=== PATIENT | female | born 1925 | race Caucasian/White ===

== ENCOUNTER 2016-06-10 16:24 | Inpatient (IN) | payer OTHER ==
[2016-06-10 16:46] VITALS: BMI 25.7
--- NOTE | 2016-06-10 17:11 | PDOC ---
History of Present Illness - General History Source: Group Home Records, Old Records Exam Limitations: Dementia - History of Present Illness Initial Comments: 06/10/16 17:57 The patient is an 89 year old female, with a significant past medical history of hypertension, hyperlipidemia, hypothyroidism, hyperparathyroidism, coronary artery disease s/p CABG s/p stent, COPD and dementia, who presents to the emergency department via EMS from [facility] for evaluation. group home records report that the patient had a fever this morning with a maximum temperature recorded to be 101.1 degrees. group home staff report that the patient had 4-5 episodes of vomiting since this morning. The patient was also noted to be complaining of diffuse abdominal discomfort and urine discomfort today. The patient was sent to the ED for further evaluation. The patients history is provided by skilled nursing records and old records due to the patient s baseline dementia. Allergies: Penicillins. Past Surgical History: CABG, Stent. Social History: Non smoker. Denies alcohol or drug use. PCP: Dr. Alejo <Karla Nunez - Last Filed: 06/10/16 23:45> - General History Source: Patient Exam Limitations: No Limitations <Neville Guthrie - Last Filed: 06/10/16 23:49> - General Chief Complaint: Nausea/Vomiting Stated Complaint: VOMITING Time Seen by Provider: 06/10/16 16:30 Past History <Karla Nunez - Last Filed: 06/10/16 23:45> - Past Medical History Anemia: Yes Cardiac Disorders: Yes COPD: Yes GI Disorders: Yes (Constipation, GERD) Disorders: Yes (Dysuria, UTIs) HTN: Yes Hypercholesterolemia: Yes Psychiatric Problems: Yes (Mood Disorder) Suicide Attempt (Hx): No Thyroid Disease: Yes (HYPO) - Surgical History Cardiac Surgery: Yes (BYPASS 1960) - Immunization History Immunization Up to Date: Yes - Psycho/Social/Smoking Cessation Hx Anxiety: No Suicidal Ideation: No Smoking Status: No Smoking History: Unknown if ever smoked Have you smoked in the past 12 months: No Number of Cigarettes Smoked Daily: 0 Cigars Per Day: 0 Information on smoking cessation initiated: No Hx Alcohol Use: No Drug/Substance Use Hx: No Substance Use Type: None Hx Substance Use Treatment: No <Neville Guthrie - Last Filed: 06/10/16 23:49> - Past Medical History Allergies/Adverse Reactions: Allergies Allergy/AdvReac Type Severity Reaction Status Date / Time Penicillins Allergy Verified 06/10/16 16:40 Home Medications: Ambulatory Orders Aa/Hydrolyzed Collagen, Whey [Lps Neutral Flavor Liquid] 30 ml PO DAILY Acetaminophen [Tylenol] 650 mg PO Q6H 06/10/16 Alendronate Na [Fosamax] 70 mg PO Q7D 06/10/16 Aspirin [ASA -] 81 mg PO ONCE 06/10/16 Atorvastatin Ca [Lipitor] 10 mg PO HS 06/10/16 Cholecalciferol (Vitamin D3) [Vitamin D3] 2,000 unit PO DAILY 06/10/16 Cyanocobalamin [Vitamin B12 -] 1,000 mcg PO DAILY 06/10/16 Furosemide [Lasix -] 40 mg PO DAILY 06/10/16 L.acidoph,Paracasei, B.lactis [Probiotic] 1 each PO BID 06/10/16 Levothyroxine [Synthroid -] 50 mcg PO AM 06/10/16 [place]-3/Dha/Epa/Fish Oil [Fish Oil 500 mg Softgel] 4 each PO BID 06/10/16 Potassium Citrate [Potassium Citrate ER] 20 meq PO DAILY 06/10/16 Sennosides [Senna] 2 tab PO HS 06/10/16 Review of Systems - Review of Systems Able to Perform ROS?: No Comments:: 06/10/16 17:14 Unable to perform ROS secondary to the patients baseline clinical condition. <Karla Nunez - Last Filed: 06/10/16 23:45> *Physical Exam - Vital Signs Last Vital Signs Temp Pulse Resp BP Pulse Ox 99.5 F 102 H 18 157/62 100 06/10/16 16:25 06/10/16 16:25 06/10/16 16:25 06/10/16 16:25 06/10/16 16:25 - Physical Exam Comments: 06/10/16 17:25 GENERAL: Awake, in no acute distress. HEAD: No signs of trauma. EYES: PERRLA, EOMI, sclera anicteric, conjunctiva clear. ENT: Auricles normal inspection, hearing grossly normal, nares patent, oropharynx clear without exudates. Moist mucosa. NECK: Normal ROM, supple, no lymphadenopathy, JVD, or masses. LUNGS: Tachypneic to the 20s. Breath sounds equal, clear to auscultation bilaterally. No wheezes, and no crackles. HEART: Regular rate and rhythm, normal S1 and S2, no murmurs, rubs or gallops. ABDOMEN: Soft, nontender, normoactive bowel sounds. No guarding, no rebound. No masses. EXTREMITIES: Normal range of motion, no edema. No clubbing or cyanosis. No cords , erythema, or tenderness. NEUROLOGICAL: Cranial nerves II through XII intact. Normal speech, gait deferred. SKIN: Warm, dry, normal turgor, no rashes or lesions noted. <Karla Nunez - Last Filed: 06/10/16 23:45> - Vital Signs Last Vital Signs Temp Pulse Resp BP Pulse Ox 99.5 F 102 H 18 157/62 100 06/10/16 16:25 06/10/16 16:25 06/10/16 16:25 06/10/16 16:25 06/10/16 16:25 <Neville Guthrie - Last Filed: 06/10/16 23:49> Heart Score/ECG Review #1 ECG reviewed & interpreted by me at: 16:40 06/10/16 17:08 NSR 101, LVH, TWI V2, no std/joselito, T wave flat V4-V6, QTC 459 msec <Neville Guthrie - Last Filed: 06/10/16 23:49> ED Treatment Course - LABORATORY CBC & Chemistry Diagram: 06/10/16 18:11 06/10/16 18:11 <Karla Nunez - Last Filed: 06/10/16 23:45> - LABORATORY CBC & Chemistry Diagram: 06/10/16 18:11 06/10/16 18:11 - RADIOLOGY Radiology Studies Ordered: Category Date Time Status ABDOMEN & PELVIS CT WITH CONTR [CT] Stat CT Scan 06/10/16 17:05 Ordered CHEST X-RAY PORTABLE* [RAD] Stat Radiology 06/10/16 17:04 Ordered <Neville Guthrie - Last Filed: 06/10/16 23:49> Medical Decision Making - Medical Decision Making 06/10/16 22:24 EXAM: CT ABDOMEN AND PELVIS WITHOUT CONTRAST Reviewed By: Dr. Kelly Mcintosh IMPRESSION: Partly seen density left lower lobe, correlate clinically for infectious consolidation versus partial atelectasis. Small left pleural effusion /pleural thickening. Median sternotomy. 3.2 cm infrarenal abdominal aortic aneurysm. 2 mm stone proximal left ureter causing minimal to moderate hydrophrosis. Punctate stones left kidney. Unremarkable pancreas. Cholelithiasis. No bowel obstruction, colitis, or free air. Normal appendix. Diverticulosis colon without acute diverticulitis. Trace fluid/edema left paracolic space. Small right inguinal region hernia containing fat. Exam limited by motion artifact. Call placed to Dr. Dixon at 23:20. Referred to answering service, awaiting callback. Dr. Ledesma returned call at 23:45, case discussed. <Karla Nunez - Last Filed: 06/10/16 23:45> - Medical Decision Making 06/10/16 17:08 A portion of this note was documented by scribe services under my direction. I have reviewed the details of the note, within reason, and agree with the documentation with the following case summary and management plan written by me. Patient treated in the ED. Nursing notes are reviewed and incorporated into the medical decision-making. Vital signs reviewed. Peripheral IV access obtained by the nurse, laboratory studies are drawn and sent, reviewed and interpreted by myself. Vital Signs Temp Pulse Resp BP Pulse Ox 99.5 F 102 H 18 157/62 100 06/10/16 16:25 06/10/16 16:25 06/10/16 16:25 06/10/16 16:25 06/10/16 16:25 89-year-old female with past medical history of hyperparathyroidism, hypercalcemia, hyperlipidemia, hypothyroidism, hypertension, coronary artery disease, COPD, dementia presents with nausea vomiting 1 since this morning. Patient's history taken from skilled nursing notes as the patient's dementia is limiting patient's history. The patient's temperature had risen with a MAXIMUM TEMPERATURE of 101.1 at 3 PM. She also complained a urine discomfort and abdominal pain. She is also complaining about respiratory symptoms as well. Adult sepsis protocol initiated. We'll obtain labs and urinalysis and chest x- ray. Patient's abdomen pelvis is tender we'll also perform a CT scan to further evaluate. I discussed the case with Dr. Alejo, and she requested hospitalist admission to the hospital. 06/10/16 23:18 CBC, BMP 06/10/16 18:11 06/10/16 18:11 CMP Sodium 139 mmol/L (136-145) 06/10/16 18:11 Potassium 4.0 mmol/L (3.5-5.1) 06/10/16 18:11 Chloride 101 mmol/L (98-107) 06/10/16 18:11 Carbon Dioxide 25 mmol/L (21-32) 06/10/16 18:11 Anion Gap 13 (8-16) 06/10/16 18:11 BUN 21 mg/dL (7-18) H D 06/10/16 18:11 Creatinine 1.7 mg/dL (0.55-1.02) H D 06/10/16 18:11 Creat Clearance w eGFR 28.36 (>60) 06/10/16 18:11 Random Glucose 124 mg/dL (74-106) H 06/10/16 18:11 Lactic Acid 4.373 mmol/L (0.4-2.0) H* 06/10/16 21:45 Calcium 10.6 mg/dL (8.5-10.1) H 06/10/16 18:11 Total Bilirubin 1.6 mg/dL (0.2-1.0) H D 06/10/16 18:11 AST 26 U/L (15-37) D 06/10/16 18:11 ALT 32 U/L (12-78) 06/10/16 18:11 Alkaline Phosphatase 114 U/L (45-117) 06/10/16 18:11 Creatine Kinase 61 IU/L (26-192) 06/10/16 18:11 Troponin I 0.13 ng/ml (0.00-0.05) H 06/10/16 18:11 Total Protein 6.8 g/dl (6.4-8.2) 06/10/16 18:11 Albumin 3.3 g/dl (3.4-5.0) L 06/10/16 18:11 Urine Test Results Urine Color Yellow 06/10/16 19:04 Urine Appearance Turbid 06/10/16 19:04 Urine pH 5.0 (5.0-8.0) 06/10/16 19:04 Ur Specific [place] 1.015 (1.001-1.035) 06/10/16 19:04 Urine Protein 2+ (NEGATIVE) H 06/10/16 19:04 Urine Glucose (UA) Negative (NEGATIVE) 06/10/16 19:04 Urine Ketones Negative (NEGATIVE) 06/10/16 19:04 Urine Blood 3+ (NEGATIVE) H 06/10/16 19:04 Urine Nitrite Negative (NEGATIVE) 06/10/16 19:04 Urine Bilirubin Negative (NEGATIVE) 06/10/16 19:04 Ur Leukocyte Esterase 3+ (NEGATIVE) H 06/10/16 19:04 Urine RBC 103 /hpf (0-3) 06/10/16 19:04 Urine WBC 1185 /hpf (3-5) 06/10/16 19:04 Urine Bacteria Many /hpf (NONE SEEN) 06/10/16 19:04 Urine Mucus Few 06/10/16 19:04 CT scan demonstrates: 2 mm stone proximal left ureter causing minimal to moderate hydronephrosis. Given elevated lactate and white count with a positive urine and hydronephrosis , we'll need to treat this as an infected obstructed kidney stone. Dr. Hopkins paged for potential ureteral stenting. Primary cardiology reviewed demonstrates drug resistance. Frankl mycin and aztreonam initiated. Case discussed with Dr. Lam who accepts the patient to telemetry admission. Case discussed in detail with admitting physician including history, physical exam and ancillary studies. Admitting physician has assumed care for the patient, will follow all pending diagnostics and will complete the evaluation and treatment. 06/10/16 23:[address] Ledesma. Likely will need percutaneous drainage. Will see patient in hospital. <Neville Guthrie - Last Filed: 06/10/16 23:49> *DC/Admit/Observation/Transfer - Attestations Scribe Attestion: 06/10/16 17:13 Documentation prepared by aKrla Nunez, acting as medical concierge for Neville Guthrie MD. <Karla Nunez - Last Filed: 06/10/16 23:45> - Discharge Dispostion Admit: Yes <Neville Guthrie - Last Filed: 06/10/16 23:49> Diagnosis at time of Disposition: Calculus of left kidney, ESBL (extended spectrum beta-lactamase) producing bacteria infection - Referrals Referrals: Raina Alejo MD [Primary Care Provider] -
[2016-06-10 18:27] LABS: MCH 31.7 pg (25.7-33.7); MCHC 34.1 g/dl (32.0-36.0); MEAN PLT VOLUME 9.1 fl (7.5-11.1); PLATELET COUNT 182 K/MM3 (134-434); RDW 14.3 % (11.6-15.6); WHITE BLOOD COUNT 22.4 K/mm3 (4.0-10.0)
[2016-06-10 18:42] LABS: INR 1.2 (0.82-1.09); PROTHROMBIN TIME (PATIENT) 13.2 SEC (9.98-11.88)
[2016-06-10 18:45] LABS: ACTIVATED PTT 34.2 SECONDS (26.9-34.4)
[2016-06-10] MEDS ORDERED: LEVOFLOXACIN 500 MG IVPB 100 ML IVPB ONE ×2 (18:50→19:12)
[2016-06-10 18:56] LABS: ALBUMIN 3.3 g/dl (3.4-5.0); BILIRUBIN,TOTAL 1.6 mg/dL (0.2-1.0); CALCIUM 10.6 mg/dL (8.5-10.1); COCKROFT - GAULT 21.6155; CREATININE 1.7 mg/dL (0.55-1.02); TOT PROT 6.8 g/dl (6.4-8.2)
[2016-06-10 18:58] LABS: TROPONIN I 0.13 ng/ml (0.00-0.05)
[2016-06-10] MEDS ORDERED: SODIUM CHLORIDE 500 ML IV STA (19:03)
[2016-06-10 19:15] LABS: URINE APPEARANCE TURBID; URINE BILIRUBIN NEGATIVE (NEGATIVE); URINE BLOOD 3+ (NEGATIVE); URINE COLOR YELLOW; URINE GLUCOSE (UA) NEGATIVE (NEGATIVE); URINE KETONE NEGATIVE (NEGATIVE); URINE LEUK ESTERASE 3+ (NEGATIVE); URINE NITRITE NEGATIVE (NEGATIVE); URINE PROTEIN 2+ (NEGATIVE); URINE UROBILINOGEN NEGATIVE E.U./dl (0.2-1.0)
[2016-06-10 19:16] LABS: PLATELET ESTIMATE ADEQUATE (NORMAL); POLYCHROMASIA FEW
[2016-06-10] MEDS ORDERED: AZTREONAM 1 GM in DEXTROSE 5%-WATER - 50 ML IVPB ONE (19:16)
[2016-06-10] MEDS ORDERED: VANCOMYCIN 1,000 MG in DEXTROSE 5%-WATER - 250 ML IVPB ONE (19:16)
[2016-06-10 19:17] LABS: URINE BACTERIA MANY /hpf (NONE SEEN); URINE MUCUS FEW; URINE RBC 103 /hpf (0-3); URINE WBC 1185 /hpf (3-5)
--- NOTE | 2016-06-10 22:44 | PN ---
<Lolis Lam - Last Filed: 06/10/16 22:43> Teaching Attending Note Name of Resident: Reji Valdez <Nicole Ruiz - Last Filed: 06/11/16 01:05> Teaching Attending Note ATTENDING PHYSICIAN STATEMENT I saw and evaluated the patient. I reviewed the resident's note and discussed the case with the resident. I agree with the resident's findings and plan as documented. SUBJECTIVE: 89 yo F presents from [facility] for further evaluation. [facility] endorses patient had a fever of 101.1 and 4-5 episodes of vomiting today. Patients Hx is limited secondary to severe dementia. PMHx: hypertension, hyperlipidemia, hypothyroidism, hyperparathyroidism, coronary artery disease s/p CABG s/p stent, COPD and dementia Allergies: Levofloxacin OBJECTIVE: Last Vital Signs Temp Pulse Resp BP Pulse Ox 99.5 F 102 H 17 147/64 96 06/10/16 16:25 06/10/16 16:25 06/10/16 20:18 06/10/16 20:18 06/10/16 20:18 GENERAL: Awake, alert, and fully oriented, in no acute distress HEENT: Atraumatic. PERRLA, EOMI. Moist mucosa. No JVD LUNGS: No distress, speaks full sentences, clear to auscultation bilaterally HEART: Regular rate and rhythm, normal S1 and S2, no murmurs, rubs or gallops, peripheral pulses normal and equal bilaterally. ABDOMEN: Soft, nontender, normoactive bowel sounds. No guarding, no rebound. No masses EXTREMITIES: Normal inspection, Normal range of motion, no edema. No clubbing or Cyanosis. NEUROLOGICAL: Cranial nerves II through XII grossly intact. Normal speech, normal gait, no focal sensorimotor deficits SKIN: Warm, Dry, normal turgor, no rashes or lesions noted. CBCD WBC 22.4 K/mm3 (4.0-10.0) H D 06/10/16 18:11 RBC 4.69 M/mm3 (3.60-5.2) 06/10/16 18:11 Hgb 14.9 GM/dL (10.7-15.3) 06/10/16 18:11 Hct 43.6 % (32.4-45.2) 06/10/16 18:11 MCV 93.0 fl (80-96) 06/10/16 18:11 MCHC 34.1 g/dl (32.0-36.0) 06/10/16 18:11 RDW 14.3 % (11.6-15.6) 06/10/16 18:11 Plt Count 182 K/MM3 (134-434) 06/10/16 18:11 MPV 9.1 fl (7.5-11.1) 06/10/16 18:11 CMP Sodium 139 mmol/L (136-145) 06/10/16 18:11 Potassium 4.0 mmol/L (3.5-5.1) 06/10/16 18:11 Chloride 101 mmol/L (98-107) 06/10/16 18:11 Carbon Dioxide 25 mmol/L (21-32) 06/10/16 18:11 Anion Gap 13 (8-16) 06/10/16 18:11 BUN 21 mg/dL (7-18) H D 06/10/16 18:11 Creatinine 1.7 mg/dL (0.55-1.02) H D 06/10/16 18:11 Creat Clearance w eGFR 28.36 (>60) 06/10/16 18:11 Calcium 10.6 mg/dL (8.5-10.1) H 06/10/16 18:11 Total Bilirubin 1.6 mg/dL (0.2-1.0) H D 06/10/16 18:11 AST 26 U/L (15-37) D 06/10/16 18:11 ALT 32 U/L (12-78) 06/10/16 18:11 Alkaline Phosphatase 114 U/L (45-117) 06/10/16 18:11 Total Protein 6.8 g/dl (6.4-8.2) 06/10/16 18:11 Albumin 3.3 g/dl (3.4-5.0) L 06/10/16 18:11 ASSESSMENT AND PLAN: 1.) Pyelonephritis with sepsis secondary to UTI -NPO as per urology consult -Gentle hydration -Ertapenem bid or as per renal dosing -Flomax for stone -Coagulation profile -Type and screen -Urology consult -ID consult Documentation is prepared by Nicole Ruiz acting as medical technologist chemistry for Lolis Lam M.D.
--- NOTE | 2016-06-10 22:50 | HP ---
CHIEF COMPLAINT: Fever PCP:Melo HISTORY OF PRESENT ILLNESS: Patient is a 89 year old female with PMH of HTN, HLD, Hypothyroid, Hyperparathyroid, COPD, CAD s/p CABG/stent, Dementia & ESBL-producing UTI who presents to ED from [facility] for fever x1day. As per shelter staff (patient is unable to provide any history at present due to dementia), patient had a fever of 101.1 this afternoon. She also has had multiple episodes of vomiting as well (4 reported episodes). Staff says patient is not a reliable historian and is not very communicative, but they did not some pain during urination and some pain with abdominal palpation earlier today. No record available of how long these symptoms have been present. ER course was notable for: (1)Leukocytosis WBC 22 with elevated creatinine 1.7 (Creatinine was 1.0 last February) (2)UA: 2+ Leukocyte esterase with >1100 WBC (3)Troponin 0.13 Recent Travel: none noted by PA staff PAST MEDICAL HISTORY: as above PAST SURGICAL HISTORY: CBAG, Stent Social History: Smoking:NONE REPORTED Alcohol:NONE REPORTED Drugs:NONE REPORTED Family History: PATIENT UNABLE TO ANSWER Allergies Penicillins Allergy (Verified 06/10/16 16:40) HOME MEDICATIONS: Home Medications Medication Instructions Recorded Aa/Hydrolyzed Collagen, Whey [Lps 30 ml PO DAILY 06/10/16 Neutral Flavor Liquid] Acetaminophen [Tylenol] 650 mg PO Q6H 06/10/16 Alendronate Na [Fosamax] 70 mg PO Q7D 06/10/16 Aspirin [ASA -] 81 mg PO ONCE 06/10/16 Atorvastatin Ca [Lipitor] 10 mg PO HS 06/10/16 Cholecalciferol (Vitamin D3) 2,000 unit PO DAILY 06/10/16 [Vitamin D3] Cyanocobalamin [Vitamin B12 -] 1,000 mcg PO DAILY 06/10/16 Furosemide [Lasix -] 40 mg PO DAILY 06/10/16 L.acidoph,Paracasei, B.lactis 1 each PO BID 06/10/16 [Probiotic] Levothyroxine [Synthroid -] 50 mcg PO AM 06/10/16 [place]-3/Dha/Epa/Fish Oil [Fish Oil 4 each PO BID 06/10/16 500 mg Softgel] Potassium Citrate [Potassium 20 meq PO DAILY 06/10/16 Citrate ER] Sennosides [Senna] 2 tab PO HS 06/10/16 REVIEW OF SYSTEMS UNABLE TO BE PERFORMED DUE TO PATIENT'S MENTAL STATUS PHYSICAL EXAMINATION Vital Signs - 24 hr 06/10/16 06/10/16 16:25 20:18 Temperature 99.5 F Pulse Rate 102 H Respiratory 18 17 Rate Blood Pressure 157/62 Blood Pressure 147/64 [Arm] O2 Sat by Pulse 100 96 Oximetry (%) GENERAL: Awake, alert, but non responsive to verbal stimuli. Unable to gauge orientation, but patient is able to nod head up & down when asked if she is feeling OK HEENT: Atraumatic, EOMI, PERRLA, Vomitus noted around mouth. No lymphadenopathy noted, moist membranes. No conjunctival pallor. LUNGS: [place] sounds mildly diminished bilateral lung bases. No wheezes, and no crackles. No accessory muscle use. HEART: Regular rate and rhythm, normal S1 and S2 without murmur, rub or gallop. ABDOMEN: Soft, nontender, not distended, normoactive bowel sounds, no guarding, no rebound, no masses. UPPER EXTREMITIES: 2+ pulses, warm, well-perfused. No cyanosis. No clubbing. No peripheral edema. LOWER EXTREMITIES: 2+ pulses, warm, well-perfused. No calf tenderness. No peripheral edema. NEUROLOGICAL: Cranial nerves II-XII intact. Unable to assess speech or gait. PSYCHIATRIC: Unresponsive. Able to follow me around room with her eyes. SKIN: Warm, dry, normal turgor, no rashes or lesions noted, normal capillary refill. Laboratory Results - last 24 hr 06/10/16 06/10/16 06/10/16 17:22 17:46 18:11 WBC 22.4 H D RBC 4.69 Hgb 14.9 Hct 43.6 MCV 93.0 MCHC 34.1 RDW 14.3 Plt Count 182 MPV 9.1 Neutrophils % 79.0 D Lymphocytes % 5.0 L D Monocytes % 4.0 Band Neutrophils 12.0 H D Platelet Estimate Adequate Platelet Comment No clumping noted Polychromasia Few INR PTT (Actin FS) Sodium Potassium Chloride Carbon Dioxide Anion Gap BUN Creatinine Creat Clearance w eGFR Random Glucose Lactic Acid 3.055 H* Calcium Total Bilirubin AST ALT Alkaline Phosphatase Creatine Kinase Troponin I Total Protein Albumin Urine Color Urine Appearance Urine pH Ur Specific [place] Urine Protein Urine Glucose (UA) Urine Ketones Urine Blood Urine Nitrite Urine Bilirubin Urine Urobilinogen Ur Leukocyte Esterase Urine RBC Urine WBC Urine Bacteria Urine Mucus Blood Type O POSITIVE Antibody Screen Negative 06/10/16 06/10/16 06/10/16 18:11 18:11 19:04 WBC RBC Hgb Hct MCV MCHC RDW Plt Count MPV Neutrophils % Lymphocytes % Monocytes % Band Neutrophils Platelet Estimate Platelet Comment Polychromasia INR 1.20 H PTT (Actin FS) 34.2 D Sodium 139 Potassium 4.0 Chloride 101 Carbon Dioxide 25 Anion Gap 13 BUN 21 H D Creatinine 1.7 H D Creat Clearance w eGFR 28.36 Random Glucose 124 H Lactic Acid Calcium 10.6 H Total Bilirubin 1.6 H D AST 26 D ALT 32 Alkaline Phosphatase 114 Creatine Kinase 61 Troponin I 0.13 H Total Protein 6.8 Albumin 3.3 L Urine Color Yellow Urine Appearance Turbid Urine pH 5.0 Ur Specific [place] 1.015 Urine Protein 2+ H Urine Glucose (UA) Negative Urine Ketones Negative Urine Blood 3+ H Urine Nitrite Negative Urine Bilirubin Negative Urine Urobilinogen Negative Ur Leukocyte Esterase 3+ H Urine RBC 103 Urine WBC 1185 Urine Bacteria Many Urine Mucus Few Blood Type Antibody Screen CT ABDOMEN AND PELVIS WITHOUT CONTRAST Reviewed By: Dr. Kelly Mcintosh IMPRESSION: Partly seen density left lower lobe, correlate clinically for infectious consolidation versus partial atelectasis. Small left pleural effusion /pleural thickening. Median sternotomy. 3.2 cm infrarenal abdominal aortic aneurysm. 2 mm stone proximal left ureter causing minimal to moderate hydrophrosis. Punctate stones left kidney. Unremarkable pancreas. Cholelithiasis. No bowel obstruction, colitis, or free air. Normal appendix. Diverticulosis colon without acute diverticulitis. Trace fluid/edema left paracolic space. Small right inguinal region hernia containing fat. Exam limited by motion artifact. ASSESSMENT/PLAN: 89 year old female with PMH of HTN, HLD, Hypothyroid, Hyperparathyroid, COPD, CAD s/p CABG/stent, Dementia & ESBL-producing UTI who presents to ED from [facility] for fever x1day. #Severe Sepsis, due to UTI -Aztreonam, Vancomycin given in ED due to PCN allergy -will start Ertapenem 1g daily IV given patient's previous urine cx (ESBL resistant to Fluoroquinolones) & PCN allergy (she received Ertapenem at last admission without issue) -gentle hydration IVF NS @75cc/hr -Urine culture sent -blood culture sent -lactic acid elevated 3.05 --> 4.30, will trend in 2 hours -ID Consulted #Acute Renal Failure, 2mm Left Ureteral stone -Minimal to Moderate Left-sided hydronephrosis w/ trace fluid/edema in left paracolic space noted on CT abdomen (no contrast) -Urology consulted, believes likely OR tomorrow for percutaneous drainage -patient made NPO -Flomax 0.4mg PO daily started -IVF hydration, as above -will trend in AM to assess if improved with hydration -avoid nephrotoxic meds #Elevated Troponin, 0.13 -unlikely due to ACS -will trend troponins -telemetry admission -serial ECG #HTN/HLD/CAD Hx -holding Lasix at present -continue other home meds: ASA 81mg PO daily, Lipitor 10mg PO HS #Hypothyroid -continue home meds: Synthroid 50mcg PO AM Prophylaxis/FEN -Heparin 5000 BID -No PPI indicated -IVF NS @75cc/hr -will monitor electrolytes -NPO due to likely OR tomorrow Visit type - Emergency Visit Emergency Visit: Yes ED Registration Date: 06/10/16 Care time: The patient presented to the Emergency Department on the above date and was hospitalized for further evaluation of their emergent condition. - New Patient This patient is new to me today: Yes Date on this admission: 06/11/16 - Critical Care Critical Care patient: No
[2016-06-10] MEDS ORDERED: ACETAMINOPHEN 325 MG TABLET (FP) PO PRN (23:03)
[2016-06-10] MEDS ORDERED: SODIUM CHLORIDE 1,000 ML IV SCH ×2 (23:15)
[2016-06-11] MEDS ORDERED: SODIUM CHLORIDE 500 ML IV STA (00:16)
[2016-06-11 01:47] LABS: INR 1.43 (0.82-1.09); PROTHROMBIN TIME (PATIENT) 15.8 SEC (9.98-11.88)
[2016-06-11 01:49] LABS: ACTIVATED PTT 36.9 SECONDS (26.9-34.4)
[2016-06-11] MEDS ORDERED: ACETAMINOPHEN 1000 MG/100 ML VIAL (NON FORMULARY) IVPB ONE (02:55)
[2016-06-11] MEDS ORDERED: ERTAPENEM SODIUM 1 GM/50 ML PRE-DOCKED IVPB SCH ×2 (03:30→10:00)
[2016-06-11] MEDS ORDERED: ERTAPENEM SODIUM 1 GM/50 ML PRE-DOCKED IVPB ONE (03:45)
[2016-06-11] MEDS: LEVOTHYROXINE NA 50 MCG TABLET (FP) PO SCH (06:39)
[2016-06-11 07:36] LABS: MCH 32.1 pg (25.7-33.7); MCHC 34.4 g/dl (32.0-36.0); MEAN CELL VOLUME 93.3 fl (80-96); MEAN PLT VOLUME 9.2 fl (7.5-11.1); PLATELET COUNT 130 K/MM3 (134-434); RDW 14.3 % (11.6-15.6); WHITE BLOOD COUNT 26.9 K/mm3 (4.0-10.0)
[2016-06-11 08:00] LABS: ALBUMIN 2.4 g/dl (3.4-5.0); BILIRUBIN,TOTAL 0.8 mg/dL (0.2-1.0); CALCIUM 9.1 mg/dL (8.5-10.1); COCKROFT - GAULT 22.967; CREATININE 1.6 mg/dL (0.55-1.02)
[2016-06-11 08:01] LABS: TOT PROT 5.3 g/dl (6.4-8.2)
[2016-06-11] MEDS: TAMSULOSIN HCL 0.4 MG CAP.ER.24H (FP) PO SCH (08:30)
[2016-06-11] MEDS ORDERED: TAMSULOSIN HCL 0.4 MG CAP.ER.24H (FP) PO SCH (08:30)
[2016-06-11] MEDS ORDERED: SODIUM CHLORIDE 1,000 ML IV SCH ×2 (09:00→21:00)
--- NOTE | 2016-06-11 09:26 | PN ---
Progress Note (short form) - Note Progress Note: ID Full noted dictated Admitted with urosepsis Now with GNB in the blood and history of ESBL E Coli Advise Pending final cultures Imipenem pending final c/s along with continues contact isolation Gamaliel BOWEN Problem List - Problems (1) Gram negative sepsis Code(s): A41.50 - GRAM-NEGATIVE SEPSIS, UNSPECIFIED (2) UTI (urinary tract infection) Code(s): N39.0 - URINARY TRACT INFECTION, SITE NOT SPECIFIED (3) Multiple drug resistant organism (MDRO) culture positive Code(s): Z16.24 - RESISTANCE TO MULTIPLE ANTIBIOTICS
[2016-06-11] MEDS ORDERED: ASPIRIN COATED 81 MG TABLET.EC PO SCH (10:00)
[2016-06-11] MEDS ORDERED: HEPARIN NA (PORCINE) 5,000 UNITS/ML 1ML VIAL SQ SCH (10:00)
[2016-06-11] MEDS: CYANOCOBALAMIN 1,000 MCG TABLET (FP) PO SCH (10:05)
[2016-06-11] MEDS ORDERED: ONDANSETRON 4 MG/2 ML VIAL IVPB PRN (10:10)
--- NOTE | 2016-06-11 10:41 | CON.GU ---
Consult - History of Present Illness History of Present Illness: 89 yo female, [place] resident with multiple medical problems admitted with fever, vomiting. CT shows 3 mm obstructing left proximal ureteral stone. WBC and Lactic acid elevated. h/o utis in the past - Past Medical History [employer]: Yes: Dementia Cardio/Vascular: Yes: Aortic Insufficiency, CAD, HTN, Hyperlipdemia Gastrointestinal: Yes: Diverticulitis Renal/: Yes: UTI ...: No Musculoskeletal: Yes: Other (frequent falls) Endocrine: Yes: Hypothyroidism Additional Medical History: frequent falls - Past Surgical History Past Surgical History: Yes: CABG, Stent (unknown details of coronary stent) - Alcohol/Substance Use Hx Alcohol Use: No - Smoking History Smoking history: Unknown if ever smoked Have you smoked in the past 12 months: No Aproximately how many cigarettes per day: 0 - Social History Usual Living Arrangement: [facility] ADL: Support Services History of Recent Travel: No Home Medications - Allergies Allergies/Adverse Reactions: Allergies Allergy/AdvReac Type Severity Reaction Status Date / Time Penicillins Allergy Verified 06/10/16 16:40 - Home Medications Home Medications: Ambulatory Orders Aa/Hydrolyzed Collagen, Whey [Lps Neutral Flavor Liquid] 30 ml PO DAILY Acetaminophen [Tylenol] 650 mg PO Q6H 06/10/16 Alendronate Na [Fosamax] 70 mg PO Q7D 06/10/16 Aspirin [ASA -] 81 mg PO ONCE 06/10/16 Atorvastatin Ca [Lipitor] 10 mg PO HS 06/10/16 Cholecalciferol (Vitamin D3) [Vitamin D3] 2,000 unit PO DAILY 06/10/16 Cyanocobalamin [Vitamin B12 -] 1,000 mcg PO DAILY 06/10/16 Furosemide [Lasix -] 40 mg PO DAILY 06/10/16 L.acidoph,Paracasei, B.lactis [Probiotic] 1 each PO BID 06/10/16 Levothyroxine [Synthroid -] 50 mcg PO AM 06/10/16 [place]-3/Dha/Epa/Fish Oil [Fish Oil 500 mg Softgel] 4 each PO BID 06/10/16 Potassium Citrate [Potassium Citrate ER] 20 meq PO DAILY 06/10/16 Sennosides [Senna] 2 tab PO HS 06/10/16 Physical Exam- Vital Signs: Vital Signs Temperature 99.0 F 06/11/16 06:00 Pulse Rate 89 06/11/16 06:00 Respiratory Rate 20 06/11/16 06:00 Blood Pressure 116/55 06/11/16 06:00 O2 Sat by Pulse Oximetry (%) 95 06/11/16 02:45 Labs: CBC, BMP 06/11/16 05:35 06/11/16 05:35 Imaging - Results Cat Scan: Report Reviewed Problem List - Problems (1) Ureteral stone with hydronephrosis Assessment/Plan: in light of fever, uti, elevated WBC and lactic acid, pt requires decompression of collecting system. will have IR perform left nephrostomy tube placement. will need stobne treated once infection has resolved Code(s): N13.2 - HYDRONEPHROSIS WITH RENAL AND URETERAL CALCULOUS OBSTRUCTION
[2016-06-11] MEDS ORDERED: INFLUENZA VACCINE 60 MCG/0.5 ML (P/F DISP.SYRIN 16-17) IM ONE (11:00)
[2016-06-11 11:48] LABS: METAMYELOCYTE 2 % (0-2)
[2016-06-11 11:49] LABS: PLATELET ESTIMATE DECREASED (NORMAL)
[2016-06-11] MEDS: IMIPENEM/CILASTATIN SODIUM 250 MG in SODIUM CHLORIDE 100 ML IVPB SCH ×2 (12:05→21:07)
[2016-06-11] MEDS ORDERED: MIDAZOLAM HCL 2 MG/2 ML SINGLE DOSE VIAL IVPUSH ONE (12:58)
--- NOTE | 2016-06-11 13:34 | PN ---
Teaching Attending Note Name of Resident: Lisa Hammond ATTENDING PHYSICIAN STATEMENT I saw and evaluated the patient. I reviewed the resident's note and discussed the case with the resident. I agree with the resident's findings and plan as documented. SUBJECTIVE:currently asymptomatic. denies CP, SOB,fever, chills, N/V/C/D OBJECTIVE: Last Vital Signs Temp Pulse Resp BP Pulse Ox 101.2 F H 100 H 20 143/75 100 06/11/16 15:33 06/11/16 15:50 06/11/16 15:50 06/11/16 15:50 06/11/16 13:34 General NAD, lethargic CV S1 S2 + Lungs decreased breath sounds B/L Abdomen soft NT/ND + LJP draining with minimal ugo blood, ASSESSMENT AND PLAN: 89yo F with PMH HTN. dyslipidemia, hypothyroid, CAD s/p CABG, dementia and COPD presented to the ER and was admitted for further evaluation of their emergent condition 1. Severe sepsis due to GNR bacteremia and UTI-Tm 103.7. lactic acid increasing , s/p L nephrostomy tube. repeat lactic acid sent. on high dose IVF, hx of ESBL E coli. received Ertapenem in the ER and now switched to Imipenem. await final cx report 2. Troponin leak- likely due to sepsis. troponin peak at 0.13 and trending down. no reports of CP. echo done this morning. will follow 3. DMITRY- likely due to sepsis vs obstruction due to nephrolithasis. large volume output when straight cath in the ER. urology consulted and recommend decompression with nephrostomy tubes. will monitor UOP closely. hold nephrotoxic medications including lasix. on flomax 4. Hypothyroid- on LT4 5. HTN- hold agents at this time in setting of sepsis 6. DVT ppx- will re-start heparin
--- NOTE | 2016-06-11 13:41 | PN ---
Physical Exam: SUBJECTIVE: Patient seen and examined, lethargic , although I had to awake her from sleep. Severe dementia at baseline. unable to perform ROS. OBJECTIVE: Vital Signs Period Temp Pulse Resp BP Sys/Donovan Pulse Ox Last 24 Hr 98.2 F-103.7 F 89-120 16-26 116-195/55-104 95-100 GENERAL: The patient is lethargic with cognitive impairment HEAD: Normal with no signs of trauma. EYES: PERRL, extraocular movements intact, sclera anicteric, conjunctiva clear. No ptosis. ENT: Ears normal, nares patent, oropharynx clear without exudates, moist mucous membranes. NECK: Trachea midline, full range of motion, supple. LUNGS: Breath sounds equal, clear to auscultation bilaterally, no wheezes, no crackles, no accessory muscle use. HEART: Regular rate and rhythm, S1, S2 with systolic murmur, rub or gallop. ABDOMEN: Soft nondistended, normoactive bowel sounds, no guarding, no rebound, no hepatosplenomegaly, no masses. mild flinch to palpation of abdomen EXTREMITIES: 2+ pulses, warm, well-perfused, no edema. NEUROLOGICAL: dementia SKIN: Warm, dry, normal turgor, no rashes or lesions noted Laboratory Results - last 24 hr 06/11/16 06/11/16 06/11/16 01:24 01:24 01:24 WBC RBC Hgb Hct MCV MCHC RDW Plt Count MPV Neutrophils % Lymphocytes % Monocytes % Band Neutrophils Metamyelocytes Differential Comment Platelet Estimate INR 1.43 H PTT (Actin FS) 36.9 H Sodium Potassium Chloride Carbon Dioxide Anion Gap BUN Creatinine Creat Clearance w eGFR Random Glucose Lactic Acid 3.381 H* Calcium Total Bilirubin AST ALT Alkaline Phosphatase Troponin I 0.09 H Total Protein Albumin 06/11/16 06/11/16 06/11/16 05:35 05:35 05:35 WBC 26.9 H RBC 3.90 Hgb 12.5 D Hct 36.4 D MCV 93.3 MCHC 34.4 RDW 14.3 Plt Count 130 L D MPV 9.2 Neutrophils % 73.0 Lymphocytes % 7.0 L D Monocytes % 7.0 Band Neutrophils 11.0 H Metamyelocytes 2 Differential Comment Manual diff done Platelet Estimate Decreased INR PTT (Actin FS) Sodium 141 Potassium 3.6 Chloride 108 H Carbon Dioxide 23 Anion Gap 10 BUN 24 H Creatinine 1.6 H Creat Clearance w eGFR 30.42 Random Glucose 103 Lactic Acid 3.194 H* Calcium 9.1 Total Bilirubin 0.8 D AST 24 ALT 27 Alkaline Phosphatase 83 D Troponin I Total Protein 5.3 L D Albumin 2.4 L D 06/11/16 11:15 WBC RBC Hgb Hct MCV MCHC RDW Plt Count MPV Neutrophils % Lymphocytes % Monocytes % Band Neutrophils Metamyelocytes Differential Comment Platelet Estimate INR PTT (Actin FS) Sodium Potassium Chloride Carbon Dioxide Anion Gap BUN Creatinine Creat Clearance w eGFR Random Glucose Lactic Acid 5.167 H* Calcium Total Bilirubin AST ALT Alkaline Phosphatase Troponin I Total Protein Albumin Active Medications Generic Name Dose Route Start Last Admin Trade Name Freq PRN Reason Stop Dose Admin Acetaminophen 650 mg 06/10/16 23:03 Tylenol - PO Q6H PRN FEVER OR PAIN Atorvastatin Calcium 10 mg 06/11/16 22:00 Lipitor - PO HS [facility] Cyanocobalamin 1,000 mcg 06/11/16 10:00 06/11/16 10:05 Vitamin B12 - PO Not Given DAILY [facility] Sodium Chloride 1,000 mls @ 100 mls/hr 06/11/16 09:00 06/11/16 09:18 Normal Saline - IV 06/11/16 18:59 100 mls/hr ASDIR [facility] Administration Imipenem/Cilastatin Sodium 250 100 mls @ 200 mls/hr 06/11/16 10:00 06/11/16 12: 05 mg/ Sodium Chloride IVPB 200 mls/hr BID [facility] Administration Protocol Levothyroxine Sodium 50 mcg 06/11/16 07:00 06/11/16 06:39 Synthroid - PO Not Given AM [facility] Ondansetron HCl 4 mg 06/11/16 10:10 Zofran Injection IVPB Q4H PRN NAUSEA AND/OR VOMITING Senna 2 tab 06/11/16 22:00 Senna - PO HS [facility] Tamsulosin HCl 0.4 mg 06/10/16 23:57 06/11/16 08:30 Flomax - PO Not Given DAILY@[address] [facility] [address] ABDOMEN AND PELVIS WITHOUT CONTRAST Reviewed By: Dr. Kelly Mcintosh IMPRESSION: Partly seen density left lower lobe, correlate clinically for infectious consolidation versus partial atelectasis. Small left pleural effusion /pleural thickening. Median sternotomy. 3.2 cm infrarenal abdominal aortic aneurysm. 2 mm stone proximal left ureter causing minimal to moderate hydrophrosis. Punctate stones left kidney. Unremarkable pancreas. Cholelithiasis. No bowel obstruction, colitis, or free air. Normal appendix. Diverticulosis colon without acute diverticulitis. Trace fluid/edema left paracolic space. Small right inguinal region hernia containing fat. Exam limited by motion artifact. ASSESSMENT/PLAN: 89 year old female with PMH of HTN, HLD, Hypothyroid, Hyperparathyroid, COPD, CAD s/p CABG/stent, Dementia & ESBL-producing UTI who presents to ED from [facility] for fever x1day. #Severe Sepsis, secondary to acute pyelonephritis -continued up trend on white cnt, 26 after Ertapenam; Lactic acid trending up -ID consutled; antbiotic switched to meropenam -IV hydration NS increased to 125cc/hr due to continued rise in lactic acid; monitor foe signs of overload; no hx of hrt failure -Urine/blood cultures pending -previous urine cx (ESBL resistant to Fluoroquinolones) & PCN allergy -appreciate ID #Acute Renal Failure, 2-3mm Left Ureteral stone with mild to mod hydronephrosis -left sided nephrostomy today -Flomax 0.4mg PO daily -IVF hydration, as above -avoid nephrotoxic meds -appreciate urology #Elevated Troponin, 0.13- 0.09 -most likely de to sepsis; unlikely due to ACS -telemetry admission #HTN/HLD/CAD Hx -holding Lasix at present -continue other home meds: ASA 81mg PO daily, Lipitor 10mg PO HS #Hypothyroid -continue home meds: Synthroid 50mcg PO AM FEN: FLuids: NS 125mls/hr; decrease as per lactic acid Electrolytes: wnl Diet: npo for sx VTE prophylaxis: scda; heparin after procedure Disposition: sepsis protocol; IV antibiotics; Visit type - Emergency Visit Emergency Visit: Yes ED Registration Date: 06/10/16 Care time: The patient presented to the Emergency Department on the above date and was hospitalized for further evaluation of their emergent condition. - New Patient This patient is new to me today: Yes Date on this admission: 06/11/16 - Critical Care Critical Care patient: No
--- NOTE | 2016-06-11 17:30 | EKG ---
Test Reason : Blood Pressure : / mmHG Vent. Rate : 101 BPM Atrial Rate : 101 BPM P-R Int : 194 ms QRS Dur : 090 ms QT Int : 354 ms P-R-T Axes : 040 -15 122 degrees QTc Int : 459 ms SINUS TACHYCARDIA LEFT VENTRICULAR HYPERTROPHY WITH REPOLARIZATION ABNORMALITY CANNOT RULE OUT SEPTAL INFARCT , AGE UNDETERMINED ABNORMAL ECG WHEN COMPARED WITH ECG OF 21-JAN-2016 01:58, VENT. RATE HAS INCREASED BY 37 BPM MINIMAL CRITERIA FOR SEPTAL INFARCT ARE NOW PRESENT ST NOW DEPRESSED IN ANTEROLATERAL LEADS Confirmed by DACIA MAYS MD ([id number]) on 06/11/2016 5:29:47 PM Referred By: Confirmed By:DACIA MAYS MD
[2016-06-11] MEDS ORDERED: ERTAPENEM SODIUM 1 GM in SODIUM CHLORIDE 50 ML IVPB SCH (20:00)
--- NOTE | 2016-06-11 20:14 | CONS ---
DATE OF CONSULTATION: DATE OF DICTATION: 06/11/2016 The patient is an 89-year-old female who I am asked to see after she was admitted from the care home with a 1-day history of temperature to 101.1. This was associated with at least 4 episodes of vomiting and possibly some pain during urination, although the patient is a poor historian and has dementia. Here, she was noted to have both fever and a leukocytosis with significant pyuria on the admitting UA. She has a history of an ESBL E coli in 2014, which was sensitive to Carbapenems. She was given multiple antibiotics in the emergency room including vancomycin, levofloxacin, and aztreonam. She is also on ertapenem. She apparently has allergy to PENICILLIN, although the nature of the allergy is unknown. Past medical history includes hypertension, hyperlipidemia, hypothyroidism, hyperparathyroidism, COPD, coronary artery disease, coronary artery bypass graft surgery, and dementia. Home medications include Fosamax, aspirin, atorvastatin, Lasix, Synthroid. Allergies to PENICILLIN. SOCIAL HISTORY: retirement resident. Unknown if smoked previously or used drugs or alcohol. Family history also unobtainable. REVIEW OF SYSTEMS: Respiratory: No cough, shortness of breath, hemoptysis. Cardiac: No chest pain, palpitations, syncope. Gastrointestinal: No abdominal pain. Positive vomiting. No diarrhea. No blood per rectum or melena. Genitourinary: Positive dysuria. No gross hematuria noted. PHYSICAL EXAMINATION: General: She was an alert, pleasant, elderly lady, who appeared in no acute distress. Vital Signs: Her temperature was 103.7, pulse 112, blood pressure 168/78, respirations 26, O2 saturation 95% on 3 L nasal cannula. Neck: Supple without adenopathy. Lungs: With bilateral breath sounds diminished. Heart: S1, S2. Regular rhythm without audible, murmur, rub or gallop. Abdomen: Positive bowel sounds. Soft, nontender. No distention, guarding, rebound, masses. Extremities: No clubbing, cyanosis or edema. The white count is 26.9 with a hemoglobin of 12.5, platelets of 130,000, INR 1.43. BUN 21, creatinine 1.7, lactic acid 4.3, bilirubin 1.6. Liver enzymes within normal limits. Urinalysis with 103 red cells, 3+ leukocyte esterase, 1200 white cells, with many bacteria. Chest x-ray reviewed shows elevated left hemidiaphragm. Abdominal CT scan shows 2-mm non-obstructing left renal calculi. ASSESSMENT: An 89-year-old female with a history of urinary tract infection with extended-spectrum beta lactamase Escherichia coli in 2014, presents now with sepsis syndrome, acute kidney injury, and already positive blood cultures for gram-negative rods. The possibility of recurrent ESBL infection considered. Empiric treatment with imipenem 500 mg every 8 hours pending final cultures. DOMINICK FRANCOIS M.D. [id number]
[2016-06-11] MEDS ORDERED: PT OWN MED DRAWER 7, Y5N ONE (21:05)
[2016-06-11] MEDS: SENNOSIDES 8.6MG TABLET (FP) PO SCH (21:07)
[2016-06-11] MEDS: ATORVASTATIN CA 10 MG TABLET (FP) PO SCH (21:07)
[2016-06-11] MEDS: ACETAMINOPHEN 650 MG SUPP.RECT PR PRN (22:33)
[2016-06-12] MEDS: LEVOTHYROXINE NA 50 MCG TABLET (FP) PO SCH (06:10)
[2016-06-12] MEDS: ACETAMINOPHEN 650 MG SUPP.RECT PR PRN ×2 (06:10→12:57)
[2016-06-12] MEDS ORDERED: ALBUTEROL SO4 2.5/IPRATROPIUM 0.5 INH SOL 3 ML VIAL.NEB. NEB ONE (06:28)
[2016-06-12] MEDS ORDERED: SODIUM CHLORIDE 1,000 ML IV SCH (06:30)
--- NOTE | 2016-06-12 06:50 | PN ---
Addendum entered and electronically signed by Desirae Parra RES 06/12/16 14:35 : Repeat lactic acid trended up to 2.364. Continue IV fluids, IV antibiotics, and suppository Tylenol. Original Note: Physical Exam: SUBJECTIVE: Patient seen and examined by me at bedside. Patient is short of breath with wheezing and DuoNeb was ordered. Patient is awake but non verbal at the moment. Patient has dementia at baseline. No overnight events noted. OBJECTIVE: Vital Signs Period Temp Pulse Resp BP Sys/Donovan Pulse Ox Last 24 Hr 98.9 F-101.4 F 97-120 16-20 132-191/62-104 93-100 GENERAL: The patient is awake and lethargic. LUNGS:Decreased breath sounds throughout bases bilaterally with expiratory wheezing anteriorly HEART: Tachycardic, S1, S2 without murmur, rub or gallop. ABDOMEN: Soft, nontender, nondistended, no guarding, no rebound. Left Nephrostomy tube with serosanguinous drainage 50ml EXTREMITIES: No peripheral edema NEUROLOGICAL: Cognitive impairment at baseline SKIN: Warm, dry, normal turgor, no rashes or lesions noted Laboratory Results - last 24 hr 06/11/16 06/11/16 06/11/16 05:35 05:35 05:35 WBC 26.9 H RBC 3.90 Hgb 12.5 D Hct 36.4 D MCV 93.3 MCHC 34.4 RDW 14.3 Plt Count 130 L D MPV 9.2 Neutrophils % 73.0 Lymphocytes % 7.0 L D Monocytes % 7.0 Band Neutrophils 11.0 H Metamyelocytes 2 Differential Comment Manual diff done Platelet Estimate Decreased Sodium 141 Potassium 3.6 Chloride 108 H Carbon Dioxide 23 Anion Gap 10 BUN 24 H Creatinine 1.6 H Creat Clearance w eGFR 30.42 Random Glucose 103 Lactic Acid 3.194 H* Calcium 9.1 Total Bilirubin 0.8 D AST 24 ALT 27 Alkaline Phosphatase 83 D Total Protein 5.3 L D Albumin 2.4 L D 06/11/16 06/11/16 11:15 17:00 WBC RBC Hgb Hct MCV MCHC RDW Plt Count MPV Neutrophils % Lymphocytes % Monocytes % Band Neutrophils Metamyelocytes Differential Comment Platelet Estimate Sodium Potassium Chloride Carbon Dioxide Anion Gap BUN Creatinine Creat Clearance w eGFR Random Glucose Lactic Acid 5.167 H* 2.587 H* Calcium Total Bilirubin AST ALT Alkaline Phosphatase Total Protein Albumin Active Medications Generic Name Dose Route Start Last Admin Trade Name Freq PRN Reason Stop Dose Admin Acetaminophen 650 mg 06/10/16 23:03 Tylenol - PO Q6H PRN FEVER OR PAIN Acetaminophen 650 mg 06/11/16 16:26 06/12/16 06:10 Tylenol Suppository - OK 650 mg Q4H PRN Administration FEVER OR PAIN Albuterol/Ipratropium 1 amp 06/12/16 06:28 Duoneb - NEB 06/12/16 06:29 ONCE ONE Atorvastatin Calcium 10 mg 06/11/16 22:00 06/11/16 21:07 Lipitor - PO 10 mg HS [facility] Administration Cyanocobalamin 1,000 mcg 06/11/16 10:00 06/11/16 10:05 Vitamin B12 - PO Not Given DAILY [facility] Imipenem/Cilastatin Sodium 250 100 mls @ 200 mls/hr 06/11/16 10:00 06/11/16 21: 07 mg/ Sodium Chloride IVPB 200 mls/hr BID [facility] Administration Protocol Sodium Chloride 1,000 mls @ 100 mls/hr 06/12/16 06:30 Normal Saline - IV 06/12/16 16:29 ASDIR [facility] Levothyroxine Sodium 50 mcg 06/11/16 07:00 06/12/16 06:10 Synthroid - PO 50 mcg AM [facility] Administration Ondansetron HCl 4 mg 06/11/16 10:10 Zofran Injection IVPB Q4H PRN NAUSEA AND/OR VOMITING Senna 2 tab 06/11/16 22:00 06/11/16 21:07 Senna - PO 2 tab HS [facility] Administration Tamsulosin HCl 0.4 mg 06/10/16 23:57 06/11/16 08:30 Flomax - PO Not Given DAILY@0830 [facility] ASSESSMENT/PLAN: Patient is an 89 year old female with a PMHx of PMH of HTN, HLD, Hypothyroid, Hyperparathyroid, COPD, CAD s/p CABG/stent, Dementia who presented with sepsis. Patient found to have hydronephrosis, UTI, and DMITRY. Patient admitted for further monitoring and management. Sepsis secondary to UTI -WBC trending down to 18.8 today -Patient remains febrile and tachycardic. Continue with Suppository Tylenol 650mg Q4H -Continue Primaxin 500mg BID -Continue IN NS @100 mls/hr -Continue trending lactic acid. Last one 2.172 -Urine culture positive for gram negative bacilli. Repeat urine cultures pending. Acute Renal Failure secondary to Nephrolithiasis with Hydronephrosis -S/P left sided nephrostomy day #2 with minimal drainage. Will call IR to irrigate -Continue Flomax 0.4mg daily -Continue IV NS @100mls/hr -Avoid nephrotoxic medications -Appreciate urology consult Elevated Troponin -Likely from demand ischemia and sepsis -Trending doqn -Continue monitoring on telemetry HTN/HLD/CAD -Hold Lasix -Continue Lipitor 10mg daily -Continue ASA 81mg daily -Low sodium diet Hypothyroidism -Continue home medication Synthroid 50mcg F/E/N -Continue NS @100mls/hr -Electrolytes wnl -Chopped foods and liquids Prophylaxis -Heparin and SCD's Disposition -Patient remains septic. Continue IV antibiotics Visit type - Emergency Visit Emergency Visit: Yes ED Registration Date: 06/10/16 Care time: The patient presented to the Emergency Department on the above date and was hospitalized for further evaluation of their emergent condition. - New Patient This patient is new to me today: Yes Date on this admission: 06/12/16 - Critical Care Critical Care patient: No
[2016-06-12 07:25] LABS: BASOPHIL 0.5 % (0-2.0); EOSINOPHIL 0.2 % (0-4.5); MCH 31.9 pg (25.7-33.7); MCHC 33.6 g/dl (32.0-36.0); MEAN CELL VOLUME 94.8 fl (80-96); MEAN PLT VOLUME 9.9 fl (7.5-11.1); NEUTROPHILS 88.5 % (42.8-82.8); RDW 14.8 % (11.6-15.6); WHITE BLOOD COUNT 18.8 K/mm3 (4.0-10.0)
[2016-06-12 07:45] LABS: CALCIUM 9.5 mg/dL (8.5-10.1); COCKROFT - GAULT 26.248; CREATININE 1.4 mg/dL (0.55-1.02)
[2016-06-12 09:26] LABS: PLATELET ESTIMATE DECREASED (NORMAL)
[2016-06-12] MEDS: TAMSULOSIN HCL 0.4 MG CAP.ER.24H (FP) PO SCH (10:03)
[2016-06-12] MEDS: CYANOCOBALAMIN 1,000 MCG TABLET (FP) PO SCH (10:04)
[2016-06-12] MEDS ORDERED: IMIPENEM/CILASTATIN SODIUM 250 MG in SODIUM CHLORIDE 100 ML IVPB SCH (11:22)
[2016-06-12] MEDS: IMIPENEM/CILASTATIN SODIUM 250 MG in SODIUM CHLORIDE 100 ML IVPB SCH (11:38)
--- NOTE | 2016-06-12 12:42 | PN ---
Teaching Attending Note Name of Resident: Lisa Hammond ATTENDING PHYSICIAN STATEMENT I saw and evaluated the patient. I reviewed the resident's note and discussed the case with the resident. I agree with the resident's findings and plan as documented. SUBJECTIVE: OBJECTIVE: ASSESSMENT AND PLAN: gram negative bacteremia secondary to UTI obstructing stone s/p PCN yesterday fevers trending down, more awake renal function improving continue imipenem, adjust dose for improving renal function f/u blood cultures in am
--- NOTE | 2016-06-12 13:00 | PN ---
Teaching Attending Note Name of Resident: Desirae Parra ATTENDING PHYSICIAN STATEMENT I saw and evaluated the patient. I reviewed the resident's note and discussed the case with the resident. I agree with the resident's findings and plan as documented. SUBJECTIVE:currently asymptomatic. denies CP, SOB, fever, chills, N/V/C/D OBJECTIVE: Last Vital Signs Temp Pulse Resp BP Pulse Ox 100.5 F H 107 H 30 H 173/80 97 06/12/16 10:31 06/12/16 09:00 06/12/16 06:45 06/12/16 09:00 06/12/16 09:00 General NAD, CV S1 S2 + Lungs CTA B/L no wheezing/rales/rhonchi anteriorly. poor inspiratory effort Abdomen soft NT/ND + LJP draining with minimal ugo blood, ASSESSMENT AND PLAN: 89yo F with PMH HTN. dyslipidemia, hypothyroid, CAD s/p CABG, dementia and COPD presented to the ER and was admitted for further evaluation of their emergent condition 1. Severe sepsis due to GNR bacteremia and UTI-Tm 101.9. lactic acid elevated but improved. repeat lactic acid. maintain IVF until lactic acidosis and tachycardia resolved. clinically improved. on Imipenem day 2. await final cx report 2. Troponin leak- likely due to sepsis. troponin peak at 0.13 and trending down. no reports of CP. echo negative for WMA. d/c cardiac monitoring (once tachycardia resolves) 3. DMITRY- likely due to sepsis vs obstruction due to nephrolithasis. s/p L nephrostomy tube. continues to have scant discharge. RN to call IR to ensure accurate placement of tube. has been receiving large amounts of IVF with low output. hold nephrotoxic medications including lasix. on flomax 4. Hypothyroid- on LT4 5. HTN- elevated this AM. only on lasix at home. will hold for now and monitor. if remains elevated will start alternative agent 6. DVT ppx- will re-start heparin
--- NOTE | 2016-06-12 13:22 | PN ---
Physical Exam: SUBJECTIVE: Patient seen and examined more awake and alert today, nonverbal at baseline, but does follow simple commands. Febrile, hypertensive, tachycardic overnight. S/P left nephrostomy tube yesterday. OBJECTIVE: Vital Signs Period Temp Pulse Resp BP Sys/Donovan Pulse Ox Last 24 Hr 97.8 F-101.9 F 97-125 16-30 132-216/75-94 93-100 GENERAL: The patient is lethargic, non verbal, but more arousable today when compared to yesterday HEAD: Normal with no signs of trauma. EYES: sclera anicteric, conjunctiva clear with some crusting yellow . No ptosis. LUNGS: anterior chest ausculatation breath sounds decreased accessory muscle use. HEART: Regular rate and rhythm, S1, S2, systolic murmur, rub or gallop. ABDOMEN: Soft, nontender, nondistended, normoactive bowel sounds, no guarding, no rebound, no hepatosplenomegaly, no masses. EXTREMITIES: 2+ pulses, warm, well-perfused, no edema. 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 MPV 9.9 Neutrophils % 88.5 H D Lymphocytes % 7.1 L Monocytes % 3.7 L Eosinophils % 0.2 D Basophils % 0.5 Platelet Estimate Decreased Platelet Comment Mod plt clumping Sodium 143 Potassium 3.8 Chloride 111 H Carbon Dioxide 24 Anion Gap 8 BUN 24 H Creatinine 1.4 H Random Glucose 111 H Lactic Acid 2.587 H* Calcium 9.5 06/12/16 05:40 WBC RBC Hgb Hct MCV MCHC RDW Plt Count MPV Neutrophils % Lymphocytes % Monocytes % Eosinophils % Basophils % Platelet Estimate Platelet Comment Sodium Potassium Chloride Carbon Dioxide Anion Gap BUN Creatinine Random Glucose Lactic Acid 2.172 H* Calcium Active Medications Generic Name Dose Route Start Last Admin Trade Name Freq PRN Reason Stop Dose Admin Acetaminophen 650 mg 06/10/16 23:03 Tylenol - PO Q6H PRN FEVER OR PAIN Acetaminophen 650 mg 06/11/16 16:26 06/12/16 12:57 Tylenol Suppository - [place] 650 mg Q4H PRN Administration FEVER OR PAIN Atorvastatin Calcium 10 mg 06/11/16 22:00 06/11/16 21:07 Lipitor - PO 10 mg HS ROHIT Administration Cyanocobalamin 1,000 mcg 06/11/16 10:00 06/12/16 10:04 Vitamin B12 - PO 1,000 mcg DAILY ROHIT Administration Heparin Sodium (Porcine) 5,000 unit 06/12/16 22:00 Heparin - SQ BID ROHIT Sodium Chloride 1,000 mls @ 100 mls/hr 06/12/16 06:30 06/12/16 07:00 Normal Saline - IV 06/12/16 16:29 100 mls/hr ASDIR ROHIT Administration Imipenem/Cilastatin Sodium 500 100 mls @ 100 mls/hr 06/12/16 22:00 mg/ Sodium Chloride IVPB BID [facility] Protocol Levothyroxine Sodium 50 mcg 06/11/16 07:00 06/12/16 06:10 Synthroid - PO 50 mcg AM ROHIT Administration Ondansetron HCl 4 mg 06/11/16 10:10 Zofran Injection IVPB Q4H PRN NAUSEA AND/OR VOMITING Senna 2 tab 06/11/16 22:00 06/11/16 21:07 Senna - PO 2 tab HS ROHIT Administration Tamsulosin HCl 0.4 mg 06/10/16 23:57 06/12/16 10:03 Flomax - PO 0.4 mg DAILY@0830 ROHIT Administration ASSESSMENT/PLAN: 89 year old female with PMH of HTN, HLD, Hypothyroid, Hyperparathyroid, COPD, CAD s/p CABG/stent, Dementia & ESBL-producing UTI who presents to ED from [facility] for fever x1day. #Severe Sepsis, secondary urinary tract infection: gram negative bacteremia -white cnt, trending down; lactic acid trending down, still febrile -cont IVF -renal dose meropenam; increase to 500mg IV bid -previous urine cx (ESBL resistant to Fluoroquinolones) & PCN allergy #Acute Renal Failure, 2-3mm Left Ureteral stone with mild to mod hydronephrosis -left sided nephrostomy minimal drainage -Flomax 0.4mg PO daily -avoid nephrotoxic meds -appreciate urology #need better control of blood pressure; as per IM team Problem List - Problems (1) Gram negative sepsis Code(s): A41.50 - GRAM-NEGATIVE SEPSIS, UNSPECIFIED (2) UTI (urinary tract infection) Code(s): N39.0 - URINARY TRACT INFECTION, SITE NOT SPECIFIED (3) Ureteral stone with hydronephrosis Code(s): N13.2 - HYDRONEPHROSIS WITH RENAL AND URETERAL CALCULOUS OBSTRUCTION Visit type - Emergency Visit Emergency Visit: Yes ED Registration Date: 06/10/16 Care time: The patient presented to the Emergency Department on the above date and was hospitalized for further evaluation of their emergent condition. - New Patient This patient is new to me today: No - Critical Care Critical Care patient: No
[2016-06-12] MEDS ORDERED: PT OWN MED DRAWER 7, Y5N ONE (22:44)
[2016-06-12] MEDS: ATORVASTATIN CA 10 MG TABLET (FP) PO SCH (22:53)
[2016-06-12] MEDS: IMIPENEM/CILASTATIN SODIUM 500 MG in SODIUM CHLORIDE 100 ML IVPB SCH (22:53)
[2016-06-12] MEDS: SENNOSIDES 8.6MG TABLET (FP) PO SCH (22:53)
[2016-06-12] MEDS: HEPARIN NA (PORCINE) 5,000 UNITS/ML 1ML VIAL SQ SCH (22:53)
[2016-06-13] MEDS ORDERED: FUROSEMIDE 40 MG/4 ML INJECTABLE VIAL IVPUSH ONE ×2 (02:01→08:45)
--- NOTE | 2016-06-13 02:04 | HOSP ---
Physical Examination Vital Signs: Vital Signs Temperature 99.6 F 06/12/16 22:00 Pulse Rate 115 H 06/12/16 22:00 Respiratory Rate 28 H 06/12/16 22:00 Blood Pressure 174/87 06/12/16 22:00 O2 Sat by Pulse Oximetry (%) 92 L 06/12/16 21:00 Constitutional: Yes: Anxious, Mild Distress HENT: Yes: Atraumatic Cardiovascular: Yes: Regular Rate and Rhythm, Tachycardia, S1, S2 Respiratory: Yes: On Nasal O2, Rales, SOB, Tachypnea, Wheezes Gastrointestinal: Yes: Normal Bowel Sounds, Soft Edema: LLE: 1+, RLE: 1+ Peripheral Pulses WNL: Yes Neurological: Yes: Alert Psychiatric: Yes: Alert Labs: CBC, BMP 06/12/16 05:40 06/12/16 05:40 Hospitalist Encounter Assessment: Was called about an 89 year old female with PMH of HTN, HLD, Hypothyroid, Hyperparathyroid, COPD, CAD s/p CABG/stent, Dementia & ESBL-producing UTI from [facility] ED being treated for sepsis from UTI s/p nephrostomy tube for obstruction. Pt was found to be in moderate discomfort, tachypneic, with b/ l crackles and wheezes. IV fluid was DC at 1600 but was still running when MD arrived. Impression Acute respiratory distress rt fluid overload Hypertensive urgency Plan Lasix IV 40mg once Keep O2 sat 90% or above Duoneb CXR Visit type - Emergency Visit Emergency Visit: Yes ED Registration Date: 06/10/16 Care time: The patient presented to the Emergency Department on the above date and was hospitalized for further evaluation of their emergent condition. - New Patient This patient is new to me today: Yes Date on this admission: 06/13/16 - Critical Care Critical Care patient: No
[2016-06-13] MEDS ORDERED: ALBUTEROL SO4 2.5/IPRATROPIUM 0.5 INH SOL 3 ML VIAL.NEB. NEB ONE (02:16)
[2016-06-13] MEDS: LEVOTHYROXINE NA 50 MCG TABLET (FP) PO SCH (06:34)
--- NOTE | 2016-06-13 08:24 | PN ---
Progress Note (short form) - Note Progress Note: c/o dsypnea at rest. has not gotten out of bed. denies CP, cough, fever, chills , N/V/C/D Current Medications Generic Name Dose Route Start Last Admin Trade Name Freq PRN Reason Stop Dose Admin Acetaminophen 650 mg 06/10/16 23:03 06/13/16 01:30 Tylenol - PO 650 mg Q6H PRN Administration FEVER OR PAIN Acetaminophen 650 mg 06/11/16 16:26 06/12/16 12:57 Tylenol Suppository - [place] 650 mg Q4H PRN Administration FEVER OR PAIN Atorvastatin Calcium 10 mg 06/11/16 22:00 06/12/16 22:53 Lipitor - PO 10 mg HS ROHIT Administration Cyanocobalamin 1,000 mcg 06/11/16 10:00 06/12/16 10:04 Vitamin B12 - PO 1,000 mcg DAILY ROHIT Administration Heparin Sodium (Porcine) 5,000 unit 06/12/16 22:00 06/12/16 22:53 Heparin - SQ 5,000 unit BID ROHIT Administration Imipenem/Cilastatin Sodium 500 100 mls @ 100 mls/hr 06/12/16 22:00 06/12/16 22: 53 mg/ Sodium Chloride IVPB 100 mls/hr BID ROHIT Administration Protocol Levothyroxine Sodium 50 mcg 06/11/16 07:00 06/13/16 06:34 Synthroid - PO 50 mcg AM ROHIT Administration Ondansetron HCl 4 mg 06/11/16 10:10 Zofran Injection IVPB Q4H PRN NAUSEA AND/OR VOMITING Senna 2 tab 06/11/16 22:00 06/12/16 22:53 Senna - PO 2 tab HS ROHIT Administration Tamsulosin HCl 0.4 mg 06/10/16 23:57 06/12/16 10:03 Flomax - PO 0.4 mg DAILY@0830 ROHIT Administration Last Vital Signs Temp Pulse Resp BP Pulse Ox 97.4 F L 95 H 24 176/72 92 L 06/13/16 06:00 06/13/16 06:00 06/13/16 06:00 06/13/16 06:00 06/12/16 21:00 General +tachypnic with accessory muscle use CV S1 S2 + Lungs decreased breath sounds B/L bases, crackles R base no wheezing Abdomen soft NT/ND + LJP with no output in bag Microbiology 06/11/16 13:25 Urine Culture - Preliminary Urine - Urine Nephrostomy Tube Lactose Fermenting Neg Bacilli 06/10/16 17:20 Blood Culture - Preliminary Blood - Peripheral Venous Lactose Fermenting Neg Bacilli Staphylococcus Coagulase Neg 06/10/16 19:04 Urine Culture - Preliminary Urine - Urine Clean Catch Lactose Fermenting Neg Bacilli 06/10/16 17:46 Blood Culture - Preliminary Blood - Peripheral Venous Lactose Fermenting Neg Bacilli ASSESSMENT AND PLAN: 89yo F with PMH HTN. dyslipidemia, hypothyroid, CAD s/p CABG, dementia and COPD presented to the ER and was admitted for further evaluation of their emergent condition 1. Severe sepsis due to GNR bacteremia and UTI-Tm 101.4, lactic acid now resolved. will repeat BCx. on Imipenem day 3. ID on board await final cx report 2. Troponin leak- likely due to sepsis. troponin peak at 0.13 and trending down. no reports of CP. echo negative for WMA. d/c cardiac monitoring (once tachycardia resolves) 3. Dyspnic- CXR taken last night showing volume overload. received lasix 40mg IVP. will give additional dose. supplemental oxygen to maintain Spo2 >90%. hold IVF. 4. DMITRY- likely due to sepsis vs obstruction due to nephrolithasis. s/p L nephrostomy tube. continues to have minimal output. nephrogram done yesterday, unaware if placement is correct. awaiting official report. repeat labs. on flomax 5. Hypothyroid- on LT4 6. HTN-uncontrolled. improved with lasix. not on other medications at home. will start norvasc. monitor closely. 7. DVT ppx- heparin sq Visit type - Emergency Visit Emergency Visit: Yes ED Registration Date: 06/10/16 Care time: The patient presented to the Emergency Department on the above date and was hospitalized for further evaluation of their emergent condition. - New Patient This patient is new to me today: No - Critical Care Critical Care patient: No - Discharge Referral Referred to [facility] Med P.C.: No
[2016-06-13 09:17] LABS: BASOPHIL 0.5 % (0-2.0); EOSINOPHIL 1.2 % (0-4.5); MCH 31.8 pg (25.7-33.7); MCHC 33.6 g/dl (32.0-36.0); MEAN CELL VOLUME 94.6 fl (80-96); NEUTROPHILS 81.8 % (42.8-82.8); PLATELET COUNT 94 K/MM3 (134-434); RDW 14.9 % (11.6-15.6); WHITE BLOOD COUNT 10.1 K/mm3 (4.0-10.0)
[2016-06-13 09:31] LABS: CALCIUM 10.2 mg/dL (8.5-10.1); COCKROFT - GAULT 28.271; CREATININE 1.3 mg/dL (0.55-1.02)
[2016-06-13] MEDS: CYANOCOBALAMIN 1,000 MCG TABLET (FP) PO SCH (09:38)
[2016-06-13] MEDS: HEPARIN NA (PORCINE) 5,000 UNITS/ML 1ML VIAL SQ SCH ×2 (09:38→22:47)
[2016-06-13] MEDS: TAMSULOSIN HCL 0.4 MG CAP.ER.24H (FP) PO SCH (09:39)
[2016-06-13] MEDS: amLODIPine BESYLATE 5 MG TABLET (FP) PO SCH (09:39)
[2016-06-13] MEDS: IMIPENEM/CILASTATIN SODIUM 250 MG in SODIUM CHLORIDE 100 ML IVPB SCH (09:44)
[2016-06-13] MEDS ORDERED: PT OWN MED DRAWER 7, Y5N ONE (10:15)
[2016-06-13] MEDS: IMIPENEM/CILASTATIN SODIUM 500 MG in SODIUM CHLORIDE 100 ML IVPB SCH (10:39)
--- NOTE | 2016-06-13 10:41 | PN ---
Progress Note, Physician Chief Complaint: ID Day 2 left PCN Imipenem - Current Medication List Current Medications: Active Medications Acetaminophen (Tylenol -) 650 mg PO Q6H PRN PRN Reason: FEVER OR PAIN Last Admin: 06/13/16 01:30 Dose: 650 mg Acetaminophen (Tylenol Suppository -) 650 mg [place] Q4H PRN PRN Reason: FEVER OR PAIN Last Admin: 06/12/16 12:57 Dose: 650 mg Amlodipine Besylate (Norvasc -) 5 mg PO DAILY [facility] Last Admin: 06/13/16 09:39 Dose: 5 mg Atorvastatin Calcium (Lipitor -) 10 mg PO HS [facility] Last Admin: 06/12/16 22:53 Dose: 10 mg Cyanocobalamin (Vitamin B12 -) 1,000 mcg PO DAILY [facility] Last Admin: 06/13/16 09:38 Dose: 1,000 mcg Heparin Sodium (Porcine) (Heparin -) 5,000 unit SQ BID [facility] Last Admin: 06/13/16 09:38 Dose: 5,000 unit Imipenem/Cilastatin Sodium 500 (mg/ Sodium Chloride) 100 mls @ 100 mls/hr IVPB BID [facility] PRN Reason: Protocol Last Admin: 06/12/16 22:53 Dose: 100 mls/hr Levothyroxine Sodium (Synthroid -) 50 mcg PO AM [facility] Last Admin: 06/13/16 06:34 Dose: 50 mcg Ondansetron HCl (Zofran Injection) 4 mg IVPB Q4H PRN PRN Reason: NAUSEA AND/OR VOMITING Senna (Senna -) 2 tab PO HS [facility] Last Admin: 06/12/16 22:53 Dose: 2 tab Tamsulosin HCl (Flomax -) 0.4 mg PO DAILY@0830 [facility] Last Admin: 06/13/16 09:39 Dose: 0.4 mg - Objective Vital Signs: Vital Signs Temperature 97.4 F L 06/13/16 06:00 Pulse Rate 95 H 06/13/16 06:00 Respiratory Rate 24 06/13/16 06:00 Blood Pressure 176/72 06/13/16 06:00 O2 Sat by Pulse Oximetry (%) 92 L 06/12/16 21:00 Constitutional: Yes: Well Nourished, No Distress HENT: Yes: WNL, Atraumatic Neck: Yes: WNL, Supple Cardiovascular: Yes: S1, S2 Respiratory: Yes: WNL, Regular, CTA Bilaterally, Diminished, Rales Gastrointestinal: Yes: Soft Edema: No Labs: CBC, BMP 06/13/16 08:40 06/13/16 08:40 INR, PTT INR 1.43 (0.82-1.09) H 06/11/16 01:24 Problem List - Problems (1) Gram negative sepsis Code(s): A41.50 - GRAM-NEGATIVE SEPSIS, UNSPECIFIED (2) UTI (urinary tract infection) Code(s): N39.0 - URINARY TRACT INFECTION, SITE NOT SPECIFIED (3) Multiple drug resistant organism (MDRO) culture positive Code(s): Z16.24 - RESISTANCE TO MULTIPLE ANTIBIOTICS Assessment/Plan Microbiology 06/10/16 17:46 Blood - Peripheral Venous Blood Culture - Final Escherichia Coli 06/11/16 13:25 Urine - Urine Nephrostomy Tube Urine Culture - Preliminary Lactose Fermenting Neg Bacilli 06/10/16 19:04 Urine - Urine Clean Catch Urine Culture - Preliminary Lactose Fermenting Neg Bacilli 06/10/16 17:20 Blood - Peripheral Venous Blood Culture - Preliminary Lactose Fermenting Neg Bacilli Staphylococcus Coagulase Neg Laboratory Tests 06/10/16 06/11/16 06/12/16 19:04 01:24 05:40 WBC 18.8 H D Hgb Hct Plt Count INR 1.43 H BUN Creatinine Lactic Acid Urine WBC 1185 06/12/16 06/12/16 06/13/16 12:05 17:40 08:40 WBC 10.1 H D Hgb 11.5 D Hct 34.1 D Plt Count 94 L D INR BUN Creatinine Lactic Acid 2.364 H* 1.009 Urine WBC 06/13/16 08:40 WBC Hgb Hct Plt Count INR BUN 22 H Creatinine 1.3 H Lactic Acid Urine WBC Assessment E Coli bacteremia UTI Post PCN improved Plan Stop Imipenem Substitute Ampicillin 2 gr q 8h Gamaliel BOWEN
[2016-06-13] MEDS ORDERED: MAGNESIUM OXIDE 400 MG TABLET (FP) PO ONE (12:15)
[2016-06-13] MEDS ORDERED: POTASSIUM CHLORIDE ORAL LIQUID 20 MEQ/15 ML PO ONE (12:15)
[2016-06-13] MEDS: cefTRIAXone 1 GM/50 ML BAG (PRE-DOCKED) IVPB SCH (12:28)
[2016-06-13] MEDS: SENNOSIDES 8.6MG TABLET (FP) PO SCH (22:47)
[2016-06-13] MEDS: ATORVASTATIN CA 10 MG TABLET (FP) PO SCH (22:47)
[2016-06-14] MEDS ORDERED: ALBUTEROL SO4 2.5/IPRATROPIUM 0.5 INH SOL 3 ML VIAL.NEB. NEB ONE (01:23)
[2016-06-14] MEDS: LEVOTHYROXINE NA 50 MCG TABLET (FP) PO SCH (05:59)
[2016-06-14 08:59] LABS: CALCIUM 11.1 mg/dL (8.5-10.1); COCKROFT - GAULT 30.6255; CREATININE 1.2 mg/dL (0.55-1.02)
[2016-06-14 09:02] LABS: MAGNESIUM 1.9 mg/dL (1.8-2.4)
[2016-06-14] MEDS: amLODIPine BESYLATE 5 MG TABLET (FP) PO SCH (10:32)
[2016-06-14] MEDS: CYANOCOBALAMIN 1,000 MCG TABLET (FP) PO SCH (10:32)
[2016-06-14] MEDS: HEPARIN NA (PORCINE) 5,000 UNITS/ML 1ML VIAL SQ SCH ×2 (10:33→21:52)
[2016-06-14] MEDS: cefTRIAXone 1 GM/50 ML BAG (PRE-DOCKED) IVPB SCH (10:33)
[2016-06-14] MEDS: TAMSULOSIN HCL 0.4 MG CAP.ER.24H (FP) PO SCH (10:33)
--- NOTE | 2016-06-14 10:58 | PN ---
Progress Note (short form) - Note Progress Note: ID Remains stable Currently on Ceftriaxone Selected Entries 06/14/16 06:00 Temperature 99.4 F Pulse Rate 112 H Respiratory 22 Rate Blood Pressure 177/91 Microbiology 06/11/16 13:25 Urine - Urine Nephrostomy Tube Urine Culture - Final Escherichia Coli 06/10/16 19:04 Urine - Urine Clean Catch Urine Culture - Final Escherichia Coli Esbl [employer] Operator 06/10/16 17:46 Blood - Peripheral Venous Blood Culture - Final Escherichia Coli 06/10/16 17:20 Blood - Peripheral Venous Blood Culture - Preliminary Lactose Fermenting Neg Bacilli Staphylococcus Coagulase Neg Laboratory Tests 06/13/16 06/14/16 08:40 06:00 WBC 10.1 H D Hgb 11.5 D Plt Count 94 L D BUN 23 H Creatinine 1.2 H Assessment Clinical improvement where the blood and urine nephrostomy have E Coli pansensitive Urine cultures clean catch has a ESBL E COLI. WIll assume this colonized not treat Plan Continue IV antibiotic Ceftriaxone daily Problem List - Problems (1) Gram negative sepsis Code(s): A41.50 - GRAM-NEGATIVE SEPSIS, UNSPECIFIED (2) UTI (urinary tract infection) Code(s): N39.0 - URINARY TRACT INFECTION, SITE NOT SPECIFIED (3) Multiple drug resistant organism (MDRO) culture positive Code(s): Z16.24 - RESISTANCE TO MULTIPLE ANTIBIOTICS
[2016-06-14 13:22] LABS: BASOPHIL 0.5 % (0-2.0); EOSINOPHIL 3.9 % (0-4.5); MCH 31.5 pg (25.7-33.7); MCHC 33.8 g/dl (32.0-36.0); MEAN CELL VOLUME 93.3 fl (80-96); NEUTROPHILS 72.9 % (42.8-82.8); PLATELET COUNT 115 K/MM3 (134-434); RDW 14.4 % (11.6-15.6); WHITE BLOOD COUNT 8.7 K/mm3 (4.0-10.0)
[2016-06-14] MEDS ORDERED: FUROSEMIDE 40 MG/4 ML INJECTABLE VIAL IVPUSH ONE (14:23)
--- NOTE | 2016-06-14 14:28 | PN ---
Progress Note (short form) - Note Progress Note: c/o dsypnea at rest. states she feels like she needs oxygen. has not gotten out of bed. denies CP, cough, fever, chills, N/V/C/D Current Medications Generic Name Dose Route Start Last Admin Trade Name Freq PRN Reason Stop Dose Admin Acetaminophen 650 mg 06/10/16 23:03 06/13/16 01:30 Tylenol - PO 650 mg Q6H PRN Administration FEVER OR PAIN Acetaminophen 650 mg 06/11/16 16:26 06/12/16 12:57 Tylenol Suppository - [place] 650 mg Q4H PRN Administration FEVER OR PAIN Atorvastatin Calcium 10 mg 06/11/16 22:00 06/12/16 22:53 Lipitor - PO 10 mg HS ROHIT Administration Cyanocobalamin 1,000 mcg 06/11/16 10:00 06/12/16 10:04 Vitamin B12 - PO 1,000 mcg DAILY ROHIT Administration Heparin Sodium (Porcine) 5,000 unit 06/12/16 22:00 06/12/16 22:53 Heparin - SQ 5,000 unit BID ROHIT Administration Imipenem/Cilastatin Sodium 500 100 mls @ 100 mls/hr 06/12/16 22:00 06/12/16 22: 53 mg/ Sodium Chloride IVPB 100 mls/hr BID ROHIT Administration Protocol Levothyroxine Sodium 50 mcg 06/11/16 07:00 06/13/16 06:34 Synthroid - PO 50 mcg AM ROHIT Administration Ondansetron HCl 4 mg 06/11/16 10:10 Zofran Injection IVPB Q4H PRN NAUSEA AND/OR VOMITING Senna 2 tab 06/11/16 22:00 06/12/16 22:53 Senna - PO 2 tab HS ROHIT Administration Tamsulosin HCl 0.4 mg 06/10/16 23:57 06/12/16 10:03 Flomax - PO 0.4 mg DAILY@0830 ROHIT Administration Last Vital Signs Temp Pulse Resp BP Pulse Ox 97.4 F L 95 H 24 176/72 92 L 06/13/16 06:00 06/13/16 06:00 06/13/16 06:00 06/13/16 06:00 06/12/16 21:00 General +tachypnic CV S1 S2 +murmur Lungs decreased breath sounds B/L bases, crackles R base no wheezing Abdomen soft NT/ND + LJP with no output in bag Microbiology 06/13/16 11:30 Blood Culture - Preliminary Blood - Peripheral Venous NO GROWTH OBTAINED AFTER 24 HOURS, INCUBATION TO CONTINUE FOR 4 DAYS. 06/13/16 11:30 Blood Culture - Preliminary Blood - Peripheral Venous NO GROWTH OBTAINED AFTER 24 HOURS, INCUBATION TO CONTINUE FOR 4 DAYS. 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 dyslipidemia, hypothyroid, CAD s/p CABG, dementia and COPD presented to the ER and was admitted for further evaluation of their emergent condition 1. Severe sepsis due to GNR bacteremia and UTI-afebrile. repeat BCx negative. 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 minimal to no output in nephrostomy tube. Imipenem switched to Ceftriaxone as Ecoli is huber- sensitive. 2. Troponin leak- likely due to sepsis. troponin peak at 0.13 and trending down. no reports of CP. echo negative for WMA. d/c cardiac monitoring 3. Dyspnic-remains volume overloaded. will give lasix 40mg IVP. and monitor. saturating 94% on RA but requesting oxygen. supplemental oxygen to maintain Spo2 >90%. hold IVF. 4. DMITRY- likely due to sepsis vs obstruction due to nephrolithasis. s/p L nephrostomy tube. continues to have minimal output. since making good UOP. repeat Renal u/s to assess degree of hydronephrosis if resolved and tube can be removed. on flomax 5. Hypothyroid- on LT4 6. HTN-uncontrolled. will start cardizem po. monitor 7. DVT ppx- heparin sq Visit type - Emergency Visit Emergency Visit: Yes ED Registration Date: 06/10/16 Care time: The patient presented to the Emergency Department on the above date and was hospitalized for further evaluation of their emergent condition. - New Patient This patient is new to me today: No - Critical Care Critical Care patient: No - Discharge Referral Referred to [facility] Med P.C.: No
[2016-06-14] MEDS ORDERED: dilTIAZem HCL 30 MG TABLET (FP) ONE (18:03)
[2016-06-14] MEDS: dilTIAZem HCL 30 MG TABLET (FP) PO SCH ×2 (18:08→21:53)
[2016-06-14] MEDS: ATORVASTATIN CA 10 MG TABLET (FP) PO SCH (21:52)
[2016-06-14] MEDS: SENNOSIDES 8.6MG TABLET (FP) PO SCH (21:53)
[2016-06-15] MEDS: dilTIAZem HCL 30 MG TABLET (FP) PO SCH ×3 (06:16→21:36)
[2016-06-15] MEDS: LEVOTHYROXINE NA 50 MCG TABLET (FP) PO SCH (06:16)
[2016-06-15] MEDS: amLODIPine BESYLATE 5 MG TABLET (FP) PO SCH (09:33)
[2016-06-15] MEDS: HEPARIN NA (PORCINE) 5,000 UNITS/ML 1ML VIAL SQ SCH ×2 (09:33→21:36)
[2016-06-15] MEDS: cefTRIAXone 1 GM/50 ML BAG (PRE-DOCKED) IVPB SCH (09:33)
[2016-06-15] MEDS: CYANOCOBALAMIN 1,000 MCG TABLET (FP) PO SCH (09:33)
[2016-06-15] MEDS: TAMSULOSIN HCL 0.4 MG CAP.ER.24H (FP) PO SCH (09:33)
--- NOTE | 2016-06-15 11:21 | PN ---
Physical Exam: SUBJECTIVE: Patient seen and examined, awake and alert this am. Patient is talking asking when she can go home. Patient denies pain, afebrile. OBJECTIVE: Vital Signs Period Temp Pulse Resp BP Sys/Donovan Pulse Ox Last 24 Hr 97.7 F-98.8 F 100-117 18-22 137-185/70-90 92 GENERAL: The patient is awake, alert,oriente dto place and self, in no acute distress. HEAD: Normal with no signs of trauma. EYES: PERRL, extraocular movements intact, sclera anicteric, conjunctiva clear. No ptosis. LUNGS: Breath sounds equal, clear to auscultation bilaterally, no wheezes, no crackles, no accessory muscle use. HEART: Regular rate and rhythm, S1, S2 ,murmur, rub or gallop. ABDOMEN: Soft, nontender, nondistended, normoactive bowel sounds, no guarding, no rebound, no hepatosplenomegaly, no masses. EXTREMITIES: 2+ pulses, warm, well-perfused, no edema. NEUROLOGICAL: Cranial nerves II through XII grossly intact. Normal speech, gait not observed. PSYCH: Normal mood, normal affect. SKIN: Warm, dry, normal turgor, no rashes or lesions noted Back: left nephrostomy tube; no fluid currently bag, dark urine in tube with some sediment Laboratory Results - last 24 hr 06/14/16 13:05 WBC 8.7 RBC 3.92 Hgb 12.3 Hct 36.5 MCV 93.3 MCHC 33.8 RDW 14.4 Plt Count 115 L D MPV 9.0 Neutrophils % 72.9 Lymphocytes % 13.4 D Monocytes % 9.3 Eosinophils % 3.9 D Basophils % 0.5 Active Medications Generic Name Dose Route Start Last Admin Trade Name Freq PRN Reason Stop Dose Admin Acetaminophen 650 mg 06/10/16 23:03 06/13/16 01:30 Tylenol - PO 650 mg Q6H PRN Administration FEVER OR PAIN Acetaminophen 650 mg 06/11/16 16:26 06/12/16 12:57 Tylenol Suppository - [place] 650 mg Q4H PRN Administration FEVER OR PAIN Amlodipine Besylate 5 mg 06/13/16 10:00 06/15/16 09:33 Norvasc - PO 5 mg DAILY ROHIT Administration Atorvastatin Calcium 10 mg 06/11/16 22:00 06/14/16 21:52 Lipitor - PO 10 mg HS ROHIT Administration Ceftriaxone Sodium 1 gm 06/13/16 11:00 06/15/16 09:33 Rocephin 1gm Ivpb (Pre-Docked) IVPB 1 gm DAILY ROHIT Administration Cyanocobalamin 1,000 mcg 06/11/16 10:00 06/15/16 09:33 Vitamin B12 - PO 1,000 mcg DAILY ROHIT Administration Diltiazem HCl 30 mg 06/14/16 22:00 06/15/16 06:16 Cardizem - PO 30 mg TID ROHIT Administration Heparin Sodium (Porcine) 5,000 unit 06/12/16 22:00 06/15/16 09:33 Heparin - SQ 5,000 unit BID ROHIT Administration Levothyroxine Sodium 50 mcg 06/11/16 07:00 06/15/16 06:16 Synthroid - PO 50 mcg AM ROHIT Administration Ondansetron HCl 4 mg 06/11/16 10:10 Zofran Injection IVPB Q4H PRN NAUSEA AND/OR VOMITING Senna 2 tab 06/11/16 22:00 06/14/16 21:53 Senna - PO 2 tab HS ROHIT Administration Tamsulosin HCl 0.4 mg 06/10/16 23:57 06/15/16 09:33 Flomax - PO 0.4 mg DAILY@0830 ROHIT Administration ASSESSMENT/PLAN: 89 year old female with PMH of HTN, HLD, Hypothyroid, Hyperparathyroid, COPD, CAD s/p CABG/stent, Dementia & ESBL-producing UTI who presents to ED from [facility] for fever. #Severe Sepsis, secondary urinary tract infection: gram negative bacteremia -white wnl; afebrile -previous urine cx (ESBL resistant to Fluoroquinolones) & PCN allergy -continue ceftriaxone #Acute Renal Failure, 2-3mm Left Ureteral stone with mild to mod hydronephrosis -left sided nephrostomy minimal drainage -Flomax 0.4mg PO daily -avoid nephrotoxic meds -appreciate urology Problem List - Problems (1) Gram negative sepsis Code(s): A41.50 - GRAM-NEGATIVE SEPSIS, UNSPECIFIED (2) UTI (urinary tract infection) Code(s): N39.0 - URINARY TRACT INFECTION, SITE NOT SPECIFIED (3) Ureteral stone with hydronephrosis Code(s): N13.2 - HYDRONEPHROSIS WITH RENAL AND URETERAL CALCULOUS OBSTRUCTION Visit type - Emergency Visit Emergency Visit: Yes ED Registration Date: 06/10/16 Care time: The patient presented to the Emergency Department on the above date and was hospitalized for further evaluation of their emergent condition. - New Patient This patient is new to me today: No - Critical Care Critical Care patient: No
--- NOTE | 2016-06-15 12:07 | PN ---
Teaching Attending Note Name of Resident: Desirae Parra ATTENDING PHYSICIAN STATEMENT I saw and evaluated the patient. I reviewed the resident's note and discussed the case with the resident. I agree with the resident's findings and plan as documented. SUBJECTIVE: currently asymptomatic. denies CP, SOB,fever, chills, N/V/C/D OBJECTIVE: Last Vital Signs Temp Pulse Resp BP Pulse Ox 97.7 F 100 H 18 137/70 92 L 06/15/16 05:45 06/15/16 05:45 06/15/16 05:45 06/15/16 05:45 06/14/16 22:00 Intake & Output 06/12/16 06/13/16 06/14/16 06/15/16 23:59 23:59 23:59 23:59 Intake Total 1580 2300 670 250 Output Total 40 4 20 20 Balance 1540 2296 650 230 General NAD CV S1 S2 RRR Lungs crackles B/L bases no wheezing abdomen soft NT/ND neglible serosangeous output into nephrostomy bag ASSESSMENT AND PLAN: 89yo F with PMH HTN. dyslipidemia, hypothyroid, CAD s/p CABG, dementia and COPD presented to the ER and was admitted for further evaluation of their emergent condition 1. Severe sepsis due to GNR bacteremia and UTI-afebrile. repeat BCx negative. unable to repeat UA from nephrostomy due to minimal output. 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 on Ceftriaxone day 3. received 2 days of imipenem on admission. abx duration per ID. 2. Troponin leak- likely due to sepsis. troponin peak at 0.13 and trending down. no reports of CP. echo negative for WMA. 3. Dyspnic-remains volume overloaded. will give lasix 40mg IVP. and monitor. supplemental oxygen to maintain Spo2 >90%. hold IVF. 4. DMITRY- likely due to sepsis vs obstruction due to nephrolithasis. s/p L nephrostomy tube. repeat u/s shows resolution of hydronephrosis. no comment if stone persists. will d/w urology if intervention warranted at this point and if nephrostomy tube can be removed. on flomax 5. Hypothyroid- on LT4 6. HTN-improved. started on cardizem po. monitor 7. DVT ppx- heparin sq
[2016-06-15] MEDS ORDERED: FUROSEMIDE 40 MG/4 ML INJECTABLE VIAL IVPUSH ONE (12:30)
--- NOTE | 2016-06-15 13:55 | PN ---
Physical Exam: SUBJECTIVE: Patient seen and examined by me at bedside. No overnight events noted. Patient is currently asymptomatic and has been afebrile. She offers no complaints and denies fever, chills, nausea, vomiting, chest pain, palpitations , shortness of breath, diarrhea. OBJECTIVE: Vital Signs Period Temp Pulse Resp BP Sys/Donovan Pulse Ox Last 24 Hr 97.6 F-98.8 F 91-117 18-22 137-185/70-90 91-92 GENERAL: The patient is awake, alert, and in no acute distress LUNGS: Crackles throughout lung bases bilaterally. HEART: Tachycardic, S1, S2 without murmur, rub or gallop. ABDOMEN: Soft, nontender, nondistended, no guarding, no rebound. Left Nephrostomy tube with no drainage. EXTREMITIES: No peripheral edema NEUROLOGICAL: Cognitive impairment at baseline SKIN: Warm, dry, normal turgor, no rashes or lesions noted Active Medications Generic Name Dose Route Start Last Admin Trade Name Freq PRN Reason Stop Dose Admin Acetaminophen 650 mg 06/10/16 23:03 06/13/16 01:30 Tylenol - PO 650 mg Q6H PRN Administration FEVER OR PAIN Acetaminophen 650 mg 06/11/16 16:26 06/12/16 12:57 Tylenol Suppository - [place] 650 mg Q4H PRN Administration FEVER OR PAIN Amlodipine Besylate 5 mg 06/13/16 10:00 06/15/16 09:33 Norvasc - PO 5 mg DAILY [facility] Administration Atorvastatin Calcium 10 mg 06/11/16 22:00 06/14/16 21:52 Lipitor - PO 10 mg HS [facility] Administration Ceftriaxone Sodium 1 gm 06/13/16 11:00 06/15/16 09:33 Rocephin 1gm Ivpb (Pre-Docked) IVPB 1 gm DAILY [facility] Administration Cyanocobalamin 1,000 mcg 06/11/16 10:00 06/15/16 09:33 Vitamin B12 - PO 1,000 mcg DAILY [facility] Administration Diltiazem HCl 30 mg 06/14/16 22:00 06/15/16 06:16 Cardizem - PO 30 mg TID [facility] Administration Heparin Sodium (Porcine) 5,000 unit 06/12/16 22:00 06/15/16 09:33 Heparin - SQ 5,000 unit BID [facility] Administration Levothyroxine Sodium 50 mcg 06/11/16 07:00 06/15/16 06:16 Synthroid - PO 50 mcg AM R[facility]IT Administration Ondansetron HCl 4 mg 06/11/16 10:10 Zofran Injection IVPB Q4H PRN NAUSEA AND/OR VOMITING Senna 2 tab 06/11/16 22:00 06/14/16 21:53 Senna - PO 2 tab HS R[facility]IT Administration Tamsulosin HCl 0.4 mg 06/10/16 23:57 06/15/16 09:33 Flomax - PO 0.4 mg DAILY@0830 [facility] Administration Kidney U/S: Resolution of hydronephrosis ASSESSMENT/PLAN: Patient is an 89 year old female with a PMHx of PMH of HTN, HLD, Hypothyroid, Hyperparathyroid, COPD, CAD s/p CABG/stent, Dementia who presented with sepsis. Patient found to have hydronephrosis, UTI, and DMITRY. Patient admitted for further monitoring and management. Sepsis secondary to UTI- Improved -Patient remains afebrile. Continue with Suppository Tylenol 650mg Q4H PRN -Urine culture positive for E.coli -Ceftriaxone 1gm day #3 Acute Renal Failure secondary to Nephrolithiasis with Hydronephrosis- Improved -S/P left sided nephrostomy tube day #5 with no drainage. -Kidney U/S revealed resolution of hydronephrosis -Called IR to reevaluate patient for possible removal of nephrostomy tube and left a message with the manager local and to call me back -Called Urology to speak to Dr. Patel and left message to reevaluate for possible Lithotripsy -Continue Flomax 0.4mg daily -Avoid nephrotoxic medications -Appreciate urology consult Elevated Troponin -Likely from demand ischemia and sepsis -Trending down -Continue monitoring on telemetry HTN -Was uncontrolled over weekend and Cardizem 30mg TID started -Will continue to monitor BP to see if adjustments of Cardizem is required -Low sodium diet -Lasix on hold due to ARF HLD/CAD -Continue Lipitor 10mg daily -Continue ASA 81mg daily Hypothyroidism -Continue home medication Synthroid 50mcg F/E/N -No fluids -Electrolytes wnl -Regular Diet Prophylaxis -Heparin and SCD's Disposition -Awaiting for urology and IR for revaluation of nephrostomy tube removal and lithotripsy. Visit type - Emergency Visit Emergency Visit: Yes ED Registration Date: 06/10/16 Care time: The patient presented to the Emergency Department on the above date and was hospitalized for further evaluation of their emergent condition. - New Patient This patient is new to me today: No - Critical Care Critical Care patient: No
--- NOTE | 2016-06-15 15:20 | PN ---
Progress Note, Physician History of Present Illness: Awake, not conversant No acute distress Afebrile - Current Medication List Current Medications: Active Medications Acetaminophen (Tylenol -) 650 mg PO Q6H PRN PRN Reason: FEVER OR PAIN Last Admin: 06/13/16 01:30 Dose: 650 mg Acetaminophen (Tylenol Suppository -) 650 mg CO Q4H PRN PRN Reason: FEVER OR PAIN Last Admin: 06/12/16 12:57 Dose: 650 mg Amlodipine Besylate (Norvasc -) 5 mg PO DAILY [facility] Last Admin: 06/15/16 09:33 Dose: 5 mg Atorvastatin Calcium (Lipitor -) 10 mg PO HS [facility] Last Admin: 06/14/16 21:52 Dose: 10 mg Ceftriaxone Sodium (Rocephin 1gm Ivpb (Pre-Docked)) 1 gm IVPB DAILY [facility] Last Admin: 06/15/16 09:33 Dose: 1 gm Cyanocobalamin (Vitamin B12 -) 1,000 mcg PO DAILY [facility] Last Admin: 06/15/16 09:33 Dose: 1,000 mcg Diltiazem HCl (Cardizem -) 30 mg PO TID [facility] Last Admin: 06/15/16 14:25 Dose: 30 mg Heparin Sodium (Porcine) (Heparin -) 5,000 unit SQ BID [facility] Last Admin: 06/15/16 09:33 Dose: 5,000 unit Levothyroxine Sodium (Synthroid -) 50 mcg PO AM [facility] Last Admin: 06/15/16 06:16 Dose: 50 mcg Ondansetron HCl (Zofran Injection) 4 mg IVPB Q4H PRN PRN Reason: NAUSEA AND/OR VOMITING Senna (Senna -) 2 tab PO HS [facility] Last Admin: 06/14/16 21:53 Dose: 2 tab Tamsulosin HCl (Flomax -) 0.4 mg PO DAILY@0830 [facility] Last Admin: 06/15/16 09:33 Dose: 0.4 mg - Objective Vital Signs: Vital Signs Temperature 98.0 F 06/15/16 14:00 Pulse Rate 94 H 06/15/16 14:00 Respiratory Rate 18 06/15/16 14:00 Blood Pressure 160/86 06/15/16 14:00 O2 Sat by Pulse Oximetry (%) 91 L 06/15/16 09:00 Constitutional: Yes: No Distress Eyes: Yes: Conjunctiva Clear Cardiovascular: Yes: Regular Rate and Rhythm, S1, S2 Respiratory: Yes: CTA Bilaterally Gastrointestinal: Yes: Normal Bowel Sounds, Soft, Other (+ nephrostomy) Edema: No Labs: CBC, BMP 06/14/16 13:05 06/14/16 06:00 INR, PTT INR 1.43 (0.82-1.09) H 06/11/16 01:24 Assessment/Plan UTI? sepsis secondary to UTI S/P nephrostomy Fever/ leukocytosis - improved Azotemia Hx ESBL Continue ceftriaxone
[2016-06-15] MEDS: SENNOSIDES 8.6MG TABLET (FP) PO SCH (21:36)
[2016-06-15] MEDS: ATORVASTATIN CA 10 MG TABLET (FP) PO SCH (21:36)
[2016-06-16] MEDS: LEVOTHYROXINE NA 50 MCG TABLET (FP) PO SCH (06:08)
[2016-06-16] MEDS: dilTIAZem HCL 30 MG TABLET (FP) PO SCH ×3 (06:08→21:27)
[2016-06-16 07:40] LABS: CALCIUM 12.3 mg/dL (8.5-10.1); COCKROFT - GAULT 28.271; CREATININE 1.3 mg/dL (0.55-1.02)
--- NOTE | 2016-06-16 08:08 | PN ---
Physical Exam: SUBJECTIVE: Patient seen and examined by me at bedside. No overnight events noted and patient offers no complaints. IR contacted yesterday to evaluate for removal of nephrostomy tube. Patient has minimal drainage. Patient continues to have crackles but denies shortness of breath. Will administer Lasix. Otherwise, patient denies fever, chills, nausea, vomiting, chest pain, palpitations. OBJECTIVE: Vital Signs Period Temp Pulse Resp BP Sys/Donovan Pulse Ox Last 24 Hr 97.6 F-98.7 F 91-99 18-24 150-170/74-90 91-94 GENERAL: The patient is awake, alert, and in no acute distress LUNGS: Crackles throughout lung bases bilaterally. HEART: RRR, S1, S2 without murmur, rub or gallop. ABDOMEN: Soft, nontender, nondistended, no guarding, no rebound. Left Nephrostomy tube with no drainage. EXTREMITIES: No peripheral edema NEUROLOGICAL: Cognitive impairment at baseline SKIN: Warm, dry, normal turgor, no rashes or lesions noted Laboratory Results - last 24 hr 06/16/16 06:10 Sodium 141 Potassium 3.5 Chloride 94 L D Carbon Dioxide 34 H D Anion Gap 13 BUN 30 H D Creatinine 1.3 H Random Glucose 118 H Calcium 12.3 H Active Medications Generic Name Dose Route Start Last Admin Trade Name Freq PRN Reason Stop Dose Admin Acetaminophen 650 mg 06/10/16 23:03 06/13/16 01:30 Tylenol - PO 650 mg Q6H PRN Administration FEVER OR PAIN Acetaminophen 650 mg 06/11/16 16:26 06/12/16 12:57 Tylenol Suppository - [place] 650 mg Q4H PRN Administration FEVER OR PAIN Amlodipine Besylate 5 mg 06/13/16 10:00 06/15/16 09:33 Norvasc - PO 5 mg DAILY [facility] Administration Atorvastatin Calcium 10 mg 06/11/16 22:00 06/15/16 21:36 Lipitor - PO 10 mg HS [facility] Administration Ceftriaxone Sodium 1 gm 06/13/16 11:00 06/15/16 09:33 Rocephin 1gm Ivpb (Pre-Docked) IVPB 1 gm DAILY [facility] Administration Cyanocobalamin 1,000 mcg 06/11/16 10:00 06/15/16 09:33 Vitamin B12 - PO 1,000 mcg DAILY [facility] Administration Diltiazem HCl 30 mg 06/14/16 22:00 06/16/16 06:08 Cardizem - PO 30 mg TID [facility] Administration Heparin Sodium (Porcine) 5,000 unit 06/12/16 22:00 06/15/16 21:36 Heparin - SQ 5,000 unit BID [facility] Administration Levothyroxine Sodium 50 mcg 06/11/16 07:00 06/16/16 06:08 Synthroid - PO 50 mcg AM [facility] Administration Ondansetron HCl 4 mg 06/11/16 10:10 Zofran Injection IVPB Q4H PRN NAUSEA AND/OR VOMITING Senna 2 tab 06/11/16 22:00 06/15/16 21:36 Senna - PO 2 tab HS [facility] Administration Tamsulosin HCl 0.4 mg 06/10/16 23:57 06/15/16 09:33 Flomax - PO 0.4 mg DAILY@0830 [facility] Administration ASSESSMENT/PLAN: Patient is an 89 year old female with a PMHx of PMH of HTN, HLD, Hypothyroid, Hyperparathyroid, COPD, CAD s/p CABG/stent, Dementia who presented with sepsis. Patient found to have hydronephrosis, UTI, and DMITRY. Patient admitted for further monitoring and management. Sepsis secondary to UTI- Improved -Patient remains afebrile. Continue with Suppository Tylenol 650mg Q4H PRN -Urine culture positive for E.coli -Ceftriaxone 1gm day #4 Acute Renal Failure secondary to Nephrolithiasis with Hydronephrosis- Improved -S/P left sided nephrostomy tube day #6 with no drainage. -Kidney U/S revealed resolution of hydronephrosis -Called IR to reevaluate patient for possible removal of nephrostomy tube. Consult placed to Dr. Garces -Called Urology to speak to Dr. Patel and left message to reevaluate for possible Lithotripsy -Continue Flomax 0.4mg daily -Avoid nephrotoxic medications -Appreciate urology consult Volume Overload -Likely secondary to fluids given -Continues to have crackles at lung bases -Will continue Lasix 40mg Elevated Troponin -Likely from demand ischemia and sepsis -Trending down -Continue monitoring on telemetry Hypercalcemia -Increasing with a level of >12 today -Will order PTH levels and albumin HTN -Continue Cardizem 30mg TID started -Will continue to monitor BP to see if adjustments of Cardizem is required -Low sodium diet -Lasix on hold due to ARF HLD/CAD -Continue Lipitor 10mg daily -Continue ASA 81mg daily Hypothyroidism -Continue home medication Synthroid 50mcg F/E/N -No fluids -Electrolytes wnl -Regular Diet Prophylaxis -Heparin and SCD's Disposition -Awaiting for urology and IR for revaluation of nephrostomy tube removal and lithotripsy. Visit type - Emergency Visit Emergency Visit: Yes ED Registration Date: 06/10/16 Care time: The patient presented to the Emergency Department on the above date and was hospitalized for further evaluation of their emergent condition. - New Patient This patient is new to me today: No - Critical Care Critical Care patient: No
[2016-06-16] MEDS ORDERED: FUROSEMIDE 40 MG TABLET (FP) PO ONE (08:11)
[2016-06-16] MEDS: HEPARIN NA (PORCINE) 5,000 UNITS/ML 1ML VIAL SQ SCH ×2 (09:29→21:27)
[2016-06-16] MEDS: TAMSULOSIN HCL 0.4 MG CAP.ER.24H (FP) PO SCH (09:29)
[2016-06-16] MEDS: CYANOCOBALAMIN 1,000 MCG TABLET (FP) PO SCH (09:29)
[2016-06-16] MEDS: amLODIPine BESYLATE 5 MG TABLET (FP) PO SCH (09:29)
[2016-06-16] MEDS: cefTRIAXone 1 GM/50 ML BAG (PRE-DOCKED) IVPB SCH (09:33)
--- NOTE | 2016-06-16 09:47 | PN ---
Physical Exam: SUBJECTIVE: Patient seen and examined, comfortable, denies pain, L nephrostomy tube very little to no fluids; incontinent, cannot measure voids. Afebrile. white count trending down. OBJECTIVE: Vital Signs Period Temp Pulse Resp BP Sys/Donovan Pulse Ox Last 24 Hr 97.8 F-98.7 F 92-99 18-24 151-170/74-86 94 GENERAL: The patient is awake, alert, no acute distress LUNGS: decreased Breath sounds equal, poor inspiratory effort;clear to auscultation bilaterally, no wheezes, no crackles, no accessory muscle use. HEART: Regular rate and rhythm, S1, S2 without murmur, rub or gallop. ABDOMEN: Soft, nontender, nondistended, normoactive bowel sounds, no guarding, no rebound, no hepatosplenomegaly, no masses. EXTREMITIES: 2+ pulses, warm, well-perfused, no edema. NEUROLOGICAL: oriented to person, place, +dementia BACK: left nephrostomy tube with little blood tinged urine Laboratory Results - last 24 hr 06/16/16 06:10 Sodium 141 Potassium 3.5 Chloride 94 L D Carbon Dioxide 34 H D Anion Gap 13 BUN 30 H D Creatinine 1.3 H Random Glucose 118 H Calcium 12.3 H Active Medications Generic Name Dose Route Start Last Admin Trade Name Freq PRN Reason Stop Dose Admin Acetaminophen 650 mg 06/10/16 23:03 06/13/16 01:30 Tylenol - PO 650 mg Q6H PRN Administration FEVER OR PAIN Acetaminophen 650 mg 06/11/16 16:26 06/12/16 12:57 Tylenol Suppository - [place] 650 mg Q4H PRN Administration FEVER OR PAIN Amlodipine Besylate 5 mg 06/13/16 10:00 06/16/16 09:29 Norvasc - PO 5 mg DAILY [facility] Administration Atorvastatin Calcium 10 mg 06/11/16 22:00 06/15/16 21:36 Lipitor - PO 10 mg HS [facility]IT Administration Ceftriaxone Sodium 1 gm 06/13/16 11:00 06/16/16 09:33 Rocephin 1gm Ivpb (Pre-Docked) IVPB 1 gm DAILY [facility] Administration Cyanocobalamin 1,000 mcg 06/11/16 10:00 06/16/16 09:29 Vitamin B12 - PO 1,000 mcg DAILY [facility] Administration Diltiazem HCl 30 mg 06/14/16 22:00 06/16/16 06:08 Cardizem - PO 30 mg TID [facility] Administration Heparin Sodium (Porcine) 5,000 unit 06/12/16 22:00 06/16/16 09:29 Heparin - SQ 5,000 unit BID [facility] Administration Levothyroxine Sodium 50 mcg 06/11/16 07:00 06/16/16 06:08 Synthroid - PO 50 mcg AM [facility] Administration Ondansetron HCl 4 mg 06/11/16 10:10 Zofran Injection IVPB Q4H PRN NAUSEA AND/OR VOMITING Senna 2 tab 06/11/16 22:00 06/15/16 21:36 Senna - PO 2 tab HS [facility] Administration Tamsulosin HCl 0.4 mg 06/10/16 23:57 06/16/16 09:29 Flomax - PO 0.4 mg DAILY@0830 [facility] Administration Microbiology 06/13/16 11:30 Blood - Peripheral Venous Blood Culture - Preliminary NO GROWTH OBTAINED AFTER 72 HOURS, INCUBATION TO CONTINUE FOR 2 DAYS. 06/13/16 11:30 Blood - Peripheral Venous Blood Culture - Preliminary NO GROWTH OBTAINED AFTER 72 HOURS, INCUBATION TO CONTINUE FOR 2 DAYS. 06/10/16 17:20 Blood - Peripheral Venous Blood Culture - Final Escherichia Coli Staph Hominis Sub Sp Hominis 06/11/16 13:25 Urine - Urine Nephrostomy Tube Urine Culture - Final Escherichia Coli 06/10/16 19:04 Urine - Urine Clean Catch Urine Culture - Final Escherichia Coli Esbl Rouge Mixer 06/10/16 17:46 Blood - Peripheral Venous Blood Culture - Final Escherichia Coli ASSESSMENT/PLAN: 89 year old female with PMH of HTN, HLD, Hypothyroid, Hyperparathyroid, COPD, CAD s/p CABG/stent, Dementia & ESBL-producing UTI who presents to ED from [facility] for fever. #Severe Sepsis, secondary urinary tract infection: gram negative bacteremia: improving -white wnl; afebrile -previous urine cx (ESBL resistant to Fluoroquinolones) & PCN allergy -continue ceftriaxone day 4 -will not treat the ESBL for now, may just be colonization #Acute Renal Failure, 2-3mm Left Ureteral stone with mild to mod hydronephrosis -left sided nephrostomy minimal drainage; eval for removal and possible lithotripsy -Flomax 0.4mg PO daily -avoid nephrotoxic meds -appreciate urology Problem List - Problems (1) Gram negative sepsis Code(s): A41.50 - GRAM-NEGATIVE SEPSIS, UNSPECIFIED (2) UTI (urinary tract infection) Code(s): N39.0 - URINARY TRACT INFECTION, SITE NOT SPECIFIED (3) Ureteral stone with hydronephrosis Code(s): N13.2 - HYDRONEPHROSIS WITH RENAL AND URETERAL CALCULOUS OBSTRUCTION Visit type - Emergency Visit Emergency Visit: Yes ED Registration Date: 06/10/16 Care time: The patient presented to the Emergency Department on the above date and was hospitalized for further evaluation of their emergent condition. - New Patient This patient is new to me today: No - Critical Care Critical Care patient: No
[2016-06-16] MEDS ORDERED: FUROSEMIDE 40 MG/4 ML INJECTABLE VIAL ONE (13:57)
[2016-06-16] MEDS ORDERED: FUROSEMIDE 40 MG/4 ML INJECTABLE VIAL IVPUSH ONE (14:30)
--- NOTE | 2016-06-16 14:50 | PN ---
Teaching Attending Note Name of Resident: Lisa Hammond ATTENDING PHYSICIAN STATEMENT I saw and evaluated the patient. I reviewed the resident's note and discussed the case with the resident. I agree with the resident's findings and plan as documented. SUBJECTIVE: OBJECTIVE: ASSESSMENT AND PLAN: UTI/Sepsis S/P percutaneous nephrostomy Fever/ leukocytosis- improved Continue ceftriaxone
--- NOTE | 2016-06-16 16:03 | PN ---
Teaching Attending Note Name of Resident: Desirae Parra ATTENDING PHYSICIAN STATEMENT I saw and evaluated the patient. I reviewed the resident's note and discussed the case with the resident. I agree with the resident's findings and plan as documented. SUBJECTIVE: Patient has no complaints. OBJECTIVE: Vital Signs Period Temp Pulse Resp BP Sys/Donovan Pulse Ox Last 24 Hr 97.8 F-98.7 F 82-99 18-26 136-170/63-79 94-98 HEART: S1S2, RRR LUNGS: Clear ABDOMEN: Soft, non-tender, non-distended, normal BS EXTREMITIES: No edema ASSESSMENT AND PLAN: This is an 89-year-old woman with a history of HTN, hyperlipidemia, hypothyroidism, CAD, CABG, dementia, COPD who presented to the ER from [facility] because of fever. 1. Severe sepsis secondary to E. coli bacteremia and UTI - Continue Rocephin (day 4) 2. Acute kidney injury secondary to sepsis and left obstructing stone - s/p left nephrostomy with improvement of hydronephrosis - Continue Flomax - Urology follow up 3. Hypothyroidism - Continue Synthroid 4. HTN - Continue Cardizem, Norvasc 5. Hyperlipidemia - Continue Lipitor 6. CAD, history of CABG 7. COPD - Stable 8. Demand ischemia secondary to sepsis
[2016-06-16] MEDS: SENNOSIDES 8.6MG TABLET (FP) PO SCH (21:27)
[2016-06-16] MEDS: ATORVASTATIN CA 10 MG TABLET (FP) PO SCH (21:27)
[2016-06-17] MEDS: LEVOTHYROXINE NA 50 MCG TABLET (FP) PO SCH (06:00)
[2016-06-17] MEDS: dilTIAZem HCL 30 MG TABLET (FP) PO SCH ×3 (06:00→22:18)
--- NOTE | 2016-06-17 06:55 | PN ---
Physical Exam: SUBJECTIVE: Patient seen and examined by me at bedside. No overnight events noted. Patient complains of sores in her mouth. When examining the mouth patient has oral thrush that is easily scraped off. Will order nystatin. Otherwise, patient denies shortness of breath, chest pain, fever, chills, nausea , vomiting. OBJECTIVE: Vital Signs Period Temp Pulse Resp BP Sys/Donovan Pulse Ox Last 24 Hr 97.2 F-98.4 F 82-89 18-26 128-147/58-78 98-98 GENERAL: The patient is awake, alert, and in no acute distress ENT: Oral thrush easily scraped off. LUNGS: CTA bilaterally HEART: RRR, S1, S2 without murmur, rub or gallop. ABDOMEN: Soft, nontender, nondistended, no guarding, no rebound. Left Nephrostomy tube with 65 mls drainage EXTREMITIES: No peripheral edema NEUROLOGICAL: Cognitive impairment at baseline SKIN: Warm, dry, normal turgor, no rashes or lesions noted Laboratory Results - last 24 hr 06/16/16 06:10 Sodium 141 Potassium 3.5 Chloride 94 L D Carbon Dioxide 34 H D Anion Gap 13 BUN 30 H D Creatinine 1.3 H Random Glucose 118 H Calcium 12.3 H Active Medications Generic Name Dose Route Start Last Admin Trade Name Freq PRN Reason Stop Dose Admin Acetaminophen 650 mg 06/10/16 23:03 06/13/16 01:30 Tylenol - PO 650 mg Q6H PRN Administration FEVER OR PAIN Acetaminophen 650 mg 06/11/16 16:26 06/12/16 12:57 Tylenol Suppository - [place] 650 mg Q4H PRN Administration FEVER OR PAIN Amlodipine Besylate 5 mg 06/13/16 10:00 06/16/16 09:29 Norvasc - PO 5 mg DAILY [facility] Administration Atorvastatin Calcium 10 mg 06/11/16 22:00 06/16/16 21:27 Lipitor - PO 10 mg HS R[facility]IT Administration Ceftriaxone Sodium 1 gm 06/13/16 11:00 06/16/16 09:33 Rocephin 1gm Ivpb (Pre-Docked) IVPB 1 gm DAILY [facility] Administration Cyanocobalamin 1,000 mcg 06/11/16 10:00 06/16/16 09:29 Vitamin B12 - PO 1,000 mcg DAILY R[facility] Administration Diltiazem HCl 30 mg 06/14/16 22:00 06/17/16 06:00 Cardizem - PO 30 mg TID ROHIT Administration Heparin Sodium (Porcine) 5,000 unit 06/12/16 22:00 06/16/16 21:27 Heparin - SQ 5,000 unit BID R[facility]IT Administration Levothyroxine Sodium 50 mcg 06/11/16 07:00 06/17/16 06:00 Synthroid - PO 50 mcg AM R[facility]IT Administration Ondansetron HCl 4 mg 06/11/16 10:10 Zofran Injection IVPB Q4H PRN NAUSEA AND/OR VOMITING Senna 2 tab 06/11/16 22:00 06/16/16 21:27 Senna - PO 2 tab HS [facility] Administration Tamsulosin HCl 0.4 mg 06/10/16 23:57 06/16/16 09:29 Flomax - PO 0.4 mg DAILY@0830 R[facility] Administration ASSESSMENT/PLAN: Patient is an 89 year old female with a PMHx of PMH of HTN, HLD, Hypothyroid, Hyperparathyroid, COPD, CAD s/p CABG/stent, Dementia who presented with sepsis. Patient found to have hydronephrosis, UTI, and DMITRY. Patient admitted for further monitoring and management. Sepsis secondary to UTI- Improved -Patient remains afebrile. Continue with Suppository Tylenol 650mg Q4H PRN -Urine culture positive for E.coli -Ceftriaxone 1gm day #5 Acute Renal Failure secondary to Nephrolithiasis with Hydronephrosis- Improved -S/P left sided nephrostomy tube day #7 with 65mls drainage -Kidney U/S revealed resolution of hydronephrosis -IR to reevaluate patient for possible removal of nephrostomy tube who recommended to clamp nephrostomy tube and observe -Called Urology to speak to Dr. Patel and left message to reevaluate for possible Lithotripsy -Continue Flomax 0.4mg daily -Avoid nephrotoxic medications -Appreciate urology consult Oral Thrush -Complains of sores in mouth -Oral thrush that scrapes off -Nystatin ordered -Oral care Volume Overload- improved -Likely secondary to fluids given -No crackles appreciated today but patient has poor inspiration -Continue oxygen -Will continue Lasix 40mg PO Elevated Troponin- resolved -Likely from demand ischemia and sepsis Hypercalcemia -Increasing with a level of >12 today -PTH pending HTN -Continue Cardizem 30mg TID started -Will continue to monitor BP to see if adjustments of Cardizem is required -Low sodium diet -Lasix on hold due to ARF HLD/CAD -Continue Lipitor 10mg daily -Continue ASA 81mg daily Hypothyroidism -Continue home medication Synthroid 50mcg F/E/N -No fluids -Electrolytes wnl -Regular Diet Prophylaxis -Heparin and SCD's Disposition -Awaiting for urology and IR for revaluation of nephrostomy tube removal and lithotripsy. Visit type - Emergency Visit Emergency Visit: Yes ED Registration Date: 06/10/16 Care time: The patient presented to the Emergency Department on the above date and was hospitalized for further evaluation of their emergent condition. - New Patient This patient is new to me today: No - Critical Care Critical Care patient: No
[2016-06-17 08:03] LABS: ALBUMIN 2.5 g/dl (3.4-5.0); BILIRUBIN,TOTAL 0.6 mg/dL (0.2-1.0); CALCIUM 11.3 mg/dL (8.5-10.1); COCKROFT - GAULT 28.271; CREATININE 1.3 mg/dL (0.55-1.02); TOT PROT 6.1 g/dl (6.4-8.2)
[2016-06-17] MEDS: cefTRIAXone 1 GM/50 ML BAG (PRE-DOCKED) IVPB SCH (10:23)
[2016-06-17] MEDS: CYANOCOBALAMIN 1,000 MCG TABLET (FP) PO SCH (10:23)
[2016-06-17] MEDS: amLODIPine BESYLATE 5 MG TABLET (FP) PO SCH (10:23)
[2016-06-17] MEDS: HEPARIN NA (PORCINE) 5,000 UNITS/ML 1ML VIAL SQ SCH ×2 (10:23→22:18)
[2016-06-17] MEDS: TAMSULOSIN HCL 0.4 MG CAP.ER.24H (FP) PO SCH (10:24)
[2016-06-17] MEDS: NYSTATIN 500,000 UNITS/5 ML SUSPENSION PO SCH ×3 (13:03→23:44)
--- NOTE | 2016-06-17 13:22 | PN ---
Teaching Attending Note Name of Resident: Desirae Parra ATTENDING PHYSICIAN STATEMENT I saw and evaluated the patient. I reviewed the resident's note and discussed the case with the resident. I agree with the resident's findings and plan as documented. SUBJECTIVE: Patient complained of sores in her mouth this morning. OBJECTIVE: Vital Signs Period Temp Pulse Resp BP Sys/Donovan Pulse Ox Last 24 Hr 97.2 F-98.4 F 82-89 18-26 128-147/58-78 98 HEART: S1S2, RRR LUNGS: Clear ABDOMEN: Soft, non-tender, non-distended, normal BS EXTREMITIES: No edema ASSESSMENT AND PLAN: This is an 89-year-old woman with a history of HTN, hyperlipidemia, hypothyroidism, CAD, CABG, dementia, COPD who presented to the ER from [facility] because of fever. 1. Severe sepsis secondary to E. coli bacteremia and UTI - Continue Rocephin (day 5) 2. Acute kidney injury secondary to sepsis and left obstructing stone - s/p left nephrostomy with improvement of hydronephrosis - clamp tube today and monitor - Continue Flomax - Urology follow up 3. Oral candidiasis - Nystatin started 4. Hypothyroidism - Continue Synthroid 5. HTN - Continue Cardizem, Norvasc 6. Hyperlipidemia - Continue Lipitor 7. CAD, history of CABG 8. COPD - Stable 9. Demand ischemia secondary to sepsis
--- NOTE | 2016-06-17 13:40 | PN ---
Physical Exam: SUBJECTIVE: Patient seen and examined wanting to go home, Afebrile, wbc trend down. OBJECTIVE: Vital Signs Period Temp Pulse Resp BP Sys/Donovan Pulse Ox Last 24 Hr 97.2 F-98.4 F 82-89 18-26 128-147/58-78 98-98 GENERAL: The patient is awake, alert, and fully oriented, in no acute distress. HEAD: Normal with no signs of trauma. EYES: PERRL, extraocular movements intact, sclera anicteric, conjunctiva clear. No ptosis. ENT: Ears normal, nares patent, oropharynx clear without exudates, moist mucous membranes. NECK: Trachea midline, full range of motion, supple. LUNGS: decreased breath sounds equal, poor inspiratory effort clear to auscultation bilaterally, no wheezes, no crackles, no accessory muscle use. HEART: Regular rate and rhythm, S1, S2 without murmur, rub or gallop. ABDOMEN: Soft, nontender, nondistended, normoactive bowel sounds, no guarding, no rebound, no hepatosplenomegaly, no masses. EXTREMITIES: 2+ pulses, warm, well-perfused, no edema. NEUROLOGICAL: Cranial nerves II through XII grossly intact. Normal speech, gait not observed. PSYCH: Normal mood, normal affect. SKIN: Warm, dry, normal turgor, no rashes or lesions noted Laboratory Results - last 24 hr 06/17/16 05:47 Sodium 137 Potassium 3.5 Chloride 91 L Carbon Dioxide 36 H Anion Gap 10 BUN 32 H Creatinine 1.3 H Creat Clearance w eGFR 38.66 Random Glucose 105 Calcium 11.3 H Total Bilirubin 0.6 D AST 31 D ALT 39 D Alkaline Phosphatase 132 H D Total Protein 6.1 L Albumin 2.5 L Active Medications Generic Name Dose Route Start Last Admin Trade Name Freq PRN Reason Stop Dose Admin Acetaminophen 650 mg 06/10/16 23:03 06/13/16 01:30 Tylenol - PO 650 mg Q6H PRN Administration FEVER OR PAIN Acetaminophen 650 mg 06/11/16 16:26 06/12/16 12:57 Tylenol Suppository - [place] 650 mg Q4H PRN Administration FEVER OR PAIN Amlodipine Besylate 5 mg 06/13/16 10:00 06/17/16 10:23 Norvasc - PO 5 mg DAILY ROHIT Administration Atorvastatin Calcium 10 mg 06/11/16 22:00 06/16/16 21:27 Lipitor - PO 10 mg HS ROHIT Administration Ceftriaxone Sodium 1 gm 06/13/16 11:00 06/17/16 10:23 Rocephin 1gm Ivpb (Pre-Docked) IVPB 1 gm DAILY ROHIT Administration Cyanocobalamin 1,000 mcg 06/11/16 10:00 06/17/16 10:23 Vitamin B12 - PO 1,000 mcg DAILY ROHIT Administration Diltiazem HCl 30 mg 06/14/16 22:00 06/17/16 13:16 Cardizem - PO 30 mg TID ROHIT Administration Heparin Sodium (Porcine) 5,000 unit 06/12/16 22:00 06/17/16 10:23 Heparin - SQ 5,000 unit BID ROHIT Administration Levothyroxine Sodium 50 mcg 06/11/16 07:00 06/17/16 06:00 Synthroid - PO 50 mcg AM ROHIT Administration Nystatin 500,000 units 06/17/16 12:00 06/17/16 13:03 Nystatin Oral Suspension - PO 500,000 units Q6HPO ROHIT Administration Ondansetron HCl 4 mg 06/11/16 10:10 Zofran Injection IVPB Q4H PRN NAUSEA AND/OR VOMITING Senna 2 tab 06/11/16 22:00 06/16/16 21:27 Senna - PO 2 tab HS ROHIT Administration Tamsulosin HCl 0.4 mg 06/10/16 23:57 06/17/16 10:24 Flomax - PO 0.4 mg DAILY@0830 ROHIT Administration ASSESSMENT/PLAN: 89 year old female with PMH of HTN, HLD, Hypothyroid, Hyperparathyroid, COPD, CAD s/p CABG/stent, Dementia & ESBL-producing UTI who presents to ED from [facility] for fever. #Severe Sepsis, secondary urinary tract infection: gram negative bacteremia: improving -white wnl; afebrile -previous urine cx (ESBL resistant to Fluoroquinolones) & PCN allergy -continue ceftriaxone day 5 -will not treat the ESBL for now,most likely colonization #Acute Renal Failure, 2-3mm Left Ureteral stone with mild to mod hydronephrosis -Cr trend up this am 1.3 -left sided nephrostomy minimal drainage; eval for removal and possible lithotripsy: clamping trial -Flomax 0.4mg PO daily -avoid nephrotoxic meds -appreciate urology Problem List - Problems (1) Gram negative sepsis Code(s): A41.50 - GRAM-NEGATIVE SEPSIS, UNSPECIFIED (2) UTI (urinary tract infection) Code(s): N39.0 - URINARY TRACT INFECTION, SITE NOT SPECIFIED (3) Ureteral stone with hydronephrosis Code(s): N13.2 - HYDRONEPHROSIS WITH RENAL AND URETERAL CALCULOUS OBSTRUCTION Visit type - Emergency Visit Emergency Visit: Yes ED Registration Date: 06/10/16 Care time: The patient presented to the Emergency Department on the above date and was hospitalized for further evaluation of their emergent condition. - New Patient This patient is new to me today: No - Critical Care Critical Care patient: No
[2016-06-17] MEDS: SENNOSIDES 8.6MG TABLET (FP) PO SCH (22:18)
[2016-06-17] MEDS: ATORVASTATIN CA 10 MG TABLET (FP) PO SCH (22:18)
--- NOTE | 2016-06-17 22:20 | PN ---
Teaching Attending Note ATTENDING PHYSICIAN STATEMENT I saw and evaluated the patient. I reviewed the resident's note and discussed the case with the resident. I agree with the resident's findings and plan as documented. SUBJECTIVE: OBJECTIVE: ASSESSMENT AND PLAN:
[2016-06-18] MEDS: NYSTATIN 500,000 UNITS/5 ML SUSPENSION PO SCH ×4 (06:20→23:17)
[2016-06-18] MEDS: LEVOTHYROXINE NA 50 MCG TABLET (FP) PO SCH (06:21)
[2016-06-18] MEDS: dilTIAZem HCL 30 MG TABLET (FP) PO SCH ×3 (06:21→23:00)
[2016-06-18 08:38] LABS: CALCIUM 11.8 mg/dL (8.5-10.1); COCKROFT - GAULT 28.271; CREATININE 1.3 mg/dL (0.55-1.02)
--- NOTE | 2016-06-18 08:45 | PN ---
Progress Note (short form) - Note Progress Note: afebrile no flank pain last WBC was normal will need repeat cultures plan for lithotripsy once repeat cultures are negative Problem List - Problems (1) Ureteral stone with hydronephrosis Code(s): N13.2 - HYDRONEPHROSIS WITH RENAL AND URETERAL CALCULOUS OBSTRUCTION
--- NOTE | 2016-06-18 09:11 | PN ---
Physical Exam: SUBJECTIVE: Patient seen and examined by me at bedside. No overnight events noted. Patient had nephrostomy tube clamped since yesterday with no signs of symptoms or obstruction. Patient offers no complaints. Urology evaluated patient this morning and will proceed with Lithotripsy pending blood culture results. If negative will proceed. Otherwise, patient denies fever, chills, nausea, vomiting, abdominal pain, chest pain, palpitations. OBJECTIVE: Vital Signs Period Temp Pulse Resp BP Sys/Donovan Pulse Ox Last 24 Hr 97.6 F-98.4 F 81-88 20-81 125-143/65-80 95 GENERAL: The patient is awake, alert, and in no acute distress ENT: Oral thrush LUNGS: CTA bilaterally HEART: RRR, S1, S2 without murmur, rub or gallop. ABDOMEN: Soft, nontender, nondistended, no guarding, no rebound. Left Nephrostomy tube clamped EXTREMITIES: No peripheral edema NEUROLOGICAL: Cognitive impairment at baseline Laboratory Results - last 24 hr 06/18/16 07:50 Sodium 137 Potassium 3.7 Chloride 91 L Carbon Dioxide 38 H Anion Gap 8 BUN 33 H Creatinine 1.3 H Random Glucose 111 H Calcium 11.8 H Active Medications Generic Name Dose Route Start Last Admin Trade Name Freq PRN Reason Stop Dose Admin Acetaminophen 650 mg 06/10/16 23:03 06/13/16 01:30 Tylenol - PO 650 mg Q6H PRN Administration FEVER OR PAIN Acetaminophen 650 mg 06/11/16 16:26 06/12/16 12:57 Tylenol Suppository - [place] 650 mg Q4H PRN Administration FEVER OR PAIN Amlodipine Besylate 5 mg 06/13/16 10:00 06/17/16 10:23 Norvasc - PO 5 mg DAILY ROHIT Administration Atorvastatin Calcium 10 mg 06/11/16 22:00 06/17/16 22:18 Lipitor - PO 10 mg HS ROHIT Administration Ceftriaxone Sodium 1 gm 06/13/16 11:00 06/17/16 10:23 Rocephin 1gm Ivpb (Pre-Docked) IVPB 1 gm DAILY ROHIT Administration Cyanocobalamin 1,000 mcg 06/11/16 10:00 06/17/16 10:23 Vitamin B12 - PO 1,000 mcg DAILY ROHIT Administration Diltiazem HCl 30 mg 06/14/16 22:00 06/18/16 06:21 Cardizem - PO 30 mg TID ROHIT Administration Heparin Sodium (Porcine) 5,000 unit 06/12/16 22:00 06/17/16 22:18 Heparin - SQ 5,000 unit BID ROHIT Administration Levothyroxine Sodium 50 mcg 06/11/16 07:00 06/18/16 06:21 Synthroid - PO 50 mcg AM ROHIT Administration Nystatin 500,000 units 06/17/16 12:00 06/18/16 06:20 Nystatin Oral Suspension - PO 500,000 units Q6HPO ROHIT Administration Ondansetron HCl 4 mg 06/11/16 10:10 Zofran Injection IVPB Q4H PRN NAUSEA AND/OR VOMITING Senna 2 tab 06/11/16 22:00 06/17/16 22:18 Senna - PO 2 tab HS ROHIT Administration Tamsulosin HCl 0.4 mg 06/10/16 23:57 06/17/16 10:24 Flomax - PO 0.4 mg DAILY@0830 ROHIT Administration ASSESSMENT/PLAN: Patient is an 89 year old female with a PMHx of PMH of HTN, HLD, Hypothyroid, Hyperparathyroid, COPD, CAD s/p CABG/stent, Dementia who presented with sepsis. Patient found to have hydronephrosis, UTI, and DMITRY. Patient admitted for further monitoring and management. Sepsis secondary to UTI- Improved -Patient remains afebrile. Continue with Suppository Tylenol 650mg Q4H PRN -Urine culture positive for E.coli -Ceftriaxone 1gm day #6 Acute Renal Failure secondary to Nephrolithiasis with Hydronephrosis- Improved -S/P left sided nephrostomy tube day #8- clamped since yesterday with no signs of obstruction -Kidney U/S revealed resolution of hydronephrosis -Lithotripsy to be done after repeat cultures are negative -Urine and Blood cultures ordered -Continue Flomax 0.4mg daily -Avoid nephrotoxic medications -Appreciate urology consult Oral Thrush -No complaints of mouth pain today -Continue Nystatin -Continue Oral care Volume Overload- improved -Likely secondary to fluids given -No crackles appreciated today but patient has poor inspiration -Continue oxygen -Will continue Lasix 40mg PO Elevated Troponin- resolved -Likely from demand ischemia and sepsis Hypercalcemia -Level of >12 -PTH pending HTN -Continue Cardizem 30mg TID started -Will continue to monitor BP to see if adjustments of Cardizem is required -Low sodium diet -Lasix on hold due to ARF HLD/CAD -Continue Lipitor 10mg daily -Continue ASA 81mg daily Hypothyroidism -Continue home medication Synthroid 50mcg F/E/N -No fluids -Electrolytes wnl -Regular Diet Prophylaxis -Heparin and SCD's Disposition -Repeat cultures sent. Urology to have lithotripsy done if negative cultures . Visit type - Emergency Visit Emergency Visit: Yes ED Registration Date: 06/10/16 Care time: The patient presented to the Emergency Department on the above date and was hospitalized for further evaluation of their emergent condition. - New Patient This patient is new to me today: No - Critical Care Critical Care patient: No
[2016-06-18] MEDS: amLODIPine BESYLATE 5 MG TABLET (FP) PO SCH (09:45)
[2016-06-18] MEDS: TAMSULOSIN HCL 0.4 MG CAP.ER.24H (FP) PO SCH (09:45)
[2016-06-18] MEDS: HEPARIN NA (PORCINE) 5,000 UNITS/ML 1ML VIAL SQ SCH ×2 (09:45→23:00)
[2016-06-18] MEDS: cefTRIAXone 1 GM/50 ML BAG (PRE-DOCKED) IVPB SCH (09:45)
[2016-06-18] MEDS: CYANOCOBALAMIN 1,000 MCG TABLET (FP) PO SCH (09:45)
[2016-06-18 15:22] LABS: URINE APPEARANCE SLCLOUDY; URINE BILIRUBIN NEGATIVE (NEGATIVE); URINE BLOOD NEGATIVE (NEGATIVE); URINE COLOR LTYELLOW; URINE GLUCOSE (UA) NEGATIVE (NEGATIVE); URINE KETONE NEGATIVE (NEGATIVE); URINE NITRITE NEGATIVE (NEGATIVE); URINE PROTEIN NEGATIVE (NEGATIVE); URINE UROBILINOGEN NEGATIVE E.U./dl (0.2-1.0)
[2016-06-18 15:32] LABS: URINE LEUK ESTERASE 1+ (NEGATIVE)
--- NOTE | 2016-06-18 15:39 | PN ---
Physical Exam: SUBJECTIVE: Patient seen and examined no events overnight; afebrile; wbc wnl; no new complaints; left nephrostomy tube ;little drainage OBJECTIVE: Vital Signs Period Temp Pulse Resp BP Sys/Donovan Pulse Ox Last 24 Hr 97.6 F-98.4 F 78-86 20-81 125-143/57-80 95-99 GENERAL: The patient is awake, alert, and fully oriented,slightly confuses, at baseline HEAD: Normal with no signs of trauma. EYES: PERRL, extraocular movements intact, sclera anicteric, conjunctiva clear. No ptosis. LUNGS: decreased Breath sounds poor inspiratory effort, clear to auscultation bilaterally, no wheezes, no crackles, no accessory muscle use. HEART: Regular rate and rhythm, S1, S2 without murmur, rub or gallop. ABDOMEN: Soft, nontender, nondistended, normoactive bowel sounds, no guarding, no rebound, no hepatosplenomegaly, no masses. EXTREMITIES: 2+ pulses, warm, well-perfused, no edema. NEUROLOGICAL: Cranial nerves II through XII grossly intact. Normal speech, gait not observed. PSYCH: Normal mood, normal affect. SKIN: Warm, dry, normal turgor, no rashes or lesions noted Back: left nephrostomy tube in place;little , clear urin Laboratory Results - last 24 hr 06/17/16 06/18/16 06/18/16 05:47 07:50 14:00 Sodium 137 Potassium 3.7 Chloride 91 L Carbon Dioxide 38 H Anion Gap 8 BUN 33 H Creatinine 1.3 H Random Glucose 111 H Calcium 11.8 H PTH Intact 118 H Urine Color Ltyellow Urine Appearance Slcloudy Urine pH 7.0 D Urine Protein Negative Urine Glucose (UA) Negative Urine Ketones Negative Urine Blood Negative Urine Nitrite Negative Urine Bilirubin Negative Urine Urobilinogen Negative Ur Leukocyte Esterase 1+ H D Active Medications Generic Name Dose Route Start Last Admin Trade Name Freq PRN Reason Stop Dose Admin Acetaminophen 650 mg 06/10/16 23:03 06/13/16 01:30 Tylenol - PO 650 mg Q6H PRN Administration FEVER OR PAIN Acetaminophen 650 mg 06/11/16 16:26 06/12/16 12:57 Tylenol Suppository - [place] 650 mg Q4H PRN Administration FEVER OR PAIN Amlodipine Besylate 5 mg 06/13/16 10:00 06/18/16 09:45 Norvasc - PO 5 mg DAILY ROHIT Administration Atorvastatin Calcium 10 mg 06/11/16 22:00 06/17/16 22:18 Lipitor - PO 10 mg HS ROHIT Administration Ceftriaxone Sodium 1 gm 06/13/16 11:00 06/18/16 09:45 Rocephin 1gm Ivpb (Pre-Docked) IVPB 1 gm DAILY ROHIT Administration Cyanocobalamin 1,000 mcg 06/11/16 10:00 06/18/16 09:45 Vitamin B12 - PO 1,000 mcg DAILY ROHIT Administration Diltiazem HCl 30 mg 06/14/16 22:00 06/18/16 13:36 Cardizem - PO 30 mg TID ROHIT Administration Heparin Sodium (Porcine) 5,000 unit 06/12/16 22:00 06/18/16 09:45 Heparin - SQ 5,000 unit BID ROHIT Administration Levothyroxine Sodium 50 mcg 06/11/16 07:00 06/18/16 06:21 Synthroid - PO 50 mcg AM ROHIT Administration Nystatin 500,000 units 06/17/16 12:00 06/18/16 11:12 Nystatin Oral Suspension - PO 500,000 units Q6HPO ROHIT Administration Ondansetron HCl 4 mg 06/11/16 10:10 Zofran Injection IVPB Q4H PRN NAUSEA AND/OR VOMITING Senna 2 tab 06/11/16 22:00 06/17/16 22:18 Senna - PO 2 tab HS ROHIT Administration Tamsulosin HCl 0.4 mg 06/10/16 23:57 06/18/16 09:45 Flomax - PO 0.4 mg DAILY@0830 ROHIT Administration ASSESSMENT/PLAN: 89 year old female with PMH of HTN, HLD, Hypothyroid, Hyperparathyroid, COPD, CAD s/p CABG/stent, Dementia & ESBL-producing UTI who presents to ED from [facility] for fever. #Severe Sepsis, secondary urinary tract infection: gram negative bacteremia: improving -white wnl; afebrile -previous urine cx (ESBL resistant to Fluoroquinolones) & PCN allergy -will not treat the ESBL for now,most likely colonization -f/u repeat cultures -continue ceftriaxone day 6: switch to oral antibiotic tomorrow #Acute Renal Failure, 2-3mm Left Ureteral stone with mild to mod hydronephrosis -Cr trend up this am 1.3 -left sided nephrostomy minimal drainage; eval for removal and possible lithotripsy -Flomax 0.4mg PO daily -avoid nephrotoxic meds -appreciate urology; ID will follow, thank you. Problem List - Problems (1) Gram negative sepsis Code(s): A41.50 - GRAM-NEGATIVE SEPSIS, UNSPECIFIED (2) UTI (urinary tract infection) Code(s): N39.0 - URINARY TRACT INFECTION, SITE NOT SPECIFIED (3) Ureteral stone with hydronephrosis Code(s): N13.2 - HYDRONEPHROSIS WITH RENAL AND URETERAL CALCULOUS OBSTRUCTION Visit type - Emergency Visit Emergency Visit: Yes ED Registration Date: 06/10/16 Care time: The patient presented to the Emergency Department on the above date and was hospitalized for further evaluation of their emergent condition. - New Patient This patient is new to me today: No - Critical Care Critical Care patient: No
[2016-06-18 15:47] LABS: URINE WBC 12 /hpf (3-5)
--- NOTE | 2016-06-18 16:25 | PN ---
Teaching Attending Note Name of Resident: Desirae Parra ATTENDING PHYSICIAN STATEMENT I saw and evaluated the patient. I reviewed the resident's note and discussed the case with the resident. I agree with the resident's findings and plan as documented. SUBJECTIVE: OBJECTIVE: Vital Signs Period Temp Pulse Resp BP Sys/Donovan Pulse Ox Last 24 Hr 97.6 F-98.4 F 78-86 20-81 125-143/57-80 95-99 HEART: S1S2, RRR LUNGS: Clear ABDOMEN: Soft, non-tender, non-distended, normal BS EXTREMITIES: No edema ASSESSMENT AND PLAN: This is an 89-year-old woman with a history of HTN, hyperlipidemia, hypothyroidism, CAD, CABG, dementia, COPD who presented to the ER from [facility] because of fever. 1. Severe sepsis secondary to E. coli bacteremia and UTI - Continue Rocephin (day 6) 2. Acute kidney injury secondary to sepsis and left obstructing stone - s/p left nephrostomy with improvement of hydronephrosis - Continue Flomax - Plan for lithotripsy once blood/urine cultures negative 3. Oral candidiasis - Continue Nystatin 4. Hypothyroidism - Continue Synthroid 5. HTN - Continue Cardizem, Norvasc 6. Hyperlipidemia - Continue Lipitor 7. CAD, history of CABG 8. COPD - Stable 9. Demand ischemia secondary to sepsis
--- NOTE | 2016-06-18 18:25 | PN ---
Teaching Attending Note Name of Resident: Lisa Hammond ATTENDING PHYSICIAN STATEMENT I saw and evaluated the patient. I reviewed the resident's note and discussed the case with the resident. I agree with the resident's findings and plan as documented. SUBJECTIVE: OBJECTIVE: ASSESSMENT AND PLAN:
[2016-06-18] MEDS: SENNOSIDES 8.6MG TABLET (FP) PO SCH (22:55)
[2016-06-18] MEDS: ATORVASTATIN CA 10 MG TABLET (FP) PO SCH (23:00)
[2016-06-19] MEDS: dilTIAZem HCL 30 MG TABLET (FP) PO SCH ×2 (06:44→14:14)
[2016-06-19] MEDS: NYSTATIN 500,000 UNITS/5 ML SUSPENSION PO SCH ×2 (06:44→12:22)
[2016-06-19] MEDS: LEVOTHYROXINE NA 50 MCG TABLET (FP) PO SCH (06:44)
[2016-06-19 08:12] LABS: MCH 31.2 pg (25.7-33.7); MCHC 33.8 g/dl (32.0-36.0); MEAN CELL VOLUME 92.3 fl (80-96); MEAN PLT VOLUME 9.1 fl (7.5-11.1); PLATELET COUNT 239 K/MM3 (134-434); RDW 14.3 % (11.6-15.6); WHITE BLOOD COUNT 13.6 K/mm3 (4.0-10.0)
[2016-06-19] MEDS: TAMSULOSIN HCL 0.4 MG CAP.ER.24H (FP) PO SCH (08:43)
[2016-06-19 08:47] LABS: CALCIUM 11.7 mg/dL (8.5-10.1); COCKROFT - GAULT 26.248; CREATININE 1.4 mg/dL (0.55-1.02)
[2016-06-19] MEDS: cefTRIAXone 1 GM/50 ML BAG (PRE-DOCKED) IVPB SCH (09:00)
[2016-06-19] MEDS: CYANOCOBALAMIN 1,000 MCG TABLET (FP) PO SCH (09:00)
[2016-06-19] MEDS: amLODIPine BESYLATE 5 MG TABLET (FP) PO SCH (09:00)
[2016-06-19] MEDS: HEPARIN NA (PORCINE) 5,000 UNITS/ML 1ML VIAL SQ SCH (09:00)
[2016-06-19 09:19] LABS: METAMYELOCYTE 1 % (0-2)
[2016-06-19 09:22] LABS: PLATELET ESTIMATE ADEQUATE (NORMAL)
[2016-06-19 09:23] LABS: POLYCHROMASIA 1+
--- NOTE | 2016-06-19 10:45 | PN ---
Physical Exam: SUBJECTIVE: Patient seen and examined by me at bedside. She is on 2L [place] saturating at 95% but has been saturating at 94% throughout her stay. No overnight events noted. Leukocytosis today with WBC's of >13. Chest X-ray ordered. Otherwise, denies chest pain, palpitations, abdominal pain, headaches. OBJECTIVE: Vital Signs Period Temp Pulse Resp BP Sys/Donovan Pulse Ox Last 24 Hr 97.8 F-98.1 F 81-85 16-22 122-146/52-69 96 GENERAL: The patient is awake, alert, and in no acute distress ENT: No Oral thrush LUNGS: CTA bilaterally HEART: RRR, S1, S2 without murmur, rub or gallop. ABDOMEN: Soft, nontender, nondistended, no guarding, no rebound. Left Nephrostomy tube clamped. Drained 6mls EXTREMITIES: No peripheral edema NEUROLOGICAL: Cognitive impairment at baseline Laboratory Results - last 24 hr 06/17/16 06/18/16 06/19/16 05:47 14:00 06:20 WBC 13.6 H D RBC 3.81 Hgb 11.9 Hct 35.2 MCV 92.3 MCHC 33.8 RDW 14.3 Plt Count 239 D MPV 9.1 Neutrophils % 74.0 Lymphocytes % 16.0 Monocytes % 4.0 Eosinophils % 4.0 Band Neutrophils 1.0 D Metamyelocytes 1 D Platelet Estimate Adequate Platelet Comment No clumping noted Polychromasia 1+ Sodium Potassium Chloride Carbon Dioxide Anion Gap BUN Creatinine Random Glucose Calcium PTH Intact 118 H Urine Color Ltyellow Urine Appearance Slcloudy Urine pH 7.0 D Ur Specific [place] 1.010 Urine Protein Negative Urine Glucose (UA) Negative Urine Ketones Negative Urine Blood Negative Urine Nitrite Negative Urine Bilirubin Negative Urine Urobilinogen Negative Ur Leukocyte Esterase 1+ H D Urine RBC None Urine WBC 12 Ur Epithelial Cells Rare 06/19/16 06:20 WBC RBC Hgb Hct MCV MCHC RDW Plt Count MPV Neutrophils % Lymphocytes % Monocytes % Eosinophils % Band Neutrophils Metamyelocytes Platelet Estimate Platelet Comment Polychromasia Sodium 137 Potassium 3.6 Chloride 92 L Carbon Dioxide 37 H Anion Gap 8 BUN 29 H Creatinine 1.4 H Random Glucose 104 Calcium 11.7 H PTH Intact Urine Color Urine Appearance Urine pH Ur Specific [place] Urine Protein Urine Glucose (UA) Urine Ketones Urine Blood Urine Nitrite Urine Bilirubin Urine Urobilinogen Ur Leukocyte Esterase Urine RBC Urine WBC Ur Epithelial Cells Active Medications Generic Name Dose Route Start Last Admin Trade Name Freq PRN Reason Stop Dose Admin Acetaminophen 650 mg 06/10/16 23:03 06/13/16 01:30 Tylenol - PO 650 mg Q6H PRN Administration FEVER OR PAIN Acetaminophen 650 mg 06/11/16 16:26 06/12/16 12:57 Tylenol Suppository - [place] 650 mg Q4H PRN Administration FEVER OR PAIN Amlodipine Besylate 5 mg 06/13/16 10:00 06/19/16 09:00 Norvasc - PO 5 mg DAILY ROHIT Administration Atorvastatin Calcium 10 mg 06/11/16 22:00 06/18/16 23:00 Lipitor - PO 10 mg HS ROHIT Administration Ceftriaxone Sodium 1 gm 06/13/16 11:00 06/19/16 09:00 Rocephin 1gm Ivpb (Pre-Docked) IVPB 1 gm DAILY ROHIT Administration Cyanocobalamin 1,000 mcg 06/11/16 10:00 06/19/16 09:00 Vitamin B12 - PO 1,000 mcg DAILY ROHIT Administration Diltiazem HCl 30 mg 06/14/16 22:00 06/19/16 06:44 Cardizem - PO 30 mg TID ROHIT Administration Heparin Sodium (Porcine) 5,000 unit 06/12/16 22:00 06/19/16 09:00 Heparin - SQ 5,000 unit BID ROHIT Administration Levothyroxine Sodium 50 mcg 06/11/16 07:00 06/19/16 06:44 Synthroid - PO 50 mcg AM ROHIT Administration Nystatin 500,000 units 06/17/16 12:00 06/19/16 06:44 Nystatin Oral Suspension - PO 500,000 units Q6HPO ROHIT Administration Ondansetron HCl 4 mg 06/11/16 10:10 Zofran Injection IVPB Q4H PRN NAUSEA AND/OR VOMITING Senna 2 tab 06/11/16 22:00 06/18/16 22:55 Senna - PO Not Given HS ROHIT Tamsulosin HCl 0.4 mg 06/10/16 23:57 06/19/16 08:43 Flomax - PO 0.4 mg DAILY@0830 ROHIT Administration ASSESSMENT/PLAN: Patient is an 89 year old female with a PMHx of PMH of HTN, HLD, Hypothyroid, Hyperparathyroid, COPD, CAD s/p CABG/stent, Dementia who presented with sepsis. Patient found to have hydronephrosis, UTI, and DMITRY. Patient admitted for further monitoring and management. Sepsis secondary to UTI- Improved -Patient remains afebrile. Continue with Suppository Tylenol 650mg Q4H PRN -Urine culture positive for E.coli -Ceftriaxone 1gm day #7 Acute Renal Failure secondary to Nephrolithiasis with Hydronephrosis- Improved -S/P left sided nephrostomy tube day #9- drained 6mls. On clamping trials -Kidney U/S revealed resolution of hydronephrosis -Lithotripsy may be done as outpatient, as per Urology -Urine and Blood cultures pending -Repeat U/A revealed 1+ Leukocyte esterase with 12 WBC. Patient already on Ceftriaxone for coverage -Continue Flomax 0.4mg daily -Avoid nephrotoxic medications -Appreciate urology consult Oral Thrush- resolved -No complaints of mouth pain today -Continue Nystatin -Continue Oral care Volume Overload- improving -More Dyspneic today -Chest X-ray ordered -No crackles appreciated today but patient has poor inspiration -Continue oxygen -Will continue Lasix 40mg PO Elevated Troponin- resolved -Likely from demand ischemia and sepsis Hypercalcemia -Level 11.7 today -PTH 118 -Patient has history of hyperthyroidism and remains asymptomatic HTN -Continue Cardizem 30mg TID started -Will continue to monitor BP to see if adjustments of Cardizem is required -Low sodium diet -Lasix on hold due to ARF HLD/CAD -Continue Lipitor 10mg daily -Continue ASA 81mg daily Hypothyroidism -Continue home medication Synthroid 50mcg F/E/N -No fluids -Electrolytes wnl -Regular Diet Prophylaxis -Heparin and SCD's Disposition -Repeat cultures sent. Chest X-ray sent due to increasing shortness of breath Visit type - Emergency Visit Emergency Visit: Yes ED Registration Date: 06/10/16 Care time: The patient presented to the Emergency Department on the above date and was hospitalized for further evaluation of their emergent condition. - New Patient This patient is new to me today: No - Critical Care Critical Care patient: No
--- NOTE | 2016-06-19 11:09 | PN ---
Teaching Attending Note Name of Resident: Desirae Parra ATTENDING PHYSICIAN STATEMENT I saw and evaluated the patient. I reviewed the resident's note and discussed the case with the resident. I agree with the resident's findings and plan as documented. SUBJECTIVE: Patient says she feels SOB. OBJECTIVE: Vital Signs Period Temp Pulse Resp BP Sys/Donovan Pulse Ox Last 24 Hr 97.8 F-98.1 F 81-85 16-22 122-146/52-69 96 HEART: S1 S2, RRR LUNGS: Crackles and anterior wheezes on right ABDOMEN: Soft, non-tender, non-distended, normal BS EXTREMITIES: No edema ASSESSMENT AND PLAN: This is an 89-year-old woman with a history of HTN, hyperlipidemia, hypothyroidism, CAD, CABG, dementia, COPD who presented to the ER from [facility] because of fever. 1. Severe sepsis secondary to E. coli bacteremia and UTI - Continue Rocephin - Change to PO when ok with ID 2. Acute kidney injury secondary to sepsis and left obstructing stone - s/p left nephrostomy with improvement of hydronephrosis - Continue Flomax - Plan for lithotripsy once blood/urine cultures negative 3. Oral candidiasis - Continue Nystatin 4. Hypothyroidism - Continue Synthroid 5. HTN - Continue Cardizem, Norvasc 6. Hyperlipidemia - Continue Lipitor 7. CAD, history of CABG 8. COPD - Stable 9. Demand ischemia secondary to sepsis 10. Disposition - Once able to change antibiotics to PO, can discharge to [facility] with urology follow-up for lithotripsy
--- NOTE | 2016-06-19 11:15 | PN ---
Physical Exam: SUBJECTIVE: Patient seen and examined short of the breath this am. Denies cough fever, chills, dysuria changes in bowel or bladder. OBJECTIVE: Vital Signs Period Temp Pulse Resp BP Sys/Donovan Pulse Ox Last 24 Hr 97.8 F-98.1 F 81-85 16-22 122-146/52-69 96 GENERAL: The patient is awake, alert, and fully oriented, in no acute distress. HEAD: Normal with no signs of trauma. EYES: PERRL, extraocular movements intact, sclera anicteric, conjunctiva clear. No ptosis. ENT: Ears normal, nares patent, oropharynx clear without exudates, moist mucous membranes. NECK: Trachea midline, full range of motion, supple. LUNGS: Breath sounds equal, clear to auscultation bilaterally, LLL mild crackles , no accessory muscle use. HEART: Regular rate and rhythm, S1, S2, murmur, rub or gallop. ABDOMEN: Soft, nontender, nondistended, normoactive bowel sounds, no guarding, no rebound, no hepatosplenomegaly, no masses. EXTREMITIES: 2+ pulses, warm, well-perfused, no edema. NEUROLOGICAL: Cranial nerves II through XII grossly intact. Normal speech, gait not observed. PSYCH: Normal mood, normal affect. SKIN: Warm, dry, normal turgor, no rashes or lesions noted Back: nephrostomy tube: draining tay fluid CBC, BMP 06/19/16 06:20 06/19/16 06:20 Active Medications Generic Name Dose Route Start Last Admin Trade Name Freq PRN Reason Stop Dose Admin Acetaminophen 650 mg 06/10/16 23:03 06/13/16 01:30 Tylenol - PO 650 mg Q6H PRN Administration FEVER OR PAIN Acetaminophen 650 mg 06/11/16 16:26 06/12/16 12:57 Tylenol Suppository - SD 650 mg Q4H PRN Administration FEVER OR PAIN Amlodipine Besylate 5 mg 06/13/16 10:00 06/19/16 09:00 Norvasc - PO 5 mg DAILY ROHIT Administration Atorvastatin Calcium 10 mg 06/11/16 22:00 06/18/16 23:00 Lipitor - PO 10 mg HS ROHIT Administration Ceftriaxone Sodium 1 gm 06/13/16 11:00 06/19/16 09:00 Rocephin 1gm Ivpb (Pre-Docked) IVPB 1 gm DAILY ROHIT Administration Cyanocobalamin 1,000 mcg 06/11/16 10:00 06/19/16 09:00 Vitamin B12 - PO 1,000 mcg DAILY ROHIT Administration Diltiazem HCl 30 mg 06/14/16 22:00 06/19/16 06:44 Cardizem - PO 30 mg TID ROHIT Administration Heparin Sodium (Porcine) 5,000 unit 06/12/16 22:00 06/19/16 09:00 Heparin - SQ 5,000 unit BID ROHIT Administration Levothyroxine Sodium 50 mcg 06/11/16 07:00 06/19/16 06:44 Synthroid - PO 50 mcg AM ROHIT Administration Nystatin 500,000 units 06/17/16 12:00 06/19/16 06:44 Nystatin Oral Suspension - PO 500,000 units Q6HPO ROHIT Administration Ondansetron HCl 4 mg 06/11/16 10:10 Zofran Injection IVPB Q4H PRN NAUSEA AND/OR VOMITING Senna 2 tab 06/11/16 22:00 06/18/16 22:55 Senna - PO Not Given HS ROHIT Tamsulosin HCl 0.4 mg 06/10/16 23:57 06/19/16 08:43 Flomax - PO 0.4 mg DAILY@0830 ROHIT Administration Microbiology 06/18/16 10:05 Blood - Peripheral Venous Blood Culture - Preliminary NO GROWTH OBTAINED AFTER 24 HOURS, INCUBATION TO CONTINUE FOR 4 DAYS. 06/18/16 10:00 Blood - Peripheral Venous Blood Culture - Preliminary NO GROWTH OBTAINED AFTER 24 HOURS, INCUBATION TO CONTINUE FOR 4 DAYS. 06/13/16 11:30 Blood - Peripheral Venous Blood Culture - Final NO GROWTH AFTER 5 DAYS INCUBATION 06/13/16 11:30 Blood - Peripheral Venous Blood Culture - Final NO GROWTH AFTER 5 DAYS INCUBATION 06/10/16 17:20 Blood - Peripheral Venous Blood Culture - Final Escherichia Coli Staph Hominis Sub Sp Hominis 06/11/16 13:25 Urine - Urine Nephrostomy Tube Urine Culture - Final Escherichia Coli 06/10/16 19:04 Urine - Urine Clean Catch Urine Culture - Final Escherichia Coli Esbl Salad Counter Attendant 06/10/16 17:46 Blood - Peripheral Venous Blood Culture - Final Escherichia Coli ASSESSMENT/PLAN: 89 year old female with PMH of HTN, HLD, Hypothyroid, Hyperparathyroid, COPD, CAD s/p CABG/stent, Dementia & ESBL-producing UTI who presents to ED from [facility] for fever. # sob: -cxr; on 02 #Severe Sepsis, secondary urinary tract infection: gram negative bacteremia: improving -previous urine cx (ESBL resistant to Fluoroquinolones) & PCN allergy -will not treat the ESBL for now,most likely colonization -f/u repeat cultures negative -d/c antibiotic s #Acute Renal Failure, 2-3mm Left Ureteral stone with mild to mod hydronephrosis -Cr trend up this am 1.3 -left sided nephrostomy minimal drainage; eval for removal and possible lithotripsy -Flomax 0.4mg PO daily -avoid nephrotoxic meds -appreciate urology; consult as needed, thank you Problem List - Problems (1) Gram negative sepsis Code(s): A41.50 - GRAM-NEGATIVE SEPSIS, UNSPECIFIED (2) UTI (urinary tract infection) Code(s): N39.0 - URINARY TRACT INFECTION, SITE NOT SPECIFIED (3) Ureteral stone with hydronephrosis Code(s): N13.2 - HYDRONEPHROSIS WITH RENAL AND URETERAL CALCULOUS OBSTRUCTION Visit type - Emergency Visit Emergency Visit: Yes ED Registration Date: 06/10/16 Care time: The patient presented to the Emergency Department on the above date and was hospitalized for further evaluation of their emergent condition. - New Patient This patient is new to me today: No - Critical Care Critical Care patient: No
--- NOTE | 2016-06-19 12:53 | PN ---
Progress Note, Physician History of Present Illness: Awake but confused No complaints afebrile - Current Medication List Current Medications: Active Medications Acetaminophen (Tylenol -) 650 mg PO Q6H PRN PRN Reason: FEVER OR PAIN Last Admin: 06/13/16 01:30 Dose: 650 mg Acetaminophen (Tylenol Suppository -) 650 mg MD Q4H PRN PRN Reason: FEVER OR PAIN Last Admin: 06/12/16 12:57 Dose: 650 mg Amlodipine Besylate (Norvasc -) 5 mg PO DAILY [facility] Last Admin: 06/19/16 09:00 Dose: 5 mg Atorvastatin Calcium (Lipitor -) 10 mg PO HS [facility] Last Admin: 06/18/16 23:00 Dose: 10 mg Cyanocobalamin (Vitamin B12 -) 1,000 mcg PO DAILY [facility] Last Admin: 06/19/16 09:00 Dose: 1,000 mcg Diltiazem HCl (Cardizem -) 30 mg PO TID [facility] Last Admin: 06/19/16 06:44 Dose: 30 mg Heparin Sodium (Porcine) (Heparin -) 5,000 unit SQ BID [facility] Last Admin: 06/19/16 09:00 Dose: 5,000 unit Levothyroxine Sodium (Synthroid -) 50 mcg PO AM [facility] Last Admin: 06/19/16 06:44 Dose: 50 mcg Nystatin (Nystatin Oral Suspension -) 500,000 units PO Q6HPO [facility] Last Admin: 06/19/16 12:22 Dose: 500,000 units Ondansetron HCl (Zofran Injection) 4 mg IVPB Q4H PRN PRN Reason: NAUSEA AND/OR VOMITING Senna (Senna -) 2 tab PO HS [facility] Last Admin: 06/18/16 22:55 Dose: Not Given Tamsulosin HCl (Flomax -) 0.4 mg PO DAILY@0830 [facility] Last Admin: 06/19/16 08:43 Dose: 0.4 mg - Objective Vital Signs: Vital Signs Temperature 98.2 F 06/19/16 11:00 Pulse Rate 76 06/19/16 11:00 Respiratory Rate 18 06/19/16 11:00 Blood Pressure 127/62 06/19/16 11:00 O2 Sat by Pulse Oximetry (%) 96 06/19/16 09:00 Constitutional: Yes: No Distress Eyes: Yes: Conjunctiva Clear Cardiovascular: Yes: Regular Rate and Rhythm, S1, S2 Respiratory: Yes: CTA Bilaterally Gastrointestinal: Yes: Normal Bowel Sounds, Soft, Abdomen, Obese. No: Tenderness Edema: No Integumentary: Yes: Other (+ PCN) Labs: CBC, BMP 06/19/16 06:20 06/19/16 06:20 INR, PTT INR 1.43 (0.82-1.09) H 06/11/16 01:24 Assessment/Plan UTI/ sepsis secondary to UTI S/P nephrostomy Fever/ leukocytosis - improved Azotemia Hx ESBL PCN allergy Day # 9 IV antibiotics Substitute levaquin po for additional 4days
[2016-06-19] MEDS ORDERED: LEVOFLOXACIN 250 MG TABLET (FP) PO SCH (13:00)
[2016-06-19 14:53] VITALS: BP 120/56; PULSE 75; TEMP 98.3
--- NOTE | 2016-06-19 17:09 | DS ---
Physical Exam: SUBJECTIVE: Patient seen and examined by me at bedside. She is on 2L NC saturating at 95% but has been saturating at 94% throughout her stay. No overnight events noted. Patient had some shortness of breath and chest x-ray was ordered which was negative for pneumonia or acute pathology. Patient's breathing improved after morning medications. Otherwise, denies chest pain, palpitations, abdominal pain, headaches OBJECTIVE: Vital Signs Period Temp Pulse Resp BP Sys/Donovan Pulse Ox Last 24 Hr 98.0 F-98.3 F 75-85 16-18 120-146/52-69 96-96 PHYSICAL EXAM GENERAL: The patient is awake, alert, and in no acute distress ENT: No Oral thrush LUNGS: CTA bilaterally HEART: RRR, normal S1 and S2 without murmur, rub or gallop. ABDOMEN: Soft, nontender, nondistended, no guarding, no rebound. Left Nephrostomy tube clamped. Drained 6mls EXTREMITIES: No peripheral edema NEUROLOGICAL: Cognitive impairment at baseline LABS Laboratory Results - last 24 hr 06/18/16 06/19/16 06/19/16 14:00 06:20 06:20 WBC 13.6 H D RBC 3.81 Hgb 11.9 Hct 35.2 MCV 92.3 MCHC 33.8 RDW 14.3 Plt Count 239 D MPV 9.1 Neutrophils % 74.0 Lymphocytes % 16.0 Monocytes % 4.0 Eosinophils % 4.0 Band Neutrophils 1.0 D Metamyelocytes 1 D Platelet Estimate Adequate Platelet Comment No clumping noted Polychromasia 1+ Sodium 137 Potassium 3.6 Chloride 92 L Carbon Dioxide 37 H Anion Gap 8 BUN 29 H Creatinine 1.4 H Random Glucose 104 Calcium 11.7 H Ur Specific [place] 1.010 HOSPITAL COURSE: Patient is a 89 year old female with PMH of HTN, HLD, Hypothyroid, Hyperparathyroid, COPD, CAD s/p CABG/stent, Dementia & ESBL-producing UTI who presents to ED from [facility] with nurse aid (Patient unable to provide history due to dementia) for a fever x1 day with Tmax of 101.1 F associated with multiple episodes of nonbilious nonbloody vomiting. She also had some dysuria with abdominal tenderness upon palpation at the residential, which prompted this hospital visit. Patient initially found to have leukocytosis with WBC of 22 and a creatnine of 1.2, baseline 1.0). U//A then revealed 2+ leukocyte esterase with urine WBC >1100. CT of abdomen/pelvis wad done and revealed a 2mm Left Ureteral stone with minimal to moderate Left-sided hydronephrosis w/ trace fluid/edema in left paracolic. Patient was then admitted for sepsis secondary to UTI and ARF secondary to Nephrolithiasis with Hydronephrosis as well as increased Tropnins likely secondary to sepsis. The next day patient's white count trended up after giving Ertapenam antibiotic and lactic was trending up. Patient was then switched to Meropenem and increased IV hydration for the lactic acidosis. Patient then had Nephrostomy tube placed with percutaneous drainage to help relieve the hydronephrosis and DMITRY. Troponin levels were trending down. Urine culture was found to be positive for gram negative bacilli and patient continued with meropenem. Ater three days of meropenem patient clinically improved and blood and urine cultures revealed pansensitive E.Coli and patient was switched to Ceftriaxone 1gm daily. Patient was afebrile with decreasing WBC's and was awaiting Urology for lithotripsy. Patient then had clamping trials of nephrostomy tube with no signs of obstruction. Repeat Urine and blood cultures were sent before having lithotripsy and nephrostomy tube removed were ordered, as per Urology. Spoke to Urology and suggested that patient may be discharged if hemodynamicaly stable and can have lithotripsy done as outpatient once urine and blood cultures are negative. Repeat urine culture was negative prior to discharge and Blood culture showed NGTD. Patient discharged on PO levaquin 250mg daily for 4 days and instructed the residential to follow up patient with Urology and PCP on Wednesday for outpatient lithotripsy. Date of Admission:06/10/16 Date of Discharge: 06/19/16 Minutes to complete discharge: 45 Discharge Summary Reason For Visit: LOWER UTI/UPJ Condition: Stable - Instructions Diet, Activity, Other Instructions: -Please continue nephrostomy tube care and management -Please Resume all home medications -Please pickling operator and take your new antibiotic prescription Levaquin 250mg daily for 4 days -You must follow up with Urologist, Dr. Patel, to remove kidney stone and nephrostomy tube. -Please follow up with blood cultures. -You may resume your regular diet. -If patient begins to have any shortness of breath, fever >101.0 F or any excessive bleeding through nephrostomy tube, return to the ED. Referrals: Raina Alejo MD [Primary Care Provider] - Artur Patel MD [Staff Physician] - Disposition: [facility] - Home Medications Comprehensive Discharge Medication List: Ambulatory Orders Aa/Hydrolyzed Collagen, Whey [Lps Neutral Flavor Liquid] 30 ml PO DAILY Acetaminophen [Tylenol] 650 mg PO Q6H 06/10/16 Alendronate Na [Fosamax (Weekly)] 70 mg PO Q7D 06/10/16 Aspirin [ASA -] 81 mg PO ONCE 06/10/16 Atorvastatin Ca [Lipitor] 10 mg PO HS 06/10/16 Cholecalciferol (Vitamin D3) [Vitamin D3] 2,000 unit PO DAILY 06/10/16 Cyanocobalamin [Vitamin B12 -] 1,000 mcg PO DAILY 06/10/16 Furosemide [Lasix -] 40 mg PO DAILY 06/10/16 L.acidoph,Paracasei, B.lactis [Probiotic] 1 each PO BID 06/10/16 Levothyroxine [Synthroid -] 50 mcg PO AM 06/10/16 [place]-3/Dha/Epa/Fish Oil [Fish Oil 500 mg Softgel] 4 each PO BID 06/10/16 Potassium Citrate [Potassium Citrate ER] 20 meq PO DAILY 06/10/16 Sennosides [Senna] 2 tab PO HS 06/10/16 Amlodipine Besylate [Norvasc -] 5 mg PO DAILY #30 tablet 06/19/16 Diltiazem [Cardizem -] 30 mg PO TID tablet 06/19/16 Levofloxacin [Levaquin -] 250 mg PO DAILY #4 tablet 06/19/16 Tamsulosin HCl [Flomax -] 0.4 mg PO DAILY #30 cap 06/19/16 This patient is new to me today: No Emergency Visit: Yes ED Registration Date: 06/10/16 Care time: The patient presented to the Emergency Department on the above date and was hospitalized for further evaluation of their emergent condition. Critical Care patient: No - Discharge Referral Referred to [facility] Med [facility].C.: No
== END 2016-06-19 16:50 | DRG 872 ==
LOC: JER 16:24 → JERBED 23:33 → UNDOADMIN 06-11 00:02 → JERBED 06-11 00:02 → J4S 06-11 02:47
PROVIDERS: ADMIT Internal Medicine; ATTEND Internal Medicine
PROC: 0T9430Z Drainage of Left Kidney Pelvis with Drainage Device, Percutaneous Approach (ICD-10-PCS; principal; 2016-06-11)
PROC: BT121ZZ Fluoroscopy of Left Kidney using Low Osmolar Contrast (ICD-10-PCS; 2016-06-12)
DX: A41.50 Gram-negative sepsis, unspecified (principal); N39.0 Urinary tract infection, site not specified; N13.2 Hydronephrosis with renal and ureteral calculous obstruction; N17.9 Acute kidney failure, unspecified; B37.0 Candidal stomatitis; I24.8 Other forms of acute ischemic heart disease; E03.9 Hypothyroidism, unspecified; J44.9 Chronic obstructive pulmonary disease, unspecified; I25.10 Atherosclerotic heart disease of native coronary artery without angina pectoris; Z95.1 Presence of aortocoronary bypass graft; Z95.5 Presence of coronary angioplasty implant and graft; D72.829 Elevated white blood cell count, unspecified; F03.90 Unspecified dementia, unspecified severity, without behavioral disturbance, psychotic disturbance, mood disturbance, and anxiety; E21.3 Hyperparathyroidism, unspecified; K21.9 Gastro-esophageal reflux disease without esophagitis; I10 Essential (primary) hypertension; Z16.24 Resistance to multiple antibiotics; E78.00 Pure hypercholesterolemia, unspecified; F39 Unspecified mood [affective] disorder; R30.0 Dysuria; R11.2 Nausea with vomiting, unspecified; R29.6 Repeated falls; R79.89 Other specified abnormal findings of blood chemistry
CPT/HCPCS: 36415; 50431; 71010-TC; 74176-TC; 74425-TC; 75984-TC; 76098-TC; 76775-TC; 76942-TC; 80048; 80053; 81003; 81015; 82550; 83605; 83735; 83970; 84484; 85025; 85027; 85610; 85730; 86850; 86900; 86901; 87040; 87086; 87186; 87899; 93005; 93010; 93306-TC; 94640; 99285-25; A4358; C1729; C1769; J1644

== ENCOUNTER 2016-08-07 17:59 | Emergency (ER) | payer OTHER ==
--- NOTE | 2016-08-07 19:38 | PDOC ---
History of Present Illness - General Chief Complaint: Urinary Catheter Problem Stated Complaint: TUBE DRAINAGE PROLEM Time Seen by Provider: 08/07/16 19:23 History Source: Patient, Correction Records Exam Limitations: No Limitations - History of Present Illness Travel History: No Initial Comments: 08/07/16 19:31 89yo Female patient w/PmHx: Recurrent UTI w/ ESBL, CABG, Constipation, Insomnia , COPD, VT, HTN, HLD, GERD presented to ED from [facility] via EMS sent to ED for evaluation of urine. Staff report patient with nephrostomy drainage, has foul smelling and blood tinged urine. Patient s/p IV ABX for resistant bacteria (ESBL) in urine x 14 days. Patient reports Nephrostomy drainage in place x 1 month due to hx of obstructing renal colic. She is not sure who her Urologist is. She denies fever, n/v/d, abd pain, back pain, diff breathing, CP, rash, or any other complaints at this time. Staff report patient treated with Invanz and Diflucan IV. Timing/Duration: denies: constant, getting worse, changing over time, intermittent, resolved prior to arrival, gone now, other Quality: denies: mild, moderate, severe, aching, burning, cramping, dullness, fullness, sharpness, stabbing, throbbing, other Abdominal Pain Onset Location: denies: RUQ, LUQ, RLQ, LLQ, epigastric, periumbilical, suprapubic, generalized abdomen, flank, unknown, other Pain Radiation: denies: no radiation, RUQ, LUQ, RLQ, LLQ, epigastric, periumbilical, flank, groin, scapula, shoulder, chest, back, other Activities at Onset: denies: none, exertion, emotional upset, rest, sleep, no specific activity, eating, working, sexual intercourse, other Treatment Prior to Arrive: worse with: analgesics, antacids, cold pack, heat, laxative, enema, other Aggravating Factors: worse with: None, Defecation, Eating, Emotional upset, Exertion, [place], Movement, Voiding, Change in position Alleviating Factors: worse with: None, Belching, Shallow Breathing, Defecation, Eating, Holding Breath, Passing Gas, Change in Position, Rest, Voiding, Vomiting Past History - Travel Traveled outside of the country in the last 30 days: No Close contact w/someone who was outside of country & ill: No - Past Medical History Allergies/Adverse Reactions: Allergies Allergy/AdvReac Type Severity Reaction Status Date / Time Penicillins Allergy Verified 08/07/16 18:16 Home Medications: Ambulatory Orders Aa/Hydrolyzed Collagen, Whey [Lps Neutral Flavor Liquid] 30 ml PO DAILY Acetaminophen 650 mg PO Q6H PRN 08/07/16 Alendronate Sodium/Vitamin D3 [Fosamax Plus D 70 mg-5,600 Iu vIT d] 1 each PO Q7D 08/07/16 Amlodipine Besylate [Norvasc -] 5 mg PO DAILY 08/07/16 Aspirin [ASA -] 81 mg PO DAILY 08/07/16 Atorvastatin Ca [Lipitor] 10 mg PO HS 08/07/16 Cholecalciferol (Vitamin D3) [D-2000] 2,000 unit PO DAILY 08/07/16 Cyanocobalamin [Vitamin B12 -] 1,000 mcg PO DAILY 08/07/16 Diltiazem [Cardizem -] 30 mg PO TID 08/07/16 Furosemide [Lasix] 40 mg PO DAILY 08/07/16 Lactobacillus Acidophilus [Acidophilus] 1 each PO DAILY 08/07/16 Levothyroxine [Synthroid -] 50 mcg PO DAILY 08/07/16 Mag Hydrox/Al Hydrox/Simeth [Mylanta *Suspension*] 30 ml PO QID PRN 08/07/16 Potassium Chloride 20 meq PO DAILY 08/07/16 Prochlorperazine Edisylate 10 mg IJ ONCE PRN 08/07/16 Prochlorperazine Maleate 5 mg PO Q8H PRN 08/07/16 Sennosides [Senna] 17.2 mg PO HS 08/07/16 Tamsulosin HCl [Flomax] 0.4 mg PO DAILY 08/07/16 Anemia: Yes (vit b12 deficiency anemia) Cardiac Disorders: Yes (CAD) COPD: Yes Dementia: Yes GI Disorders: Yes (Constipation, GERD) Disorders: Yes (Dysuria, UTIs) HTN: Yes Hypercholesterolemia: Yes Psychiatric Problems: Yes (Mood Disorder) Suicide Attempt (Hx): No Thyroid Disease: Yes (hypothyroid, hyperparathyroidism) - Surgical History Cardiac Surgery: Yes ([facility]PASS 1960) - Immunization History Immunization Up to Date: Yes - Psycho/Social/Smoking Cessation Hx Anxiety: No Suicidal Ideation: No Smoking Status: No Smoking History: Never smoked Have you smoked in the past 12 months: No Number of Cigarettes Smoked Daily: 0 Cigars Per Day: 0 Information on smoking cessation initiated: No Hx Alcohol Use: No Drug/Substance Use Hx: No Substance Use Type: None Hx Substance Use Treatment: No Abd/GI Specific PMHX - Complaint Specific PMHX Colitis: No Diverticulitis: No Gall Bladder Disease: No GERD: No Hepatitis: No Irritable Bowel Synd (IBS): No Pancreatitis: No GI Ulcer Disease: No Review of Systems - Review of Systems Able to Perform ROS?: Yes Is the patient limited Setswana proficient: No Constitutional: No: Chills, Fever Respiratory: No: Shortness of Breath, Stridor, Wheezing Cardiac (ROS): No: Chest Pain, Lightheadedness, Palpitations, Syncope, Chest Tightness ABD/GI: Yes: Constipated. No: Diarrhea, Nausea, Poor Appetite, Poor Fluid Intake, Vomiting : Yes: Hematuria. No: Burning, Dysuria, Frequency, Flank Pain, Pain, Urgency Musculoskeletal: No: Back Pain Integumentary: No: Erythema, Rash, Sweating All Other Systems: Reviewed and Negative *Physical Exam - Vital Signs Last Vital Signs Temp Pulse Resp BP Pulse Ox 98.7 F 79 20 156/62 97 08/07/16 18:17 08/07/16 18:17 08/07/16 18:17 08/07/16 18:17 08/07/16 18:17 - Physical Exam General Appearance: Yes: Nourished, Appropriately Dressed. No: Apparent Distress, Mild Distress, Moderate Distress, Severe Distress Neck: positive: Trachea midline, Supple. negative: Stridor, Lymphadenopathy (R) , Lymphadenopathy (L) Respiratory/Chest: positive: Lungs Clear, Normal Breath Sounds. negative: Chest Tender, Respiratory Distress, Accessory Muscle Use, Labored Respiration, Rapid RR Cardiovascular: positive: Regular Rhythm, Regular Rate Gastrointestinal/Abdominal: positive: Normal Bowel Sounds, Soft, Protuberent. negative: Distended, Guarding, Rebound, Tenderness Musculoskeletal: positive: Normal Inspection. negative: CVA Tenderness Extremity: positive: Normal Capillary Refill, Normal Inspection, Normal Range of Motion. negative: Pedal Edema, Swelling, Calf Tenderness, Erythema, Inflammation Integumentary: positive: Normal Color, Dry, Warm. negative: Erythema, Cold, Clammy, Diaphoresis, Moist, Hives, Swelling Neurologic: positive: medication administration professional II-XII NML intact, Fully Oriented, Alert, Normal Mood/ Affect, Normal Response, Motor Strength 5/5 *DC/Admit/Observation/Transfer Diagnosis at time of Disposition: ESBL (extended spectrum beta-lactamase) producing bacteria infection UTI (urinary tract infection) Qualifiers: Urinary tract infection type: catheter-associated UTI Indwelling urinary catheter type: nephrostomy catheter Encounter type: initial encounter Qualified Code(s): T83.512A - Infection and inflammatory reaction due to nephrostomy catheter, initial encounter; N39.0 - Urinary tract infection, site not specified - Discharge Dispostion Disposition: [facility] Condition at time of disposition: Stable Admit: No - Patient Instructions Printed Discharge Instructions: DI for Extended Spectrum Beta-Lactamase Infection, Urinary Tract Infection Additional Instructions: FOLLOW UP WITH FACILITY MD REGARDING FURTHER ABX TREATMENT. RESTART INVANZ OR GIVE DORIPENEM 500MG IVPB Q8HRS. RETURN IF ANY CONCERNS FOR FURTHER EVALUATION. PRIOR TO DISCONTINUATION OF ABX, REPEAT URINE CULTURE FOR CLEARANCE OR RESOLUTION OF ESBL BACTERIA. Print Language: ESTONIAN
[2016-08-07 19:58] LABS: URINE APPEARANCE TURBID; URINE BILIRUBIN NEGATIVE (NEGATIVE); URINE COLOR YELLOW; URINE GLUCOSE (UA) 2+ (NEGATIVE); URINE KETONE NEGATIVE (NEGATIVE); URINE NITRITE NEGATIVE (NEGATIVE); URINE UROBILINOGEN NEGATIVE E.U./dl (0.2-1.0)
[2016-08-07 20:33] LABS: URINE BLOOD 3+ (NEGATIVE); URINE LEUK ESTERASE 3+ (NEGATIVE); URINE PROTEIN 2+ (NEGATIVE)
[2016-08-07] MEDS ORDERED: DORIPENEM 500 MG in SODIUM CHLORIDE 100 ML IVPB ONE (20:40)
[2016-08-07 20:41] LABS: URINE BACTERIA MANY /hpf (NONE SEEN); URINE MUCUS RARE; URINE RBC 202 /hpf (0-3); URINE WBC 893 /hpf (3-5)
[2016-08-07 23:14] VITALS: TEMP 98.7; BMI 24.0
[2016-08-08 01:14] VITALS: BP 141/70; PULSE 74
== END 2016-08-08 01:40 ==
LOC: JER 17:59
DX: T83.512A Infection and inflammatory reaction due to nephrostomy catheter, initial encounter (principal); N39.0 Urinary tract infection, site not specified; I10 Essential (primary) hypertension; F39 Unspecified mood [affective] disorder; E03.9 Hypothyroidism, unspecified; Z95.1 Presence of aortocoronary bypass graft; E78.00 Pure hypercholesterolemia, unspecified; R30.0 Dysuria; K59.00 Constipation, unspecified; J44.9 Chronic obstructive pulmonary disease, unspecified; F03.90 Unspecified dementia, unspecified severity, without behavioral disturbance, psychotic disturbance, mood disturbance, and anxiety
CPT/HCPCS: 81003; 81015; 87040; 87086; 87186; 96365; 99282-25

== ENCOUNTER 2016-09-03 16:49 | Inpatient (IN) | payer OTHER ==
--- NOTE | 2016-09-03 17:23 | PDOC ---
History of Present Illness - General Stated Complaint: INFECTION Time Seen by Provider: 09/03/16 17:18 - History of Present Illness Initial Comments: Patient is a 89 year old female with PMH of HTN, HLD, Hypothyroid, Hyperparathyroid, COPD, CAD s/p CABG/stent, Dementia & ESBL-producing UTI who presents to ED from [facility] (Patient unable to provide history due to dementia) after having repeat cultures positive for ESBL and inability to have nephrostomy tube changed at the nursing facility all despite being on IV ertapenem for two weeks. She was hemodynamically stable at the senior living and had no complaints but her PCP Dr. Israel was concerned that her infection was being seeded from her nephrostomy tube. Denies nausea, vomiting, diarrhea, constipation, or other sick symptoms. 09/03/16 17:27 09/03/16 21:56 Past History - Past Medical History Allergies/Adverse Reactions: Allergies Allergy/AdvReac Type Severity Reaction Status Date / Time Penicillins Allergy Verified 09/03/16 17:45 Home Medications: Ambulatory Orders Aa/Hydrolyzed Collagen, Whey [Lps Neutral Flavor Liquid] 30 ml PO DAILY Acetaminophen 650 mg PO Q6H PRN 08/07/16 Alendronate Sodium/Vitamin D3 [Fosamax Plus D 70 mg-5,600 Iu vIT d] 1 each PO Q7D 08/07/16 Amlodipine Besylate [Norvasc -] 5 mg PO DAILY 08/07/16 Aspirin [ASA -] 81 mg PO DAILY 08/07/16 Atorvastatin Ca [Lipitor] 10 mg PO HS 08/07/16 Cholecalciferol (Vitamin D3) [D-2000] 2,000 unit PO DAILY 08/07/16 Cyanocobalamin [Vitamin B12 -] 1,000 mcg PO DAILY 08/07/16 Diltiazem [Cardizem -] 30 mg PO TID 08/07/16 Furosemide [Lasix] 40 mg PO DAILY 08/07/16 Lactobacillus Acidophilus [Acidophilus] 1 each PO DAILY 08/07/16 Levothyroxine [Synthroid -] 50 mcg PO DAILY 08/07/16 Mag Hydrox/Al Hydrox/Simeth [Mylanta *Suspension*] 30 ml PO QID PRN 08/07/16 Potassium Chloride 20 meq PO DAILY 08/07/16 Prochlorperazine Maleate 5 mg PO Q8H PRN 08/07/16 Sennosides [Senna] 17.2 mg PO HS 08/07/16 Tamsulosin HCl [Flomax] 0.4 mg PO DAILY 08/07/16 Anemia: Yes (vit b12 deficiency anemia) Cardiac Disorders: Yes (CAD) COPD: Yes Dementia: Yes GI Disorders: Yes (Constipation, GERD) Disorders: Yes (Dysuria, UTIs) HTN: Yes Hypercholesterolemia: Yes Psychiatric Problems: Yes (Mood Disorder) Suicide Attempt (Hx): No Thyroid Disease: Yes (hypothyroid, hyperparathyroidism) - Surgical History Cardiac Surgery: Yes ([facility] 1960) - Immunization History Immunization Up to Date: Yes - Psycho/Social/Smoking Cessation Hx Anxiety: No Suicidal Ideation: No Smoking Status: No Smoking History: Never smoked Have you smoked in the past 12 months: No Number of Cigarettes Smoked Daily: 0 Cigars Per Day: 0 Hx Alcohol Use: No Drug/Substance Use Hx: No Substance Use Type: None Hx Substance Use Treatment: No Review of Systems - Review of Systems Constitutional: No: Chills, Diaphoresis, Fever HEENTM: No: Blurred Vision, Recent change in vision, Double Vision Respiratory: No: Cough, Orthopnea, Shortness of Breath, Wheezing, Productive cough Cardiac (ROS): No: Chest Pain, Edema, Irregular Heart Rate, Lightheadedness ABD/GI: Yes: Indigestion. No: Constipated, Diarrhea, Nausea, Vomiting : No: Hematuria, Incontinence, Pain *Physical Exam - Physical Exam General Appearance: Yes: Appropriately Dressed. No: Apparent Distress HEENT: positive: EOMI, JEANCARLOS, Normal ENT Inspection, Normal Voice Neck: positive: Trachea midline, Normal Thyroid, Supple. negative: Tender, Rigid Respiratory/Chest: positive: Lungs Clear, Normal Breath Sounds. negative: Chest Tender, Respiratory Distress, Accessory Muscle Use Cardiovascular: positive: Regular Rhythm, Regular Rate, S1, S2. negative: Edema , JVD, Murmur Female Pelvic Exam: positive: normal external exam, other (nephrostomy tube drainign clear urine) Gastrointestinal/Abdominal: positive: Normal Bowel Sounds, Flat, Soft. negative : Tender Extremity: positive: Normal Capillary Refill, Normal Inspection. 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 negative: Fully Oriented ED Treatment Course - LABORATORY CBC & Chemistry Diagram: 09/03/16 19:10 09/03/16 19:10 Medical Decision Making - Medical Decision Making 89 year old female here for continued colonization of ESBL with nephrostomy tube in place. She was unable to get it changed while at her [facility] because of inability to find family to consent given she has dementia. She is hemodynamically stable but shoudl be admitted for a nephrostomy tube change and antibiotic escalation. 09/03/16 21:59 Patient admitted to medicine under Dr. Simon for nephrostomy tube management and escalation of antibiotics. 09/03/16 22:02 09/03/16 22:03 *DC/Admit/Observation/Transfer Diagnosis at time of Disposition: Recurrent UTI (urinary tract infection), Nephrostomy status - Discharge Dispostion Condition at time of disposition: Stable Admit: Yes - Attestations Physician Attestion: 09/03/16 22:03 I, Dr. Yaron Brownlee, attest that this document has been prepared under my direction and personally reviewed by me in its entirety. I further attest, that it accurately reflects all work, treatment, procedures and medical decision -making performed by me.
[2016-09-03 19:45] LABS: URINE APPEARANCE TURBID; URINE BILIRUBIN NEGATIVE (NEGATIVE); URINE BLOOD 1+ (NEGATIVE); URINE COLOR YELLOW; URINE GLUCOSE (UA) NEGATIVE (NEGATIVE); URINE KETONE NEGATIVE (NEGATIVE); URINE NITRITE POSITIVE (NEGATIVE); URINE UROBILINOGEN NEGATIVE mg/dL (0.2-1.0)
[2016-09-03 19:47] LABS: URINE LEUK ESTERASE 3+ (NEGATIVE); URINE PROTEIN 1+ (NEGATIVE)
[2016-09-03 19:51] LABS: CALCIUM OXALATE CRYSTALS FEW /hpf (NONE SEEN); URINE BACTERIA RARE /hpf (NONE SEEN); URINE RBC 23 /hpf (0-3); URINE WBC 1881 /hpf (3-5); YEAST RARE
[2016-09-03 20:45] LABS: BASOPHIL 0.6 % (0-2.0); EOSINOPHIL 2.8 % (0-4.5); MCHC 33.1 g/dl (32.0-36.0); MEAN CELL VOLUME 90.7 fl (80-96); MEAN PLT VOLUME 7.8 fl (7.5-11.1); NEUTROPHILS 67.3 % (42.8-82.8); PLATELET COUNT 161 K/MM3 (134-434); WHITE BLOOD COUNT 9.5 K/mm3 (4.0-10.0)
--- NOTE | 2016-09-03 20:55 | CONSULT ---
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: Dementia Cardio/Vascular: Yes: Aortic Insufficiency, CAD, HTN, Hyperlipdemia Gastrointestinal: Yes: Diverticulitis Renal/: Yes: UTI Musculoskeletal: Yes: Other (frequent falls) Endocrine: Yes: Hypothyroidism Additional Medical History: frequent falls - Past Surgical History Past Surgical History: Yes: CABG, Stent (unknown details of coronary stent) - Alcohol/Substance Use Hx Alcohol Use: No - Smoking History Smoking history: Never smoked Have you smoked in the past 12 months: No Aproximately how many cigarettes per day: 0 - Social History Usual Living Arrangement: Shelter ADL: Support Services History of Recent Travel: No Home Medications - Allergies Allergies/Adverse Reactions: Allergies Allergy/AdvReac Type Severity Reaction Status Date / Time Penicillins Allergy Verified 09/03/16 17:45 - Home Medications Home Medications: Ambulatory Orders Aa/Hydrolyzed Collagen, Whey [Lps Neutral Flavor Liquid] 30 ml PO DAILY Acetaminophen 650 mg PO Q6H PRN 08/07/16 Alendronate Sodium/Vitamin D3 [Fosamax Plus D 70 mg-5,600 Iu vIT d] 1 each PO Q7D 08/07/16 Amlodipine Besylate [Norvasc -] 5 mg PO DAILY 08/07/16 Aspirin [ASA -] 81 mg PO DAILY 08/07/16 Atorvastatin Ca [Lipitor] 10 mg PO HS 08/07/16 Cholecalciferol (Vitamin D3) [D-2000] 2,000 unit PO DAILY 08/07/16 Cyanocobalamin [Vitamin B12 -] 1,000 mcg PO DAILY 08/07/16 Diltiazem [Cardizem -] 30 mg PO TID 08/07/16 Furosemide [Lasix] 40 mg PO DAILY 08/07/16 Lactobacillus Acidophilus [Acidophilus] 1 each PO DAILY 08/07/16 Levothyroxine [Synthroid -] 50 mcg PO DAILY 08/07/16 Mag Hydrox/Al Hydrox/Simeth [Mylanta *Suspension*] 30 ml PO QID PRN 08/07/16 Potassium Chloride 20 meq PO DAILY 08/07/16 Prochlorperazine Maleate 5 mg PO Q8H PRN 08/07/16 Sennosides [Senna] 17.2 mg PO HS 08/07/16 Tamsulosin HCl [Flomax] 0.4 mg PO DAILY 08/07/16 Physical Exam Vital Signs: Vital Signs Temperature 98.4 F 09/03/16 17:42 Pulse Rate 76 09/03/16 17:42 Respiratory Rate 18 09/03/16 17:42 Blood Pressure 157/64 09/03/16 17:42 O2 Sat by Pulse Oximetry (%) 96 09/03/16 17:42 Labs: CBC, BMP 09/03/16 19:10
[2016-09-03] MEDS ORDERED: MEROPENEM 1 GM in DEXTROSE 5%-WATER - 100 ML IVPB SCH (21:00)
--- NOTE | 2016-09-03 21:05 | PDOC ---
Attending Attestation - Resident Resident Name: Yaron Brownlee - HPI HPI: 09/03/16 20:23 Pt presents to the ED after sent in [place] for persistent UTI and colinization of her nephorstomy tubes. Patinet is afebrile and has no complaints. 09/03/16 21:07 - Physicial Exam PE: 09/03/16 21:07 Agree with above exam. Patient is in no acute distress. - Medical Decision Making 09/03/16 21:08 Will check labs and admit to medicine for IV antibiotics and nephrostomy tube placement. Discussed with Dr. De La Garza who recommends IV meropenem.
[2016-09-03 21:26] LABS: ALBUMIN 3.3 g/dl (3.4-5.0); ALK PHOS 121 U/L (45-117); ANION GAP 5 (8-16); BILIRUBIN,TOTAL 0.3 mg/dL (0.2-1.0); CALCIUM 11.9 mg/dL (8.5-10.1); CO2 30 mmol/L (21-32); CREATININE 0.9 mg/dL (0.55-1.02); GLUCOSE,RANDOM 96 mg/dL (74-106); SGOT/AST 18 U/L (15-37); SGPT/ALT 28 U/L (12-78); TOT PROT 6.9 g/dl (6.4-8.2)
--- NOTE | 2016-09-03 21:29 | HP ---
CHIEF COMPLAINT: UTI infection, S/P Nephrostomy Tube PCP:Dr. Israel HISTORY OF PRESENT ILLNESS: Patient is an 89 Year old White female with PMHx of HTN, HLD, Hyperparathyroidism, hypothyroid, COPD , CAD S/P CABG/stent , Dementia, UTI(ESBL ) , S/P nephrostomy tube who was sent to ED from halfway ([facility]) due to multiple positive culture ESBL despite being on IV Ertapenem for 2 weeks and to remove the Nephrostomy tube. Patient reports slight local pain in the tube area,increases with movement.Patient denies any fever, chills, Nausea, vomiting, diarrhea, constipation, abdominal pain, chest pain, or any urinary symptoms. ER course was notable for: (1)EKG :Normal sinus rhythm (2)UA: +3 Leukoesterase (3)Meropenem 1gm in Dextrose IVPB once Recent Travel: NO PAST MEDICAL HISTORY: HTN, HLD, Hyperparathyroidism, hypothyroid, COPD , CAD S/P CABG/stent 10 years ago , Dementia, UTI(ESBL) , S/P nephrostomy tube PAST SURGICAL HISTORY: CABG 10 Years ago, Ear surgery. Social History: Smoking:None Alcohol:Sochially Drugs: None Family History: significant for heart attach. Allergies Penicillins Allergy (Verified 09/03/16 17:45) HOME MEDICATIONS: Home Medications Medication Instructions Recorded Aa/Hydrolyzed Collagen, Whey [Lps 30 ml PO DAILY 08/07/16 Neutral Flavor Liquid] Acetaminophen 650 mg PO Q6H PRN 08/07/16 Alendronate Sodium/Vitamin D3 1 each PO Q7D 08/07/16 [Fosamax Plus D 70 mg-5,600 Iu vIT d] Amlodipine Besylate [Norvasc -] 5 mg PO DAILY 08/07/16 Aspirin [ASA -] 81 mg PO DAILY 08/07/16 Atorvastatin Ca [Lipitor] 10 mg PO HS 08/07/16 Cholecalciferol (Vitamin D3) 2,000 unit PO DAILY 08/07/16 [D-2000] Cyanocobalamin [Vitamin B12 -] 1,000 mcg PO DAILY 08/07/16 Diltiazem [Cardizem -] 30 mg PO TID 08/07/16 Furosemide [Lasix] 40 mg PO DAILY 08/07/16 Lactobacillus Acidophilus 1 each PO DAILY 08/07/16 [Acidophilus] Levothyroxine [Synthroid -] 50 mcg PO DAILY 08/07/16 Mag Hydrox/Al Hydrox/Simeth 30 ml PO QID PRN 08/07/16 [Mylanta *Suspension*] Potassium Chloride 20 meq PO DAILY 08/07/16 Prochlorperazine Maleate 5 mg PO Q8H PRN 08/07/16 Sennosides [Senna] 17.2 mg PO HS 08/07/16 Tamsulosin HCl [Flomax] 0.4 mg PO DAILY 08/07/16 Current Medications Al Hydroxide/Mg Hydroxide (Mylanta Oral Suspension -) 30 ml PO QID PRN PRN Reason: DYSPEPSIA Amlodipine Besylate (Norvasc -) 5 mg PO DAILY [facility] Aspirin (Asa -) 81 mg PO DAILY [facility] Atorvastatin Calcium (Lipitor -) 10 mg PO HS [facility] Diltiazem HCl (Cardizem -) 30 mg PO TID [facility] Furosemide (Lasix -) 40 mg PO DAILY [facility] Heparin Sodium (Porcine) (Heparin -) 5,000 unit SQ TID [facility] Last Admin: 09/03/16 22:39 Dose: 5,000 unit Meropenem 1 gm/ Dextrose 100 mls @ 100 mls/hr IVPB Q8H-IV ROHIT PRN Reason: Protocol Last Admin: 09/03/16 21:45 Dose: 100 mls/hr Lactobacillus Acidophilus (Bacid -) 1 tab PO DAILY [facility] Levothyroxine Sodium (Synthroid -) 50 mcg PO DAILY@0700 [facility] Potassium Chloride (K-Dur -) 20 meq PO DAILY [facility] Prochlorperazine Maleate (Compazine -) 5 mg PO Q8H PRN PRN Reason: nausea with vomiting Senna (Senna -) 2 tab PO HS [facility] Tamsulosin HCl (Flomax -) 0.4 mg PO DAILY@0830 [facility] REVIEW OF SYSTEMS CONSTITUTIONAL: Absent: fever, chills, diaphoresis, , malaise, loss of appetite, weight change. HEENT: Absent: rhinorrhea, nasal congestion, throat pain, throat swelling, difficulty swallowing, mouth swelling, ear pain, eye pain, visual changes CARDIOVASCULAR: Absent: chest pain, syncope, palpitations, irregular heart rate, lightheadedness , peripheral edema RESPIRATORY: Absent: cough, shortness of breath, dyspnea with exertion, orthopnea, wheezing, stridor, hemoptysis GASTROINTESTINAL: Absent: abdominal pain, abdominal distension, nausea, vomiting, diarrhea, constipation, melena, hematochezia GENITOURINARY: Absent: dysuria, frequency, urgency, hesitancy, hematuria, flank pain, genital pain MUSCULOSKELETAL: Absent: myalgia, arthralgia, joint swelling, back pain, neck pain SKIN: Absent: rash, itching, pallor HEMATOLOGIC/IMMUNOLOGIC: Absent: easy bleeding, easy bruising, lymphadenopathy, frequent infections ENDOCRINE: Absent: unexplained weight gain, unexplained weight loss, heat intolerance, cold intolerance NEUROLOGIC: Absent: headache, focal weakness or paresthesias, dizziness, unsteady gait, seizure, mental status changes, bladder or bowel incontinence PSYCHIATRIC: Absent: anxiety, depression, suicidal or homicidal ideation, hallucinations. PHYSICAL EXAMINATION Vital Signs - 24 hr 09/03/16 17:42 Temperature 98.4 F Pulse Rate 76 Respiratory 18 Rate Blood Pressure 157/64 O2 Sat by Pulse 96 Oximetry (%) GENERAL: Awake, alert, bed bound for the last 2 years. HEAD: Normal with no signs of trauma. EYES: Pupils equal, round and reactive to light, extraocular movements intact, sclera anicteric, conjunctiva clear. No lid lag. NECK: Normal range of motion, supple without lymphadenopathy, JVD, or masses. LUNGS: Breath sounds equal, clear to auscultation bilaterally. No wheezes, and no crackles. No accessory muscle use. HEART: Regular rate and rhythm, normal S1 and S2 without murmur, rub or gallop. ABDOMEN: Soft, nontender, not distended, normoactive bowel sounds, no guarding, no rebound, no masses. No hepatomegaly or splenomegaly. left nephrostomy tube with clear yellow urine, no signs of infection at insertion site. MUSCULOSKELETAL: Limited range of motion at all joints. No CVA tenderness. UPPER EXTREMITIES: 2+ pulses, warm, well-perfused. No cyanosis. No clubbing. No peripheral edema. LOWER EXTREMITIES: 2+ pulses, warm, well-perfused. No calf tenderness. No peripheral edema. NEUROLOGICAL: Normal speech. bed bounded. PSYCHIATRIC: Cooperative. Good eye contact. Appropriate mood and affect. SKIN: Warm, dry, normal turgor, no rashes or lesions noted, normal capillary refill. Laboratory Results - last 24 hr 09/03/16 09/03/16 09/03/16 19:10 19:10 Unknown WBC 9.5 D RBC 3.73 Hgb 11.2 Hct 33.8 MCV 90.7 MCH 30.0 MCHC 33.1 RDW 16.0 H D Plt Count 161 D MPV 7.8 D Neutrophils % 67.3 Lymphocytes % 22.4 D Monocytes % 6.9 Eosinophils % 2.8 Basophils % 0.6 Sodium 139 Potassium 4.4 D Chloride 104 D Carbon Dioxide 30 Anion Gap 5 L BUN 13 D Creatinine 0.9 D Creat Clearance w eGFR 59.09 Random Glucose 96 Calcium 11.9 H Total Bilirubin 0.3 D AST 18 D ALT 28 D Alkaline Phosphatase 121 H Total Protein 6.9 Albumin 3.3 L D Urine Color Yellow Urine Appearance Turbid Urine pH 6.0 Urine Protein 1+ H Urine Glucose (UA) Negative Urine Ketones Negative Urine Blood 1+ H Urine Nitrite Positive Urine Bilirubin Negative Urine Urobilinogen Negative Ur Leukocyte Esterase 3+ H Urine RBC 23 Urine WBC 1881 Ur Epithelial Cells Moderate Calcium Oxalate Crystal Few Urine Bacteria Rare Urine Yeast Rare CBC, BMP 09/03/16 19:10 09/03/16 19:10 CMP Sodium 139 mmol/L (136-145) 09/03/16 19:10 Potassium 4.4 mmol/L (3.5-5.1) D 09/03/16 19:10 Chloride 104 mmol/L (98-107) D 09/03/16 19:10 Carbon Dioxide 30 mmol/L (21-32) 09/03/16 19:10 Anion Gap 5 (8-16) L 09/03/16 19:10 BUN 13 mg/dL (7-18) D 09/03/16 19:10 Creatinine 0.9 mg/dL (0.55-1.02) D 09/03/16 19:10 Creat Clearance w eGFR 59.09 (>60) 09/03/16 19:10 Random Glucose 96 mg/dL (74-106) 09/03/16 19:10 Calcium 11.9 mg/dL (8.5-10.1) H 09/03/16 19:10 Total Bilirubin 0.3 mg/dL (0.2-1.0) D 09/03/16 19:10 AST 18 U/L (15-37) D 09/03/16 19:10 ALT 28 U/L (12-78) D 09/03/16 19:10 Alkaline Phosphatase 121 U/L (45-117) H 09/03/16 19:10 Total Protein 6.9 g/dl (6.4-8.2) 09/03/16 19:10 Albumin 3.3 g/dl (3.4-5.0) L D 09/03/16 19:10 ASSESSMENT/PLAN: Patient is an 89 Year old White female with PMHx of HTN, HLD, Hyperparathyroidism, hypothyroid, COPD , CAD S/P CABG/stent , Dementia, UTI(ESBL ) , S/P nephrostomy tube who was sent to ED from halfway [facility]) due to complicated UTI. # Complicated UTI S/P Nephrostomy tube, H/O ESBL * UA + 3 Leukocyte Esterase * ID cosulted Dr. De La Garza recommend Meropenen 1mg IVBP TID * Flomax 0.4 mg PO Daily * F/U Urine culture * IR consulted to evaluate the nephrostomy tube * contact Isolation : H/O ESBL * CBC, CMP * Pt/INR, APTT * * * # HTN * BP on admission 157/64 * continue home meds Lasix 40 mg PO daily, Cardizem 30 mg PO TID,Norvasc 5 mg PO daily * Aspirin 81 mg * BP monitor * Low Sodium diet # HLD * continue home meds Lipitor 10 mg PO HS ROHIT Hypercalcemia 2/2 Hyperparathyroidism * CA: 11.9 , Albumin 3.3 * Hold Alendronat Ca now # Hypothyroid * Continue Levothyroxine 50 mcg PO daily # Constipation, chronic * continue home meds Senna # Proph * DVT, moderate risk , 5000 Unit Heparin SQ Q8 Hr # F/E/N * On no fluids * Electrolytes WNL * N: Low sodium diet # Dispo * Admit to med-surg * Full code D/w and medical team Javy Velasquez . PGY1 Visit type - Emergency Visit Emergency Visit: Yes ED Registration Date: 09/03/16 Care time: The patient presented to the Emergency Department on the above date and was hospitalized for further evaluation of their emergent condition. - New Patient This patient is new to me today: Yes Date on this admission: 09/17/16 - Critical Care Critical Care patient: No
[2016-09-03] MEDS: MEROPENEM 1 GM in DEXTROSE 5%-WATER - 100 ML IVPB SCH (21:45)
--- NOTE | 2016-09-03 22:16 | PN ---
Teaching Attending Note Name of Resident: Javy Velasquez ATTENDING PHYSICIAN STATEMENT I saw and evaluated the patient. I reviewed the resident's note and discussed the case with the resident. I agree with the resident's findings and plan as documented. SUBJECTIVE:Sent from NH from nephrostomy tube replacement and UTI with ESBL OBJECTIVE: Vital Signs Temperature 98.4 F 09/03/16 17:42 Pulse Rate 76 09/03/16 17:42 Respiratory Rate 18 09/03/16 17:42 Blood Pressure 157/64 09/03/16 17:42 O2 Sat by Pulse Oximetry (%) 96 09/03/16 17:42 GEN: Alert in NAD HEENT: PERRLA, EOMI, MMM CVS: RRR, S1,S2 LUNGS:CTA ABD: Soft, NT, ND, BS+ : left nephrostomy tube with clear yellow urine, no signs of infection at insertion site. CBCD WBC 9.5 K/mm3 (4.0-10.0) D 09/03/16 19:10 RBC 3.73 M/mm3 (3.60-5.2) 09/03/16 19:10 Hgb 11.2 GM/dL (10.7-15.3) 09/03/16 19:10 Hct 33.8 % (32.4-45.2) 09/03/16 19:10 MCV 90.7 fl (80-96) 09/03/16 19:10 MCHC 33.1 g/dl (32.0-36.0) 09/03/16 19:10 RDW 16.0 % (11.6-15.6) H D 09/03/16 19:10 Plt Count 161 K/MM3 (134-434) D 09/03/16 19:10 MPV 7.8 fl (7.5-11.1) D 09/03/16 19:10 CMP Sodium 139 mmol/L (136-145) 09/03/16 19:10 Potassium 4.4 mmol/L (3.5-5.1) D 09/03/16 19:10 Chloride 104 mmol/L (98-107) D 09/03/16 19:10 Carbon Dioxide 30 mmol/L (21-32) 09/03/16 19:10 Anion Gap 5 (8-16) L 09/03/16 19:10 BUN 13 mg/dL (7-18) D 09/03/16 19:10 Creatinine 0.9 mg/dL (0.55-1.02) D 09/03/16 19:10 Creat Clearance w eGFR 59.09 (>60) 09/03/16 19:10 Random Glucose 96 mg/dL (74-106) 09/03/16 19:10 Calcium 11.9 mg/dL (8.5-10.1) H 09/03/16 19:10 Total Bilirubin 0.3 mg/dL (0.2-1.0) D 09/03/16 19:10 AST 18 U/L (15-37) D 09/03/16 19:10 ALT 28 U/L (12-78) D 09/03/16 19:10 Alkaline Phosphatase 121 U/L (45-117) H 09/03/16 19:10 Total Protein 6.9 g/dl (6.4-8.2) 09/03/16 19:10 Albumin 3.3 g/dl (3.4-5.0) L D 09/03/16 19:10 ASSESSMENT AND PLAN: Complicated UTI s/p nephrostomy tube h/o ESBL ID consult Dr De La Garza appreciated and meropenem IVPB started F/u Urine culture Contact isolation for ESBL IR for evaluation of nephrostomy tube replacement.
[2016-09-03] MEDS ORDERED: PROCHLORPERAZINE MALEATE 5 MG TABLET PO PRN (22:17)
[2016-09-03] MEDS ORDERED: HEPARIN NA (PORCINE) 5,000 UNITS/ML 1ML VIAL ONE (22:26)
[2016-09-03] MEDS: HEPARIN NA (PORCINE) 5,000 UNITS/ML 1ML VIAL SQ SCH (22:39)
--- NOTE | 2016-09-04 00:14 | HP ---
HISTORY OF PRESENT ILLNESS: Patient is an 89 year old female with a PMHx of COPD, HTN, HLD, CAD s/p CABG/ stents, Frequent UTI's with ESBL, discharged on 06/2016 s/p nephrostomy tube drainage [facility] positive cultures of ESBL with failure of outpatient IV antibiotics. Patient has been on IV Ertapenem for the last two weeks but today patient was found to still have positive cultures for ESBL and was told by her PCP to come to the ED. Patient also has slight tenderness around the site of the tube insertion and the PCP and nursing hospital requested for nephrostomy tube change. Otherwise, patient denies fever, chills, nausea, vomiting, chest pain, palpitations, shortness of breath, frequency, dysuria, hematuria. PHYSICAL EXAMINATION Vital Signs - 24 hr 09/03/16 22:46 Pulse Rate [ 72 Right] Respiratory 20 Rate Blood Pressure 138/62 [Left Arm] O2 Sat by Pulse 97 Oximetry (%) GENERAL: Awake, alert, in no acute distress with cognitive impairments at baseline EYES: Sclera anicteric, conjunctiva clear. EARS, NOSE, THROAT: Moist mucous membranes. LUNGS: Breath sounds equal, clear to auscultation bilaterally. No wheezes, and no crackles. No accessory muscle use. HEART: Regular rate and rhythm, normal S1 and S2 without murmur, rub or gallop. ABDOMEN: (+) Left nephrostomy tube draining yellow urine. Soft, nontender, not distended, normoactive bowel sounds, no guarding, no rebound, no masses. LOWER EXTREMITIES: No peripheral edema. . Laboratory Results - last 24 hr 09/03/16 Unknown Urine Color Yellow Urine Appearance Turbid Urine pH 6.0 Ur Specific [place] 1.020 Urine Protein 1+ H Urine Glucose (UA) Negative Urine Ketones Negative Urine Blood 1+ H Urine Nitrite Positive Urine Bilirubin Negative Urine Urobilinogen Negative Ur Leukocyte Esterase 3+ H Urine RBC 23 Urine WBC 1881 Ur Epithelial Cells Moderate Calcium Oxalate Crystal Few Urine Bacteria Rare Urine Yeast Rare ASSESSMENT/PLAN: Patient is an 89 year old female with a PMHx of COPD, HTN, HLD, CAD s/p CABG/ stents, hypothyroidism, hyperparathyroidism, Frequent UTI's with ESBL, who has a left nephrostomy tube placed since (06/2016) was brought from senior care due to positive urine cultures of ESBL after failed IV antibiotics outpatient treatment and for nephrostomy tube replacement. Patient admitted for further monitoring and management. ASSESSMENT: Complicated UTI w/ ESBL despite outpatient IV Antibiotics s/p Left nephrostomy tube HTN CAD s/p CABG/stents COPD PLAN: ID consulted and ordered Meropenem 1gm Urine cultures sent Contact isolation due to ESBL Nephrostomy tube replacement ordered with plans for procedure tomorrow Continue with current home medications Prophylaxis with Heparin SQ Case discussed with attending and medical team. Full H&P to follow Visit type - Emergency Visit Emergency Visit: Yes ED Registration Date: 09/03/16 Care time: The patient presented to the Emergency Department on the above date and was hospitalized for further evaluation of their emergent condition. - New Patient This patient is new to me today: Yes Date on this admission: 09/03/16 - Critical Care Critical Care patient: No
[2016-09-04] MEDS ORDERED: PATIENT'S OWN MEDICATION (NON-FORMULARY) (Alendronate Sodium/Vitamin D3 [Fosamax Plus D 70 PO SCH (00:15)
[2016-09-04 01:35] VITALS: BMI 26.2
[2016-09-04] MEDS: MEROPENEM 1 GM in DEXTROSE 5%-WATER - 100 ML IVPB SCH ×3 (04:59→17:18)
[2016-09-04] MEDS: HEPARIN NA (PORCINE) 5,000 UNITS/ML 1ML VIAL SQ SCH ×3 (06:13→21:25)
[2016-09-04] MEDS: dilTIAZem HCL 30 MG TABLET (FP) PO SCH ×3 (06:13→21:25)
[2016-09-04] MEDS: LEVOTHYROXINE NA 50 MCG TABLET (FP) PO SCH (06:13)
[2016-09-04 07:43] LABS: INR 1.03 (0.82-1.09); PROTHROMBIN TIME (PATIENT) 11.3 SEC (9.98-11.88)
[2016-09-04 07:46] LABS: ACTIVATED PTT 32.6 SECONDS (26.9-34.4)
[2016-09-04 08:05] LABS: ANION GAP 5 (8-16); CALCIUM 11.6 mg/dL (8.5-10.1); CO2 30 mmol/L (21-32); CREATININE 1.1 mg/dL (0.55-1.02); GLUCOSE,RANDOM 101 mg/dL (74-106)
--- NOTE | 2016-09-04 09:21 | EKG ---
Test Reason : Blood Pressure : / mmHG Vent. Rate : 072 BPM Atrial Rate : 072 BPM P-R Int : 174 ms QRS Dur : 096 ms QT Int : 412 ms P-R-T Axes : 034 -03 088 degrees QTc Int : 451 ms NORMAL SINUS RHYTHM LEFT VENTRICULAR HYPERTROPHY WITH REPOLARIZATION ABNORMALITY CANNOT RULE OUT SEPTAL INFARCT (CITED ON OR BEFORE 10-JUN-2016) NONSPECIFIC ST ABNORMALITY ABNORMAL ECG Confirmed by TOMA BARAHONA MD ([id number]) on 09/04/2016 9:20:44 AM Referred By: Confirmed By:TOMA BARAHONA MD
[2016-09-04] MEDS: POTASSIUM CHLORIDE TABS 20 MEQ TABLET.ER (FP) PO SCH (09:33)
[2016-09-04] MEDS: amLODIPine BESYLATE 5 MG TABLET (FP) PO SCH (09:33)
[2016-09-04] MEDS: LACTOBACILLUS ACIDOPHILUS 1 EACH TAB (FP) PO SCH (09:33)
[2016-09-04] MEDS: ASPIRIN 81 MG CHEWABLE TABLETS PO SCH (09:33)
[2016-09-04] MEDS: TAMSULOSIN HCL 0.4 MG CAP.ER.24H (FP) PO SCH (09:33)
[2016-09-04] MEDS: FUROSEMIDE 40 MG TABLET (FP) PO SCH (09:34)
--- NOTE | 2016-09-04 13:06 | PN ---
Progress Note, Physician Chief Complaint: Ms Madera complains of some lightheadedness secondary to anesthesia. Also with nausea but no vomiting. No cp or sob. - Current Medication List Current Medications: Active Medications Al Hydroxide/Mg Hydroxide (Mylanta Oral Suspension -) 30 ml PO QID PRN PRN Reason: DYSPEPSIA Amlodipine Besylate (Norvasc -) 5 mg PO DAILY [facility] Last Admin: 09/04/16 09:33 Dose: 5 mg Aspirin (Asa -) 81 mg PO DAILY [facility] Last Admin: 09/04/16 09:33 Dose: 81 mg Atorvastatin Calcium (Lipitor -) 10 mg PO HS [facility] Diltiazem HCl (Cardizem -) 30 mg PO TID [facility] Last Admin: 09/04/16 06:13 Dose: 30 mg Furosemide (Lasix -) 40 mg PO DAILY [facility] Last Admin: 09/04/16 09:34 Dose: 40 mg Heparin Sodium (Porcine) (Heparin -) 5,000 unit SQ TID [facility] Last Admin: 09/04/16 06:13 Dose: 5,000 unit Meropenem 1 gm/ Dextrose 100 mls @ 100 mls/hr IVPB Q8H-IV ROHIT PRN Reason: Protocol Last Admin: 09/04/16 09:32 Dose: 100 mls/hr Lactobacillus Acidophilus (Bacid -) 1 tab PO DAILY [facility] Last Admin: 09/04/16 09:33 Dose: 1 tab Levothyroxine Sodium (Synthroid -) 50 mcg PO DAILY@0700 [facility] Last Admin: 09/04/16 06:13 Dose: 50 mcg Potassium Chloride (K-Dur -) 20 meq PO DAILY [facility] Last Admin: 09/04/16 09:33 Dose: 20 meq Prochlorperazine Maleate (Compazine -) 5 mg PO Q8H PRN PRN Reason: nausea with vomiting Senna (Senna -) 2 tab PO [facility] Tamsulosin HCl (Flomax -) 0.4 mg PO DAILY@0830 [facility] Last Admin: 09/04/16 09:33 Dose: 0.4 mg - Objective Vital Signs: Vital Signs Temperature 98.4 F 09/04/16 10:00 Pulse Rate 79 09/04/16 11:26 Respiratory Rate 16 09/04/16 11:26 Blood Pressure 180/52 09/04/16 11:26 O2 Sat by Pulse Oximetry (%) 100 09/04/16 11:26 Constitutional: Yes: Well Nourished, No Distress, Calm Cardiovascular: Yes: Regular Rate and Rhythm. No: Gallop, Murmur, Rub Respiratory: Yes: Regular, CTA Bilaterally. No: Rales, Rhonchi, Wheezes Gastrointestinal: Yes: Normal Bowel Sounds, Soft. No: Distention, Tenderness Extremities: Yes: WNL Edema: No Labs: CBC, BMP 09/04/16 06:00 INR, PTT INR 1.03 (0.82-1.09) 09/04/16 06:00 Problem List - Problems (1) Recurrent UTI (urinary tract infection) Assessment/Plan: -failed outpatient therapy -nephrostomy tube replaced today -continue antibiotics per ID Code(s): N39.0 - URINARY TRACT INFECTION, SITE NOT SPECIFIED (2) ESBL (extended spectrum beta-lactamase) producing bacteria infection Assessment/Plan: -ID following -continue merrem -await culture results Code(s): A49.9 - BACTERIAL INFECTION, UNSPECIFIED Z16.12 - EXTENDED SPECTRUM BETA LACTAMASE (ESBL) RESISTANCE (3) HTN (hypertension) Assessment/Plan: -continue norvasc and lasix -monitor, may need to adjust medication Code(s): I10 - ESSENTIAL (PRIMARY) HYPERTENSION (4) Coronary arteriosclerosis Assessment/Plan: -quiescent -continue home regimen Code(s): I25.10 - ATHSCL HEART DISEASE OF [place] CORONARY ARTERY W/O ANG PCTRS (5) Dementia Assessment/Plan: -continue home regimen Code(s): F03.90 - UNSPECIFIED DEMENTIA WITHOUT BEHAVIORAL DISTURBANCE (6) Hyperlipidemia Code(s): E78.5 - HYPERLIPIDEMIA, UNSPECIFIED (7) Hypothyroidism Code(s): E03.9 - HYPOTHYROIDISM, UNSPECIFIED
--- NOTE | 2016-09-04 15:26 | CONSULT ---
Consult Consult Specialty:: infectious diseases Reason for Consultation:: esbl uti - History of Present Illness History of Present Illness: 89 Year old White female with PMHx of HTN, HLD, Hyperparathyroidism, hypothyroid , COPD , CAD S/P CABG/stent , Dementia, UTI(ESBL) , S/P nephrostomy tube who was [facility] due to multiple positive culture ESBL despite being on IV Ertapenem for 2 weeks and to remove the Nephrostomy tube. Patient reports slight local pain in the tube area,increases with movement.Patient denies any fever, chills, Nausea, vomiting, diarrhea, constipation, abdominal pain, chest pain, or any urinary symptoms. i had seen the patient in the [facility] and we had treated her without success patient now has got the nephrostomy tube changed currently ahs no complaints had started the patient on meropenam as we had already tried ertapenam - History Source History Provided By: Patient Limitations to Obtaining History: No Limitations - Past Medical History [employer]: Yes: Dementia Cardio/Vascular: Yes: Aortic Insufficiency, CAD, HTN, Hyperlipdemia Gastrointestinal: Yes: Diverticulitis Renal/: Yes: UTI Musculoskeletal: Yes: Other (frequent falls) Endocrine: Yes: Hypothyroidism Additional Medical History: frequent falls - Past Surgical History Past Surgical History: Yes: CABG, Stent (unknown details of coronary stent) - Alcohol/Substance Use Hx Alcohol Use: No - Smoking History Smoking history: Never smoked Have you smoked in the past 12 months: No Aproximately how many cigarettes per day: 0 - Social History Usual Living Arrangement: Residential ADL: Support Services History of Recent Travel: No Home Medications - Allergies Allergies/Adverse Reactions: Allergies Allergy/AdvReac Type Severity Reaction Status Date / Time Penicillins Allergy Verified 09/03/16 17:45 - Home Medications Home Medications: Ambulatory Orders Aa/Hydrolyzed Collagen, Whey [Lps Neutral Flavor Liquid] 30 ml PO DAILY Acetaminophen 650 mg PO Q6H PRN 08/07/16 Alendronate Sodium/Vitamin D3 [Fosamax Plus D 70 mg-5,600 Iu vIT d] 1 each PO Q7D 08/07/16 Amlodipine Besylate [Norvasc -] 5 mg PO DAILY 08/07/16 Aspirin [ASA -] 81 mg PO DAILY 08/07/16 Atorvastatin Ca [Lipitor] 10 mg PO HS 08/07/16 Cholecalciferol (Vitamin D3) [D-2000] 2,000 unit PO DAILY 08/07/16 Cyanocobalamin [Vitamin B12 -] 1,000 mcg PO DAILY 08/07/16 Diltiazem [Cardizem -] 30 mg PO TID 08/07/16 Furosemide [Lasix] 40 mg PO DAILY 08/07/16 Lactobacillus Acidophilus [Acidophilus] 1 each PO DAILY 08/07/16 Levothyroxine [Synthroid -] 50 mcg PO DAILY 08/07/16 Mag Hydrox/Al Hydrox/Simeth [Mylanta *Suspension*] 30 ml PO QID PRN 08/07/16 Potassium Chloride 20 meq PO DAILY 08/07/16 Prochlorperazine Maleate 5 mg PO Q8H PRN 08/07/16 Sennosides [Senna] 17.2 mg PO HS 08/07/16 Tamsulosin HCl [Flomax] 0.4 mg PO DAILY 08/07/16 Review of Systems - Review of Systems Constitutional: reports: No Symptoms Eyes: reports: No Symptoms HENT: reports: No Symptoms Neck: reports: No Symptoms Cardiovascular: reports: No Symptoms Respiratory: reports: No Symptoms Gastrointestinal: reports: No Symptoms Genitourinary: reports: No Symptoms Musculoskeletal: reports: No Symptoms Integumentary: reports: No Symptoms Neurological: reports: No Symptoms Endocrine: reports: No Symptoms Hematology/Lymphatic: reports: No Symptoms Psychiatric: reports: No Symptoms Physical Exam Vital Signs: Vital Signs Temperature 97.9 F 09/04/16 14:02 Pulse Rate 72 09/04/16 14:02 Respiratory Rate 18 09/04/16 14:02 Blood Pressure 134/55 09/04/16 14:02 O2 Sat by Pulse Oximetry (%) 100 09/04/16 11:26 Constitutional: Yes: Well Nourished, No Distress, Calm Cardiovascular: Yes: Regular Rate and Rhythm Respiratory: Yes: Regular, CTA Bilaterally Gastrointestinal: Yes: Normal Bowel Sounds, Soft Renal/: Yes: Other (nephrostomy tube). No: CVA Tenderness - Left Musculoskeletal: Yes: WNL Extremities: Yes: WNL Neurological: Yes: Alert Psychiatric: Yes: Alert Labs: CBC, BMP 09/04/16 06:00 Imaging - Results X-ray: Report Reviewed, Image Reviewed Assessment/Plan 89 Year old White female with PMHx of HTN, HLD, Hyperparathyroidism, hypothyroid , COPD , CAD S/P CABG/stent , Dementia, UTI(ESBL) , S/P nephrostomy tube who was [facility] to ED from [facility] due to complicated UTI. # Complicated UTI S/P Nephrostomy tube, H/O ESBL # HTN # HLD Hypercalcemia plan continue current abx will need for couple of days then we will be able to stop it rest as per primary
[2016-09-04] MEDS ORDERED: PT OWN MED DRAWER 7, Y5N ONE (16:50)
[2016-09-04] MEDS: ATORVASTATIN CA 10 MG TABLET (FP) PO SCH (21:25)
[2016-09-04] MEDS: SENNOSIDES 8.6MG TABLET (FP) PO SCH (21:25)
[2016-09-04] MEDS: ARTIFICIAL TEARS (POLYVINYL ALCOHOL 1.4%) OPTH DROPS OU SCH (21:25)
[2016-09-05] MEDS: MEROPENEM 1 GM in DEXTROSE 5%-WATER - 100 ML IVPB SCH ×3 (02:00→17:04)
[2016-09-05] MEDS: LEVOTHYROXINE NA 50 MCG TABLET (FP) PO SCH (06:49)
[2016-09-05] MEDS: HEPARIN NA (PORCINE) 5,000 UNITS/ML 1ML VIAL SQ SCH ×3 (06:49→21:48)
[2016-09-05] MEDS: ARTIFICIAL TEARS (POLYVINYL ALCOHOL 1.4%) OPTH DROPS OU SCH ×3 (06:49→21:48)
[2016-09-05] MEDS: dilTIAZem HCL 30 MG TABLET (FP) PO SCH ×3 (06:49→21:48)
[2016-09-05 08:01] LABS: BASOPHIL 0.4 % (0-2.0); EOSINOPHIL 4.3 % (0-4.5); MCH 30.9 pg (25.7-33.7); MEAN PLT VOLUME 8.3 fl (7.5-11.1); NEUTROPHILS 67.7 % (42.8-82.8); PLATELET COUNT 130 K/MM3 (134-434); WHITE BLOOD COUNT 9.6 K/mm3 (4.0-10.0)
[2016-09-05 08:22] LABS: ANION GAP 8 (8-16); CALCIUM 11.2 mg/dL (8.5-10.1); CO2 28 mmol/L (21-32); CREATININE 1.1 mg/dL (0.55-1.02); GLUCOSE,RANDOM 97 mg/dL (74-106); PHOSPHOROUS 1.9 mg/dL (2.5-4.9)
[2016-09-05] MEDS ORDERED: PT OWN MED DRAWER 7, Y5N ONE ×3 (08:32→21:41)
[2016-09-05] MEDS: TAMSULOSIN HCL 0.4 MG CAP.ER.24H (FP) PO SCH (08:51)
[2016-09-05] MEDS: ASPIRIN 81 MG CHEWABLE TABLETS PO SCH (09:00)
[2016-09-05] MEDS: LACTOBACILLUS ACIDOPHILUS 1 EACH TAB (FP) PO SCH (09:00)
[2016-09-05] MEDS: FUROSEMIDE 40 MG TABLET (FP) PO SCH (09:00)
[2016-09-05] MEDS: POTASSIUM CHLORIDE TABS 20 MEQ TABLET.ER (FP) PO SCH (09:00)
[2016-09-05] MEDS: amLODIPine BESYLATE 5 MG TABLET (FP) PO SCH (09:00)
--- NOTE | 2016-09-05 11:01 | PN ---
Progress Note, Physician History of Present Illness: patient stable no new events - Current Medication List Current Medications: Active Medications Al Hydroxide/Mg Hydroxide (Mylanta Oral Suspension -) 30 ml PO QID PRN PRN Reason: DYSPEPSIA Amlodipine Besylate (Norvasc -) 5 mg PO DAILY [facility] Last Admin: 09/05/16 09:00 Dose: 5 mg Artificial Tears (Artificial Tears) 2 drop OU TID [facility] Last Admin: 09/05/16 06:49 Dose: 2 drop Aspirin (Asa -) 81 mg PO DAILY [facility] Last Admin: 09/05/16 09:00 Dose: 81 mg Atorvastatin Calcium (Lipitor -) 10 mg PO HS [facility] Last Admin: 09/04/16 21:25 Dose: 10 mg Diltiazem HCl (Cardizem -) 30 mg PO TID [facility] Last Admin: 09/05/16 06:49 Dose: 30 mg Furosemide (Lasix -) 40 mg PO DAILY [facility] Last Admin: 09/05/16 09:00 Dose: 40 mg Heparin Sodium (Porcine) (Heparin -) 5,000 unit SQ TID [facility] Last Admin: 09/05/16 06:49 Dose: 5,000 unit Meropenem 1 gm/ Dextrose 100 mls @ 100 mls/hr IVPB Q8H-IV ROHIT PRN Reason: Protocol Last Admin: 09/05/16 09:00 Dose: 100 mls/hr Lactobacillus Acidophilus (Bacid -) 1 tab PO DAILY [facility] Last Admin: 09/05/16 09:00 Dose: 1 tab Levothyroxine Sodium (Synthroid -) 50 mcg PO DAILY@0700 [facility] Last Admin: 09/05/16 06:49 Dose: 50 mcg Potassium Chloride (K-Dur -) 20 meq PO DAILY [facility] Last Admin: 09/05/16 09:00 Dose: 20 meq Prochlorperazine Maleate (Compazine -) 5 mg PO Q8H PRN PRN Reason: nausea with vomiting Senna (Senna -) 2 tab PO HS [facility] Last Admin: 09/04/16 21:25 Dose: 2 tab Tamsulosin HCl (Flomax -) 0.4 mg PO DAILY@0830 [facility] Last Admin: 09/05/16 08:51 Dose: 0.4 mg - Objective Vital Signs: Vital Signs Temperature 97.8 F 09/05/16 06:00 Pulse Rate 78 09/05/16 06:00 Respiratory Rate 20 09/05/16 06:00 Blood Pressure 143/67 09/05/16 06:00 O2 Sat by Pulse Oximetry (%) 100 09/04/16 19:35 Constitutional: Yes: No Distress, Calm Cardiovascular: Yes: Regular Rate and Rhythm Respiratory: Yes: Regular, CTA Bilaterally Gastrointestinal: Yes: Normal Bowel Sounds, Soft Genitourinary: Yes: Other (nephrostomy tube in place) Musculoskeletal: Yes: WNL Extremities: Yes: WNL Integumentary: Yes: WNL Neurological: Yes: Alert, Other Psychiatric: Yes: Alert Labs: CBC, BMP 09/05/16 06:00 09/05/16 06:00 INR, PTT INR 1.03 (0.82-1.09) 09/04/16 06:00 Assessment/Plan 89 Year old White female with PMHx of HTN, HLD, Hyperparathyroidism, hypothyroid , COPD , CAD S/P CABG/stent , Dementia, UTI(ESBL) , S/P nephrostomy tube who was sent to ED from correction ([facility]) due to complicated UTI. # Complicated UTI S/P Nephrostomy tube, H/O ESBL # HTN # HLD Hypercalcemia plan continue current abx patient stable
--- NOTE | 2016-09-05 15:32 | PN ---
Progress Note (short form) - Note Progress Note: No fever No pain and is doing OK O/E Vital Signs Period Temp Pulse Resp BP Sys/Donovan Pulse Ox Last 24 Hr 97.8 F-98.1 F 77-82 18-20 122-143/56-67 95-100 Heart regular Lungs clear Abd osft Ext no edema Current Medications Al Hydroxide/Mg Hydroxide (Mylanta Oral Suspension -) 30 ml PO QID PRN PRN Reason: DYSPEPSIA Amlodipine Besylate (Norvasc -) 5 mg PO DAILY [facility] Last Admin: 09/05/16 09:00 Dose: 5 mg Artificial Tears (Artificial Tears) 2 drop OU TID [facility] Last Admin: 09/05/16 13:05 Dose: 2 drop Aspirin (Asa -) 81 mg PO DAILY [facility] Last Admin: 09/05/16 09:00 Dose: 81 mg Atorvastatin Calcium (Lipitor -) 10 mg PO HS [facility] Last Admin: 09/04/16 21:25 Dose: 10 mg Diltiazem HCl (Cardizem -) 30 mg PO TID [facility] Last Admin: 09/05/16 13:05 Dose: 30 mg Furosemide (Lasix -) 40 mg PO DAILY [facility] Last Admin: 09/05/16 09:00 Dose: 40 mg Heparin Sodium (Porcine) (Heparin -) 5,000 unit SQ TID [facility] Last Admin: 09/05/16 13:05 Dose: 5,000 unit Meropenem 1 gm/ Dextrose 100 mls @ 100 mls/hr IVPB Q8H-IV ROHIT PRN Reason: Protocol Last Admin: 09/05/16 09:00 Dose: 100 mls/hr Lactobacillus Acidophilus (Bacid -) 1 tab PO DAILY [facility] Last Admin: 09/05/16 09:00 Dose: 1 tab Levothyroxine Sodium (Synthroid -) 50 mcg PO DAILY@0700 [facility] Last Admin: 09/05/16 06:49 Dose: 50 mcg Potassium Chloride (K-Dur -) 20 meq PO DAILY [facility] Last Admin: 09/05/16 09:00 Dose: 20 meq Prochlorperazine Maleate (Compazine -) 5 mg PO Q8H PRN PRN Reason: nausea with vomiting Senna (Senna -) 2 tab PO HS [facility] Last Admin: 09/04/16 21:25 Dose: 2 tab Tamsulosin HCl (Flomax -) 0.4 mg PO DAILY@0830 [facility] Last Admin: 09/05/16 08:51 Dose: 0.4 mg Laboratory Results - last 24 hr 09/05/16 09/05/16 06:00 06:00 WBC 9.6 RBC 3.49 L Hgb 10.8 Hct 31.7 L MCV 91.0 MCH 30.9 MCHC 34.0 RDW 16.0 H Plt Count 130 L MPV 8.3 Neutrophils % 67.7 Lymphocytes % 19.9 Monocytes % 7.7 Eosinophils % 4.3 Basophils % 0.4 Sodium 139 Potassium 3.8 Chloride 103 Carbon Dioxide 28 Anion Gap 8 BUN 15 Creatinine 1.1 H Random Glucose 97 Calcium 11.2 H Phosphorus 1.9 L Magnesium 2.0 1) Recurrent UTI (urinary tract infection) Assessment/Plan: Cont present ABX Code(s): N39.0 - URINARY TRACT INFECTION, SITE NOT SPECIFIED (2) ESBL (extended spectrum beta-lactamase) producing bacteria infection Assessment/Plan: -ID following -continue merrem Code(s): A49.9 - BACTERIAL INFECTION, UNSPECIFIED Z16.12 - EXTENDED SPECTRUM BETA LACTAMASE (ESBL) RESISTANCE (3) HTN (hypertension) Assessment/Plan: -Controlled Code(s): I10 - ESSENTIAL (PRIMARY) HYPERTENSION (4) Coronary arteriosclerosis Assessment/Plan: -quiescent -continue home regimen Code(s): I25.10 - ATHSCL HEART DISEASE OF [place] CORONARY ARTERY W/O ANG PCTRS (5) Dementia Assessment/Plan: -continue home regimen Code(s): F03.90 - UNSPECIFIED DEMENTIA WITHOUT BEHAVIORAL DISTURBANCE (6) Hyperlipidemia Code(s): E78.5 - HYPERLIPIDEMIA, UNSPECIFIED (7) Hypothyroidism Code(s): E03.9 - HYPOTHYROIDISM, UNSPECIFIED
[2016-09-05] MEDS ORDERED: ACETAMINOPHEN 500 MG TABLET (FP) PO PRN (15:33)
[2016-09-05] MEDS: ATORVASTATIN CA 10 MG TABLET (FP) PO SCH (21:47)
[2016-09-05] MEDS: SENNOSIDES 8.6MG TABLET (FP) PO SCH (21:48)
[2016-09-06] MEDS: MEROPENEM 1 GM in DEXTROSE 5%-WATER - 100 ML IVPB SCH ×3 (02:13→17:24)
[2016-09-06] MEDS: MAG HYDROX/AL HYDROX/SIMETH 30 ML UNIT-DOSE CUP PO PRN ×2 (02:16→14:41)
[2016-09-06] MEDS: HEPARIN NA (PORCINE) 5,000 UNITS/ML 1ML VIAL SQ SCH ×3 (06:48→21:18)
[2016-09-06] MEDS: dilTIAZem HCL 30 MG TABLET (FP) PO SCH ×3 (06:48→21:18)
[2016-09-06] MEDS: ARTIFICIAL TEARS (POLYVINYL ALCOHOL 1.4%) OPTH DROPS OU SCH ×3 (06:48→21:18)
[2016-09-06] MEDS: LEVOTHYROXINE NA 50 MCG TABLET (FP) PO SCH (06:48)
[2016-09-06] MEDS: FUROSEMIDE 40 MG TABLET (FP) PO SCH (09:49)
[2016-09-06] MEDS: ASPIRIN 81 MG CHEWABLE TABLETS PO SCH (09:49)
[2016-09-06] MEDS: POTASSIUM CHLORIDE TABS 20 MEQ TABLET.ER (FP) PO SCH (09:49)
[2016-09-06] MEDS: LACTOBACILLUS ACIDOPHILUS 1 EACH TAB (FP) PO SCH (09:49)
[2016-09-06] MEDS: amLODIPine BESYLATE 5 MG TABLET (FP) PO SCH (09:49)
[2016-09-06] MEDS: TAMSULOSIN HCL 0.4 MG CAP.ER.24H (FP) PO SCH (09:49)
[2016-09-06] MEDS ORDERED: PT OWN MED DRAWER 7, Y5N ONE ×2 (10:35→16:55)
--- NOTE | 2016-09-06 11:39 | PN ---
Progress Note, Physician History of Present Illness: patient stable no new events - Current Medication List Current Medications: Active Medications Acetaminophen (Tylenol -) 1,000 mg PO Q6H PRN PRN Reason: FEVER OR PAIN Al Hydroxide/Mg Hydroxide (Mylanta Oral Suspension -) 30 ml PO QID PRN PRN Reason: DYSPEPSIA Last Admin: 09/06/16 02:16 Dose: 30 ml Amlodipine Besylate (Norvasc -) 5 mg PO DAILY [facility] Last Admin: 09/06/16 09:49 Dose: 5 mg Artificial Tears (Artificial Tears) 2 drop OU TID [facility] Last Admin: 09/06/16 06:48 Dose: 2 drop Aspirin (Asa -) 81 mg PO DAILY [facility] Last Admin: 09/06/16 09:49 Dose: 81 mg Atorvastatin Calcium (Lipitor -) 10 mg PO HS [facility] Last Admin: 09/05/16 21:47 Dose: 10 mg Diltiazem HCl (Cardizem -) 30 mg PO TID [facility] Last Admin: 09/06/16 06:48 Dose: 30 mg Furosemide (Lasix -) 40 mg PO DAILY [facility] Last Admin: 09/06/16 09:49 Dose: 40 mg Heparin Sodium (Porcine) (Heparin -) 5,000 unit SQ TID [facility] Last Admin: 09/06/16 06:48 Dose: 5,000 unit Meropenem 1 gm/ Dextrose 100 mls @ 100 mls/hr IVPB Q8H-IV ROHIT PRN Reason: Protocol Last Admin: 09/06/16 11:36 Dose: 100 mls/hr Lactobacillus Acidophilus (Bacid -) 1 tab PO DAILY [facility] Last Admin: 09/06/16 09:49 Dose: 1 tab Levothyroxine Sodium (Synthroid -) 50 mcg PO DAILY@0700 [facility] Last Admin: 09/06/16 06:48 Dose: 50 mcg Potassium Chloride (K-Dur -) 20 meq PO DAILY [facility] Last Admin: 09/06/16 09:49 Dose: 20 meq Prochlorperazine Maleate (Compazine -) 5 mg PO Q8H PRN PRN Reason: nausea with vomiting Senna (Senna -) 2 tab PO HS [facility] Last Admin: 09/05/16 21:48 Dose: 2 tab Tamsulosin HCl (Flomax -) 0.4 mg PO DAILY@0830 [facility] Last Admin: 09/06/16 09:49 Dose: 0.4 mg - Objective Vital Signs: Vital Signs Temperature 98.7 F 09/06/16 06:00 Pulse Rate 82 09/06/16 06:00 Respiratory Rate 16 09/06/16 06:00 Blood Pressure 140/67 09/06/16 06:00 O2 Sat by Pulse Oximetry (%) 95 09/05/16 22:00 Constitutional: Yes: No Distress, Calm Cardiovascular: Yes: Regular Rate and Rhythm Respiratory: Yes: Regular, CTA Bilaterally Gastrointestinal: Yes: Normal Bowel Sounds, Soft Genitourinary: Yes: Other (nephrostomty tube in place) Musculoskeletal: Yes: WNL Extremities: Yes: WNL Neurological: Yes: Alert, Oriented Psychiatric: Yes: Alert Labs: CBC, BMP 09/05/16 06:00 09/05/16 06:00 INR, PTT INR 1.03 (0.82-1.09) 09/04/16 06:00 Assessment/Plan 89 Year old White female with PMHx of HTN, HLD, Hyperparathyroidism, hypothyroid , COPD , CAD S/P CABG/stent , Dementia, UTI(ESBL) , S/P nephrostomy tube who was sent to ED from residential ([facility]) due to complicated UTI. # Complicated UTI S/P Nephrostomy tube, H/O ESBL # HTN # HLD Hypercalcemia plan continue current abx patient stable
--- NOTE | 2016-09-06 18:22 | PN ---
Progress Note (short form) - Note Progress Note: No fever O/E Vital Signs Period Temp Pulse Resp BP Sys/Donovan Pulse Ox Last 24 Hr 98.7 F-98.9 F 80-85 16-18 126-144/58-68 94-95 Heart regular Lungs clear Abd soft Ext no edema Current Medications Acetaminophen (Tylenol -) 1,000 mg PO Q6H PRN PRN Reason: FEVER OR PAIN Al Hydroxide/Mg Hydroxide (Mylanta Oral Suspension -) 30 ml PO QID PRN PRN Reason: DYSPEPSIA Last Admin: 09/06/16 14:41 Dose: 30 ml Amlodipine Besylate (Norvasc -) 5 mg PO DAILY [facility] Last Admin: 09/06/16 09:49 Dose: 5 mg Artificial Tears (Artificial Tears) 2 drop OU TID [facility] Last Admin: 09/06/16 14:38 Dose: 2 drop Aspirin (Asa -) 81 mg PO DAILY [facility] Last Admin: 09/06/16 09:49 Dose: 81 mg Atorvastatin Calcium (Lipitor -) 10 mg PO HS [facility] Last Admin: 09/05/16 21:47 Dose: 10 mg Diltiazem HCl (Cardizem -) 30 mg PO TID [facility] Last Admin: 09/06/16 14:37 Dose: 30 mg Furosemide (Lasix -) 40 mg PO DAILY [facility] Last Admin: 09/06/16 09:49 Dose: 40 mg Heparin Sodium (Porcine) (Heparin -) 5,000 unit SQ TID [facility] Last Admin: 09/06/16 14:37 Dose: 5,000 unit Meropenem 1 gm/ Dextrose 100 mls @ 100 mls/hr IVPB Q8H-IV ROHIT PRN Reason: Protocol Last Admin: 09/06/16 17:24 Dose: 100 mls/hr Lactobacillus Acidophilus (Bacid -) 1 tab PO DAILY [facility] Last Admin: 09/06/16 09:49 Dose: 1 tab Levothyroxine Sodium (Synthroid -) 50 mcg PO DAILY@0700 [facility] Last Admin: 09/06/16 06:48 Dose: 50 mcg Potassium Chloride (K-Dur -) 20 meq PO DAILY [facility] Last Admin: 09/06/16 09:49 Dose: 20 meq Prochlorperazine Maleate (Compazine -) 5 mg PO Q8H PRN PRN Reason: nausea with vomiting Senna (Senna -) 2 tab PO HS [facility] Last Admin: 09/05/16 21:48 Dose: 2 tab Tamsulosin HCl (Flomax -) 0.4 mg PO DAILY@0830 [facility] Last Admin: 09/06/16 09:49 Dose: 0.4 mg Vital Signs Period Temp Pulse Resp BP Sys/Donovan Pulse Ox Last 24 Hr 98.7 F-98.9 F 80-85 16-18 126-144/58-68 94-95 1) Recurrent UTI (urinary tract infection) Assessment/Plan: Cont present ABX Code(s): N39.0 - URINARY TRACT INFECTION, SITE NOT SPECIFIED Cultures noted and cont present Abx (2) ESBL (extended spectrum beta-lactamase) producing bacteria infection Assessment/Plan: -ID following -continue merrem Code(s): A49.9 - BACTERIAL INFECTION, UNSPECIFIED Z16.12 - EXTENDED SPECTRUM BETA LACTAMASE (ESBL) RESISTANCE (3) HTN (hypertension) Assessment/Plan: -Controlled Code(s): I10 - ESSENTIAL (PRIMARY) HYPERTENSION (4) Coronary arteriosclerosis Assessment/Plan: -quiescent -continue home regimen Code(s): I25.10 - ATHSCL HEART DISEASE OF [place] CORONARY ARTERY W/O ANG PCTRS (5) Dementia Assessment/Plan: -continue home regimen Code(s): F03.90 - UNSPECIFIED DEMENTIA WITHOUT BEHAVIORAL DISTURBANCE (6) Hyperlipidemia Code(s): E78.5 - HYPERLIPIDEMIA, UNSPECIFIED (7) Hypothyroidism Code(s): E03.9 - HYPOTHYROIDISM, UNSPECIFIED
[2016-09-06] MEDS: SENNOSIDES 8.6MG TABLET (FP) PO SCH (21:18)
[2016-09-06] MEDS: ATORVASTATIN CA 10 MG TABLET (FP) PO SCH (21:18)
[2016-09-07] MEDS: MEROPENEM 1 GM in DEXTROSE 5%-WATER - 100 ML IVPB SCH ×3 (01:10→17:01)
[2016-09-07] MEDS: LEVOTHYROXINE NA 50 MCG TABLET (FP) PO SCH (06:04)
[2016-09-07] MEDS: ARTIFICIAL TEARS (POLYVINYL ALCOHOL 1.4%) OPTH DROPS OU SCH ×3 (06:04→21:09)
[2016-09-07] MEDS: HEPARIN NA (PORCINE) 5,000 UNITS/ML 1ML VIAL SQ SCH ×3 (06:04→21:09)
[2016-09-07] MEDS: dilTIAZem HCL 30 MG TABLET (FP) PO SCH ×3 (06:04→21:09)
[2016-09-07] MEDS ORDERED: PT OWN MED DRAWER 7, Y5N ONE ×2 (08:51→16:47)
[2016-09-07] MEDS: ASPIRIN 81 MG CHEWABLE TABLETS PO SCH (09:07)
[2016-09-07] MEDS: FUROSEMIDE 40 MG TABLET (FP) PO SCH (09:07)
[2016-09-07] MEDS: LACTOBACILLUS ACIDOPHILUS 1 EACH TAB (FP) PO SCH (09:07)
[2016-09-07] MEDS: amLODIPine BESYLATE 5 MG TABLET (FP) PO SCH (09:07)
[2016-09-07] MEDS: TAMSULOSIN HCL 0.4 MG CAP.ER.24H (FP) PO SCH (09:07)
[2016-09-07] MEDS: POTASSIUM CHLORIDE TABS 20 MEQ TABLET.ER (FP) PO SCH (09:07)
--- NOTE | 2016-09-07 12:11 | PN ---
Progress Note, Physician Chief Complaint: Ms Madera says she feels lousy because she bit her tongue and it hurts. No cp , sob, n/v. - Current Medication List Current Medications: Active Medications Acetaminophen (Tylenol -) 1,000 mg PO Q6H PRN PRN Reason: FEVER OR PAIN Al Hydroxide/Mg Hydroxide (Mylanta Oral Suspension -) 30 ml PO QID PRN PRN Reason: DYSPEPSIA Last Admin: 09/06/16 14:41 Dose: 30 ml Amlodipine Besylate (Norvasc -) 5 mg PO DAILY [facility] Last Admin: 09/07/16 09:07 Dose: 5 mg Artificial Tears (Artificial Tears) 2 drop OU TID [facility] Last Admin: 09/07/16 06:04 Dose: 2 drop Aspirin (Asa -) 81 mg PO DAILY [facility] Last Admin: 09/07/16 09:07 Dose: 81 mg Atorvastatin Calcium (Lipitor -) 10 mg PO HS [facility] Last Admin: 09/06/16 21:18 Dose: 10 mg Diltiazem HCl (Cardizem -) 30 mg PO TID [facility] Last Admin: 09/07/16 06:04 Dose: 30 mg Furosemide (Lasix -) 40 mg PO DAILY [facility] Last Admin: 09/07/16 09:07 Dose: 40 mg Heparin Sodium (Porcine) (Heparin -) 5,000 unit SQ TID [facility] Last Admin: 09/07/16 06:04 Dose: 5,000 unit Meropenem 1 gm/ Dextrose 100 mls @ 100 mls/hr IVPB Q8H-IV [facility] PRN Reason: Protocol Last Admin: 09/07/16 09:10 Dose: 100 mls/hr Lactobacillus Acidophilus (Bacid -) 1 tab PO DAILY [facility] Last Admin: 09/07/16 09:07 Dose: 1 tab Levothyroxine Sodium (Synthroid -) 50 mcg PO DAILY@0700 [facility] Last Admin: 09/07/16 06:04 Dose: 50 mcg Potassium Chloride (K-Dur -) 20 meq PO DAILY [facility] Last Admin: 09/07/16 09:07 Dose: 20 meq Prochlorperazine Maleate (Compazine -) 5 mg PO Q8H PRN PRN Reason: nausea with vomiting Senna (Senna -) 2 tab PO HS [facility] Last Admin: 09/06/16 21:18 Dose: 2 tab Tamsulosin HCl (Flomax -) 0.4 mg PO DAILY@0830 [facility] Last Admin: 09/07/16 09:07 Dose: 0.4 mg - Objective Vital Signs: Vital Signs Temperature 98.2 F 09/07/16 06:00 Pulse Rate 94 H 09/07/16 06:00 Respiratory Rate 20 09/07/16 06:00 Blood Pressure 143/65 09/07/16 06:00 O2 Sat by Pulse Oximetry (%) 95 09/06/16 21:00 Constitutional: Yes: Well Nourished, No Distress, Calm Cardiovascular: Yes: Regular Rate and Rhythm. No: Gallop, Murmur, Rub Respiratory: Yes: Regular, CTA Bilaterally. No: Rales, Rhonchi, Wheezes Gastrointestinal: Yes: Normal Bowel Sounds, Soft. No: Distention, Tenderness Extremities: Yes: WNL Edema: No Labs: CBC, BMP 09/05/16 06:00 09/05/16 06:00 INR, PTT INR 1.03 (0.82-1.09) 09/04/16 06:00 Problem List - Problems (1) Recurrent UTI (urinary tract infection) Code(s): N39.0 - URINARY TRACT INFECTION, SITE NOT SPECIFIED (2) ESBL (extended spectrum beta-lactamase) producing bacteria infection Code(s): A49.9 - BACTERIAL INFECTION, UNSPECIFIED Z16.12 - EXTENDED SPECTRUM BETA LACTAMASE (ESBL) RESISTANCE (3) HTN (hypertension) Code(s): I10 - ESSENTIAL (PRIMARY) HYPERTENSION (4) Coronary arteriosclerosis Code(s): I25.10 - ATHSCL HEART DISEASE OF [place] CORONARY ARTERY W/O ANG PCTRS (5) Dementia Code(s): F03.90 - UNSPECIFIED DEMENTIA WITHOUT BEHAVIORAL DISTURBANCE (6) Hyperlipidemia Code(s): E78.5 - HYPERLIPIDEMIA, UNSPECIFIED (7) Hypothyroidism Code(s): E03.9 - HYPOTHYROIDISM, UNSPECIFIED Assessment/Plan (1) Recurrent UTI (urinary tract infection) Assessment/Plan: -urine cultures showing pseudomonas and ESBL e. coli -on merrem, both sensitive to merrem -suprapubic catheter changed -continue antibiotics per Dr De La Garza Code(s): N39.0 - URINARY TRACT INFECTION, SITE NOT SPECIFIED (2) ESBL (extended spectrum beta-lactamase) producing bacteria infection Assessment/Plan: -as above Code(s): A49.9 - BACTERIAL INFECTION, UNSPECIFIED Z16.12 - EXTENDED SPECTRUM BETA LACTAMASE (ESBL) RESISTANCE (3) HTN (hypertension) Assessment/Plan: -continue cardizem, norvasc, and lasix -monitor Code(s): I10 - ESSENTIAL (PRIMARY) HYPERTENSION (4) Coronary arteriosclerosis Assessment/Plan: -quiescent -continue home regimen Code(s): I25.10 - ATHSCL HEART DISEASE OF [place] CORONARY ARTERY W/O ANG PCTRS (5) Dementia Assessment/Plan: -continue home regimen Code(s): F03.90 - UNSPECIFIED DEMENTIA WITHOUT BEHAVIORAL DISTURBANCE (6) Hyperlipidemia -continue statin Code(s): E78.5 - HYPERLIPIDEMIA, UNSPECIFIED (7) Hypothyroidism -continue levothyroxine Code(s): E03.9 - HYPOTHYROIDISM, UNSPECIFIED (8) Hypophosphatemia -replace with both IV and po phosphorus -recheck in am (9) Hypermagnesemia -monitor -may need to stop mylanta
[2016-09-07 12:42] LABS: BASOPHIL 0.4 % (0-2.0); EOSINOPHIL 2.2 % (0-4.5); MCH 30.5 pg (25.7-33.7); MCHC 33.6 g/dl (32.0-36.0); MEAN CELL VOLUME 90.7 fl (80-96); MEAN PLT VOLUME 8.7 fl (7.5-11.1); NEUTROPHILS 73.6 % (42.8-82.8); PLATELET COUNT 171 K/MM3 (134-434); RDW 16.2 % (11.6-15.6)
[2016-09-07 12:58] LABS: ANION GAP 7 (8-16); CALCIUM 11.1 mg/dL (8.5-10.1); CO2 28 mmol/L (21-32); GLUCOSE,RANDOM 154 mg/dL (74-106); MAGNESIUM 2.5 mg/dL (1.8-2.4); PHOSPHOROUS 1.9 mg/dL (2.5-4.9)
[2016-09-07] MEDS ORDERED: POTASSIUM PHOSPHATE 16 MM in SODIUM CHLORIDE 250 ML IVPB ONE (15:16)
[2016-09-07] MEDS: NAPH,MB-DB/K PH,MBDB POWDER PACKET PO SCH ×2 (17:01→21:16)
[2016-09-07] MEDS: ATORVASTATIN CA 10 MG TABLET (FP) PO SCH (21:09)
[2016-09-07] MEDS: SENNOSIDES 8.6MG TABLET (FP) PO SCH (21:09)
[2016-09-08] MEDS ORDERED: PT OWN MED DRAWER 7, Y5N ONE ×2 (00:46→17:09)
[2016-09-08] MEDS: MEROPENEM 1 GM in DEXTROSE 5%-WATER - 100 ML IVPB SCH ×3 (01:06→18:19)
[2016-09-08] MEDS: ARTIFICIAL TEARS (POLYVINYL ALCOHOL 1.4%) OPTH DROPS OU SCH ×3 (05:05→21:52)
[2016-09-08] MEDS: MAG HYDROX/AL HYDROX/SIMETH 30 ML UNIT-DOSE CUP PO PRN (05:58)
[2016-09-08] MEDS: NAPH,MB-DB/K PH,MBDB POWDER PACKET PO SCH ×3 (05:58→21:52)
[2016-09-08] MEDS: dilTIAZem HCL 30 MG TABLET (FP) PO SCH ×3 (05:58→21:50)
[2016-09-08] MEDS: HEPARIN NA (PORCINE) 5,000 UNITS/ML 1ML VIAL SQ SCH ×3 (05:58→21:51)
[2016-09-08] MEDS: LEVOTHYROXINE NA 50 MCG TABLET (FP) PO SCH (05:59)
[2016-09-08 07:38] LABS: BASOPHIL 0.3 % (0-2.0); EOSINOPHIL 3.9 % (0-4.5); MCH 30.4 pg (25.7-33.7); MCHC 33.5 g/dl (32.0-36.0); MEAN CELL VOLUME 90.8 fl (80-96); NEUTROPHILS 65.6 % (42.8-82.8); PLATELET COUNT 177 K/MM3 (134-434); RDW 16.4 % (11.6-15.6); WHITE BLOOD COUNT 8.9 K/mm3 (4.0-10.0)
[2016-09-08 08:05] LABS: ANION GAP 5 (8-16); CO2 26 mmol/L (21-32); CREATININE 0.9 mg/dL (0.55-1.02); GLUCOSE,RANDOM 91 mg/dL (74-106); MAGNESIUM 2.5 mg/dL (1.8-2.4); PHOSPHOROUS 3.1 mg/dL (2.5-4.9)
[2016-09-08] MEDS: POTASSIUM CHLORIDE TABS 20 MEQ TABLET.ER (FP) PO SCH (10:14)
[2016-09-08] MEDS: ASPIRIN 81 MG CHEWABLE TABLETS PO SCH (10:14)
[2016-09-08] MEDS: LACTOBACILLUS ACIDOPHILUS 1 EACH TAB (FP) PO SCH (10:14)
[2016-09-08] MEDS: FUROSEMIDE 40 MG TABLET (FP) PO SCH (10:14)
[2016-09-08] MEDS: amLODIPine BESYLATE 5 MG TABLET (FP) PO SCH (10:14)
[2016-09-08] MEDS: TAMSULOSIN HCL 0.4 MG CAP.ER.24H (FP) PO SCH (10:14)
--- NOTE | 2016-09-08 12:36 | PN ---
Progress Note, Physician Chief Complaint: Ms Madera is without complaint. No cp, sob, n/v - Current Medication List Current Medications: Active Medications Acetaminophen (Tylenol -) 1,000 mg PO Q6H PRN PRN Reason: FEVER OR PAIN Al Hydroxide/Mg Hydroxide (Mylanta Oral Suspension -) 30 ml PO QID PRN PRN Reason: DYSPEPSIA Last Admin: 09/08/16 05:58 Dose: 30 ml Amlodipine Besylate (Norvasc -) 5 mg PO DAILY [facility] Last Admin: 09/08/16 10:14 Dose: 5 mg Artificial Tears (Artificial Tears) 2 drop OU TID [facility] Last Admin: 09/08/16 05:05 Dose: 2 drop Aspirin (Asa -) 81 mg PO DAILY [facility] Last Admin: 09/08/16 10:14 Dose: 81 mg Atorvastatin Calcium (Lipitor -) 10 mg PO HS [facility] Last Admin: 09/07/16 21:09 Dose: 10 mg Diltiazem HCl (Cardizem -) 30 mg PO TID [facility] Last Admin: 09/08/16 05:58 Dose: 30 mg Furosemide (Lasix -) 40 mg PO DAILY [facility] Last Admin: 09/08/16 10:14 Dose: 40 mg Heparin Sodium (Porcine) (Heparin -) 5,000 unit SQ TID [facility] Last Admin: 09/08/16 05:58 Dose: 5,000 unit Meropenem 1 gm/ Dextrose 100 mls @ 100 mls/hr IVPB Q8H-IV [facility] PRN Reason: Protocol Last Admin: 09/08/16 10:14 Dose: 100 mls/hr Lactobacillus Acidophilus (Bacid -) 1 tab PO DAILY [facility] Last Admin: 09/08/16 10:14 Dose: 1 tab Levothyroxine Sodium (Synthroid -) 50 mcg PO DAILY@0700 [facility] Last Admin: 09/08/16 05:59 Dose: 50 mcg Potassium Chloride (K-Dur -) 20 meq PO DAILY [facility] Last Admin: 09/08/16 10:14 Dose: 20 meq Potassium Phos/Sodium Phos (Phos-Nak Packet -) 1 packet PO TID [facility] Last Admin: 09/08/16 05:58 Dose: 1 packet Prochlorperazine Maleate (Compazine -) 5 mg PO Q8H PRN PRN Reason: nausea with vomiting Senna (Senna -) 2 tab PO HS [facility] Last Admin: 09/07/16 21:09 Dose: 2 tab Tamsulosin HCl (Flomax -) 0.4 mg PO DAILY@0830 [facility] Last Admin: 09/08/16 10:14 Dose: 0.4 mg - Objective Vital Signs: Vital Signs Temperature 98.0 F 09/08/16 10:00 Pulse Rate 88 09/08/16 10:00 Respiratory Rate 18 09/08/16 10:00 Blood Pressure 125/58 09/08/16 10:00 O2 Sat by Pulse Oximetry (%) 94 L 09/08/16 10:00 Constitutional: Yes: Well Nourished, No Distress, Calm Cardiovascular: Yes: Regular Rate and Rhythm. No: Gallop, Murmur, Rub Respiratory: Yes: Regular, CTA Bilaterally. No: Rales, Rhonchi, Wheezes Gastrointestinal: Yes: Normal Bowel Sounds, Soft. No: Distention, Tenderness Extremities: Yes: WNL Edema: No Labs: CBC, BMP 09/08/16 05:35 09/08/16 05:35 INR, PTT INR 1.03 (0.82-1.09) 09/04/16 06:00 Problem List - Problems (1) Recurrent UTI (urinary tract infection) Code(s): N39.0 - URINARY TRACT INFECTION, SITE NOT SPECIFIED (2) ESBL (extended spectrum beta-lactamase) producing bacteria infection Code(s): A49.9 - BACTERIAL INFECTION, UNSPECIFIED Z16.12 - EXTENDED SPECTRUM BETA LACTAMASE (ESBL) RESISTANCE (3) HTN (hypertension) Code(s): I10 - ESSENTIAL (PRIMARY) HYPERTENSION (4) Coronary arteriosclerosis Code(s): I25.10 - ATHSCL HEART DISEASE OF [place] CORONARY ARTERY W/O ANG PCTRS (5) Dementia Code(s): F03.90 - UNSPECIFIED DEMENTIA WITHOUT BEHAVIORAL DISTURBANCE (6) Hyperlipidemia Code(s): E78.5 - HYPERLIPIDEMIA, UNSPECIFIED (7) Hypothyroidism Code(s): E03.9 - HYPOTHYROIDISM, UNSPECIFIED Assessment/Plan (1) Recurrent UTI (urinary tract infection) Assessment/Plan: -urine cultures showing pseudomonas and ESBL e. coli -on merrem, both sensitive to merrem -suprapubic catheter changed -continue antibiotics per Dr De La Garza -once safe from ID standpoint, can discharge back to SNF Code(s): N39.0 - URINARY TRACT INFECTION, SITE NOT SPECIFIED (2) ESBL (extended spectrum beta-lactamase) producing bacteria infection Assessment/Plan: -as above Code(s): A49.9 - BACTERIAL INFECTION, UNSPECIFIED Z16.12 - EXTENDED SPECTRUM BETA LACTAMASE (ESBL) RESISTANCE (3) HTN (hypertension) Assessment/Plan: -continue cardizem, norvasc, and lasix -monitor Code(s): I10 - ESSENTIAL (PRIMARY) HYPERTENSION (4) Coronary arteriosclerosis Assessment/Plan: -quiescent -continue home regimen Code(s): I25.10 - ATHSCL HEART DISEASE OF [place] CORONARY ARTERY W/O ANG PCTRS (5) Dementia Assessment/Plan: -continue home regimen Code(s): F03.90 - UNSPECIFIED DEMENTIA WITHOUT BEHAVIORAL DISTURBANCE (6) Hyperlipidemia -continue statin Code(s): E78.5 - HYPERLIPIDEMIA, UNSPECIFIED (7) Hypothyroidism -continue levothyroxine Code(s): E03.9 - HYPOTHYROIDISM, UNSPECIFIED (8) Hypophosphatemia -replaced -continue oral phosphorus replacement at this time (9) Hypermagnesemia -monitor -may need to stop mylanta
--- NOTE | 2016-09-08 16:00 | PN ---
Progress Note, Physician History of Present Illness: patient stable no new events - Current Medication List Current Medications: Active Medications Acetaminophen (Tylenol -) 1,000 mg PO Q6H PRN PRN Reason: FEVER OR PAIN Al Hydroxide/Mg Hydroxide (Mylanta Oral Suspension -) 30 ml PO QID PRN PRN Reason: DYSPEPSIA Last Admin: 09/08/16 05:58 Dose: 30 ml Amlodipine Besylate (Norvasc -) 5 mg PO DAILY [facility] Last Admin: 09/08/16 10:14 Dose: 5 mg Artificial Tears (Artificial Tears) 2 drop OU TID [facility] Last Admin: 09/08/16 15:04 Dose: Not Given Aspirin (Asa -) 81 mg PO DAILY [facility] Last Admin: 09/08/16 10:14 Dose: 81 mg Atorvastatin Calcium (Lipitor -) 10 mg PO HS [facility] Last Admin: 09/07/16 21:09 Dose: 10 mg Diltiazem HCl (Cardizem -) 30 mg PO TID [facility] Last Admin: 09/08/16 15:03 Dose: 30 mg Furosemide (Lasix -) 40 mg PO DAILY [facility] Last Admin: 09/08/16 10:14 Dose: 40 mg Heparin Sodium (Porcine) (Heparin -) 5,000 unit SQ TID [facility] Last Admin: 09/08/16 15:03 Dose: 5,000 unit Meropenem 1 gm/ Dextrose 100 mls @ 100 mls/hr IVPB Q8H-IV [facility] PRN Reason: Protocol Last Admin: 09/08/16 10:14 Dose: 100 mls/hr Lactobacillus Acidophilus (Bacid -) 1 tab PO DAILY [facility] Last Admin: 09/08/16 10:14 Dose: 1 tab Levothyroxine Sodium (Synthroid -) 50 mcg PO DAILY@0700 [facility] Last Admin: 09/08/16 05:59 Dose: 50 mcg Potassium Chloride (K-Dur -) 20 meq PO DAILY [facility] Last Admin: 09/08/16 10:14 Dose: 20 meq Potassium Phos/Sodium Phos (Phos-Nak Packet -) 1 packet PO TID [facility] Last Admin: 09/08/16 15:04 Dose: 1 packet Prochlorperazine Maleate (Compazine -) 5 mg PO Q8H PRN PRN Reason: nausea with vomiting Senna (Senna -) 2 tab PO HS [facility] Last Admin: 09/07/16 21:09 Dose: 2 tab Tamsulosin HCl (Flomax -) 0.4 mg PO DAILY@0830 [facility] Last Admin: 09/08/16 10:14 Dose: 0.4 mg - Objective Vital Signs: Vital Signs Temperature 98.6 F 09/08/16 13:42 Pulse Rate 79 09/08/16 13:42 Respiratory Rate 18 09/08/16 13:42 Blood Pressure 132/54 09/08/16 13:42 O2 Sat by Pulse Oximetry (%) 94 L 09/08/16 10:00 Constitutional: Yes: No Distress, Calm Cardiovascular: Yes: Regular Rate and Rhythm Respiratory: Yes: Regular, CTA Bilaterally Gastrointestinal: Yes: Normal Bowel Sounds, Soft Genitourinary: Yes: Other (nephrostomy tube in place) Musculoskeletal: Yes: WNL Extremities: Yes: WNL Neurological: Yes: Alert Psychiatric: Yes: Alert Labs: CBC, BMP 09/08/16 05:35 09/08/16 05:35 INR, PTT INR 1.03 (0.82-1.09) 09/04/16 06:00 Assessment/Plan 89 Year old White female with PMHx of HTN, HLD, Hyperparathyroidism, hypothyroid , COPD , CAD S/P CABG/stent , Dementia, UTI(ESBL) , S/P nephrostomy tube who [facility] to complicated [facility]. # Complicated UTI S/P Nephrostomy tube, H/O ESBL # HTN # HLD Hypercalcemia plan continue current abx patient stable can stop all abx tomorrow rest as per the primary team
[2016-09-08] MEDS: SENNOSIDES 8.6MG TABLET (FP) PO SCH (21:50)
[2016-09-08] MEDS: ATORVASTATIN CA 10 MG TABLET (FP) PO SCH (21:50)
[2016-09-09] MEDS ORDERED: PT OWN MED DRAWER 7, Y5N ONE ×2 (01:15→08:19)
[2016-09-09] MEDS: MEROPENEM 1 GM in DEXTROSE 5%-WATER - 100 ML IVPB SCH ×2 (01:17→09:27)
[2016-09-09] MEDS: NAPH,MB-DB/K PH,MBDB POWDER PACKET PO SCH ×2 (05:12→13:50)
[2016-09-09] MEDS: dilTIAZem HCL 30 MG TABLET (FP) PO SCH ×2 (05:12→13:50)
[2016-09-09] MEDS: ARTIFICIAL TEARS (POLYVINYL ALCOHOL 1.4%) OPTH DROPS OU SCH ×2 (05:12→13:50)
[2016-09-09] MEDS: HEPARIN NA (PORCINE) 5,000 UNITS/ML 1ML VIAL SQ SCH ×2 (05:12→13:52)
[2016-09-09] MEDS: LEVOTHYROXINE NA 50 MCG TABLET (FP) PO SCH (06:02)
[2016-09-09 06:57] LABS: BASOPHIL 0.4 % (0-2.0); EOSINOPHIL 6.9 % (0-4.5); MCH 31.1 pg (25.7-33.7); MEAN CELL VOLUME 91.4 fl (80-96); MEAN PLT VOLUME 8.3 fl (7.5-11.1); NEUTROPHILS 57.9 % (42.8-82.8); PLATELET COUNT 191 K/MM3 (134-434); RDW 16.9 % (11.6-15.6); WHITE BLOOD COUNT 8.5 K/mm3 (4.0-10.0)
[2016-09-09 07:21] LABS: ANION GAP 7 (8-16); CALCIUM 10.9 mg/dL (8.5-10.1); CO2 26 mmol/L (21-32); CREATININE 0.9 mg/dL (0.55-1.02); GLUCOSE,RANDOM 101 mg/dL (74-106); MAGNESIUM 2.8 mg/dL (1.8-2.4); PHOSPHOROUS 4.1 mg/dL (2.5-4.9)
[2016-09-09] MEDS: TAMSULOSIN HCL 0.4 MG CAP.ER.24H (FP) PO SCH (08:30)
[2016-09-09] MEDS: LACTOBACILLUS ACIDOPHILUS 1 EACH TAB (FP) PO SCH (09:09)
[2016-09-09] MEDS: FUROSEMIDE 40 MG TABLET (FP) PO SCH (09:09)
[2016-09-09] MEDS: amLODIPine BESYLATE 5 MG TABLET (FP) PO SCH (09:09)
[2016-09-09] MEDS: ASPIRIN 81 MG CHEWABLE TABLETS PO SCH (09:09)
[2016-09-09] MEDS: POTASSIUM CHLORIDE TABS 20 MEQ TABLET.ER (FP) PO SCH (09:09)
--- NOTE | 2016-09-09 13:46 | DS ---
Physical Examination Vital Signs: Vital Signs Temperature 98.3 F 09/09/16 10:00 Pulse Rate 84 09/09/16 10:00 Respiratory Rate 18 09/09/16 10:00 Blood Pressure 127/60 09/09/16 10:00 O2 Sat by Pulse Oximetry (%) 97 09/09/16 09:00 Constitutional: Yes: Well Nourished, No Distress, Calm Cardiovascular: Yes: Regular Rate and Rhythm. No: Gallop, Murmur, Rub Respiratory: Yes: Regular, CTA Bilaterally. No: Rales, Rhonchi, Wheezes Gastrointestinal: Yes: Normal Bowel Sounds, Soft. No: Distention, Tenderness Extremities: Yes: WNL Edema: No Labs: CBC, BMP 09/09/16 05:43 09/09/16 05:43 Discharge Summary Reason For Visit: UTI/NEPHROSTOMY STATUS Current Active Problems Nephrostomy status (Acute) Recurrent UTI (urinary tract infection) (Acute) Hospital Course: (1) Recurrent UTI (urinary tract infection) Code(s): N39.0 - URINARY TRACT INFECTION, SITE NOT SPECIFIED (2) ESBL (extended spectrum beta-lactamase) producing bacteria infection Code(s): A49.9 - BACTERIAL INFECTION, UNSPECIFIED Z16.12 - EXTENDED SPECTRUM BETA LACTAMASE (ESBL) RESISTANCE (3) HTN (hypertension) Code(s): I10 - ESSENTIAL (PRIMARY) HYPERTENSION (4) Coronary arteriosclerosis Code(s): I25.10 - ATHSCL HEART DISEASE OF [place] CORONARY ARTERY W/O ANG PCTRS (5) Dementia Code(s): F03.90 - UNSPECIFIED DEMENTIA WITHOUT BEHAVIORAL DISTURBANCE (6) Hyperlipidemia Code(s): E78.5 - HYPERLIPIDEMIA, UNSPECIFIED (7) Hypothyroidism Code(s): E03.9 - HYPOTHYROIDISM, UNSPECIFIED (8) Hypophosphatemia (9) Hypermagnesemia Ms Madera is a pleasant 89 year old female from [facility] who comes in with recurrent ESBL UTI secondary to suprapubic catheter. She was being treated as an outpatient but did not respond to therapy. She was sent in and admitted. She had her suprapubic catheter changed. She was seen by ID and placed on merrem. Cultures came back positive for both ESBL E. coli and pseudomonas, both sensitive to merrem. She finished a full course here. She is safe for discharge back to [facility]. 32 minutes spent in preparation of this discharge Condition: Stable - Instructions Diet, Activity, Other Instructions: resume previous diet and activity Referrals: Remy Israel MD [Primary Care Provider] - Disposition: CUSTODIAL FACILITY - Home Medications Comprehensive Discharge Medication List: Ambulatory Orders Aa/Hydrolyzed Collagen, Whey [Lps Neutral Flavor Liquid] 30 ml PO DAILY Acetaminophen 650 mg PO Q6H PRN 08/07/16 Alendronate Sodium/Vitamin D3 [Fosamax Plus D 70 mg-5,600 Iu vIT d] 1 each PO Q7D 08/07/16 Amlodipine Besylate [Norvasc -] 5 mg PO DAILY 08/07/16 Aspirin [ASA -] 81 mg PO DAILY 08/07/16 Atorvastatin Ca [Lipitor] 10 mg PO HS 08/07/16 Cholecalciferol (Vitamin D3) [D3-2000] 2,000 unit PO DAILY 08/07/16 Cyanocobalamin [Vitamin B12 -] 1,000 mcg PO DAILY 08/07/16 Diltiazem [Cardizem -] 30 mg PO TID 08/07/16 Furosemide [Lasix] 40 mg PO DAILY 08/07/16 Lactobacillus Acidophilus [Acidophilus] 1 each PO DAILY 08/07/16 Levothyroxine [Synthroid -] 50 mcg PO DAILY 08/07/16 Mag Hydrox/Al Hydrox/Simeth [Mylanta Oral Suspension -] 30 ml PO QID PRN Potassium Chloride 20 meq PO DAILY 08/07/16 Prochlorperazine Maleate 5 mg PO Q8H PRN 08/07/16 Sennosides [Senna] 17.2 mg PO HS 08/07/16 Tamsulosin HCl [Flomax] 0.4 mg PO DAILY 08/07/16
[2016-09-09 14:52] VITALS: BP 123/57; PULSE 82; TEMP 98
--- NOTE | 2016-09-09 14:54 | PN ---
Progress Note, Physician History of Present Illness: patient stable no new events - Current Medication List Current Medications: Active Medications Acetaminophen (Tylenol -) 1,000 mg PO Q6H PRN PRN Reason: FEVER OR PAIN Al Hydroxide/Mg Hydroxide (Mylanta Oral Suspension -) 30 ml PO QID PRN PRN Reason: DYSPEPSIA Last Admin: 09/08/16 05:58 Dose: 30 ml Amlodipine Besylate (Norvasc -) 5 mg PO DAILY [facility] Last Admin: 09/09/16 09:09 Dose: 5 mg Artificial Tears (Artificial Tears) 2 drop OU TID [facility] Last Admin: 09/09/16 13:50 Dose: 2 drop Aspirin (Asa -) 81 mg PO DAILY [facility] Last Admin: 09/09/16 09:09 Dose: 81 mg Atorvastatin Calcium (Lipitor -) 10 mg PO HS [facility] Last Admin: 09/08/16 21:50 Dose: 10 mg Diltiazem HCl (Cardizem -) 30 mg PO TID [facility] Last Admin: 09/09/16 13:50 Dose: 30 mg Furosemide (Lasix -) 40 mg PO DAILY [facility] Last Admin: 09/09/16 09:09 Dose: 40 mg Heparin Sodium (Porcine) (Heparin -) 5,000 unit SQ TID [facility] Last Admin: 09/09/16 13:52 Dose: 5,000 unit Meropenem 1 gm/ Dextrose 100 mls @ 100 mls/hr IVPB Q8H-IV [facility] PRN Reason: Protocol Last Admin: 09/09/16 09:27 Dose: 100 mls/hr Lactobacillus Acidophilus (Bacid -) 1 tab PO DAILY [facility] Last Admin: 09/09/16 09:09 Dose: 1 tab Levothyroxine Sodium (Synthroid -) 50 mcg PO DAILY@0700 [facility] Last Admin: 09/09/16 06:02 Dose: 50 mcg Potassium Chloride (K-Dur -) 20 meq PO DAILY [facility] Last Admin: 09/09/16 09:09 Dose: 20 meq Potassium Phos/Sodium Phos (Phos-Nak Packet -) 1 packet PO TID [facility] Last Admin: 09/09/16 13:50 Dose: 1 packet Prochlorperazine Maleate (Compazine -) 5 mg PO Q8H PRN PRN Reason: nausea with vomiting Senna (Senna -) 2 tab PO HS [facility] Last Admin: 09/08/16 21:50 Dose: 2 tab Tamsulosin HCl (Flomax -) 0.4 mg PO DAILY@0830 [facility] Last Admin: 09/09/16 08:30 Dose: 0.4 mg - Objective Vital Signs: Vital Signs Temperature 98.0 F 09/09/16 14:00 Pulse Rate 82 09/09/16 14:00 Respiratory Rate 18 09/09/16 14:00 Blood Pressure 123/57 09/09/16 14:00 O2 Sat by Pulse Oximetry (%) 97 09/09/16 09:00 Constitutional: Yes: No Distress, Calm Cardiovascular: Yes: Regular Rate and Rhythm Respiratory: Yes: Regular, CTA Bilaterally Gastrointestinal: Yes: Normal Bowel Sounds, Soft Musculoskeletal: Yes: WNL Extremities: Yes: WNL Neurological: Yes: Alert, Oriented Psychiatric: Yes: Alert, Oriented Labs: CBC, BMP 09/09/16 05:43 09/09/16 05:43 INR, PTT INR 1.03 (0.82-1.09) 09/04/16 06:00 Assessment/Plan 89 Year old White female with PMHx of HTN, HLD, Hyperparathyroidism, hypothyroid , COPD , CAD S/P CABG/stent , Dementia, UTI(ESBL) , S/P nephrostomy tube who was sent to ED from snf ([facility]) due to complicated UTI. # Complicated UTI S/P Nephrostomy tube, H/O ESBL # HTN # HLD Hypercalcemia plan doing well patient stable
== END 2016-09-09 18:54 | DRG 699 ==
LOC: JER 16:49 → JERBED 22:04 → J4S 09-04 00:40
PROVIDERS: ADMIT Internal Medicine; ATTEND Internal Medicine
PROC: 0T25X0Z Change Drainage Device in Kidney, External Approach (ICD-10-PCS; principal; 2016-09-04)
DX: T83.512A Infection and inflammatory reaction due to nephrostomy catheter, initial encounter (principal); N39.0 Urinary tract infection, site not specified; E03.9 Hypothyroidism, unspecified; I10 Essential (primary) hypertension; E78.5 Hyperlipidemia, unspecified; J44.9 Chronic obstructive pulmonary disease, unspecified; I25.10 Atherosclerotic heart disease of native coronary artery without angina pectoris; F03.90 Unspecified dementia, unspecified severity, without behavioral disturbance, psychotic disturbance, mood disturbance, and anxiety; E21.2 Other hyperparathyroidism; E53.8 Deficiency of other specified B group vitamins; K59.09 Other constipation; F39 Unspecified mood [affective] disorder; B96.29 Other Escherichia coli [E. coli] as the cause of diseases classified elsewhere; E83.39 Other disorders of phosphorus metabolism; E83.41 Hypermagnesemia; Z95.1 Presence of aortocoronary bypass graft
CPT/HCPCS: 36415; 50435; 80048; 80053; 81003; 81015; 83735; 84100; 85025; 85610; 85730; 87086; 87186; 93005; 93010; 97162-GP; 99283-25; A4358; C1729; C1769; J1644

== ENCOUNTER 2016-10-11 01:50 | Inpatient (IN) | payer OTHER ==
--- NOTE | 2016-10-11 02:11 | PDOC ---
History of Present Illness - General Chief Complaint: G Tube Problem Stated Complaint: TUBE REPLACEMENT Time Seen by Provider: 10/11/16 02:11 History Source: Patient Exam Limitations: Dementia - History of Present Illness Initial Comments: 10/11/16 02:26 Patient is a 89F with history of nephrostomy tube for obstructing stone, recurrent ESBL UTI, AR s/p cabg and stenting, COPD, HTN, HLD, and GERD here today complaining of displaced nephrostomy tube. According to the patient, it was accidentally knocked out about 5 hours ago. She denies nausea, vomiting, fevers, chills, discharge or pain at the site. She denies chest pain, abdominal pain, and back pain. Past History - Past Medical History Allergies/Adverse Reactions: Allergies Allergy/AdvReac Type Severity Reaction Status Date / Time Penicillins Allergy Verified 10/11/16 02:08 Home Medications: Ambulatory Orders Aa/Hydrolyzed Collagen, Whey [Lps Neutral Flavor Liquid] 30 ml PO DAILY Acetaminophen 650 mg PO Q6H PRN 08/07/16 Alendronate Sodium/Vitamin D3 [Fosamax Plus D 70 mg-5,600 Iu vIT d] 1 each PO Q7D 08/07/16 Amlodipine Besylate [Norvasc -] 5 mg PO DAILY 08/07/16 Aspirin [ASA -] 81 mg PO DAILY 08/07/16 Atorvastatin Ca [Lipitor] 10 mg PO HS 08/07/16 Cholecalciferol (Vitamin D3) [D3-2000] 2,000 unit PO DAILY 08/07/16 Cyanocobalamin [Vitamin B12 -] 1,000 mcg PO DAILY 08/07/16 Diltiazem [Cardizem -] 30 mg PO TID 08/07/16 Furosemide [Lasix] 40 mg PO DAILY 08/07/16 Lactobacillus Acidophilus [Acidophilus] 1 each PO DAILY 08/07/16 Levothyroxine [Synthroid -] 50 mcg PO DAILY 08/07/16 Mag Hydrox/Al Hydrox/Simeth [Mylanta Oral Suspension -] 30 ml PO QID PRN Potassium Chloride 20 meq PO DAILY 08/07/16 Prochlorperazine Maleate 5 mg PO Q8H PRN 08/07/16 Sennosides [Senna] 17.2 mg PO HS 08/07/16 Tamsulosin HCl [Flomax] 0.4 mg PO DAILY 08/07/16 Anemia: Yes (vit b12 deficiency anemia) Asthma: No Cancer: No Cardiac Disorders: Yes (CAD, AR, CABG, ASHD) COPD: Yes Dementia: Yes GI Disorders: Yes (Constipation, GERD) Disorders: Yes (Dysuria, UTIs, cystitis, ESBL,) HTN: Yes Hypercholesterolemia: Yes Psychiatric Problems: Yes (Mood Disorder) Suicide Attempt (Hx): No Thyroid Disease: Yes (hypothyroid, hyperparathyroidism) - Surgical History Cardiac Surgery: Yes (CABG 1959) - Immunization History Immunization Up to Date: Yes - Psycho/Social/Smoking Cessation Hx Anxiety: No Suicidal Ideation: No Smoking Status: No Smoking History: Never smoked Have you smoked in the past 12 months: No Number of Cigarettes Smoked Daily: 0 Cigars Per Day: 0 Information on smoking cessation initiated: No Hx Alcohol Use: No Drug/Substance Use Hx: No Substance Use Type: None Hx Substance Use Treatment: No Review of Systems - Review of Systems Comments:: 10/11/16 02:29 GENERAL/CONSTITUTIONAL: No fever or chills. No weakness. HEAD, EYES, EARS, NOSE AND THROAT: No change in vision. No sore throat. CARDIOVASCULAR: No chest pain. Positive for baseline shortness of breath RESPIRATORY: No cough, wheezing, or hemoptysis. GASTROINTESTINAL: No nausea, vomiting, diarrhea or constipation. MUSCULOSKELETAL: No joint or muscle swelling or pain. No neck or back pain. SKIN: No rash, no redness or pain at nephrostomy site (L) NEUROLOGIC: No headache, vertigo, loss of consciousness, or change in strength/ sensation. ALLERGIC/IMMUNOLOGIC: No hives or skin allergy. *Physical Exam - Vital Signs Last Vital Signs Temp Pulse Resp BP Pulse Ox 97.5 F L 81 20 133/82 97 10/11/16 02:08 10/11/16 02:08 10/11/16 02:08 10/11/16 02:08 10/11/16 02:08 - Physical Exam Comments: 10/11/16 02:30 GENERAL: Awake, alert, in no acute distress HEAD: No signs of trauma, normocephalic, atraumatic EYES: PERRLA, EOMI, sclera anicteric, conjunctiva clear ENT: Auricles normal inspection, hearing grossly normal, nares patent, oropharynx clear without exudates. Moist mucosa LUNGS: No distress, speaks full sentences, clear to auscultation bilaterally HEART: Regular rate and rhythm, S3, peripheral pulses normal and equal bilaterally. ABDOMEN: Soft, nontender, normoactive bowel sounds. No guarding, no rebound. No masses EXTREMITIES: Normal inspection, Normal range of motion, trace pitting edema. No clubbing or cyanosis. L Nephrostomy: Wound is bandaged, non-erythematous, no discharge SKIN: Warm, Dry, normal turgor, no rashes or lesions noted. ED Treatment Course - LABORATORY CBC & Chemistry Diagram: 10/11/16 02:56 10/11/16 02:56 Medical Decision Making - Medical Decision Making 10/11/16 02:32 Patient is 89F with history of sepsis 2/2 obstructing stone s/p nephrostomy, recurrent ESBL UTI, AR s/p CABG and stenting, COPD, constipation, HTN, HLD, and GERD here for nephrostomy tube displacement. Vital signs stable. Asymptomatic. Will do CBC, CMP, UA, PT/INR to evaluate. Per chart review, plan is to eventually do lithrotripsy to break up stone. Will admit for tube placement. 10/11/16 04:25 Laboratory Tests 10/11/16 10/11/16 10/11/16 02:56 02:56 02:56 WBC 9.8 Hgb 12.5 D Hct 36.8 Plt Count 229 INR 1.02 Sodium 140 Potassium 5.1 Chloride 105 Carbon Dioxide 28 Anion Gap 7 L BUN 18 Creatinine 1.0 Random Glucose 110 H Calcium 11.5 H Total Bilirubin 0.4 D AST 30 D ALT 32 Alkaline Phosphatase 134 H CBC unremarkable. CMP is unremarkable. Urine pending. 10/11/16 06:21 Laboratory Tests 10/11/16 02:56 Urine Blood 3+ H Ur Leukocyte Esterase 3+ H UA shows 3+ le *DC/Admit/Observation/Transfer Diagnosis at time of Disposition: Displacement of nephrostomy tube - Discharge Dispostion Condition at time of disposition: Stable Admit: Yes
[2016-10-11 03:15] LABS: BASOPHIL 0.7 % (0-2.0); EOSINOPHIL 4.8 % (0-4.5); MCHC 33.9 g/dl (32.0-36.0); MEAN CELL VOLUME 91.3 fl (80-96); MEAN PLT VOLUME 8.4 fl (7.5-11.1); NEUTROPHILS 62.3 % (42.8-82.8); PLATELET COUNT 229 K/MM3 (134-434); RDW 16.9 % (11.6-15.6); WHITE BLOOD COUNT 9.8 K/mm3 (4.0-10.0)
[2016-10-11 03:27] LABS: INR 1.02 (0.82-1.09); PROTHROMBIN TIME (PATIENT) 11.2 SEC (9.98-11.88)
--- NOTE | 2016-10-11 03:35 | PDOC ---
Attending Attestation - Resident Resident Name: Rick Cabrera - ED Attending Attestation I have performed the following: I have examined & evaluated the patient, The case was reviewed & discussed with the resident, I agree w/resident's findings & plan, Exceptions are as noted - HPI HPI: 10/11/16 03:35 89 yo female h/o HTN, HLD, Hypothyroid, Hyperparathyroid, COPD, CAD s/p CABG/ stent, Dementia & ESBL-producing UTI who presents from [facility] s/p nephrostomy tube dislodgement. Briefly, pt has a history of obstructing ureteral stone (+) UTI and DMITRY Patient s/p nephrostomy tube placement Tube replaced during last admission Plan was for outpatient lithotripsy once urine clear 10/11/16 03:45 - Physicial Exam PE: 10/11/16 03:40 On exam, Left nephrostomy site clear, no surrounding erythema Nephrostomy tube out - Medical Decision Making 10/11/16 03:56 Will do Labs, including UA ? Admit (plan was for outpatient Lithotripsy, this does not appear to have happened yet) 10/11/16 04:02 Laboratory Tests 10/11/16 10/11/16 02:56 02:56 WBC 9.8 Hgb 12.5 D Hct 36.8 Plt Count 229 Neutrophils % 62.3 INR 1.02
[2016-10-11 03:38] LABS: ALBUMIN 3.3 g/dl (3.4-5.0); ANION GAP 7 (8-16); BILIRUBIN,TOTAL 0.4 mg/dL (0.2-1.0); CALCIUM 11.5 mg/dL (8.5-10.1); CO2 28 mmol/L (21-32); GLUCOSE,RANDOM 110 mg/dL (74-106); SGPT/ALT 32 U/L (12-78); TOT PROT 6.7 g/dl (6.4-8.2)
[2016-10-11 03:39] LABS: ALK PHOS 134 U/L (45-117)
[2016-10-11 03:43] LABS: SGOT/AST 30 U/L (15-37)
[2016-10-11 05:49] LABS: PH,URINE 6.5 (5.0-8.0); URINE APPEARANCE CLEAR; URINE BILIRUBIN NEGATIVE (NEGATIVE); URINE BLOOD 3+ (NEGATIVE); URINE COLOR LT. YELLOW; URINE GLUCOSE (UA) NEGATIVE (NEGATIVE); URINE KETONE NEGATIVE (NEGATIVE); URINE NITRITE NEGATIVE (NEGATIVE); URINE UROBILINOGEN 0.2 mg/dL (0.2-1.0)
[2016-10-11 06:05] LABS: URINE LEUK ESTERASE 3+ (NEGATIVE); URINE PROTEIN 2+ (NEGATIVE)
[2016-10-11 06:14] LABS: URINE BACTERIA MODERATE /hpf (NONE SEEN); URINE MUCUS RARE; URINE RBC 265 /hpf (0-3); URINE WBC 127 /hpf (3-5)
[2016-10-11] MEDS ORDERED: ACETAMINOPHEN 325 MG TABLET (FP) PO PRN (07:48)
[2016-10-11] MEDS ORDERED: PROCHLORPERAZINE MALEATE 5 MG TABLET PO PRN (07:48)
[2016-10-11] MEDS ORDERED: MAG HYDROX/AL HYDROX/SIMETH 30 ML UNIT-DOSE CUP PO PRN (07:48)
[2016-10-11] MEDS ORDERED: morphine CARPU-JECT 2 MG/1 ML DISP.SYRIN IVPUSH PRN (07:49)
--- NOTE | 2016-10-11 07:59 | HP ---
Admitting History and Physical - Admission Chief Complaint: nephrostomy tube displacement History of Present Illness: 89 yo F h/o obstructive uropathy with chronic nephrostomy tube, presents with dislodgement of tube. Noted to have UTI on lab evaluation in ED as well. Prior trial off of nephrostomy tube caused worsened urinary tract infections, reportedly. Patient without complaints currently, denies any flank pain. History Source: Patient, Medical Record Limitations to Obtaining History: No Limitations - Past Medical History MANAGED CARE SPECIALIST: Yes: Dementia Cardiovascular: Yes: Aortic Insufficiency, CAD, HTN, Hyperlipdemia Gastrointestinal: Yes: Diverticulitis Renal/: Yes: UTI Musculoskeletal: Yes: Other (frequent falls) Endocrine: Yes: Hypothyroidism - Past Surgical History Past Surgical History: Yes: CABG, Stent (unknown details of coronary stent) - Smoking History Smoking history: Never smoked Have you smoked in the past 12 months: No Aproximately how many cigarettes per day: 0 - Alcohol/Substance Use Hx Alcohol Use: No - Social History 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 Home Medications - Allergies Allergies/Adverse Reactions: Allergies Allergy/AdvReac Type Severity Reaction Status Date / Time Penicillins Allergy Verified 10/11/16 02:08 - Home Medications Home Medications: Ambulatory Orders Aa/Hydrolyzed Collagen, Whey [Lps Neutral Flavor Liquid] 30 ml PO DAILY Acetaminophen 650 mg PO Q6H PRN 08/07/16 Alendronate Sodium/Vitamin D3 [Fosamax Plus D 70 mg-5,600 Iu vIT d] 1 each PO Q7D 08/07/16 Amlodipine Besylate [Norvasc -] 5 mg PO DAILY 08/07/16 Aspirin [ASA -] 81 mg PO DAILY 08/07/16 Atorvastatin Ca [Lipitor] 10 mg PO HS 08/07/16 Cholecalciferol (Vitamin D3) [D3-2000] 2,000 unit PO DAILY 08/07/16 Cyanocobalamin [Vitamin B12 -] 1,000 mcg PO DAILY 08/07/16 Diltiazem [Cardizem -] 30 mg PO TID 08/07/16 Furosemide [Lasix] 40 mg PO DAILY 08/07/16 Lactobacillus Acidophilus [Acidophilus] 1 each PO DAILY 08/07/16 Levothyroxine [Synthroid -] 50 mcg PO DAILY 08/07/16 Mag Hydrox/Al Hydrox/Simeth [Mylanta Oral Suspension -] 30 ml PO QID PRN Potassium Chloride 20 meq PO DAILY 08/07/16 Prochlorperazine Maleate 5 mg PO Q8H PRN 08/07/16 Sennosides [Senna] 17.2 mg PO HS 08/07/16 Tamsulosin HCl [Flomax] 0.4 mg PO DAILY 08/07/16 Family Disease History - Family Disease History Family History: Unremarkable Review of Systems - Review of Systems Constitutional: denies: Chills, Fever, Lethargy Eyes: reports: No Symptoms HENT: denies: Difficult Swallowing, Throat Pain Neck: denies: Pain on Movement, Swollen Glands Cardiovascular: denies: Chest Pain, Palpitations Respiratory: denies: Cough, SOB Gastrointestinal: denies: Abdominal Pain, Diarrhea, Nausea, Vomiting Genitourinary: denies: Burning, Dysuria Neurological: denies: Change in LOC Physical Examination Vital Signs: Vital Signs Temperature 97.5 F L 10/11/16 07:46 Pulse Rate 86 10/11/16 07:46 Respiratory Rate 18 10/11/16 07:46 Blood Pressure 177/61 10/11/16 07:46 O2 Sat by Pulse Oximetry (%) 97 10/11/16 07:46 Constitutional: Yes: Well Nourished, No Distress, Calm Eyes: Yes: Conjunctiva Clear, EOM Intact, PERRL HENT: Yes: Atraumatic, Normocephalic Neck: Yes: Supple, Trachea Midline Cardiovascular: Yes: Regular Rate and Rhythm, S1, S2. No: Murmur Respiratory: Yes: Regular, CTA Bilaterally. No: Rales, Rhonchi, Wheezes Gastrointestinal: Yes: Normal Bowel Sounds, Soft. No: Distention, Tenderness Edema: No Neurological: Yes: Alert, Oriented Labs: Laboratory Tests 10/11/16 10/11/16 10/11/16 02:56 02:56 02:56 WBC 9.8 RBC 4.03 Hgb 12.5 D Hct 36.8 MCV 91.3 MCH 31.0 MCHC 33.9 RDW 16.9 H Plt Count 229 MPV 8.4 Neutrophils % 62.3 Lymphocytes % 26.1 Monocytes % 6.1 Eosinophils % 4.8 H Basophils % 0.7 INR 1.02 Sodium Potassium Chloride Carbon Dioxide Anion Gap BUN Creatinine Creat Clearance w eGFR Random Glucose Calcium Total Bilirubin AST ALT Alkaline Phosphatase Total Protein Albumin Urine Color Lt. yellow Urine Appearance Clear Urine pH 6.5 Urine Protein 2+ H Urine Glucose (UA) Negative Urine Ketones Negative Urine Blood 3+ H Urine Nitrite Negative Urine Bilirubin Negative Urine Urobilinogen 0.2 Ur Leukocyte Esterase 3+ H Urine RBC 265 Urine WBC 127 Ur Epithelial Cells Rare Urine Bacteria Moderate Urine Mucus Rare 10/11/16 02:56 WBC RBC Hgb Hct MCV MCH MCHC RDW Plt Count MPV Neutrophils % Lymphocytes % Monocytes % Eosinophils % Basophils % INR Sodium 140 Potassium 5.1 Chloride 105 Carbon Dioxide 28 Anion Gap 7 L BUN 18 Creatinine 1.0 Creat Clearance w eGFR 52.33 Random Glucose 110 H Calcium 11.5 H Total Bilirubin 0.4 D AST 30 D ALT 32 Alkaline Phosphatase 134 H Total Protein 6.7 Albumin 3.3 L Urine Color Urine Appearance Urine pH Urine Protein Urine Glucose (UA) Urine Ketones Urine Blood Urine Nitrite Urine Bilirubin Urine Urobilinogen Ur Leukocyte Esterase Urine RBC Urine WBC Ur Epithelial Cells Urine Bacteria Urine Mucus Problem List - Problems (1) Nephrostomy tube displaced Assessment/Plan: -as previous sepsis from obstructive uropathy and UTI, will need nephrostomy tube replaced -IR consult for replacement Code(s): T83.022A - DISPLACEMENT OF NEPHROSTOMY CATHETER, INITIAL ENCOUNTER (2) ESBL (extended spectrum beta-lactamase) producing bacteria infection Assessment/Plan: h/o ESBL -ID consult for antibiotic opinion (urine culture sent) Code(s): A49.9 - BACTERIAL INFECTION, UNSPECIFIED Z16.12 - EXTENDED SPECTRUM BETA LACTAMASE (ESBL) RESISTANCE (3) HTN (hypertension) Assessment/Plan: -on cardizem and norvasc Code(s): I10 - ESSENTIAL (PRIMARY) HYPERTENSION (4) Hypothyroidism Assessment/Plan: on synthroid Code(s): E03.9 - HYPOTHYROIDISM, UNSPECIFIED (5) Obstructive uropathy Assessment/Plan: -chronic -for nephrostomy tube replacement Code(s): N13.9 - OBSTRUCTIVE AND REFLUX UROPATHY, UNSPECIFIED
[2016-10-11] MEDS ORDERED: PATIENT'S OWN MEDICATION (NON-FORMULARY) (Alendronate Sodium/Vitamin D3 [Fosamax Plus D 70 PO SCH (08:00)
[2016-10-11] MEDS ORDERED: PATIENT'S OWN MEDICATION (NON-FORMULARY) (Potassium Chloride [Potassium Chloride] 20 MEQ) PO SCH (10:00)
[2016-10-11] MEDS ORDERED: PATIENT'S OWN MEDICATION (NON-FORMULARY) (Aa/Hydrolyzed Collagen, Whey [Lps Neutral Flavor PO SCH (10:00)
[2016-10-11] MEDS: ASPIRIN 81 MG CHEWABLE TABLETS PO SCH (10:09)
[2016-10-11] MEDS: TAMSULOSIN HCL 0.4 MG CAP.ER.24H (FP) PO SCH (10:09)
[2016-10-11] MEDS: HEPARIN NA (PORCINE) 5,000 UNITS/ML 1ML VIAL SQ SCH ×2 (10:09→22:33)
[2016-10-11] MEDS: LEVOTHYROXINE NA 50 MCG TABLET (FP) PO SCH (10:09)
[2016-10-11] MEDS: LACTOBACILLUS ACIDOPHILUS 1 EACH TAB (FP) PO SCH (10:09)
--- NOTE | 2016-10-11 10:09 | CONSULT ---
Consult Consult Specialty:: INFECTIOUS DISEASE Reason for Consultation:: UTI, dislodged nephrostomy tube - History of Present Illness History of Present Illness: This is an 89 y.o. female with multiple comorbidities including obstructive uropathy, chronic Lt nephrostomy,ESBL + UTIs, CAD s/p stent placement, HTN, Hyperlipidemia, diverticulitis, and hypothyroidism who presents for dislodged nephrostomy tube since last night. Noted to have U/A suggestive of UTI. She denies fever/chills, suprapubic or flank pain. States she feels "ok". Has no other specific complaints. - History Source History Provided By: Patient Limitations to Obtaining History: No Limitations - Past Medical History MANAGER PAID: Yes: Dementia Cardio/Vascular: Yes: Aortic Insufficiency, CAD, HTN, Hyperlipdemia Gastrointestinal: Yes: Diverticulitis Renal/: Yes: UTI (ESBL+) Infectious Disease: Yes: Other (UTI) Musculoskeletal: Yes: Other (frequent falls) Endocrine: Yes: Hypothyroidism Additional Medical History: frequent falls - Past Surgical History Past Surgical History: Yes: CABG, Stent (unknown details of coronary stent) Additional Surgical History: Lt nephrostomy - Alcohol/Substance Use Hx Alcohol Use: No - Smoking History Smoking history: Never smoked Have you smoked in the past 12 months: No Aproximately how many cigarettes per day: 0 - Social History Usual Living Arrangement: [facility] 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 Home Medications - Allergies Allergies/Adverse Reactions: Allergies Allergy/AdvReac Type Severity Reaction Status Date / Time Penicillins Allergy Verified 10/11/16 02:08 - Home Medications Home Medications: Ambulatory Orders Aa/Hydrolyzed Collagen, Whey [Lps Neutral Flavor Liquid] 30 ml PO DAILY Acetaminophen 650 mg PO Q6H PRN 08/07/16 Alendronate Sodium/Vitamin D3 [Fosamax Plus D 70 mg-5,600 Iu vIT d] 1 each PO Q7D 08/07/16 Amlodipine Besylate [Norvasc -] 5 mg PO DAILY 08/07/16 Aspirin [ASA -] 81 mg PO DAILY 08/07/16 Atorvastatin Ca [Lipitor] 10 mg PO HS 08/07/16 Cholecalciferol (Vitamin D3) [D3-2000] 2,000 unit PO DAILY 08/07/16 Cyanocobalamin [Vitamin B12 -] 1,000 mcg PO DAILY 08/07/16 Diltiazem [Cardizem -] 30 mg PO TID 08/07/16 Furosemide [Lasix] 40 mg PO DAILY 08/07/16 Lactobacillus Acidophilus [Acidophilus] 1 each PO DAILY 08/07/16 Levothyroxine [Synthroid -] 50 mcg PO DAILY 08/07/16 Mag Hydrox/Al Hydrox/Simeth [Mylanta Oral Suspension -] 30 ml PO QID PRN Potassium Chloride 20 meq PO DAILY 08/07/16 Prochlorperazine Maleate 5 mg PO Q8H PRN 08/07/16 Sennosides [Senna] 17.2 mg PO HS 08/07/16 Tamsulosin HCl [Flomax] 0.4 mg PO DAILY 08/07/16 Family Disease History - Family Disease History Family History: Unremarkable Review of Systems - Review of Systems Constitutional: reports: No Symptoms. denies: Chills, Diaphoresis, Fever, Lethargy, Loss of Appetite, Malaise, Night Sweats, Unintentional Wgt. Loss, Weakness, Other Eyes: reports: No Symptoms. denies: Blind Spots, Blurred Vision, Double Vision , Eye Pain, Floaters, Photophobia, Recent Change in Vision, Other HENT: denies: No Symptoms, Difficult Swallowing, Ear Discharge, Ear Pain, Epistaxis, Gingival Bleeding, Hearing Loss, Mouth Swelling, Nasal Congestion, Ocular Prosthesis, Throat Pain, Toothache, Ringing in Ears, Other Neck: denies: No Symptoms, Decreased ROM, Lumps, Pain on Movement, Stiffness, Swollen Glands, Tenderness, Other Cardiovascular: denies: No Symptoms, Chest Pain, Edema, Palpitations, Shortness of Breath, Other Respiratory: denies: No Symptoms, Cough, Exercise Intolerance, Hemoptysis, Orthopnea, PND, Snoring, SOB, SOB on Exertion, Wheezing, Other Gastrointestinal: denies: No Symptoms, Abdominal Pain, Bloating, Constipation, Diarrhea, Dysphagia, Indigestion, Melena, Nausea, Rectal Bleeding, Vomiting, Vomiting Blood, Other Genitourinary: reports: Other (dislodged nephrostomy tube). denies: No Symptoms , Burning, Discharge, Dysuria, Flank Pain, Frequency, Hematuria, Incontinence, Lesions, Menses, Pain, Testicular Mass, Testicular Pain, Testicular Swelling, Urgency, Vaginal Bleeding Breasts: reports: No Symptoms Reported. denies: See HPI, Breast Implants, Discharge from Nipple, Lumps, Pain, Skin Changes, Other Musculoskeletal: reports: No Symptoms. denies: Back Pain, Crepitus, Decreased ROM, Extremity Pain, Joint Pain, Joint Swelling, Muscle Pain, Muscle Cramps, Muscle Weakness, Other Integumentary: reports: No Symptoms. denies: Blister, Bruising, Change in Color , Eczema, Erythema, Incision, Lesions, Lump, Pallor, Pruritis, Rash, Wound, Other Neurological: reports: No Symptoms. denies: Change in LOC, Change in Speech, Confusion, Dizziness, Headache, Incoordination, Numbness, Parasthesia, Pre- Existing Deficit, Seizure, Syncope, Tremors, Unsteady Gait, Weakness, Other Endocrine: reports: No Symptoms Hematology/Lymphatic: reports: No Symptoms. denies: Easily Bruised, Excessive Bleeding, Swollen Glands, Other Psychiatric: reports: No Symptoms. denies: Altered Sleep Pattern, Anxiety, Depression, Hallucinations, Panic, Paranoia, Suicidal, Other Physical Exam Vital Signs: Vital Signs Temperature 97.5 F L 10/11/16 07:46 Pulse Rate 86 10/11/16 07:46 Respiratory Rate 18 10/11/16 07:46 Blood Pressure 177/61 10/11/16 07:46 O2 Sat by Pulse Oximetry (%) 97 10/11/16 07:46 Constitutional: Yes: No Distress, Calm Eyes: Yes: WNL HENT: Yes: WNL Neck: Yes: WNL Cardiovascular: Yes: Regular Rate and Rhythm Respiratory: Yes: CTA Bilaterally Gastrointestinal: Yes: Normal Bowel Sounds, Soft Renal/: Yes: WNL, Other Musculoskeletal: Yes: WNL Extremities: Yes: WNL Integumentary: Yes: WNL Wound/Incision: Yes: Other (dislodged nephrostomy , no surrounding erythema/ induration or discharge) Psychiatric: Yes: Alert Labs: Laboratory Results - last 24 hr 10/11/16 10/11/16 10/11/16 02:56 02:56 02:56 WBC 9.8 RBC 4.03 Hgb 12.5 D Hct 36.8 MCV 91.3 MCH 31.0 MCHC 33.9 RDW 16.9 H Plt Count 229 MPV 8.4 Neutrophils % 62.3 Lymphocytes % 26.1 Monocytes % 6.1 Eosinophils % 4.8 H Basophils % 0.7 INR 1.02 Sodium Potassium Chloride Carbon Dioxide Anion Gap BUN Creatinine Creat Clearance w eGFR Random Glucose Calcium Total Bilirubin AST ALT Alkaline Phosphatase Total Protein Albumin Urine Color Lt. yellow Urine Appearance Clear Urine pH 6.5 Urine Protein 2+ H Urine Glucose (UA) Negative Urine Ketones Negative Urine Blood 3+ H Urine Nitrite Negative Urine Bilirubin Negative Urine Urobilinogen 0.2 Ur Leukocyte Esterase 3+ H Urine RBC 265 Urine WBC 127 Ur Epithelial Cells Rare Urine Bacteria Moderate Urine Mucus Rare 10/11/16 02:56 WBC RBC Hgb Hct MCV MCH MCHC RDW Plt Count MPV Neutrophils % Lymphocytes % Monocytes % Eosinophils % Basophils % INR Sodium 140 Potassium 5.1 Chloride 105 Carbon Dioxide 28 Anion Gap 7 L BUN 18 Creatinine 1.0 Creat Clearance w eGFR 52.33 Random Glucose 110 H Calcium 11.5 H Total Bilirubin 0.4 D AST 30 D ALT 32 Alkaline Phosphatase 134 H Total Protein 6.7 Albumin 3.3 L Urine Color Urine Appearance Urine pH Urine Protein Urine Glucose (UA) Urine Ketones Urine Blood Urine Nitrite Urine Bilirubin Urine Urobilinogen Ur Leukocyte Esterase Urine RBC Urine WBC Ur Epithelial Cells Urine Bacteria Urine Mucus Problem List - Problems (1) Nephrostomy tube displaced Code(s): T83.022A - DISPLACEMENT OF NEPHROSTOMY CATHETER, INITIAL ENCOUNTER (2) Obstructive uropathy Code(s): N13.9 - OBSTRUCTIVE AND REFLUX UROPATHY, UNSPECIFIED (3) ESBL (extended spectrum beta-lactamase) producing bacteria infection Code(s): A49.9 - BACTERIAL INFECTION, UNSPECIFIED Z16.12 - EXTENDED SPECTRUM BETA LACTAMASE (ESBL) RESISTANCE (4) HTN (hypertension) Code(s): I10 - ESSENTIAL (PRIMARY) HYPERTENSION (5) Nephrostomy status Code(s): Z93.6 - OTHER ARTIFICIAL OPENINGS OF URINARY TRACT STATUS (6) Recurrent UTI (urinary tract infection) Code(s): N39.0 - URINARY TRACT INFECTION, SITE NOT SPECIFIED (7) UTI (urinary tract infection) Code(s): N39.0 - URINARY TRACT INFECTION, SITE NOT SPECIFIED Qualifiers: Urinary tract infection type: catheter-associated UTI Indwelling urinary catheter type: nephrostomy catheter Encounter type: initial encounter Qualified Code(s): T83.512A - Infection and inflammatory reaction due to nephrostomy catheter, initial encounter; N39.0 - Urinary tract infection , site not specified (8) Coronary arteriosclerosis Code(s): I25.10 - ATHSCL HEART DISEASE OF [place] CORONARY ARTERY W/O ANG PCTRS (9) Hypothyroidism Code(s): E03.9 - HYPOTHYROIDISM, UNSPECIFIED Assessment/Plan UTI, history of ESBL+ organism Obstructive uropathy Dislodged nephrostomy Non-specific PCN allergy - suggest Meropenem IV with close monitoring for rash/hives/shortness of breath/ angioedema - follow up Urine culture results - awaiting nephrostomy replacement - continue monitor closely
[2016-10-11] MEDS: FUROSEMIDE 40 MG TABLET (FP) PO SCH (10:10)
[2016-10-11] MEDS: CYANOCOBALAMIN 1,000 MCG TABLET (FP) PO SCH (10:10)
[2016-10-11] MEDS: amLODIPine BESYLATE 5 MG TABLET (FP) PO SCH (10:10)
[2016-10-11] MEDS: CHOLECALCIFEROL (VITAMIN D3) 1,000 UNIT TABLET (FP) PO SCH (10:10)
[2016-10-11] MEDS ORDERED: dilTIAZem HCL 30 MG TABLET (FP) PO ONE (11:50)
[2016-10-11] MEDS ORDERED: MEROPENEM 1 GM in DEXTROSE 5%-WATER - 100 ML IVPB SCH (12:00)
[2016-10-11 12:24] VITALS: BMI 25.8
--- NOTE | 2016-10-11 13:13 | EKG ---
Test Reason : Blood Pressure : / mmHG Vent. Rate : 061 BPM Atrial Rate : 061 BPM P-R Int : 180 ms QRS Dur : 098 ms QT Int : 402 ms P-R-T Axes : 059 -03 108 degrees QTc Int : 404 ms NORMAL SINUS RHYTHM HIGH ST SEGMENT TAKE OFF IN V2 DIFFUSE ST-T ABNORMALITIES AD PROLONGED QTC SEEN INV5-V6 ABNORMAL ECG WHEN COMPARED WITH ECG OF 03-SEP-2016 17:41, CLINICAL CORRELATION AND FOLLOW UP TRACING Confirmed by CÉSAR MOTA MD ([id number] on 10/11/2016 1:13:47 PM Referred By: Confirmed By:CÉSAR MOTA MD
[2016-10-11] MEDS: dilTIAZem HCL 30 MG TABLET (FP) PO SCH ×2 (15:37→22:33)
[2016-10-11] MEDS: ATORVASTATIN CA 10 MG TABLET (FP) PO SCH (22:33)
[2016-10-11] MEDS: SENNOSIDES 8.6MG TABLET (FP) PO SCH (22:33)
[2016-10-11] MEDS: MEROPENEM 1 GM in DEXTROSE 5%-WATER - 100 ML IVPB SCH (22:34)
[2016-10-12] MEDS: dilTIAZem HCL 30 MG TABLET (FP) PO SCH ×3 (06:24→21:34)
[2016-10-12] MEDS: LEVOTHYROXINE NA 50 MCG TABLET (FP) PO SCH (06:27)
[2016-10-12 07:54] LABS: BASOPHIL 0.4 % (0-2.0); EOSINOPHIL 5.2 % (0-4.5); MCH 30.6 pg (25.7-33.7); MCHC 33.3 g/dl (32.0-36.0); MEAN CELL VOLUME 91.7 fl (80-96); MEAN PLT VOLUME 8.9 fl (7.5-11.1); NEUTROPHILS 60.8 % (42.8-82.8); PLATELET COUNT 216 K/MM3 (134-434); RDW 16.2 % (11.6-15.6); WHITE BLOOD COUNT 8.2 K/mm3 (4.0-10.0)
[2016-10-12 08:52] LABS: ALBUMIN 3.2 g/dl (3.4-5.0); ALK PHOS 141 U/L (45-117); ANION GAP 8 (8-16); BILIRUBIN,TOTAL 0.3 mg/dL (0.2-1.0); CALCIUM 11.1 mg/dL (8.5-10.1); CO2 27 mmol/L (21-32); CREATININE 1.1 mg/dL (0.55-1.02); GLUCOSE,RANDOM 100 mg/dL (74-106); SGOT/AST 13 U/L (15-37); SGPT/ALT 26 U/L (12-78); TOT PROT 6.4 g/dl (6.4-8.2)
[2016-10-12] MEDS ORDERED: PT OWN MED DRAWER 7, Y5N ONE ×2 (10:05→20:31)
[2016-10-12] MEDS: HEPARIN NA (PORCINE) 5,000 UNITS/ML 1ML VIAL SQ SCH ×2 (10:08→10:13)
[2016-10-12] MEDS: CHOLECALCIFEROL (VITAMIN D3) 1,000 UNIT TABLET (FP) PO SCH (10:08)
[2016-10-12] MEDS: TAMSULOSIN HCL 0.4 MG CAP.ER.24H (FP) PO SCH (10:08)
[2016-10-12] MEDS: ASPIRIN 81 MG CHEWABLE TABLETS PO SCH (10:08)
[2016-10-12] MEDS: amLODIPine BESYLATE 5 MG TABLET (FP) PO SCH (10:08)
[2016-10-12] MEDS: MEROPENEM 1 GM in DEXTROSE 5%-WATER - 100 ML IVPB SCH ×2 (10:08→21:35)
[2016-10-12] MEDS: CYANOCOBALAMIN 1,000 MCG TABLET (FP) PO SCH (10:08)
[2016-10-12] MEDS: LACTOBACILLUS ACIDOPHILUS 1 EACH TAB (FP) PO SCH (10:08)
[2016-10-12] MEDS: FUROSEMIDE 40 MG TABLET (FP) PO SCH (10:08)
--- NOTE | 2016-10-12 11:37 | PN ---
Progress Note, Physician History of Present Illness: Patient without complaints. Awaiting nephrostomy tube replacement. Seen by ID and started on meropenem for UTI - Current Medication List Current Medications: Active Medications Acetaminophen (Tylenol -) 650 mg PO Q6H PRN PRN Reason: PAIN Last Admin: 10/11/16 22:59 Dose: 650 mg Al Hydroxide/Mg Hydroxide (Mylanta Oral Suspension -) 30 ml PO QID PRN PRN Reason: DYSPEPSIA Amlodipine Besylate (Norvasc -) 5 mg PO DAILY [facility] Last Admin: 10/12/16 10:08 Dose: 5 mg Aspirin (Asa -) 81 mg PO DAILY [facility] Last Admin: 10/12/16 10:08 Dose: 81 mg Atorvastatin Calcium (Lipitor -) 10 mg PO HS [facility] Last Admin: 10/11/16 22:33 Dose: 10 mg Cholecalciferol (Vitamin D3 -) 2,000 unit PO DAILY [facility] Last Admin: 10/12/16 10:08 Dose: 2,000 unit Cyanocobalamin (Vitamin B12 -) 1,000 mcg PO DAILY [facility] Last Admin: 10/12/16 10:08 Dose: 1,000 mcg Diltiazem HCl (Cardizem -) 30 mg PO TID [facility] Last Admin: 10/12/16 06:24 Dose: 30 mg Furosemide (Lasix -) 40 mg PO DAILY [facility] Last Admin: 10/12/16 10:08 Dose: 40 mg Meropenem 1 gm/ Dextrose 100 mls @ 100 mls/hr IVPB BID [facility] PRN Reason: Protocol Last Admin: 10/12/16 10:08 Dose: 100 mls/hr Lactobacillus Acidophilus (Bacid -) 1 tab PO DAILY [facility] Last Admin: 10/12/16 10:08 Dose: 1 tab Levothyroxine Sodium (Synthroid -) 50 mcg PO AM [facility] Last Admin: 10/12/16 06:27 Dose: 50 mcg Morphine Sulfate (Morphine Injection -) 2 mg IVPUSH Q4H PRN PRN Reason: PAIN Prochlorperazine Maleate (Compazine -) 5 mg PO Q8H PRN PRN Reason: nausea with vomiting Senna (Senna -) 1 tab PO HS [facility] Last Admin: 10/11/16 22:33 Dose: 1 tab Tamsulosin HCl (Flomax -) 0.4 mg PO DAILY [facility] Last Admin: 10/12/16 10:08 Dose: 0.4 mg - Objective Vital Signs: Vital Signs Temperature 97.4 F L 10/12/16 05:32 Pulse Rate 78 10/12/16 05:32 Respiratory Rate 20 10/12/16 05:32 Blood Pressure 140/58 10/12/16 05:32 O2 Sat by Pulse Oximetry (%) 97 10/11/16 21:00 Constitutional: Yes: No Distress, Calm Cardiovascular: Yes: Regular Rate and Rhythm, S1, S2. No: Murmur Respiratory: Yes: Regular, CTA Bilaterally. No: Rales, Rhonchi, Wheezes Gastrointestinal: Yes: Normal Bowel Sounds, Soft. No: Distention, Tenderness Edema: No Labs: CBC, BMP 10/12/16 06:00 10/12/16 06:00 INR, PTT INR 1.02 (0.82-1.09) 10/11/16 02:56 Problem List - Problems (1) Nephrostomy tube displaced Code(s): T83.022A - DISPLACEMENT OF NEPHROSTOMY CATHETER, INITIAL ENCOUNTER (2) ESBL (extended spectrum beta-lactamase) producing bacteria infection Code(s): A49.9 - BACTERIAL INFECTION, UNSPECIFIED Z16.12 - EXTENDED SPECTRUM BETA LACTAMASE (ESBL) RESISTANCE (3) HTN (hypertension) Code(s): I10 - ESSENTIAL (PRIMARY) HYPERTENSION (4) Hypothyroidism Code(s): E03.9 - HYPOTHYROIDISM, UNSPECIFIED (5) Obstructive uropathy Code(s): N13.9 - OBSTRUCTIVE AND REFLUX UROPATHY, UNSPECIFIED Assessment/Plan Current Active Problems UTI Nephrostomy tube displaced (Acute) Obstructive uropathy (Acute) HTN hypercalcemia nephrolithiasis -cont abx -IR consulted for nephrostomy tube replacement -will check PTH for hypercalcemia (may benefit from addition of Sensipar for hypercalcemia)
--- NOTE | 2016-10-12 15:43 | PN ---
Progress Note, Physician History of Present Illness: patient stable feels better no complaints - Current Medication List Current Medications: Active Medications Acetaminophen (Tylenol -) 650 mg PO Q6H PRN PRN Reason: PAIN Last Admin: 10/11/16 22:59 Dose: 650 mg Al Hydroxide/Mg Hydroxide (Mylanta Oral Suspension -) 30 ml PO QID PRN PRN Reason: DYSPEPSIA Amlodipine Besylate (Norvasc -) 5 mg PO DAILY [facility] Last Admin: 10/12/16 10:08 Dose: 5 mg Aspirin (Asa -) 81 mg PO DAILY [facility] Last Admin: 10/12/16 10:08 Dose: 81 mg Atorvastatin Calcium (Lipitor -) 10 mg PO HS [facility] Last Admin: 10/11/16 22:33 Dose: 10 mg Cholecalciferol (Vitamin D3 -) 2,000 unit PO DAILY [facility] Last Admin: 10/12/16 10:08 Dose: 2,000 unit Cyanocobalamin (Vitamin B12 -) 1,000 mcg PO DAILY [facility] Last Admin: 10/12/16 10:08 Dose: 1,000 mcg Diltiazem HCl (Cardizem -) 30 mg PO TID [facility] Last Admin: 10/12/16 15:41 Dose: 30 mg Furosemide (Lasix -) 40 mg PO DAILY [facility] Last Admin: 10/12/16 10:08 Dose: 40 mg Meropenem 1 gm/ Dextrose 100 mls @ 100 mls/hr IVPB BID [facility] PRN Reason: Protocol Last Admin: 10/12/16 10:08 Dose: 100 mls/hr Lactobacillus Acidophilus (Bacid -) 1 tab PO DAILY [facility] Last Admin: 10/12/16 10:08 Dose: 1 tab Levothyroxine Sodium (Synthroid -) 50 mcg PO AM [facility] Last Admin: 10/12/16 06:27 Dose: 50 mcg Morphine Sulfate (Morphine Injection -) 2 mg IVPUSH Q4H PRN PRN Reason: PAIN Prochlorperazine Maleate (Compazine -) 5 mg PO Q8H PRN PRN Reason: nausea with vomiting Senna (Senna -) 1 tab PO HS [facility] Last Admin: 10/11/16 22:33 Dose: 1 tab Tamsulosin HCl (Flomax -) 0.4 mg PO DAILY [facility] Last Admin: 10/12/16 10:08 Dose: 0.4 mg - Objective Vital Signs: Vital Signs Temperature 98.1 F 10/12/16 08:00 Pulse Rate 70 10/12/16 08:00 Respiratory Rate 20 10/12/16 08:00 Blood Pressure 141/73 10/12/16 08:00 O2 Sat by Pulse Oximetry (%) 97 10/12/16 08:00 Constitutional: Yes: No Distress, Calm Cardiovascular: Yes: Regular Rate and Rhythm Respiratory: Yes: Regular, CTA Bilaterally Gastrointestinal: Yes: Normal Bowel Sounds, Soft Musculoskeletal: Yes: WNL Extremities: Yes: WNL Neurological: Yes: Alert, Oriented Psychiatric: Yes: Alert, Oriented Labs: CBC, BMP 10/12/16 06:00 10/12/16 06:00 INR, PTT INR 1.02 (0.82-1.09) 10/11/16 02:56 Assessment/Plan Problem List - Problems (1) Nephrostomy tube displaced Code(s): T83.022A - DISPLACEMENT OF NEPHROSTOMY CATHETER, INITIAL ENCOUNTER (2) Obstructive uropathy Code(s): N13.9 - OBSTRUCTIVE AND REFLUX UROPATHY, UNSPECIFIED (3) ESBL (extended spectrum beta-lactamase) producing bacteria infection Code(s): A49.9 - BACTERIAL INFECTION, UNSPECIFIED Z16.12 - EXTENDED SPECTRUM BETA LACTAMASE (ESBL) RESISTANCE (4) HTN (hypertension) Code(s): I10 - ESSENTIAL (PRIMARY) HYPERTENSION (5) Nephrostomy status Code(s): Z93.6 - OTHER ARTIFICIAL OPENINGS OF URINARY TRACT STATUS (6) Recurrent UTI (urinary tract infection) Code(s): N39.0 - URINARY TRACT INFECTION, SITE NOT SPECIFIED (7) UTI (urinary tract infection) Code(s): N39.0 - URINARY TRACT INFECTION, SITE NOT SPECIFIED Qualifiers: Urinary tract infection type: catheter-associated UTI Indwelling urinary catheter type: nephrostomy catheter Encounter type: initial encounter Qualified Code(s): T83.512A - Infection and inflammatory reaction due to nephrostomy catheter, initial encounter; N39.0 - Urinary tract infection , site not specified (8) Coronary arteriosclerosis Code(s): I25.10 - ATHSCL HEART DISEASE OF [place] CORONARY ARTERY W/O ANG PCTRS (9) Hypothyroidism Code(s): E03.9 - HYPOTHYROIDISM, UNSPECIFIED plan continue current abx await for identification of the bacteria rest as per primary urology
[2016-10-12] MEDS: ATORVASTATIN CA 10 MG TABLET (FP) PO SCH (21:34)
[2016-10-12] MEDS: SENNOSIDES 8.6MG TABLET (FP) PO SCH (21:34)
[2016-10-13] MEDS: dilTIAZem HCL 30 MG TABLET (FP) PO SCH ×3 (06:28→21:57)
[2016-10-13] MEDS: LEVOTHYROXINE NA 50 MCG TABLET (FP) PO SCH (06:28)
[2016-10-13 08:51] LABS: BASOPHIL 0.5 % (0-2.0); EOSINOPHIL 4.1 % (0-4.5); MCH 30.5 pg (25.7-33.7); MCHC 33.4 g/dl (32.0-36.0); MEAN CELL VOLUME 91.5 fl (80-96); MEAN PLT VOLUME 8.5 fl (7.5-11.1); NEUTROPHILS 63.7 % (42.8-82.8); PLATELET COUNT 215 K/MM3 (134-434); RDW 16.5 % (11.6-15.6); WHITE BLOOD COUNT 8.7 K/mm3 (4.0-10.0)
[2016-10-13] MEDS ORDERED: PT OWN MED DRAWER 7, Y5N ONE ×2 (09:27→21:48)
[2016-10-13] MEDS: amLODIPine BESYLATE 5 MG TABLET (FP) PO SCH (09:29)
[2016-10-13 09:37] LABS: ALBUMIN 3.1 g/dl (3.4-5.0); ALK PHOS 137 U/L (45-117); ANION GAP 8 (8-16); BILIRUBIN,TOTAL 0.4 mg/dL (0.2-1.0); CO2 28 mmol/L (21-32); CREATININE 1.2 mg/dL (0.55-1.02); GLUCOSE,RANDOM 97 mg/dL (74-106); SGOT/AST 13 U/L (15-37); SGPT/ALT 25 U/L (12-78); TOT PROT 6.4 g/dl (6.4-8.2)
[2016-10-13] MEDS: ASPIRIN 81 MG CHEWABLE TABLETS PO SCH (10:00)
--- NOTE | 2016-10-13 10:53 | PN ---
Progress Note (short form) - Note Progress Note: Patient seen and examined. Charts reviewed. Awaiting nephrostomy tube replacement. Afebrile. Denies nausea, vomiting, abdominal pain. - Current Medication List Current Medications: Active Medications Acetaminophen (Tylenol -) 650 mg PO Q6H PRN PRN Reason: PAIN Last Admin: 10/11/16 22:59 Dose: 650 mg Al Hydroxide/Mg Hydroxide (Mylanta Oral Suspension -) 30 ml PO QID PRN PRN Reason: DYSPEPSIA Amlodipine Besylate (Norvasc -) 5 mg PO DAILY [facility] Last Admin: 10/12/16 10:08 Dose: 5 mg Aspirin (Asa -) 81 mg PO DAILY [facility] Last Admin: 10/12/16 10:08 Dose: 81 mg Atorvastatin Calcium (Lipitor -) 10 mg PO HS [facility] Last Admin: 10/11/16 22:33 Dose: 10 mg Cholecalciferol (Vitamin D3 -) 2,000 unit PO DAILY [facility] Last Admin: 10/12/16 10:08 Dose: 2,000 unit Cyanocobalamin (Vitamin B12 -) 1,000 mcg PO DAILY [facility] Last Admin: 10/12/16 10:08 Dose: 1,000 mcg Diltiazem HCl (Cardizem -) 30 mg PO TID [facility] Last Admin: 10/12/16 06:24 Dose: 30 mg Furosemide (Lasix -) 40 mg PO DAILY [facility] Last Admin: 10/12/16 10:08 Dose: 40 mg Meropenem 1 gm/ Dextrose 100 mls @ 100 mls/hr IVPB BID [facility] PRN Reason: Protocol Last Admin: 10/12/16 10:08 Dose: 100 mls/hr Lactobacillus Acidophilus (Bacid -) 1 tab PO DAILY [facility] Last Admin: 10/12/16 10:08 Dose: 1 tab Levothyroxine Sodium (Synthroid -) 50 mcg PO AM [facility] Last Admin: 10/12/16 06:27 Dose: 50 mcg Morphine Sulfate (Morphine Injection -) 2 mg IVPUSH Q4H PRN PRN Reason: PAIN Prochlorperazine Maleate (Compazine -) 5 mg PO Q8H PRN PRN Reason: nausea with vomiting Senna (Senna -) 1 tab PO HS [facility] Last Admin: 10/11/16 22:33 Dose: 1 tab Tamsulosin HCl (Flomax -) 0.4 mg PO DAILY [facility] Last Admin: 10/12/16 10:08 Dose: 0.4 mg - Objective Vital Signs: Vital Signs Period Temp Pulse Resp BP Sys/Donovan Pulse Ox Last 24 Hr 98 F-98.5 F 73-84 18-20 132-143/60-69 96-97 Constitutional: Yes: No Distress, Calm Cardiovascular: Yes: Regular Rate and Rhythm, S1, S2. No: Murmur Respiratory: Yes: Regular, CTA Bilaterally. No: Rales, Rhonchi, Wheezes Gastrointestinal: Yes: Normal Bowel Sounds, Soft. No: Distention, Tenderness Edema: No Labs: CBC, BMP 10/13/16 07:30 10/13/16 07:30 Problem List - Problems (1) Nephrostomy tube displaced Code(s): T83.022A - DISPLACEMENT OF NEPHROSTOMY CATHETER, INITIAL ENCOUNTER (2) ESBL (extended spectrum beta-lactamase) producing bacteria infection Code(s): A49.9 - BACTERIAL INFECTION, UNSPECIFIED Z16.12 - EXTENDED SPECTRUM BETA LACTAMASE (ESBL) RESISTANCE (3) HTN (hypertension) Code(s): I10 - ESSENTIAL (PRIMARY) HYPERTENSION (4) Hypothyroidism Code(s): E03.9 - HYPOTHYROIDISM, UNSPECIFIED (5) Obstructive uropathy Code(s): N13.9 - OBSTRUCTIVE AND REFLUX UROPATHY, UNSPECIFIED Assessment/Plan Current Active Problems UTI Nephrostomy tube displaced (Acute) Obstructive uropathy (Acute) HTN hypercalcemia nephrolithiasis -cont abx -IR consulted for nephrostomy tube replacement -will check PTH for hypercalcemia (may benefit from addition of Sensipar for hypercalcemia)
--- NOTE | 2016-10-13 14:45 | PN ---
Progress Note, Physician History of Present Illness: patient stable feels better no complaints - Current Medication List Current Medications: Active Medications Acetaminophen (Tylenol -) 650 mg PO Q6H PRN PRN Reason: PAIN Last Admin: 10/11/16 22:59 Dose: 650 mg Al Hydroxide/Mg Hydroxide (Mylanta Oral Suspension -) 30 ml PO QID PRN PRN Reason: DYSPEPSIA Amlodipine Besylate (Norvasc -) 5 mg PO DAILY [facility] Last Admin: 10/13/16 09:29 Dose: 5 mg Aspirin (Asa -) 81 mg PO DAILY [facility] Last Admin: 10/12/16 10:08 Dose: 81 mg Atorvastatin Calcium (Lipitor -) 10 mg PO HS [facility] Last Admin: 10/12/16 21:34 Dose: 10 mg Cholecalciferol (Vitamin D3 -) 2,000 unit PO DAILY [facility] Last Admin: 10/12/16 10:08 Dose: 2,000 unit Cyanocobalamin (Vitamin B12 -) 1,000 mcg PO DAILY [facility] Last Admin: 10/12/16 10:08 Dose: 1,000 mcg Diltiazem HCl (Cardizem -) 30 mg PO TID [facility] Last Admin: 10/13/16 06:28 Dose: 30 mg Furosemide (Lasix -) 40 mg PO DAILY [facility] Last Admin: 10/12/16 10:08 Dose: 40 mg Meropenem 1 gm/ Dextrose 100 mls @ 100 mls/hr IVPB BID [facility] PRN Reason: Protocol Last Admin: 10/12/16 21:35 Dose: 100 mls/hr Lactobacillus Acidophilus (Bacid -) 1 tab PO DAILY [facility] Last Admin: 10/12/16 10:08 Dose: 1 tab Levothyroxine Sodium (Synthroid -) 50 mcg PO AM [facility] Last Admin: 10/13/16 06:28 Dose: 50 mcg Morphine Sulfate (Morphine Injection -) 2 mg IVPUSH Q4H PRN PRN Reason: PAIN Prochlorperazine Maleate (Compazine -) 5 mg PO Q8H PRN PRN Reason: nausea with vomiting Senna (Senna -) 1 tab PO HS [facility] Last Admin: 10/12/16 21:34 Dose: 1 tab Tamsulosin HCl (Flomax -) 0.4 mg PO DAILY [facility] Last Admin: 10/12/16 10:08 Dose: 0.4 mg - Objective Vital Signs: Vital Signs Temperature 97.4 F L 10/13/16 13:47 Pulse Rate 81 10/13/16 13:47 Respiratory Rate 18 10/13/16 13:47 Blood Pressure 143/60 10/13/16 13:47 O2 Sat by Pulse Oximetry (%) 96 10/13/16 13:46 Constitutional: Yes: No Distress, Calm Cardiovascular: Yes: Regular Rate and Rhythm Respiratory: Yes: Regular, CTA Bilaterally Gastrointestinal: Yes: Normal Bowel Sounds, Soft Musculoskeletal: Yes: WNL Extremities: Yes: WNL Neurological: Yes: Alert, Oriented Psychiatric: Yes: Alert, Oriented Labs: CBC, BMP 10/13/16 07:30 10/13/16 07:30 INR, PTT INR 1.02 (0.82-1.09) 10/11/16 02:56 Assessment/Plan Problem List - Problems (1) Nephrostomy tube displaced Code(s): T83.022A - DISPLACEMENT OF NEPHROSTOMY CATHETER, INITIAL ENCOUNTER (2) Obstructive uropathy Code(s): N13.9 - OBSTRUCTIVE AND REFLUX UROPATHY, UNSPECIFIED (3) ESBL (extended spectrum beta-lactamase) producing bacteria infection Code(s): A49.9 - BACTERIAL INFECTION, UNSPECIFIED Z16.12 - EXTENDED SPECTRUM BETA LACTAMASE (ESBL) RESISTANCE (4) HTN (hypertension) Code(s): I10 - ESSENTIAL (PRIMARY) HYPERTENSION (5) Nephrostomy status Code(s): Z93.6 - OTHER ARTIFICIAL OPENINGS OF URINARY TRACT STATUS (6) Recurrent UTI (urinary tract infection) Code(s): N39.0 - URINARY TRACT INFECTION, SITE NOT SPECIFIED (7) UTI (urinary tract infection) Code(s): N39.0 - URINARY TRACT INFECTION, SITE NOT SPECIFIED Qualifiers: Urinary tract infection type: catheter-associated UTI Indwelling urinary catheter type: nephrostomy catheter Encounter type: initial encounter Qualified Code(s): T83.512A - Infection and inflammatory reaction due to nephrostomy catheter, initial encounter; N39.0 - Urinary tract infection , site not specified (8) Coronary arteriosclerosis Code(s): I25.10 - ATHSCL HEART DISEASE OF [place] CORONARY ARTERY W/O ANG PCTRS (9) Hypothyroidism Code(s): E03.9 - HYPOTHYROIDISM, UNSPECIFIED plan continue current abx esbl as expected rest as per primary patient will need treatment for 2 weeks
[2016-10-13] MEDS: MEROPENEM 1 GM in DEXTROSE 5%-WATER - 100 ML IVPB SCH ×2 (14:58→21:56)
[2016-10-13] MEDS: TAMSULOSIN HCL 0.4 MG CAP.ER.24H (FP) PO SCH (15:00)
[2016-10-13] MEDS: FUROSEMIDE 40 MG TABLET (FP) PO SCH (15:00)
[2016-10-13] MEDS: CHOLECALCIFEROL (VITAMIN D3) 1,000 UNIT TABLET (FP) PO SCH (15:00)
[2016-10-13] MEDS: LACTOBACILLUS ACIDOPHILUS 1 EACH TAB (FP) PO SCH (15:00)
[2016-10-13] MEDS: CYANOCOBALAMIN 1,000 MCG TABLET (FP) PO SCH (15:01)
[2016-10-13] MEDS: ATORVASTATIN CA 10 MG TABLET (FP) PO SCH (21:56)
[2016-10-13] MEDS: SENNOSIDES 8.6MG TABLET (FP) PO SCH (21:57)
[2016-10-14] MEDS: dilTIAZem HCL 30 MG TABLET (FP) PO SCH ×2 (06:48→15:42)
[2016-10-14] MEDS: LEVOTHYROXINE NA 50 MCG TABLET (FP) PO SCH (06:48)
[2016-10-14] MEDS ORDERED: PICC LINE 8 ML FLUSH PROTOCOL IVPUSH PRN (09:00)
[2016-10-14] MEDS: ASPIRIN 81 MG CHEWABLE TABLETS PO SCH (09:23)
[2016-10-14] MEDS: FUROSEMIDE 40 MG TABLET (FP) PO SCH (09:25)
[2016-10-14] MEDS: LACTOBACILLUS ACIDOPHILUS 1 EACH TAB (FP) PO SCH (09:25)
[2016-10-14] MEDS: MEROPENEM 1 GM in DEXTROSE 5%-WATER - 100 ML IVPB SCH (09:25)
[2016-10-14] MEDS: TAMSULOSIN HCL 0.4 MG CAP.ER.24H (FP) PO SCH (09:25)
[2016-10-14] MEDS: amLODIPine BESYLATE 5 MG TABLET (FP) PO SCH (09:26)
[2016-10-14] MEDS: CYANOCOBALAMIN 1,000 MCG TABLET (FP) PO SCH (09:26)
[2016-10-14] MEDS: CHOLECALCIFEROL (VITAMIN D3) 1,000 UNIT TABLET (FP) PO SCH (09:26)
[2016-10-14 09:31] LABS: ALBUMIN 3.3 g/dl (3.4-5.0); ALK PHOS 126 U/L (45-117); ANION GAP 10 (8-16); BILIRUBIN,TOTAL 0.5 mg/dL (0.2-1.0); CALCIUM 11.4 mg/dL (8.5-10.1); CO2 27 mmol/L (21-32); CREATININE 1.1 mg/dL (0.55-1.02); GLUCOSE,RANDOM 101 mg/dL (74-106); SGOT/AST 15 U/L (15-37); SGPT/ALT 27 U/L (12-78); TOT PROT 6.7 g/dl (6.4-8.2)
--- NOTE | 2016-10-14 13:48 | PN ---
Progress Note, Physician History of Present Illness: patient stable feels better no complaints nephrostomy tube placed picc in place - Current Medication List Current Medications: Active Medications Acetaminophen (Tylenol -) 650 mg PO Q6H PRN PRN Reason: PAIN Last Admin: 10/11/16 22:59 Dose: 650 mg Al Hydroxide/Mg Hydroxide (Mylanta Oral Suspension -) 30 ml PO QID PRN PRN Reason: DYSPEPSIA Amlodipine Besylate (Norvasc -) 5 mg PO DAILY [facility] Last Admin: 10/14/16 09:26 Dose: 5 mg Aspirin (Asa -) 81 mg PO DAILY [facility] Last Admin: 10/14/16 09:23 Dose: 81 mg Atorvastatin Calcium (Lipitor -) 10 mg PO HS [facility] Last Admin: 10/13/16 21:56 Dose: 10 mg Cholecalciferol (Vitamin D3 -) 2,000 unit PO DAILY [facility] Last Admin: 10/14/16 09:26 Dose: 2,000 unit Cyanocobalamin (Vitamin B12 -) 1,000 mcg PO DAILY [facility] Last Admin: 10/14/16 09:26 Dose: 1,000 mcg Diltiazem HCl (Cardizem -) 30 mg PO TID [facility] Last Admin: 10/14/16 06:48 Dose: 30 mg Furosemide (Lasix -) 40 mg PO DAILY [facility] Last Admin: 10/14/16 09:25 Dose: 40 mg IV Flush (Picc Line Flush) 8 ml IVPUSH PRN PRN PRN Reason: Protocol Meropenem 1 gm/ Dextrose 100 mls @ 100 mls/hr IVPB BID [facility] PRN Reason: Protocol Last Admin: 10/14/16 09:25 Dose: 100 mls/hr Lactobacillus Acidophilus (Bacid -) 1 tab PO DAILY [facility] Last Admin: 10/14/16 09:25 Dose: 1 tab Levothyroxine Sodium (Synthroid -) 50 mcg PO AM [facility] Last Admin: 10/14/16 06:48 Dose: 50 mcg Morphine Sulfate (Morphine Injection -) 2 mg IVPUSH Q4H PRN PRN Reason: PAIN Prochlorperazine Maleate (Compazine -) 5 mg PO Q8H PRN PRN Reason: nausea with vomiting Senna (Senna -) 1 tab PO HS [facility] Last Admin: 10/13/16 21:57 Dose: 1 tab Tamsulosin HCl (Flomax -) 0.4 mg PO DAILY [facility] Last Admin: 10/14/16 09:25 Dose: 0.4 mg - Objective Vital Signs: Vital Signs Temperature 98.6 F 10/14/16 08:00 Pulse Rate 77 10/14/16 08:00 Respiratory Rate 20 10/14/16 08:00 Blood Pressure 120/60 10/14/16 08:00 O2 Sat by Pulse Oximetry (%) 96 10/14/16 09:00 Constitutional: Yes: No Distress, Calm HENT: Yes: Atraumatic Cardiovascular: Yes: Regular Rate and Rhythm Respiratory: Yes: Regular, CTA Bilaterally Gastrointestinal: Yes: Normal Bowel Sounds, Soft Genitourinary: Yes: Other (neprostomy tube in place) Musculoskeletal: Yes: WNL Extremities: Yes: WNL Neurological: Yes: Alert, Oriented Psychiatric: Yes: Alert, Oriented Labs: CBC, BMP 10/13/16 07:30 10/14/16 06:30 INR, PTT INR 1.02 (0.82-1.09) 10/11/16 02:56 Assessment/Plan Problem List - Problems (1) Nephrostomy tube displaced Code(s): T83.022A - DISPLACEMENT OF NEPHROSTOMY CATHETER, INITIAL ENCOUNTER (2) Obstructive uropathy Code(s): N13.9 - OBSTRUCTIVE AND REFLUX UROPATHY, UNSPECIFIED (3) ESBL (extended spectrum beta-lactamase) producing bacteria infection Code(s): A49.9 - BACTERIAL INFECTION, UNSPECIFIED Z16.12 - EXTENDED SPECTRUM BETA LACTAMASE (ESBL) RESISTANCE (4) HTN (hypertension) Code(s): I10 - ESSENTIAL (PRIMARY) HYPERTENSION (5) Nephrostomy status Code(s): Z93.6 - OTHER ARTIFICIAL OPENINGS OF URINARY TRACT STATUS (6) Recurrent UTI (urinary tract infection) Code(s): N39.0 - URINARY TRACT INFECTION, SITE NOT SPECIFIED (7) UTI (urinary tract infection) Code(s): N39.0 - URINARY TRACT INFECTION, SITE NOT SPECIFIED Qualifiers: Urinary tract infection type: catheter-associated UTI Indwelling urinary catheter type: nephrostomy catheter Encounter type: initial encounter Qualified Code(s): T83.512A - Infection and inflammatory reaction due to nephrostomy catheter, initial encounter; N39.0 - Urinary tract infection , site not specified (8) Coronary arteriosclerosis Code(s): I25.10 - ATHSCL HEART DISEASE OF [place] CORONARY ARTERY W/O ANG PCTRS (9) Hypothyroidism Code(s): E03.9 - HYPOTHYROIDISM, UNSPECIFIED plan finish abx course for a total of 2 weeks rest as per primary
[2016-10-14 14:30] VITALS: BP 145/65; PULSE 79; TEMP 98.2
--- NOTE | 2016-10-14 15:40 | PN ---
Progress Note (short form) - Note Progress Note: Patient stable No complaints Nephrostomy tube placed Picc in place - Current Medication List Current Medications: Active Medications Acetaminophen (Tylenol -) 650 mg PO Q6H PRN PRN Reason: PAIN Last Admin: 10/11/16 22:59 Dose: 650 mg Al Hydroxide/Mg Hydroxide (Mylanta Oral Suspension -) 30 ml PO QID PRN PRN Reason: DYSPEPSIA Amlodipine Besylate (Norvasc -) 5 mg PO DAILY [facility] Last Admin: 10/12/16 10:08 Dose: 5 mg Aspirin (Asa -) 81 mg PO DAILY [facility] Last Admin: 10/12/16 10:08 Dose: 81 mg Atorvastatin Calcium (Lipitor -) 10 mg PO HS [facility] Last Admin: 10/11/16 22:33 Dose: 10 mg Cholecalciferol (Vitamin D3 -) 2,000 unit PO DAILY [facility] Last Admin: 10/12/16 10:08 Dose: 2,000 unit Cyanocobalamin (Vitamin B12 -) 1,000 mcg PO DAILY [facility] Last Admin: 10/12/16 10:08 Dose: 1,000 mcg Diltiazem HCl (Cardizem -) 30 mg PO TID [facility] Last Admin: 10/12/16 06:24 Dose: 30 mg Furosemide (Lasix -) 40 mg PO DAILY [facility] Last Admin: 10/12/16 10:08 Dose: 40 mg Meropenem 1 gm/ Dextrose 100 mls @ 100 mls/hr IVPB BID [facility] PRN Reason: Protocol Last Admin: 10/12/16 10:08 Dose: 100 mls/hr Lactobacillus Acidophilus (Bacid -) 1 tab PO DAILY [facility] Last Admin: 10/12/16 10:08 Dose: 1 tab Levothyroxine Sodium (Synthroid -) 50 mcg PO AM [facility] Last Admin: 10/12/16 06:27 Dose: 50 mcg Morphine Sulfate (Morphine Injection -) 2 mg IVPUSH Q4H PRN PRN Reason: PAIN Prochlorperazine Maleate (Compazine -) 5 mg PO Q8H PRN PRN Reason: nausea with vomiting Senna (Senna -) 1 tab PO HS [facility] Last Admin: 10/11/16 22:33 Dose: 1 tab Tamsulosin HCl (Flomax -) 0.4 mg PO DAILY [facility] Last Admin: 10/12/16 10:08 Dose: 0.4 mg - Objective Vital Signs: Vital Signs Period Temp Pulse Resp BP Sys/Donovan Pulse Ox Last 24 Hr 97.9 F-98.6 F 76-84 18-24 120-145/60-78 96-96 Constitutional: Yes: No Distress, Calm Cardiovascular: Yes: Regular Rate and Rhythm, S1, S2. No: Murmur Respiratory: Yes: Regular, CTA Bilaterally. No: Rales, Rhonchi, Wheezes Gastrointestinal: Yes: Normal Bowel Sounds, Soft. No: Distention, Tenderness Edema: No Labs: CBC, BMP 10/13/16 07:30 10/14/16 06:30 Microbiology 10/11/16 02:56 Urine - Urine Clean Catch Urine Culture - Final Escherichia Coli Esbl [employer] Problem List - Problems (1) Nephrostomy tube displaced Code(s): T83.022A - DISPLACEMENT OF NEPHROSTOMY CATHETER, INITIAL ENCOUNTER (2) ESBL (extended spectrum beta-lactamase) producing bacteria infection Code(s): A49.9 - BACTERIAL INFECTION, UNSPECIFIED Z16.12 - EXTENDED SPECTRUM BETA LACTAMASE (ESBL) RESISTANCE (3) HTN (hypertension) Code(s): I10 - ESSENTIAL (PRIMARY) HYPERTENSION (4) Hypothyroidism Code(s): E03.9 - HYPOTHYROIDISM, UNSPECIFIED (5) Obstructive uropathy Code(s): N13.9 - OBSTRUCTIVE AND REFLUX UROPATHY, UNSPECIFIED Assessment/Plan Current Active Problems UTI - E Coli ESBL Nephrostomy tube displaced (Acute) Obstructive uropathy (Acute) HTN hypercalcemia nephrolithiasis Nephrostomy tube placed Picc in place Cont abx x 2 weeks. Hyperparathyroidism - will have outpatient endocrinology follow up with Dr. Rogers.
--- NOTE | 2016-10-14 15:45 | DS ---
Physical Examination Vital Signs: Vital Signs Temperature 98.2 F 10/14/16 14:28 Pulse Rate 79 10/14/16 14:28 Respiratory Rate 20 10/14/16 08:00 Blood Pressure 145/65 10/14/16 14:28 O2 Sat by Pulse Oximetry (%) 96 10/14/16 09:00 Labs: CBC, BMP 10/13/16 07:30 10/14/16 06:30 Discharge Summary Reason For Visit: DIPLACEMENT OF NEPHROSTOMY TUBE Current Active Problems Nephrostomy tube displaced (Acute) Obstructive uropathy (Acute) Hospital Course: Patient sent from [facility] for dislodged left nephrostomy tube. Found to have UTI. Cultures positive EColi esbl. Per ID will need IV abx for 2 weeks. Left nephrostomy tube placed. PICC placed. Patient is stable to be discharged back to [facility]. Condition: Fair - Instructions Referrals: Remy Israel MD [Primary Care Provider] - Disposition: [facility] FACILITY - Home Medications Comprehensive Discharge Medication List: Ambulatory Orders Aa/Hydrolyzed Collagen, Whey [Lps Neutral Flavor Liquid] 30 ml PO DAILY Acetaminophen 650 mg PO Q6H PRN 08/07/16 Alendronate Sodium/Vitamin D3 [Fosamax Plus D 70 mg-5,600 Iu vIT d] 1 each PO FR 08/07/16 Amlodipine Besylate [Norvasc -] 5 mg PO DAILY 08/07/16 Aspirin [ASA -] 81 mg PO DAILY 08/07/16 Atorvastatin Ca [Lipitor] 10 mg PO HS 08/07/16 Cholecalciferol (Vitamin D3) [D3-2000] 2,000 unit PO DAILY 08/07/16 Cyanocobalamin [Vitamin B12 -] 1,000 mcg PO DAILY 08/07/16 Diltiazem [Cardizem -] 30 mg PO TID 08/07/16 Furosemide [Lasix] 40 mg PO DAILY 08/07/16 Lactobacillus Acidophilus [Acidophilus] 1 each PO DAILY 08/07/16 Levothyroxine [Synthroid -] 50 mcg PO DAILY 08/07/16 Mag Hydrox/Al Hydrox/Simeth [Mylanta Oral Suspension -] 30 ml PO QID PRN Potassium Chloride 20 meq PO DAILY 08/07/16 Prochlorperazine Maleate 5 mg PO Q8H PRN 08/07/16 Sennosides [Senna] 17.2 mg PO HS 08/07/16 Tamsulosin HCl [Flomax] 0.4 mg PO DAILY 08/07/16 Hypromellose 0.5% Opth Soln [Artificial Tears] 1 drop OU BID 10/11/16
[2016-10-15 14:52] LABS: CALCIUM 11.2 mg/dL (8.7-10.3)
== END 2016-10-14 18:55 | DRG 699 ==
LOC: JER 01:50 → JERBED 06:46 → J6S 12:09
PROVIDERS: ADMIT Specialist; ATTEND Specialist
PROC: 0T9130Z Drainage of Left Kidney with Drainage Device, Percutaneous Approach (ICD-10-PCS; principal; 2016-10-13)
PROC: 02HV33Z Insertion of Infusion Device into Superior Vena Cava, Percutaneous Approach (ICD-10-PCS; 2016-10-14)
DX: T83.022A Displacement of nephrostomy catheter, initial encounter (principal); N39.0 Urinary tract infection, site not specified; Y84.8 Other medical procedures as the cause of abnormal reaction of the patient, or of later complication, without mention of misadventure at the time of the procedure; N13.9 Obstructive and reflux uropathy, unspecified; E21.3 Hyperparathyroidism, unspecified; J44.9 Chronic obstructive pulmonary disease, unspecified; I25.2 Old myocardial infarction; Z95.1 Presence of aortocoronary bypass graft; I10 Essential (primary) hypertension; E78.00 Pure hypercholesterolemia, unspecified; K21.9 Gastro-esophageal reflux disease without esophagitis; Z95.5 Presence of coronary angioplasty implant and graft
CPT/HCPCS: 36415; 36569; 50432; 71010-TC; 77001-TC; 80053; 81003; 81015; 82310; 83970; 85025; 85610; 87086; 87186; 93005; 93010; 99282-25; A4358; C1729; C1751; C1769; J1644

== ENCOUNTER 2016-12-11 23:39 | Observation (INO) | payer OTHER ==
--- NOTE | 2016-12-12 00:23 | PDOC ---
History of Present Illness - General History Source: Patient, Old Records Exam Limitations: No Limitations - History of Present Illness Initial Comments: 12/12/16 00:40 The patient is a 89 year old female, with a significant past medical history of HTN, HLD, Hypothyroid, Hyperparathyroid, COPD, CAD s/p CABG/stent, Dementia & ESBL-producing UTI who presents from [facility] s/p nephrostomy tube dislodgement, who presents to the emergency department with a left sided displaced nephrostomy tube. She denies any kind of pain or symptoms associated with her chief complaint. Allergies: Penicillin Past surgical history: Bypass surgery (1959), stent, left sided nephrostomy tube placement. Social history: No alcohol, tobacco or drug use reported <Pj Mcclure - Last Filed: 12/12/16 00:39> <Hemal Godinez - Last Filed: 12/12/16 01:53> - General Stated Complaint: NEPHROSTOMY TUBE DISPLACEMENT Time Seen by Provider: 12/12/16 00:16 Past History <Pj Mcclure - Last Filed: 12/12/16 00:39> - Past Medical History Anemia: Yes (vit b12 deficiency anemia) Asthma: No Cancer: No Cardiac Disorders: Yes (CAD, RI, CABG, ASHD) COPD: Yes Dementia: Yes GI Disorders: Yes (Constipation, GERD) Disorders: Yes (Dysuria, UTIs, cystitis, ESBL,) HTN: Yes Hypercholesterolemia: Yes Psychiatric Problems: Yes (Mood Disorder) Thyroid Disease: Yes (hypothyroid, hyperparathyroidism) - Surgical History Cardiac Surgery: Yes (CABG 1959) - Immunization History Immunization Up to Date: Yes - Suicide/Smoking/Psychosocial Hx Smoking Status: No Smoking History: Never smoked Have you smoked in the past 12 months: No Number of Cigarettes Smoked Daily: 0 Cigars Per Day: 0 Hx Alcohol Use: No Drug/Substance Use Hx: No Substance Use Type: None Hx Substance Use Treatment: No <Hemal Godinez - Last Filed: 12/12/16 01:53> - Past Medical History Allergies/Adverse Reactions: Allergies Allergy/AdvReac Type Severity Reaction Status Date / Time Penicillins Allergy Verified 10/11/16 02:08 Home Medications: Ambulatory Orders Aa/Hydrolyzed Collagen, Whey [Lps Neutral Flavor Liquid] 30 ml PO DAILY Acetaminophen 650 mg PO Q6H PRN 08/07/16 Amlodipine Besylate [Norvasc -] 5 mg PO DAILY 08/07/16 Aspirin [ASA -] 81 mg PO DAILY 08/07/16 Atorvastatin Ca [Lipitor] 10 mg PO HS 08/07/16 Cyanocobalamin [Vitamin B12 -] 1,000 mcg PO DAILY 08/07/16 Diltiazem [Cardizem -] 30 mg PO TID 08/07/16 Furosemide [Lasix] 40 mg PO DAILY 08/07/16 Lactobacillus Acidophilus [Acidophilus] 1 each PO DAILY 08/07/16 Levothyroxine [Synthroid -] 50 mcg PO DAILY 08/07/16 Mag Hydrox/Al Hydrox/Simeth [Mylanta Oral Suspension -] 30 ml PO QID PRN Potassium Chloride 20 meq PO DAILY 08/07/16 Prochlorperazine Maleate 5 mg PO Q8H PRN 08/07/16 Sennosides [Senna] 17.2 mg PO HS 08/07/16 Tamsulosin HCl [Flomax] 0.4 mg PO DAILY 08/07/16 Hypromellose 0.5% Opth Soln [Artificial Tears] 1 drop OU BID 10/11/16 Meropenem [Merrem (Restricted To Id) -] 1 gm IVPB BID #25 vial 10/14/16 Review of Systems - Review of Systems Able to Perform ROS?: Yes Comments:: 12/12/16 00:40 ROS: A complete review of 10 out of 10 review of systems is taken and is negative apart from what is previously mentioned below and in the HPI. <Pj Mcclure - Last Filed: 12/12/16 00:39> *Physical Exam - Physical Exam Comments: 12/12/16 00:40 Vitals: Triage Vital signs reviewed General Appearance: no acute distress, well nourished well developed Head: Atraumatic Chest Wall: Nontender Cardiac: Regular rate and rhythym, no murmurs, no rubs, no gallops Lungs: Clear to auscultation bilateral, good air movement bilaterally Abdomen: Soft, non distended, normal bowel sounds, non tender to palpation Genitourinary: (+) Bandage left side where nephrosomy tube was. Skin: Warm and dry, no rashes or lesions, no rash, no petechiae Neuro: AOX3; Cranial Nerves 2-12 grossly intact, Strength intact to all extremities, Sensation intact to all extremities, gait normal Psych: Normal mood, normal affect <Pj Mcclure - Last Filed: 12/12/16 00:39> ED Treatment Course - LABORATORY CBC & Chemistry Diagram: 12/12/16 01:01 12/12/16 01:01 <Hemal Godinez - Last Filed: 12/12/16 01:53> Medical Decision Making - Medical Decision Making 12/12/16 01:53 Patient with nephrostomy tube displacement. We'll observe overnight IR consultation morning patient well-appearing no apparent distress. <Hemal Godinez - Last Filed: 12/12/16 01:53> *DC/Admit/Observation/Transfer - Attestations Scribe Attestion: 12/12/16 00:40 Documentation prepared by Pj Mcclure, acting as medical device sales representative for Hemal Godinez MD <Pj Mcclure - Last Filed: 12/12/16 00:39> - Discharge Dispostion Admit: Yes <Hemal Godinez - Last Filed: 12/12/16 01:53> Diagnosis at time of Disposition: Nephrostomy tube displaced - Discharge Dispostion Condition at time of disposition: Good
[2016-12-12 01:11] LABS: BASOPHIL 0.8 % (0-2.0); EOSINOPHIL 2.5 % (0-4.5); MCHC 34.7 g/dl (32.0-36.0); MEAN CELL VOLUME 89.2 fl (80-96); MEAN PLT VOLUME 8.2 fl (7.5-11.1); NEUTROPHILS 67.8 % (42.8-82.8); PLATELET COUNT 196 K/MM3 (134-434); RDW 14.5 % (11.6-15.6); WHITE BLOOD COUNT 10.7 K/mm3 (4.0-10.0)
[2016-12-12 01:19] VITALS: BMI 23.4
[2016-12-12 01:22] LABS: INR 0.97 (0.82-1.09)
[2016-12-12 01:24] LABS: ACTIVATED PTT 34.6 SECONDS (26.9-34.4)
[2016-12-12 01:31] LABS: ALBUMIN 3.3 g/dl (3.4-5.0); ANION GAP 10 (8-16); BILIRUBIN,TOTAL 0.3 mg/dL (0.2-1.0); CALCIUM 10.5 mg/dL (8.5-10.1); CO2 25 mmol/L (21-32); CREATININE 1.4 mg/dL (0.55-1.02); GLUCOSE,RANDOM 111 mg/dL (74-106); SGOT/AST 15 U/L (15-37); SGPT/ALT 29 U/L (12-78); TOT PROT 6.7 g/dl (6.4-8.2)
[2016-12-12 01:32] LABS: ALK PHOS 132 U/L (45-117)
[2016-12-12] MEDS ORDERED: PROCHLORPERAZINE MALEATE 5 MG TABLET PO PRN (02:10)
[2016-12-12] MEDS ORDERED: MAG HYDROX/AL HYDROX/SIMETH 30 ML UNIT-DOSE CUP PO PRN (02:10)
--- NOTE | 2016-12-12 02:19 | HP ---
Admitting History and Physical - Primary Care Physician PCP: Guy Garcia - Admission Chief Complaint: nephrostomy tube dislodgement History of Present Illness: 89 yo F with a PMHx of COPD, HTN, HLD, CAD s/p CABG/stents, Frequent UTI's with ESBL in 10/2016 s/p nephrostomy tube in 06/2016 was brought in from [facility] due to nephrostomy tube dislodgement. Patient stated the tube just fell out by itself. She denies bleeding, drainage, pain at the placement site. Further denies fever, chills, nausea, vomiting, chest pain, palpitations, shortness of breath, frequency, dysuria, hematuria. History Source: Patient Limitations to Obtaining History: No Limitations - Past Medical History CLINICAL APPEALS AUDITOR: Yes: Dementia Cardiovascular: Yes: Aortic Insufficiency, CAD, HTN, Hyperlipdemia Gastrointestinal: Yes: Diverticulitis Renal/: Yes: UTI (ESBL+) Infectious Disease: Yes: Other (UTI) Musculoskeletal: Yes: Other (frequent falls) Endocrine: Yes: Hypothyroidism - Past Surgical History Past Surgical History: Yes: CABG, Stent (unknown details of coronary stent) - Smoking History Smoking history: Never smoked Have you smoked in the past 12 months: No Aproximately how many cigarettes per day: 0 - Alcohol/Substance Use Hx Alcohol Use: No - Social History 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 Home Medications - Allergies Allergies/Adverse Reactions: Allergies Allergy/AdvReac Type Severity Reaction Status Date / Time Penicillins Allergy Verified 10/11/16 02:08 - Home Medications Home Medications: Ambulatory Orders Aa/Hydrolyzed Collagen, Whey [Lps Neutral Flavor Liquid] 30 ml PO DAILY Acetaminophen 650 mg PO Q6H PRN 08/07/16 Amlodipine Besylate [Norvasc -] 5 mg PO DAILY 08/07/16 Aspirin [ASA -] 81 mg PO DAILY 08/07/16 Atorvastatin Ca [Lipitor] 10 mg PO HS 08/07/16 Cyanocobalamin [Vitamin B12 -] 1,000 mcg PO DAILY 08/07/16 Diltiazem [Cardizem -] 30 mg PO TID 08/07/16 Furosemide [Lasix] 40 mg PO DAILY 08/07/16 Lactobacillus Acidophilus [Acidophilus] 1 each PO DAILY 08/07/16 Levothyroxine [Synthroid -] 50 mcg PO DAILY 08/07/16 Mag Hydrox/Al Hydrox/Simeth [Mylanta Oral Suspension -] 30 ml PO QID PRN Potassium Chloride 20 meq PO DAILY 08/07/16 Prochlorperazine Maleate 5 mg PO Q8H PRN 08/07/16 Sennosides [Senna] 17.2 mg PO HS 08/07/16 Tamsulosin HCl [Flomax] 0.4 mg PO DAILY 08/07/16 Hypromellose 0.5% Opth Soln [Artificial Tears] 1 drop OU BID 10/11/16 Meropenem [Merrem (Restricted To Id) -] 1 gm IVPB BID #25 vial 10/14/16 Review of Systems - Review of Systems Constitutional: reports: No Symptoms Eyes: reports: No Symptoms HENT: reports: No Symptoms Neck: reports: No Symptoms Cardiovascular: reports: No Symptoms Respiratory: reports: No Symptoms Gastrointestinal: reports: No Symptoms Genitourinary: reports: No Symptoms Musculoskeletal: reports: No Symptoms Integumentary: reports: No Symptoms Neurological: reports: No Symptoms Endocrine: reports: No Symptoms Hematology/Lymphatic: reports: No Symptoms Physical Examination Vital Signs: Vital Signs Temperature 98.2 F 12/12/16 01:14 Pulse Rate 73 12/12/16 01:14 Respiratory Rate 18 12/12/16 01:14 Blood Pressure 190/58 12/12/16 01:14 O2 Sat by Pulse Oximetry (%) 96 12/12/16 01:14 Constitutional: Yes: No Distress Eyes: Yes: Conjunctiva Clear, EOM Intact HENT: Yes: Atraumatic, Normocephalic Neck: Yes: Supple Cardiovascular: Yes: Regular Rate and Rhythm, S1, S2 Respiratory: Yes: CTA Bilaterally Gastrointestinal: Yes: Normal Bowel Sounds, Distention. No: Hepatomegaly, Splenomegaly, Tenderness Renal/: Yes: Other (L nephrostomy tube site clean looking, non-erythematous, non-tender). No: CVA Tenderness - Left, CVA Tenderness - Right Edema: No Neurological: Yes: Alert, Oriented, Cran Nerves II-XII Intact Labs: CBC, BMP 12/12/16 01:01 12/12/16 01:01 Assessment/Plan Nephrostomy tube dislodgement - IR consult DMITRY - Likely 2/2 obstructive uropathy - Re-insert nephrostomy tube HTN - Cont. home meds Hypothyroidism - Cont. synthroid HLD - Cont. lipitor Hypercalcemia - Outpatient workup FEN - IVF not indicated - Normal lytes - DM diet Prophylaxis - DVT: heparin Visit type - Emergency Visit Emergency Visit: Yes Care time: The patient presented to the Emergency Department on the above date and was hospitalized for further evaluation of their emergent condition. - New Patient This patient is new to me today: Yes Date on this admission: 12/12/16 - Critical Care Critical Care patient: No
[2016-12-12] MEDS: HEPARIN NA (PORCINE) 5,000 UNITS/ML 1ML VIAL SQ SCH ×3 (06:11→22:38)
[2016-12-12] MEDS: dilTIAZem HCL 30 MG TABLET (FP) PO SCH ×3 (06:11→22:38)
[2016-12-12] MEDS ORDERED: dilTIAZem HCL 30 MG TABLET (FP) ONE (06:13)
[2016-12-12] MEDS ORDERED: HEPARIN NA (PORCINE) 5,000 UNITS/ML 1ML VIAL ONE (06:13)
[2016-12-12] MEDS ORDERED: ARTIFICIAL TEARS (POLYVINYL ALCOHOL 1.4%) OPTH DROPS OU PRN (06:15)
--- NOTE | 2016-12-12 06:35 | PN ---
Teaching Attending Note Name of Resident: Abelardo Bradford ATTENDING PHYSICIAN STATEMENT I saw and evaluated the patient. I reviewed the resident's note and discussed the case with the resident. I agree with the resident's findings and plan as documented. SUBJECTIVE: OBJECTIVE: aaox3 s1 and s2 RRR no abdominal tenderness ASSESSMENT AND PLAN: nephrostomy tube dislodge patient stated she is doing well she denied any fever chills, nausea, vomiting or diaphoresis she wanted to see if she can go home today
[2016-12-12] MEDS ORDERED: TAMSULOSIN HCL 0.4 MG CAP.ER.24H (FP) ONE (07:31)
[2016-12-12] MEDS ORDERED: LEVOTHYROXINE NA 25 MCG TABLET (FP) ONE (07:31)
[2016-12-12] MEDS: LEVOTHYROXINE NA 50 MCG TABLET (FP) PO SCH (07:42)
[2016-12-12] MEDS: TAMSULOSIN HCL 0.4 MG CAP.ER.24H (FP) PO SCH (07:42)
[2016-12-12] MEDS: INSULIN SLIDING SCALE (NOVOLOG) 1 VIAL SQ SCH ×4 (07:42→22:38)
[2016-12-12 08:33] LABS: MCH 30.9 pg (25.7-33.7); MCHC 34.4 g/dl (32.0-36.0); MEAN CELL VOLUME 89.7 fl (80-96); MEAN PLT VOLUME 8.6 fl (7.5-11.1); PLATELET COUNT 182 K/MM3 (134-434); RDW 14.8 % (11.6-15.6)
[2016-12-12 08:40] LABS: ANION GAP 7 (8-16); CALCIUM 10.9 mg/dL (8.5-10.1); CO2 26 mmol/L (21-32); CREATININE 1.2 mg/dL (0.55-1.02); GLUCOSE,RANDOM 93 mg/dL (74-106)
[2016-12-12] MEDS: ASPIRIN 81 MG CHEWABLE TABLETS PO SCH (09:22)
[2016-12-12] MEDS: LACTOBACILLUS ACIDOPHILUS 1 EACH TAB (FP) PO SCH (09:23)
[2016-12-12] MEDS: amLODIPine BESYLATE 5 MG TABLET (FP) PO SCH (09:23)
[2016-12-12] MEDS: FUROSEMIDE 40 MG TABLET (FP) PO SCH (09:23)
[2016-12-12] MEDS: POTASSIUM CHLORIDE TABS 20 MEQ TABLET.ER (FP) PO SCH (09:23)
[2016-12-12] MEDS: CYANOCOBALAMIN 1,000 MCG TABLET (FP) PO SCH (09:24)
[2016-12-12] MEDS ORDERED: PATIENT'S OWN MEDICATION (NON-FORMULARY) (Aa/Hydrolyzed Collagen, Whey [Lps Neutral Flavor PO SCH (10:00)
--- NOTE | 2016-12-12 17:48 | PN ---
Progress Note (short form) - Note Progress Note: Patient seen and examined. Awaiting Nephrostomy tube re-insertion by IR
[2016-12-12] MEDS: SENNOSIDES 8.6MG TABLET (FP) PO SCH (22:39)
[2016-12-12] MEDS: ATORVASTATIN CA 10 MG TABLET (FP) PO SCH (22:39)
[2016-12-13] MEDS: INSULIN SLIDING SCALE (NOVOLOG) 1 VIAL SQ SCH ×4 (06:17→21:05)
[2016-12-13] MEDS: dilTIAZem HCL 30 MG TABLET (FP) PO SCH ×3 (06:48→21:05)
[2016-12-13] MEDS: LEVOTHYROXINE NA 50 MCG TABLET (FP) PO SCH (06:48)
[2016-12-13] MEDS ORDERED: FLU VACCINE QUAD 60 MCG/0.5 ML (MDV 17-18) IM ONE (10:00)
[2016-12-13] MEDS: amLODIPine BESYLATE 5 MG TABLET (FP) PO SCH (10:28)
[2016-12-13] MEDS: POTASSIUM CHLORIDE TABS 20 MEQ TABLET.ER (FP) PO SCH (10:28)
[2016-12-13] MEDS: LACTOBACILLUS ACIDOPHILUS 1 EACH TAB (FP) PO SCH (10:28)
[2016-12-13] MEDS: TAMSULOSIN HCL 0.4 MG CAP.ER.24H (FP) PO SCH (10:28)
[2016-12-13] MEDS: FUROSEMIDE 40 MG TABLET (FP) PO SCH (10:28)
[2016-12-13] MEDS: ASPIRIN 81 MG CHEWABLE TABLETS PO SCH (10:29)
[2016-12-13] MEDS: CYANOCOBALAMIN 1,000 MCG TABLET (FP) PO SCH (10:30)
--- NOTE | 2016-12-13 16:32 | PN ---
Progress Note (short form) - Note Progress Note: No acute event overnight. Awaiting nephrostomy tube re-insertion Afebrile. 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 Cardiovascular: Yes: Aortic Insufficiency, CAD, HTN, Hyperlipdemia Gastrointestinal: Yes: Diverticulitis Renal/: Yes: UTI (ESBL+) Infectious Disease: Yes: Other (UTI) Musculoskeletal: Yes: Other (frequent falls) Endocrine: Yes: Hypothyroidism - Past Surgical History Past Surgical History: Yes: CABG, Stent (unknown details of coronary stent) - Smoking History Smoking history: Never smoked Have you smoked in the past 12 months: No Aproximately how many cigarettes per day: 0 - Alcohol/Substance Use Hx Alcohol Use: No - Social History 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 Home Medications - Allergies Allergies/Adverse Reactions: Allergies Allergy/AdvReac Type Severity Reaction Status Date / Time Penicillins Allergy Verified 10/11/16 02:08 - Home Medications Home Medications: Ambulatory Orders Aa/Hydrolyzed Collagen, Whey [Lps Neutral Flavor Liquid] 30 ml PO DAILY Acetaminophen 650 mg PO Q6H PRN 08/07/16 Amlodipine Besylate [Norvasc -] 5 mg PO DAILY 08/07/16 Aspirin [ASA -] 81 mg PO DAILY 08/07/16 Atorvastatin Ca [Lipitor] 10 mg PO HS 08/07/16 Cyanocobalamin [Vitamin B12 -] 1,000 mcg PO DAILY 08/07/16 Diltiazem [Cardizem -] 30 mg PO TID 08/07/16 Furosemide [Lasix] 40 mg PO DAILY 08/07/16 Lactobacillus Acidophilus [Acidophilus] 1 each PO DAILY 08/07/16 Levothyroxine [Synthroid -] 50 mcg PO DAILY 08/07/16 Mag Hydrox/Al Hydrox/Simeth [Mylanta Oral Suspension -] 30 ml PO QID PRN Potassium Chloride 20 meq PO DAILY 08/07/16 Prochlorperazine Maleate 5 mg PO Q8H PRN 08/07/16 Sennosides [Senna] 17.2 mg PO HS 08/07/16 Tamsulosin HCl [Flomax] 0.4 mg PO DAILY 08/07/16 Hypromellose 0.5% Opth Soln [Artificial Tears] 1 drop OU BID 10/11/16 Meropenem [Merrem (Restricted To Id) -] 1 gm IVPB BID #25 vial 10/14/16 Review of Systems - Review of Systems Constitutional: reports: No Symptoms Eyes: reports: No Symptoms HENT: reports: No Symptoms Neck: reports: No Symptoms Cardiovascular: reports: No Symptoms Respiratory: reports: No Symptoms Gastrointestinal: reports: No Symptoms Genitourinary: reports: No Symptoms Musculoskeletal: reports: No Symptoms Integumentary: reports: No Symptoms Neurological: reports: No Symptoms Endocrine: reports: No Symptoms Hematology/Lymphatic: reports: No Symptoms Physical Examination Vital Signs: Vital Signs Period Temp Pulse Resp BP Sys/Donovan Pulse Ox Last 24 Hr 97.8 F-98.8 F 68-78 17-20 131-176/55-68 96-100 Constitutional: Yes: No Distress Eyes: Yes: Conjunctiva Clear, EOM Intact HENT: Yes: Atraumatic, Normocephalic Neck: Yes: Supple Cardiovascular: Yes: Regular Rate and Rhythm, S1, S2 Respiratory: Yes: CTA Bilaterally Gastrointestinal: Yes: Normal Bowel Sounds, Distention. No: Hepatomegaly, Splenomegaly, Tenderness Renal/: Yes: Other (L nephrostomy tube site clean looking, non-erythematous, non-tender). No: CVA Tenderness - Left, CVA Tenderness - Right Edema: No Neurological: Yes: Alert, Oriented, Cran Nerves II-XII Intact Labs: CBC, BMP 12/12/16 07:00 12/12/16 07:00 Assessment/Plan Nephrostomy tube dislodgement - IR consulted. Awaiting re-insertion. DMITRY - Likely 2/2 obstructive uropathy - Re-insert nephrostomy tube HTN - Cont. home meds Hypothyroidism - Cont. synthroid HLD - Cont. lipitor Hypercalcemia - Outpatient workup FEN - IVF not indicated - Normal lytes - DM diet Prophylaxis - DVT: heparin
[2016-12-13] MEDS ORDERED: INSULIN (NOVOLOG) ASPART 100 UNITS/ML 10ML VIAL ONE (20:33)
[2016-12-13] MEDS: SENNOSIDES 8.6MG TABLET (FP) PO SCH (21:05)
[2016-12-13] MEDS: ATORVASTATIN CA 10 MG TABLET (FP) PO SCH (21:05)
[2016-12-14] MEDS: dilTIAZem HCL 30 MG TABLET (FP) PO SCH ×3 (06:16→21:30)
[2016-12-14] MEDS: INSULIN SLIDING SCALE (NOVOLOG) 1 VIAL SQ SCH ×4 (06:16→21:36)
[2016-12-14] MEDS: LEVOTHYROXINE NA 50 MCG TABLET (FP) PO SCH (07:35)
[2016-12-14 08:13] LABS: ANION GAP 8 (8-16); CO2 25 mmol/L (21-32); GLUCOSE,RANDOM 95 mg/dL (74-106)
[2016-12-14 08:14] LABS: CREATININE 0.9 mg/dL (0.55-1.02)
[2016-12-14] MEDS: TAMSULOSIN HCL 0.4 MG CAP.ER.24H (FP) PO SCH (08:44)
[2016-12-14] MEDS: ASPIRIN 81 MG CHEWABLE TABLETS PO SCH (10:21)
[2016-12-14] MEDS: CYANOCOBALAMIN 1,000 MCG TABLET (FP) PO SCH (10:21)
[2016-12-14] MEDS: amLODIPine BESYLATE 5 MG TABLET (FP) PO SCH (10:21)
[2016-12-14] MEDS: LACTOBACILLUS ACIDOPHILUS 1 EACH TAB (FP) PO SCH (10:21)
[2016-12-14] MEDS: POTASSIUM CHLORIDE TABS 20 MEQ TABLET.ER (FP) PO SCH (10:21)
[2016-12-14] MEDS: FUROSEMIDE 40 MG TABLET (FP) PO SCH (10:21)
[2016-12-14] MEDS ORDERED: oxyCODONE HCL 5 MG TABLET PO PRN (17:32)
[2016-12-14] MEDS: oxyCODONE HCL 5 MG TABLET PO PRN (17:40)
--- NOTE | 2016-12-14 18:45 | PN ---
Progress Note (short form) - Note Progress Note: No acute event overnight. Case discussed with Dr. Gamboa. S/P Neprostomy tube placement and ureteral stent placement. Afebrile. 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 Cardiovascular: Yes: Aortic Insufficiency, CAD, HTN, Hyperlipdemia Gastrointestinal: Yes: Diverticulitis Renal/: Yes: UTI (ESBL+) Infectious Disease: Yes: Other (UTI) Musculoskeletal: Yes: Other (frequent falls) Endocrine: Yes: Hypothyroidism - Past Surgical History Past Surgical History: Yes: CABG, Stent (unknown details of coronary stent) - Smoking History Smoking history: Never smoked Have you smoked in the past 12 months: No Aproximately how many cigarettes per day: 0 - Alcohol/Substance Use Hx Alcohol Use: No - Social History 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 Home Medications - Allergies Allergies/Adverse Reactions: Allergies Allergy/AdvReac Type Severity Reaction Status Date / Time Penicillins Allergy Verified 10/11/16 02:08 - Home Medications Home Medications: Ambulatory Orders Aa/Hydrolyzed Collagen, Whey [Lps Neutral Flavor Liquid] 30 ml PO DAILY Acetaminophen 650 mg PO Q6H PRN 08/07/16 Amlodipine Besylate [Norvasc -] 5 mg PO DAILY 08/07/16 Aspirin [ASA -] 81 mg PO DAILY 08/07/16 Atorvastatin Ca [Lipitor] 10 mg PO HS 08/07/16 Cyanocobalamin [Vitamin B12 -] 1,000 mcg PO DAILY 08/07/16 Diltiazem [Cardizem -] 30 mg PO TID 08/07/16 Furosemide [Lasix] 40 mg PO DAILY 08/07/16 Lactobacillus Acidophilus [Acidophilus] 1 each PO DAILY 08/07/16 Levothyroxine [Synthroid -] 50 mcg PO DAILY 08/07/16 Mag Hydrox/Al Hydrox/Simeth [Mylanta Oral Suspension -] 30 ml PO QID PRN Potassium Chloride 20 meq PO DAILY 08/07/16 Prochlorperazine Maleate 5 mg PO Q8H PRN 08/07/16 Sennosides [Senna] 17.2 mg PO HS 08/07/16 Tamsulosin HCl [Flomax] 0.4 mg PO DAILY 08/07/16 Hypromellose 0.5% Opth Soln [Artificial Tears] 1 drop OU BID 10/11/16 Meropenem [Merrem (Restricted To Id) -] 1 gm IVPB BID #25 vial 10/14/16 Review of Systems - Review of Systems Constitutional: reports: No Symptoms Eyes: reports: No Symptoms HENT: reports: No Symptoms Neck: reports: No Symptoms Cardiovascular: reports: No Symptoms Respiratory: reports: No Symptoms Gastrointestinal: reports: No Symptoms Genitourinary: reports: No Symptoms Musculoskeletal: reports: No Symptoms Integumentary: reports: No Symptoms Neurological: reports: No Symptoms Endocrine: reports: No Symptoms Hematology/Lymphatic: reports: No Symptoms Physical Examination Vital Signs: Vital Signs Period Temp Pulse Resp BP Sys/Donovan Pulse Ox Last 24 Hr 98.1 F-98.7 F 74-111 14-20 140-160/60-80 96-100 Constitutional: Yes: No Distress Eyes: Yes: Conjunctiva Clear, EOM Intact HENT: Yes: Atraumatic, Normocephalic Neck: Yes: Supple Cardiovascular: Yes: Regular Rate and Rhythm, S1, S2 Respiratory: Yes: CTA Bilaterally Gastrointestinal: Yes: Normal Bowel Sounds, Distention. No: Hepatomegaly, Splenomegaly, Tenderness Renal/: Yes: Other (L nephrostomy tube site clean looking, non-erythematous, non-tender). No: CVA Tenderness - Left, CVA Tenderness - Right Edema: No Neurological: Yes: Alert, Oriented, Cran Nerves II-XII Intact Labs: CBC, BMP 12/12/16 07:00 12/14/16 05:45 Assessment/Plan Nephrostomy tube dislodgement S/P Re-insertion by Dr. Gamboa. S/P ureteral stent placement. Nephrolithiasis Followed by Dr. Malloy. Repeat CT abdomen & pelvis recommended. DMITRY - Likely 2/2 obstructive uropathy - Re-insert nephrostomy tube HTN - Cont. home meds Hypothyroidism - Cont. synthroid HLD - Cont. lipitor Hypercalcemia - Outpatient workup FEN - IVF not indicated - Normal lytes - DM diet Prophylaxis - DVT: heparin
[2016-12-14] MEDS: ATORVASTATIN CA 10 MG TABLET (FP) PO SCH (21:30)
[2016-12-14] MEDS: SENNOSIDES 8.6MG TABLET (FP) PO SCH (21:30)
[2016-12-15] MEDS: INSULIN SLIDING SCALE (NOVOLOG) 1 VIAL SQ SCH ×4 (06:01→21:02)
[2016-12-15] MEDS: dilTIAZem HCL 30 MG TABLET (FP) PO SCH ×3 (06:01→21:02)
[2016-12-15] MEDS: LEVOTHYROXINE NA 50 MCG TABLET (FP) PO SCH (06:01)
[2016-12-15 08:32] LABS: BASOPHIL 0.7 % (0-2.0); EOSINOPHIL 2.8 % (0-4.5); MCH 30.3 pg (25.7-33.7); MCHC 34.1 g/dl (32.0-36.0); MEAN CELL VOLUME 88.9 fl (80-96); MEAN PLT VOLUME 8.1 fl (7.5-11.1); NEUTROPHILS 68.5 % (42.8-82.8); PLATELET COUNT 176 K/MM3 (134-434); RDW 14.8 % (11.6-15.6); WHITE BLOOD COUNT 7.7 K/mm3 (4.0-10.0)
[2016-12-15] MEDS: TAMSULOSIN HCL 0.4 MG CAP.ER.24H (FP) PO SCH ×2 (08:46→12:21)
[2016-12-15 08:52] LABS: ALBUMIN 3.3 g/dl (3.4-5.0); ANION GAP 12 (8-16); BILIRUBIN,TOTAL 0.6 mg/dL (0.2-1.0); CALCIUM 10.2 mg/dL (8.5-10.1); CO2 23 mmol/L (21-32); SGOT/AST 17 U/L (15-37); SGPT/ALT 31 U/L (12-78); TOT PROT 6.5 g/dl (6.4-8.2)
[2016-12-15 08:53] LABS: ALK PHOS 119 U/L (45-117); GLUCOSE,RANDOM 93 mg/dL (74-106)
[2016-12-15] MEDS ORDERED: MIDAZOLAM HCL 2 MG/2 ML SINGLE DOSE VIAL IVPUSH ONE (11:00)
[2016-12-15] MEDS ORDERED: LEVOFLOXACIN 500 MG IVPB 100 ML IVPB ONE (11:00)
--- NOTE | 2016-12-15 11:16 | PN ---
Progress Note (short form) - Note Progress Note: S/P Neprostomy tube placement yesterday Scheduled for ureteral stent placement today. No acute event overnight. Afebrile. 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 Cardiovascular: Yes: Aortic Insufficiency, CAD, HTN, Hyperlipdemia Gastrointestinal: Yes: Diverticulitis Renal/: Yes: UTI (ESBL+) Infectious Disease: Yes: Other (UTI) Musculoskeletal: Yes: Other (frequent falls) Endocrine: Yes: Hypothyroidism - Past Surgical History Past Surgical History: Yes: CABG, Stent (unknown details of coronary stent) - Smoking History Smoking history: Never smoked Have you smoked in the past 12 months: No Aproximately how many cigarettes per day: 0 - Alcohol/Substance Use Hx Alcohol Use: No - Social History 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 Home Medications - Allergies Allergies/Adverse Reactions: Allergies Allergy/AdvReac Type Severity Reaction Status Date / Time Penicillins Allergy Verified 10/11/16 02:08 - Home Medications Home Medications: Ambulatory Orders Aa/Hydrolyzed Collagen, Whey [Lps Neutral Flavor Liquid] 30 ml PO DAILY Acetaminophen 650 mg PO Q6H PRN 08/07/16 Amlodipine Besylate [Norvasc -] 5 mg PO DAILY 08/07/16 Aspirin [ASA -] 81 mg PO DAILY 08/07/16 Atorvastatin Ca [Lipitor] 10 mg PO HS 08/07/16 Cyanocobalamin [Vitamin B12 -] 1,000 mcg PO DAILY 08/07/16 Diltiazem [Cardizem -] 30 mg PO TID 08/07/16 Furosemide [Lasix] 40 mg PO DAILY 08/07/16 Lactobacillus Acidophilus [Acidophilus] 1 each PO DAILY 08/07/16 Levothyroxine [Synthroid -] 50 mcg PO DAILY 08/07/16 Mag Hydrox/Al Hydrox/Simeth [Mylanta Oral Suspension -] 30 ml PO QID PRN Potassium Chloride 20 meq PO DAILY 08/07/16 Prochlorperazine Maleate 5 mg PO Q8H PRN 08/07/16 Sennosides [Senna] 17.2 mg PO HS 08/07/16 Tamsulosin HCl [Flomax] 0.4 mg PO DAILY 08/07/16 Hypromellose 0.5% Opth Soln [Artificial Tears] 1 drop OU BID 10/11/16 Meropenem [Merrem (Restricted To Id) -] 1 gm IVPB BID #25 vial 10/14/16 Review of Systems - Review of Systems Constitutional: reports: No Symptoms Eyes: reports: No Symptoms HENT: reports: No Symptoms Neck: reports: No Symptoms Cardiovascular: reports: No Symptoms Respiratory: reports: No Symptoms Gastrointestinal: reports: No Symptoms Genitourinary: reports: No Symptoms Musculoskeletal: reports: No Symptoms Integumentary: reports: No Symptoms Neurological: reports: No Symptoms Endocrine: reports: No Symptoms Hematology/Lymphatic: reports: No Symptoms Physical Examination Vital Signs: Vital Signs Period Temp Pulse Resp BP Sys/Donovan Pulse Ox Last 24 Hr 98 F-99.7 F 72-111 14-20 134-168/51-72 96-100 Constitutional: Yes: No Distress Eyes: Yes: Conjunctiva Clear, EOM Intact HENT: Yes: Atraumatic, Normocephalic Neck: Yes: Supple Cardiovascular: Yes: Regular Rate and Rhythm, S1, S2 Respiratory: Yes: CTA Bilaterally Gastrointestinal: Yes: Normal Bowel Sounds, Distention. No: Hepatomegaly, Splenomegaly, Tenderness Renal/: Yes: Other (L nephrostomy tube site clean looking, non-erythematous, non-tender). No: CVA Tenderness - Left, CVA Tenderness - Right Edema: No Neurological: Yes: Alert, Oriented, Cran Nerves II-XII Intact Labs: CBC, BMP 12/15/16 06:30 12/15/16 06:30 Assessment/Plan Nephrostomy tube dislodgement S/P Re-insertion by Dr. Gamboa yesterday. Doing well. Scheduled for ureteral stent placement today Nephrolithiasis Followed by Dr. Malloy. For CT abdomen & pelvis today. DMITRY - Likely 2/2 obstructive uropathy - Re-insert nephrostomy tube HTN - Cont. home meds Hypothyroidism - Cont. synthroid HLD - Cont. lipitor Hypercalcemia - Outpatient workup FEN - IVF not indicated - Normal lytes - DM diet Prophylaxis - DVT: heparin
[2016-12-15] MEDS: FUROSEMIDE 40 MG TABLET (FP) PO SCH (12:21)
[2016-12-15] MEDS: LACTOBACILLUS ACIDOPHILUS 1 EACH TAB (FP) PO SCH (12:21)
[2016-12-15] MEDS: amLODIPine BESYLATE 5 MG TABLET (FP) PO SCH (12:22)
[2016-12-15] MEDS: ASPIRIN 81 MG CHEWABLE TABLETS PO SCH (12:22)
[2016-12-15] MEDS: POTASSIUM CHLORIDE TABS 20 MEQ TABLET.ER (FP) PO SCH (12:22)
[2016-12-15] MEDS: CYANOCOBALAMIN 1,000 MCG TABLET (FP) PO SCH (12:22)
[2016-12-15] MEDS: oxyCODONE HCL 5 MG TABLET PO PRN (15:22)
[2016-12-15] MEDS: ATORVASTATIN CA 10 MG TABLET (FP) PO SCH (21:02)
[2016-12-15] MEDS: SENNOSIDES 8.6MG TABLET (FP) PO SCH (21:02)
--- NOTE | 2016-12-15 21:20 | EKG ---
Test Reason : Blood Pressure : / mmHG Vent. Rate : 078 BPM Atrial Rate : 078 BPM P-R Int : 176 ms QRS Dur : 094 ms QT Int : 376 ms P-R-T Axes : 037 -01 103 degrees QTc Int : 428 ms SINUS RHYTHM LEFT VENTRICULAR HYPERTROPHY WITH REPOLARIZATION ABNORMALITY ABNORMAL ECG WHEN COMPARED WITH ECG OF 11-OCT-2016 06:34, Confirmed by MILADY SANTIAGO MD ([id number]) on 12/15/2016 9:20:03 PM Referred By: Confirmed By:MILADY SANTIAGO MD
[2016-12-15 21:37] VITALS: TEMP 98
[2016-12-16] MEDS: oxyCODONE HCL 5 MG TABLET PO PRN (02:20)
[2016-12-16 08:10] VITALS: BP 133/58; PULSE 73
[2016-12-16 08:12] LABS: BASOPHIL 0.5 % (0-2.0); EOSINOPHIL 2.7 % (0-4.5); MCH 30.7 pg (25.7-33.7); MCHC 34.3 g/dl (32.0-36.0); MEAN CELL VOLUME 89.7 fl (80-96); MEAN PLT VOLUME 8.4 fl (7.5-11.1); NEUTROPHILS 66.2 % (42.8-82.8); PLATELET COUNT 181 K/MM3 (134-434); RDW 14.8 % (11.6-15.6); WHITE BLOOD COUNT 7.5 K/mm3 (4.0-10.0)
[2016-12-16] MEDS: FUROSEMIDE 40 MG TABLET (FP) PO SCH (09:24)
[2016-12-16] MEDS: ASPIRIN 81 MG CHEWABLE TABLETS PO SCH (09:24)
[2016-12-16] MEDS: amLODIPine BESYLATE 5 MG TABLET (FP) PO SCH (09:24)
[2016-12-16] MEDS: LACTOBACILLUS ACIDOPHILUS 1 EACH TAB (FP) PO SCH (09:24)
[2016-12-16] MEDS: POTASSIUM CHLORIDE TABS 20 MEQ TABLET.ER (FP) PO SCH (09:24)
[2016-12-16] MEDS: TAMSULOSIN HCL 0.4 MG CAP.ER.24H (FP) PO SCH (09:24)
[2016-12-16] MEDS: CYANOCOBALAMIN 1,000 MCG TABLET (FP) PO SCH (09:24)
[2016-12-16 09:27] LABS: ALK PHOS 119 U/L (45-117); ANION GAP 8 (8-16); BILIRUBIN,TOTAL 0.5 mg/dL (0.2-1.0); CALCIUM 10.5 mg/dL (8.5-10.1); CO2 24 mmol/L (21-32); CREATININE 1.1 mg/dL (0.55-1.02); GLUCOSE,RANDOM 102 mg/dL (74-106); SGOT/AST 13 U/L (15-37); SGPT/ALT 28 U/L (12-78); TOT PROT 6.1 g/dl (6.4-8.2)
[2016-12-16] MEDS: INSULIN SLIDING SCALE (NOVOLOG) 1 VIAL SQ SCH (11:30)
--- NOTE | 2016-12-16 13:14 | DS ---
Physical Examination Vital Signs: Vital Signs Temperature 98 F 12/16/16 08:00 Pulse Rate 73 12/16/16 08:00 Respiratory Rate 18 12/16/16 08:00 Blood Pressure 133/58 12/16/16 08:00 O2 Sat by Pulse Oximetry (%) 95 12/16/16 08:22 Labs: CBC, BMP 12/16/16 06:20 12/16/16 06:20 Discharge Summary Reason For Visit: NEPHROSTOMY TUBE DISPLACEMENT Hospital Course: Nephrostomy tube dislodgement S/P Nephrostomy and ureteral stent placement Dr. Gamboa. Doing well. Nephrolithiasis Followed by Dr. Malloy. CT abdomen & pelvis reviewed DMITRY - Likely 2/2 obstructive uropathy - Re-insert nephrostomy tube HTN - Cont. home meds Hypothyroidism - Cont. synthroid HLD - Cont. lipitor Hypercalcemia - Outpatient workup FEN - IVF not indicated - Normal lytes - DM diet Prophylaxis - DVT: heparin Patient is stable to be discharged back to the [facility] Condition: Good - Instructions Disposition: [facility] - Home Medications Comprehensive Discharge Medication List: Ambulatory Orders Aa/Hydrolyzed Collagen, Whey [Lps Neutral Flavor Liquid] 30 ml PO DAILY Acetaminophen 650 mg PO Q6H PRN 08/07/16 Amlodipine Besylate [Norvasc -] 5 mg PO DAILY 08/07/16 Aspirin [ASA -] 81 mg PO DAILY 08/07/16 Atorvastatin Ca [Lipitor] 10 mg PO HS 08/07/16 Cyanocobalamin [Vitamin B12 -] 1,000 mcg PO DAILY 08/07/16 Diltiazem [Cardizem -] 30 mg PO TID 08/07/16 Furosemide [Lasix] 40 mg PO DAILY 08/07/16 Lactobacillus Acidophilus [Acidophilus] 1 each PO DAILY 08/07/16 Levothyroxine [Synthroid -] 50 mcg PO DAILY 08/07/16 Mag Hydrox/Al Hydrox/Simeth [Mylanta Oral Suspension -] 30 ml PO QID PRN Potassium Chloride 20 meq PO DAILY 08/07/16 Prochlorperazine Maleate 5 mg PO Q8H PRN 08/07/16 Sennosides [Senna] 17.2 mg PO HS 08/07/16 Tamsulosin HCl [Flomax] 0.4 mg PO DAILY 08/07/16 Hypromellose 0.5% Opth Soln [Artificial Tears] 1 drop OU BID 10/11/16 Insulin Sliding Scale [Novolog Vial Sliding Scale -] 1 vial SQ ACHS units 12/16 Oxycodone HCl [Roxicodone -] 5 mg PO Q8H PRN #30 tablet MDD 3 12/16/16
--- NOTE | 2016-12-16 13:14 | PN ---
Progress Note (short form) - Note Progress Note: S/P Neprostomy tube and ureteral stent placement. No acute event overnight. Afebrile. History Source: Patient Limitations to Obtaining History: No Limitations - Past Medical History CCO: Yes: Dementia Cardiovascular: Yes: Aortic Insufficiency, CAD, HTN, Hyperlipdemia Gastrointestinal: Yes: Diverticulitis Renal/: Yes: UTI (ESBL+) Infectious Disease: Yes: Other (UTI) Musculoskeletal: Yes: Other (frequent falls) Endocrine: Yes: Hypothyroidism - Past Surgical History Past Surgical History: Yes: CABG, Stent (unknown details of coronary stent) - Smoking History Smoking history: Never smoked Have you smoked in the past 12 months: No Aproximately how many cigarettes per day: 0 - Alcohol/Substance Use Hx Alcohol Use: No - Social History 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 Home Medications - Allergies Allergies/Adverse Reactions: Allergies Allergy/AdvReac Type Severity Reaction Status Date / Time Penicillins Allergy Verified 10/11/16 02:08 - Home Medications Home Medications: Ambulatory Orders Aa/Hydrolyzed Collagen, Whey [Lps Neutral Flavor Liquid] 30 ml PO DAILY Acetaminophen 650 mg PO Q6H PRN 08/07/16 Amlodipine Besylate [Norvasc -] 5 mg PO DAILY 08/07/16 Aspirin [ASA -] 81 mg PO DAILY 08/07/16 Atorvastatin Ca [Lipitor] 10 mg PO HS 08/07/16 Cyanocobalamin [Vitamin B12 -] 1,000 mcg PO DAILY 08/07/16 Diltiazem [Cardizem -] 30 mg PO TID 08/07/16 Furosemide [Lasix] 40 mg PO DAILY 08/07/16 Lactobacillus Acidophilus [Acidophilus] 1 each PO DAILY 08/07/16 Levothyroxine [Synthroid -] 50 mcg PO DAILY 08/07/16 Mag Hydrox/Al Hydrox/Simeth [Mylanta Oral Suspension -] 30 ml PO QID PRN Potassium Chloride 20 meq PO DAILY 08/07/16 Prochlorperazine Maleate 5 mg PO Q8H PRN 08/07/16 Sennosides [Senna] 17.2 mg PO HS 08/07/16 Tamsulosin HCl [Flomax] 0.4 mg PO DAILY 08/07/16 Hypromellose 0.5% Opth Soln [Artificial Tears] 1 drop OU BID 10/11/16 Meropenem [Merrem (Restricted To Id) -] 1 gm IVPB BID #25 vial 10/14/16 Review of Systems - Review of Systems Constitutional: reports: No Symptoms Eyes: reports: No Symptoms HENT: reports: No Symptoms Neck: reports: No Symptoms Cardiovascular: reports: No Symptoms Respiratory: reports: No Symptoms Gastrointestinal: reports: No Symptoms Genitourinary: reports: No Symptoms Musculoskeletal: reports: No Symptoms Integumentary: reports: No Symptoms Neurological: reports: No Symptoms Endocrine: reports: No Symptoms Hematology/Lymphatic: reports: No Symptoms Physical Examination Vital Signs: Vital Signs Period Temp Pulse Resp BP Sys/Donovan Pulse Ox Last 24 Hr 98 F-98.1 F 73-74 17-19 130-133/52-59 95-96 Constitutional: Yes: No Distress Eyes: Yes: Conjunctiva Clear, EOM Intact HENT: Yes: Atraumatic, Normocephalic Neck: Yes: Supple Cardiovascular: Yes: Regular Rate and Rhythm, S1, S2 Respiratory: Yes: CTA Bilaterally Gastrointestinal: Yes: Normal Bowel Sounds, Distention. No: Hepatomegaly, Splenomegaly, Tenderness Renal/: Yes: Other (L nephrostomy tube site clean looking, non-erythematous, non-tender). No: CVA Tenderness - Left, CVA Tenderness - Right Edema: No Neurological: Yes: Alert, Oriented, Cran Nerves II-XII Intact Labs: CBC, BMP 12/16/16 06:20 12/16/16 06:20 Assessment/Plan Nephrostomy tube dislodgement S/P Nephrostomy and ureteral stent placement Dr. Gamboa. Doing well. Nephrolithiasis Followed by Dr. Malloy. CT abdomen & pelvis reviewed DMITRY - Likely 2/2 obstructive uropathy - Re-insert nephrostomy tube HTN - Cont. home meds Hypothyroidism - Cont. synthroid HLD - Cont. lipitor Hypercalcemia - Outpatient workup FEN - IVF not indicated - Normal lytes - DM diet Prophylaxis - DVT: heparin Patient is stable to be discharged back to the [facility]
== END 2016-12-16 12:35 ==
LOC: JER 23:39 → JERBED 12-12 01:53 → UNDOADMOB 12-12 02:13 → J6S 12-12 23:59
PROVIDERS: ADMIT Internal Medicine; ATTEND Internal Medicine Geriatric Medicine
PROC: 0T25X0Z Change Drainage Device in Kidney, External Approach (ICD-10-PCS; principal; 2016-12-12)
PROC: 0T7D8DZ Dilation of Urethra with Intraluminal Device, Via Natural or Artificial Opening Endoscopic (ICD-10-PCS; 2016-12-12)
PROC: 0T777DZ Dilation of Left Ureter with Intraluminal Device, Via Natural or Artificial Opening (ICD-10-PCS; 2016-12-12)
PROC: 3E03329 Introduction of Other Anti-infective into Peripheral Vein, Percutaneous Approach (ICD-10-PCS; 2016-12-12)
PROC: 3E013GC Introduction of Other Therapeutic Substance into Subcutaneous Tissue, Percutaneous Approach (ICD-10-PCS; 2016-12-12)
DX: T83.022A Displacement of nephrostomy catheter, initial encounter (principal); N13.39 Other hydronephrosis; Y83.8 Other surgical procedures as the cause of abnormal reaction of the patient, or of later complication, without mention of misadventure at the time of the procedure; Y92.9 Unspecified place or not applicable; N17.9 Acute kidney failure, unspecified; I10 Essential (primary) hypertension; E78.5 Hyperlipidemia, unspecified; E03.9 Hypothyroidism, unspecified; E83.52 Hypercalcemia; I25.10 Atherosclerotic heart disease of native coronary artery without angina pectoris; I25.2 Old myocardial infarction; J44.9 Chronic obstructive pulmonary disease, unspecified; F03.90 Unspecified dementia, unspecified severity, without behavioral disturbance, psychotic disturbance, mood disturbance, and anxiety; F39 Unspecified mood [affective] disorder; K21.9 Gastro-esophageal reflux disease without esophagitis; Z79.82 Long term (current) use of aspirin; D51.9 Vitamin B12 deficiency anemia, unspecified; Z95.1 Presence of aortocoronary bypass graft; Z95.5 Presence of coronary angioplasty implant and graft; Z87.440 Personal history of urinary (tract) infections; Z88.0 Allergy status to penicillin
CPT/HCPCS: 36415; 50432; 50435; 50693; 52282; 71010-TC; 74176-TC; 80048; 80053; 85025; 85027; 85610; 85730; 86850; 86900; 86901; 90688; 93005; 93010; 96365; 96372; 99284-25; 99285-25; A4358; C1729; C1769; C1887; G0008; G0378; J1644

== ENCOUNTER 2017-05-28 06:37 | Day surgery (SDC) | payer OTHER ==
[2017-05-26 14:04] VITALS: BMI 24.7
[2017-05-28] MEDS ORDERED: PROPOFOL 20 ML ONE (08:43)
[2017-05-28] MEDS ORDERED: LIDOCAINE HCL/PF 2% SDV 5ML VIAL ONE (08:43)
[2017-05-28] MEDS ORDERED: oxyCODONE HCL 5 MG TABLET PO PRN ×2 (09:41→09:55)
--- NOTE | 2017-05-28 09:41 | OP ---
Operative Note - Note: Operative Date: 05/28/17 Pre-Operative Diagnosis: encrusted left stent/bladder stone Findings: same plus left upj stone Post-Operative Diagnosis: Same as Pre-op Surgeon: Artur Patel Anesthesia: General Estimated Blood Loss (mls): 5 Operative Report Dictated: Yes
[2017-05-28] MEDS ORDERED: ELECTROLYTE-148 SOLN 1,000 ML IV SCH (09:45)
[2017-05-28] MEDS ORDERED: ONDANSETRON 4 MG/2 ML VIAL IVPUSH PRN (09:55)
[2017-05-28] MEDS ORDERED: PROMETHAZINE HCL 25 MG/1 ML VIAL IVPUSH PRN (09:55)
[2017-05-28] MEDS ORDERED: LACTATED RINGERS SOLUTION 1,000 ML IV SCH (10:00)
[2017-05-28 10:24] VITALS: TEMP 98.2
--- NOTE | 2017-05-28 10:33 | OP ---
DATE OF OPERATION: 05/28/2017 PREOPERATIVE DIAGNOSIS: Bladder stone from an encrusted left ureteral stent. POSTOPERATIVE DIAGNOSIS: Bladder stone from an encrusted left ureteral stent, plus left ureterovesical junction stone. PROCEDURE: Cystoscopy, laser lithotripsy of bladder stone, removal of left ureteral stent, left ureteroscopy and laser lithotripsy of kidney stone and replacement of the stent. SURGEON: Artur Patel MD INDICATIONS: Patient is an 89-year-old female with recurrent nephrolithiasis. She had a nephrostomy tube and stent internalized several months ago for an obstructing stone. We said it was to be removed in the office, but noted on cystoscopy to be encrusted, and so, planned to do this in the operating room. DESCRIPTION OF PROCEDURE: The patient was taken to the OR, placed supine on the table. With cardiac monitoring administered and general anesthesia established, she was prepped and draped in dorsal lithotomy position. She had been receiving vancomycin and ceftriaxone at the custodial. At this point, the rigid cystoscope was introduced without difficulty, anchored to bladder. There was a large bladder stone noted that was attached to the stent in encrustation. Using the 500 micron laser fiber, this was pulverized to fine dust and 2-3-mm fragments, and these were removed with FlipKeyik evacuator. With this done, the stent was grasped with the grasper and removed in its entirety under active fluoroscopy, and there was no resistance there. At this point, the flexible ureteroscope was advanced to inspect the entire ureter. Ureter was inspected, no stone, but at the UVJ there was an approximately 7-8-mm stone noted. Using the 365 micron laser fiber, it was pulverized to fine dust and 1-2-mm fragments, and then, ureteroscope was then removed, and a new 7-Kinyarwanda 24-cm stent placed in a monorail fashion. Fluoroscopy confirmed this stent to be in good position. Patient was awoken from anesthesia and transferred to recovery room in stable condition. There were no complications. ESTIMATED BLOOD LOSS: Minimal. Radha [id number]
[2017-05-28 14:08] VITALS: BP 136/69; PULSE 75
--- NOTE | 2017-05-31 15:59 | PATH ---
Surgical Pathology Report Patient Name: GARTH NANCE [facility]. Rec. #: [id number] /Age/Gender: 1925 (Age: 89) / F Account: [id number] Location: [facility] Taken: 05/28/2017 Received: 05/28/2017 Reported: 05/31/2017 Physicians: Artur Patel M.D. Specimen(s) Received A: URETERAL STENT B: URETERAL STONE Clinical History Urethral stone Final Diagnosis A. URETERAL STENT, REMOVAL: URETERAL STENT, MACROSCOPIC DIAGNOSIS. B. URETERAL STONE, REMOVAL: URETEROLITHIASIS. MACROSCOPIC DIAGNOSIS Electronically Signed Nicole Lizarraga M.D. Gross Description A. Received fresh labeled "ureteral stent," is a 39 cm in length white, coiled portion of tubing, consistent with a ureteral stent. No soft tissue is present. No sections are submitted, gross only. B. Received fresh labeled "ureteral stone," is a 3.0 x 1.8 x 0.4 cm aggregate of coleman, irregular to fragmented calculi. The specimen is sent for chemical analysis. /05/28/2017 saudi05/28/2017
== END 2017-05-28 15:20 ==
LOC: JASU-SURG 06:37
PROVIDERS: ATTEND Urology
PROC: 0TCB8ZZ Extirpation of Matter from Bladder, Via Natural or Artificial Opening Endoscopic (ICD-10-PCS; principal; 2017-05-28 08:00)
PROC: 0TF78ZZ Fragmentation in Left Ureter, Via Natural or Artificial Opening Endoscopic (ICD-10-PCS; 2017-05-28 08:00)
PROC: 0T778DZ Dilation of Left Ureter with Intraluminal Device, Via Natural or Artificial Opening Endoscopic (ICD-10-PCS; 2017-05-28 08:00)
DX: N21.0 Calculus in bladder (principal); N20.1 Calculus of ureter; N20.0 Calculus of kidney
CPT/HCPCS: 36415; 76000-TC-FY; 82360; 88300-TC; 94760